=== PATIENT | female | born 1980 | race Caucasian/White ===

== ENCOUNTER 2023-09-29 21:54 | Inpatient (IN) | payer MEDICARE, OTHER, SELFPAY ==
[2023-09-29 22:01] VITALS: BP 180/110; PULSE 105; O2SAT 99
--- NOTE | 2023-09-29 22:16 | ED_ITS ---
HPI - Psych General Chief Complaint: Psychiatric Symptoms Stated Complaint: AUDITORY HALLUCINATIONS,CONF Time Seen by Provider: 09/29/23 22:05 Source: patient Mode of arrival: EMS Limitations: no limitations History of Present Illness HPI Narrative: Patient comes to the emergency room via ambulance. [place] [address] Patient told PD that she loves her condo in [place] where she was getting ?confused and scared?. Patient was suspicious that EMS on the PD were trying to hurt her. According to EMS, they suspected that patient had been wandering around the overlook. Patient states that she lost her car keys even though she had with her. Patient seemed to be suspicious and acting a bit erratic. Patient here in the emergency room stating, not answering any questions, covered herself with a blanket and curled into bed Related Data Allergies Allergy/AdvReac Type Severity Reaction Status Date / Time fish derived [fish] Allergy Unknown Verified 09/29/23 23:05 Review of Systems 2 Review of Systems: Yes Unobtainable due to mental status COUNTS INCLUDE 234 BEDS AT THE [facility] Past Medical History Medical History (Updated 09/29/23 @ 23:38 by Maye Harvey MD) Schizoaffective disorder Social History Social History Advance Directives: No Advance Directives Information Provided: No Physical Exam 2 Vital Signs: Vital Signs: Last Vital Signs Temp 98.1 F 09/29/23 22:52 Pulse 91 09/29/23 22:52 Resp 18 09/29/23 22:52 BP 152/72 H 09/29/23 22:52 Pulse Ox 96 09/29/23 22:52 O2 Del Method Room Air 09/29/23 22:52 BMI result Body Mass Index 40.4 Const: Other: Appearance: Alert. Answers questions very quietly to the point that no one can hear, then covered herself with a blanket and goes to sleep Eyes: Pupils equal, round and reactive to light. ENT: Pharynx normal. Neck: Normal inspection. Neck supple. No lymph nodes noted. No crepitus CVS: Normal heart rate and rhythm. Pulses normal. Normal S1 and S2 Respiratory: No respiratory distress. Breath sounds normal. No Wheezing. No rales Abdomen: Soft and nontender. No rigidity. No distention. Skin: Skin warm and dry. Normal skin color. Normal skin turgor. Extremities: No lower extremity edema. No Lacerations. No Rash Neuro: . CN 2 through 12 grossly intact Psych: calm, a bit agitated, was herself in bed, taking her clothes off in the middle of the hallway and then throws herself in bed Course Course Course Narrative: -patient is on a Section 12 -care team consult pending Medical Decision Making Medical Decision Making [facility] Narrative: -my interpretation of labs: Hematology shows an elevated white blood cell count of 13.9, chemistry within normal limits. LFTs within normal limits, hCG negative ETOH negative -urinalysis pending -patient is on a Section 12 -care team consult pending Differential Diagnosis Differential Diagnoses: The differential diagnosis associated with the presentation includes (Is affective disorder, paranoia, polysubstance abuse) Admission/Observation Consideration of admission/observation: Escalation of care including admission/observation considered (Patient is on a Section 12 waiting to be seen by the care team. ) Lab Data [facility] Lab Attestation statement: I reviewed the patient's lab results. 09/29/23 22:53 09/29/23 22:53 Labs: Lab Results 09/29/23 Range/Units 22:53 WBC 13.9 H (4.8-10.8) X10*3/uL RBC 4.83 (4.20-5.50) X10*6/uL Hgb 13.8 (12.0-16.0) g/dl Hct 41.2 (37.0-47.0) % MCV 85.3 (80.0-98.0) fL MCH 28.6 (27.0-33.0) pg MCHC 33.5 (31.0-35.0) g/dl RDW 14.5 (11.0-16.0) % Plt Count 186 (160-400) X10*3/uL MPV 9.7 (9.4-12.3) fL Immature Gran % (Auto) 0.5 H (0.0-0.4) % Neut % (Auto) 72.4 (45-73) % Lymph % (Auto) 18.7 L (20-40) % [place] % (Auto) 7.7 (2-11) % Eos % (Auto) 0.4 (0-4) % Baso % (Auto) 0.3 (0-2) % Lymph # (Auto) 2.6 (1.2-4.9) X10*3/uL [place] # (Auto) 1.1 (0.1-1.2) X10*3/uL Eos # (Auto) 0.1 (0.0-0.4) X10*3/uL Baso # (Auto) 0.0 (0.0-0.2) X10*3/uL Abs Immat Gran (auto) 0.07 H (0.00-0.03) X10*3/uL Absolute Neuts (auto) 10.1 H (2.0-8.3) x10*3/uL Absolute Nucleated RBC 0.000 (0.0-0.012) X10*3/uL Nucleated RBC % (auto) 0.0 (0.0-0.2) /100WBC Sodium 142 (135-145) mmol/L Potassium 3.5 (3.3-5.1) mmol/L Chloride 106 (96-108) mmol/L Carbon Dioxide 24 (22-29) mmol/L Anion Gap 16 (12-20) BUN 11 (9-16) mg/dL Creatinine 0.77 (0.5-1.4) mg/dL Estim Creat Clear Calc 109.3 Estimated GFR > 60 Random Glucose 105 (60-115) mg/dL Calcium 9.4 (8.4-10.2) mg/dL Total Bilirubin 0.5 (0.0-1.0) mg/dL Direct Bilirubin 0.2 (0.0-0.5) mg/dL AST 28 (5-31) U/L ALT 21 (0-31) U/L Alkaline Phosphatase 87 (39-117) U/L Total Protein 6.8 (6.5-8.0) g/dL Albumin 4.0 (3.5-5.0) g/dL Beta HCG, Quant < 2 mIU/mL Ethyl Alcohol < 10 mg/dL COVID-19 ([facility]) Negative (Negative) COVID-19 Clin Com See Note Critical Care Time Critical Care Time Critical Care Time: Yes Total Critical Care Time: 30 Attestation: I have personally provided critical care time. Time includes review of lab data, radiology results, discussion with consultants, and monitoring for potential decompensation. Intervention performed as documented. Discharge Plan Discharge Clinical Impression: Schizoaffective disorder Patient Disposition: Still a Patient
[2023-09-29 22:52] VITALS: BP 152/72; PULSE 91; RESP 18; TEMP 36.7; O2SAT 96; BMI 40.4
[2023-09-29 23:00] LABS: MANUAL DIFF FLAG NO
[2023-09-29 23:01] LABS: Basophils Percent Auto 0.3 % (0-2); Eosinophils Absolute Auto 0.1 X10*3/uL (0.0-0.4); Eosinophils Percent Auto 0.4 % (0-4); Hematocrit 41.2 % (37.0-47.0); Hemoglobin 13.8 g/dl (12.0-16.0); Imm Gran Abs Auto 0.07 X10*3/uL (0.00-0.03); Imm Gran Pct Auto 0.5 % (0.0-0.4); Lymphocytes Absolute Auto 2.6 X10*3/uL (1.2-4.9); Lymphocytes Percent Auto 18.7 % (20-40); Mean Corpuscular HGB Conc 33.5 g/dl (31.0-35.0); Mean Corpuscular Hemoglobin 28.6 pg (27.0-33.0); Mean Corpuscular Volume 85.3 fL (80.0-98.0); Mean Platelet Volume 9.7 fL (9.4-12.3); Monocytes Absolute Auto 1.1 X10*3/uL (0.1-1.2); Monocytes Percent Auto 7.7 % (2-11); Neutrophils Absolute Auto 10.1 x10*3/uL (2.0-8.3); Neutrophils Percent Auto 72.4 % (45-73); Platelet Count 186 X10*3/uL (160-400); Red Blood Count 4.83 X10*6/uL (4.20-5.50); Red Cell Distribution Width 14.5 % (11.0-16.0); White Blood Count 13.9 X10*3/uL (4.8-10.8)
[2023-09-29 23:15] LABS: COVID-19 Test Negative (Negative); Ethanol < 10 mg/dL; IDNOW Serial# 6674DD1D
[2023-09-29 23:22] LABS: Alanine Aminotransferase 21 U/L (0-31); Alkaline Phosphatase 87 U/L (39-117); Anion Gap 16 (12-20); Aspartate Amino Transferase 28 U/L (5-31); Bilirubin Direct 0.2 mg/dL (0.0-0.5); Bilirubin Total 0.5 mg/dL (0.0-1.0); Blood Urea Nitrogen 11 mg/dL (9-16); Calcium 9.4 mg/dL (8.4-10.2); Carbon Dioxide 24 mmol/L (22-29); Chloride 106 mmol/L (96-108); Creatinine Clr Calc Pharmacy 109.3; Estimated Glomerular Filt Rate > 60; Glucose Random 105 mg/dL (60-115); Potassium 3.5 mmol/L (3.3-5.1); Sodium 142 mmol/L (135-145); Total Protein 6.8 g/dL (6.5-8.0)
[2023-09-29 23:25] LABS: HCG Quantitative < 2 mIU/mL
[2023-09-30 06:14] VITALS: BP 155/86; PULSE 84; RESP 16; TEMP 36.6; O2SAT 97
--- NOTE | 2023-09-30 06:40 | PC.NURSE ---
this RN escorted pt to the bathroom; patient provided a urine sample but then proceeded to dump it in the toilet rather than handing it to this RN. pt then began to disrobe while in the bathroom. this RN had to give patient many verbal cues in order to get dressed again.
--- NOTE | 2023-09-30 07:14 | PC.NURSE ---
pt is wiping herself with bleach wipes off the counter. when told not to do this she appears confused. pt is also wandering the hallway and attempting to disrobe again. requires frequent redirection.
--- NOTE | 2023-09-30 09:47 | PC.NURSE ---
pt comes to this RN reporting that she is scared and unsure of what is happening. This RN validated patients feelings and explained the situation. Pt does appears disoriented, speech is soft, eye contact is limited. Pt verbalizes that she has not taken any medications for a very long time . Pt denies SI/HI
[2023-09-30 15:58] LABS: Appearance Urine Cloudy; Color Urine Dark Yellow; Glucose Urine UA Negative (Negative); Leukocyte Esterase Urine Negative (Negative); Nitrite Urine Negative (Negative); PH 5.5 (5.0-9.0); Specific Gravity - Urine >= 1.030 (1.005-1.025); UMIC TRIGGER UACC YES; Urine Blood Negative (Negative); Urine Ketones 15 mg/dL (Negative); Urine Protein 100 (2+) mg/dL (Neg-Trace)
[2023-09-30 16:08] LABS: Amphetamine Screen Urine Not Detected (Not Detect); Barbiturates, Urine Not Detected (Not Detect); Benzodiazepines Screen Urine Not Detected (Not Detect); Cannabinoid Screen Urine POSITIVE (Not Detect); Cocaine Screen Urine Not Detected (Not Detect); Fentanyl, urine Not Detected (Not Detect); Opiate Screen Urine Not Detected (Not Detect); Phencyclidine Screen Urine Not Detected (Not Detect)
[2023-09-30 16:13] LABS: Bacteria Urine 2+ (None Seen); RBC Urine 0-2 /HPF (0-2); WBC Urine 0-5 /HPF (0-5)
--- NOTE | 2023-09-30 19:17 | MHC.CARE ---
CARE TEAM spoke with patient's cousin, Maddie Stout ([phone]) who reported patient's aunt Veronica Sauer will be driving two hours to [facility] to fern picker patient's house keys.She expressed concerns about patient not willing to give the keys to their aunt due to paranoia. Cousin reported wiliness to provide support, via phone, to get her to give the keys. [place] were confirmed and are at the nurse's station, in chart.
[2023-09-30 19:47] VITALS: BP 156/81; PULSE 86; RESP 18; TEMP 36.4; O2SAT 99
--- NOTE | 2023-09-30 22:51 | MHC.CARE ---
RAD Team conducted [place] bed[place], referral being reviewed by [facility], [facility] and [facility]. RAD team to f/u with facilities to see outcome
[2023-10-01 05:15] VITALS: BP 136/60; PULSE 78; RESP 18; TEMP 36.6; O2SAT 97
--- NOTE | 2023-10-01 06:18 | PC.NURSE ---
Patient slept through the night, no distress observed/reported, VSS, behavior non concerning at this time, med rec attempted but pharmacy closed, patient use [facility] in [place] opens at 8.30 am, pharmacy made aware, patient was assessed by care team, disposition is section 12 inpatient bed search, will continue to monitor.
[2023-10-01 08:31] LABS: COVID-19 Test Negative (Negative); IDNOW Serial# 152EDE1D
--- NOTE | 2023-10-01 08:40 | PC.NURSE ---
pt states that she does not take any meds , eating breakfast, nad
[2023-10-01] MEDS: risperiDONE Oral Sol 1 MG/ML SOLUTION PO ×2 (11:53→21:44)
[2023-10-01] MEDS: LORazepam 0.5 MG TABLET PO ×2 (11:53→21:44)
--- NOTE | 2023-10-01 12:08 | PC.NURSE ---
pt signed voluntary to go upstairs. medicated as ordered
[2023-10-01 13:37] VITALS: BP 182/95; PULSE 118; RESP 16; TEMP 36.7; O2SAT 100
--- NOTE | 2023-10-01 13:42 | PC.NURSE ---
Pt arrived on the unit on a CV via wheelchair. Skin check performed. multi-colored wound on left breast noted, BP 182/95, pulse 118. Provider CAW notified via email as her cell phone is having problems, per provider. Pt also has scratches on forearms. Pt's was oriented to unit and menu for this evening and tomorrow completed. Admission to be completed.
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
[2023-10-01 18:00] VITALS: BP 125/71; PULSE 104; RESP 16; TEMP 36.7; O2SAT 98
[2023-10-02 06:00] VITALS: BP 136/63; PULSE 99; RESP 18; TEMP 36.4; O2SAT 97
[2023-10-02] MEDS: risperiDONE Oral Sol 1 MG/ML SOLUTION PO ×2 (08:25→20:02)
[2023-10-02] MEDS: LORazepam 0.5 MG TABLET PO ×2 (08:25→20:02)
[2023-10-02 09:32] LABS: Estimated Average Glucose 97 mg/dL
[2023-10-02 10:08] LABS: Cholesterol 174 mg/dL (<200); HDL Cholesterol 55 mg/dL (>40); LDL Cholesterol Calculated 103 mg/dL (<100); Triglycerides 82 mg/dL (<150)
[2023-10-02 10:27] LABS: Free T4 (Free Thyroxine) 1.24 ng/dL (0.71-1.85); Thyroid Stimulating Hormone 1.56 uIU/mL (0.32-4.0)
[2023-10-02 10:32] LABS: Folate 6.4 ng/mL (> or = 4.0); Vitamin B12 362 pg/mL (200-900)
--- NOTE | 2023-10-02 11:18 | PM.EVENT ---
Event Note Date of Service: 10/02/23 Event Note: Patient is a 43-year-old female with a PMH significant for schizoaffective disorder seen and evaluated for uncontrolled hypertension. Patient's BP on the unit yesterday was 182/95, but otherwise has been normotensive. Past readings in the ED were elevated in the 150s over 80s. Unclear if patient is chronically hypertensive, but most recent readings last night and today were normotensive at 125/71 and 136/63. Patient seen and evaluated in her room where blood pressure was again taken and patient was normotensive at 135/73. Patient reports that she thinks she may have previously been on clonidine that she took for both anxiety and hypertension, but has not been it quite a while. Currently no indication intervention at this time. Patient currently has had 3 concurrent normotensive readings from yesterday and today. If patient has sustained hypertension in the future, could consider trialing low dose of clonidine 0.1 mg or amlodipine 5 mg. Thank you for allowing us to participate in the care of this patient. Signing off at this time. Please re-consult if any acute complaints or issues arise. Time Spent With Patient Time: Total time managing care of this patient today ____ minutes.
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
[2023-10-02] MEDS: guaiFENesin DM 100/10/5 ML 5 ML SYRUP PO ×2 (12:05→20:02)
[2023-10-02 19:45] VITALS: BP 136/78; PULSE 119; RESP 18; TEMP 36.2; O2SAT 97
[2023-10-03 06:00] VITALS: BP 155/67; PULSE 94; RESP 18; TEMP 37.3; O2SAT 94
[2023-10-03] MEDS: risperiDONE Oral Sol 1 MG/ML SOLUTION PO ×2 (09:21→20:49)
[2023-10-03] MEDS: Bacitracin Oint 14 GM TUBE 1 APPL TOPICAL ×2 (09:21→20:49)
[2023-10-03] MEDS: LORazepam 0.5 MG TABLET PO ×2 (09:21→20:49)
[2023-10-03] MEDS: Acetaminophen 325 MG TABLET 650 MG PO ×2 (09:31→20:48)
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
[2023-10-03] MEDS: guaiFENesin DM 100/10/5 ML 5 ML SYRUP PO ×2 (15:15→20:49)
[2023-10-03 16:52] VITALS: BP 114/57; PULSE 85; RESP 20; TEMP 37.2; O2SAT 100
[2023-10-04 06:00] VITALS: BP 136/90; PULSE 86; RESP 18; TEMP 37.1; O2SAT 97
[2023-10-04] MEDS: LORazepam 0.5 MG TABLET PO ×2 (08:29→20:57)
[2023-10-04] MEDS: risperiDONE Oral Sol 1 MG/ML SOLUTION PO ×2 (08:29→20:56)
[2023-10-04] MEDS: Acetaminophen 325 MG TABLET 650 MG PO (12:20)
[2023-10-04] MEDS: guaiFENesin DM 100/10/5 ML 5 ML SYRUP PO (12:20)
[2023-10-04] MEDS: Bacitracin Oint 14 GM TUBE 1 APPL TOPICAL ×2 (12:23→21:03)
--- NOTE | 2023-10-04 13:22 | P.PNPSI_ITS ---
Subjective Subjective Date of Service: 10/04/23 Reason For Visit: Psychosis Interim History: Patient reports she is tired and just achy. She is more alert. Says her hallucinations are subsiding. Denies SI/HI. Was seen getting out of her room today more than yesterday. No side effects with medications reported. Sleep and appetite good. Medication Compliance: Yes Review of Systems Review of Systems Constitutional : No Weight loss, No Fever, No Chills, No Night Sweats, No Fatigue, No Malaise ENT/Mouth : No Hearing loss, No Ear Pain, No Nasal Congestion, No Sinus Pain, No Hoarseness, No sore throat, No Rhinorrhea, No Swallowing Difficulty Eyes: No Eye Pain, No Swelling, No Redness, No Foreign Body, No Discharge, No Vision Changes Cardiovascular : No Chest Pain, No SOB, No Dyspnea on Exertion, No Orthopnea, No Edema, No Palpitations Respiratory : No Cough, No Sputum, No Wheezing, No Smoke Exposure, No Dyspnea Gastrointestinal : No Nausea, No Vomiting, No Diarrhea, No Constipation, No abdominal Pain, No Hematochezia, No Melena Genitourinary : no irregular bleeding, No Dysuria, No Urinary Frequency, No Hematuria, No Urinary Incontinence, No Urgency, No Flank Pain, No Urinary Flow Changes, No Hesitancy Musculoskeletal : No joint pain, No Myalgias, No Joint Swelling Skin :1/2 cm red round lesion on left breast, Lesions, No rash Neuro : No Weakness, No Numbness, No Paresthesias, No Loss of Consciousness, No Dizziness, No Headache Psych : No Anxiety/Panic, No Depression, No SI/HI/AH/VH, No Social Issues, Heme/Lymph: No Bruising, No Bleeding,No Lymphadenopathy Endocrine : No Polyuria, No Polydipsia, No Temperature Intolerance Yes Unobtainable due to mental status Mental Status Exam Mental Status Exam Patient Appearance: Disheveled and Unkempt Patient Orientation: Person, Place, Time and Situation Level of Consciousness: Awake and Restless Patient Behavior: Guarded, Cooperative, Suspicious, Anxious, Fearful, Distractible and Poor Eye Contact Mood Description: Suspicious, Depressed, Anxious and Apprehensive Affect Description: Fearful, Anxious and Apprehensive Patient Cognition Impaired: Yes Ability to Follow Directions: Good Speech Pattern: Clear and Long Pauses Hallucinations: Auditory Thought Process: Slowed Thinking Judgement: Poor Diagnostics Vital Signs (24Hr): Vital Signs - 24 hr 10/03/23 16:52 10/04/23 06:00 Temperature 99 F 98.8 F Pulse Rate 85 86 Respiratory Rate 20 18 Blood Pressure 114/57 L 136/90 H Pulse Oximetry 100 97 Oxygen Delivery Method Room Air BMI result Body Mass Index 40.4 Labs 09/29/23 22:53 09/29/23 22:53 Medications Medications Current Medications Acetaminophen (Acetaminophen 325 Mg Tablet) 650 mg PO Q6H PRN PRN Reason: Headache/Pain Mild Scale (1-3) Last Admin: 10/04/23 12:20 Dose: 650 mg Al Hydroxide/Mg Hydroxide (Magnesium Hydrox/Alum Hydrox 30 Ml Oral.Susp) 30 ml PO Q6H PRN PRN Reason: Heartburn/Nausea Bacitracin (Bacitracin Oint 14 Gm Tube) 1 appl TOPICAL BID [facility]; Protocol Last Admin: 10/04/23 12:23 Dose: 1 appl Guaifenesin/Dextromethorphan (Guaifenesin Dm 100/10/5 Ml 5 Ml Syrup) 5 ml PO Q4H PRN PRN Reason: Cough Last Admin: 10/04/23 12:20 Dose: 5 ml Hydroxyzine HCl (Hydroxyzine Hcl 25 Mg Tablet) 25 mg PO Q6H PRN PRN Reason: Anxiety Lorazepam (Lorazepam 0.5 Mg Tablet) 0.5 mg PO BID [facility] Last Admin: 10/04/23 08:29 Dose: 0.5 mg Magnesium Hydroxide (Milk Of Magnesia 30 Ml Oral.Susp) 30 ml PO DAILY PRN PRN Reason: Constipation Risperidone (Risperidone Oral Tarsha 1 Mg/Ml Solution) 1 mg PO BID [facility] Last Admin: 10/04/23 08:29 Dose: 1 mg Trazodone HCl (Trazodone Hcl 50 Mg Tablet) 50 mg PO BEDTIME MRX1 PRN PRN Reason: Insomnia Allergies Allergies Allergy/AdvReac Type Severity Reaction Status Date / Time fish derived [fish] Allergy Unknown Verified 09/29/23 23:05 Assessment & Plan Assessment & Plan (1) Schizoaffective disorder: Status: Acute Code(s): F25.9 - Schizoaffective disorder, unspecified (2) Paranoid: Status: Acute Code(s): F22 - Delusional disorders Plan 43 yo single woman with Schizoaffective Disorder who lives alone in a condo in [place] admitted m5 after being brought to [facility] ED by police who found her wandering in [place]; She is on CV and 15 min checks. pt states she stopped her meds a few months ago. States she hasn't seen therapist and medication provider since March 2023. She states she hear voices and they insult her and are critical and mean to her. she reports being on lithium, latuda and seroquel in past but even on medication she continued to have voices. She does not want to restart lithium, latuda or seroquel but is vague about why not- says she wants to take vitamins and have a clear head. Pt states that she is often scared and fearful; believes people are watching her; fearful that people are trying to kill her. endorses depression and anxiety. denies SI or HI. PlanCV 15 min checks continue risperdal 1mg BID and ativan for anxiety [facility] consult pending robitussin for cough bacitracin for reddened area on left breast collect collateral information 10/03: Continue current treatment plan. Medications just restarted. 10/04: Continue current management and treatment plan. Reason for continued inpatient stay Substantial Risk for: inability to function and rapid decompensation Time Spent With Patient Time: Total time managing care of this patient today ____ minutes.
[2023-10-04] MEDS: Throat Lozenge, Medicated LOZENGE 1 LOZENGE MUCOUS MEM (16:04)
[2023-10-04] MEDS: Artificial Tears 15 ML DROPS 2 DROP EYE-BOTH (16:13)
[2023-10-04 17:02] VITALS: BP 137/83; PULSE 82; RESP 18; TEMP 36.7; O2SAT 99
[2023-10-05 07:30] VITALS: BP 134/83; PULSE 100; RESP 18; TEMP 36.9; O2SAT 97
[2023-10-05] MEDS: risperiDONE Oral Sol 1 MG/ML SOLUTION PO ×2 (08:27→20:48)
[2023-10-05] MEDS: LORazepam 0.5 MG TABLET PO ×2 (08:27→20:48)
[2023-10-05] MEDS: Throat Lozenge, Medicated LOZENGE 1 LOZENGE MUCOUS MEM ×2 (13:48→22:09)
[2023-10-05] MEDS: guaiFENesin DM 100/10/5 ML 5 ML SYRUP PO ×2 (13:48→22:05)
[2023-10-05] MEDS: Bacitracin Oint 14 GM TUBE 1 APPL TOPICAL ×2 (13:59→20:54)
[2023-10-05 17:07] VITALS: BP 133/74; PULSE 95; RESP 18; TEMP 36.7; O2SAT 97
--- NOTE | 2023-10-05 17:44 | P.PNPSI_ITS ---
Subjective Subjective Date of Service: 10/05/23 Reason For Visit: Psychosis Subjective Notes: Conditional Voluntary Healthcare Proxy: No Guardianship: No Medical Problems Affecting Mental Status: No Interim History: Pt reports she was able to get extra sleep this weekend. Reports anxiety, depression, voices somewhat decreased-describes voices at hurtful, sad, people she knows, voices telling her they will choke her and talking about . Satisfied with current Risperdal dosing Has a cough she is concerned about, she thinks it may be bronchitis. Talked about issues with trust- I want to trust all of you. Medication Compliance: Yes Side effects from medications: No Attending Groups: Intermittent Review of Systems Acute medical concerns: No Medical Review of Systems: unchanged Review of Systems Review of Systems cough, respiratory sx Mental Status Exam Mental Status Exam Patient Appearance: Disheveled and Unkempt Patient Orientation: Person, Place, Time and Situation Level of Consciousness: Awake and Restless Patient Behavior: Guarded, Cooperative, Suspicious, Anxious, Fearful, Distractible and Poor Eye Contact Mood Description: Suspicious, Depressed, Anxious and Apprehensive Affect Description: Fearful, Anxious and Apprehensive Patient Cognition Impaired: Yes Ability to Follow Directions: Good Speech Pattern: Clear and Long Pauses Hallucinations: Auditory Thought Process: Slowed Thinking Judgement: Poor Diagnostics Vital Signs (24Hr): Vital Signs - 24 hr 10/05/23 07:30 10/05/23 17:07 Temperature 98.4 F 98.1 F Pulse Rate 100 95 Respiratory Rate 18 18 Blood Pressure 134/83 133/74 Pulse Oximetry 97 97 Oxygen Delivery Method Room Air Room Air BMI result Body Mass Index 40.4 Labs 09/29/23 22:53 09/29/23 22:53 Medications Medications Current Medications Acetaminophen (Acetaminophen 325 Mg Tablet) 650 mg PO Q6H PRN PRN Reason: Headache/Pain Mild Scale (1-3) Last Admin: 10/04/23 12:20 Dose: 650 mg Al Hydroxide/Mg Hydroxide (Magnesium Hydrox/Alum Hydrox 30 Ml Oral.Susp) 30 ml PO Q6H PRN PRN Reason: Heartburn/Nausea Artificial Tears (Artificial Tears 15 Ml Drops) 2 drop EYE-BOTH Q4H PRN PRN Reason: Dry Eyes Last Admin: 10/04/23 16:13 Dose: 2 drop Bacitracin (Bacitracin Oint 14 Gm Tube) 1 appl TOPICAL BID [facility]; Protocol Last Admin: 10/05/23 13:59 Dose: 1 appl Benzocaine (Throat Lozenge, Medicated Lozenge) 1 lozenge MUCOUS MEM Q2H PRN PRN Reason: Sore Throat Last Admin: 10/05/23 13:48 Dose: 1 lozenge Guaifenesin/Dextromethorphan (Guaifenesin Dm 100/10/5 Ml 5 Ml Syrup) 5 ml PO Q4H PRN PRN Reason: Cough Last Admin: 10/05/23 13:48 Dose: 5 ml Hydroxyzine HCl (Hydroxyzine Hcl 25 Mg Tablet) 25 mg PO Q6H PRN PRN Reason: Anxiety Lorazepam (Lorazepam 0.5 Mg Tablet) 0.5 mg PO BID [facility] Last Admin: 10/05/23 08:27 Dose: 0.5 mg Magnesium Hydroxide (Milk Of Magnesia 30 Ml Oral.Susp) 30 ml PO DAILY PRN PRN Reason: Constipation Multi-Ingred Medicated Throat [place] (Throat [place], Medicated 177 Ml Bottle) 1 spray MUCOUS MEM Q2H PRN PRN Reason: throat irritation Risperidone (Risperidone Oral Tarsha 1 Mg/Ml Solution) 1 mg PO BID [facility] Last Admin: 10/05/23 08:27 Dose: 1 mg Trazodone HCl (Trazodone Hcl 50 Mg Tablet) 50 mg PO BEDTIME MRX1 PRN PRN Reason: Insomnia Allergies Allergies Allergy/AdvReac Type Severity Reaction Status Date / Time fish derived [fish] Allergy Unknown Verified 09/29/23 23:05 Assessment & Plan Assessment & Plan (1) Schizoaffective disorder: Status: Acute Code(s): F25.9 - Schizoaffective disorder, unspecified (2) Paranoid: Status: Acute Code(s): F22 - Delusional disorders Plan 43 yo single woman with Schizoaffective Disorder who lives alone in a condo in [place] admitted m5 after being brought to [facility] ED by police who found her wandering in [place]; She is on CV and 15 min checks. pt states she stopped her meds a few months ago. States she hasn't seen therapist and medication provider since March 2023. She states she hear voices and they insult her and are critical and mean to her. she reports being on lithium, latuda and seroquel in past but even on medication she continued to have voices. She does not want to restart lithium, latuda or seroquel but is vague about why not- says she wants to take vitamins and have a clear head. Pt states that she is often scared and fearful; believes people are watching her; fearful that people are trying to kill her. endorses depression and anxiety. denies SI or HI. PlanCV 15 min checks continue risperdal 1mg BID and ativan for anxiety [place] [facility] consult pending robitussin for cough bacitracin for reddened area on left breast collect collateral information 10/03: Continue current treatment plan. Medications just restarted. 10/04: Continue current management and treatment plan. 10/05: Continue tx Patient educated on: medication risk/benefits, therapeutic strategies and medical condition Informed Consent: understands and further education needed Reason for continued inpatient stay Substantial Risk for: rapid decompensation and med/psych decompensation Time Spent With Patient Time: Total time managing care of this patient today ____ minutes.
[2023-10-05] MEDS: Throat Spray, Medicated 177 ML BOTTLE 1 SPRAY MUCOUS MEM (22:09)
[2023-10-05 23:18] LABS: Influenza A PCR POSITIVE (Negative); Influenza B PCR NEGATIVE (Negative); Resp Syncy Virus RNA Qual PCR NEGATIVE (Negative); SARS COV2 PCR INHOUSE NEGATIVE (Negative)
[2023-10-06 08:06] VITALS: BP 122/77; PULSE 105; RESP 16; TEMP 36.8; O2SAT 92
[2023-10-06] MEDS: risperiDONE Oral Sol 1 MG/ML SOLUTION PO ×2 (09:21→20:20)
[2023-10-06] MEDS: LORazepam 0.5 MG TABLET PO ×2 (09:21→20:20)
[2023-10-06] MEDS: Throat Lozenge, Medicated LOZENGE 1 LOZENGE MUCOUS MEM ×2 (09:22→17:09)
[2023-10-06] MEDS: Bacitracin Oint 14 GM TUBE 1 APPL TOPICAL ×2 (09:22→20:22)
--- NOTE | 2023-10-06 09:54 | HO.PSYCHPN ---
Subjective Subjective Date of Service: 10/06/23 Reason For Visit: Psychosis Subjective Notes: Conditional Voluntary Healthcare Proxy: No Guardianship: No Medical Problems Affecting Mental Status: No Interim History: Screen + Flu type A. Tamiflu initiated. Tolerating regime, resting, reading in bed. URI/Flu sx. No changes today. Medication Compliance: Yes Side effects from medications: No Attending Groups: No Review of Systems Acute medical concerns: No Flu+ Medical Review of Systems: changed Review of Systems: Flu sx Review of Systems Review of Systems Flu sx Mental Status Exam Mental Status Exam Patient Appearance: Disheveled and Unkempt Patient Orientation: Person, Place, Time and Situation Level of Consciousness: Awake and Restless Patient Behavior: Guarded, Cooperative, Suspicious, Anxious, Fearful, Distractible and Poor Eye Contact Mood Description: Suspicious, Depressed, Anxious and Apprehensive Affect Description: Fearful, Anxious and Apprehensive Patient Cognition Impaired: Yes Ability to Follow Directions: Good Speech Pattern: Clear and Long Pauses Hallucinations: Auditory Thought Process: Slowed Thinking Judgement: Poor Diagnostics Vital Signs (24Hr): Vital Signs - 24 hr 10/05/23 17:07 10/06/23 08:06 Temperature 98.1 F 98.2 F Pulse Rate 95 105 H Respiratory Rate 18 16 Blood Pressure 133/74 122/77 Pulse Oximetry 97 92 Oxygen Delivery Method Room Air Room Air BMI result Body Mass Index 40.4 Labs 09/29/23 22:53 09/29/23 22:53 Labs: Laboratory Results - last 48 hr 10/05/23 22:30 Influenza Type A (PCR) POSITIVE A Influenza Type B (PCR) NEGATIVE RSV RNA Qual (PCR) NEGATIVE SARS-CoV-2 RNA (RT-PCR) NEGATIVE Medications Medications Current Medications Acetaminophen (Acetaminophen 325 Mg Tablet) 650 mg PO Q6H PRN PRN Reason: Headache/Pain Mild Scale (1-3) Last Admin: 10/04/23 12:20 Dose: 650 mg Al Hydroxide/Mg Hydroxide (Magnesium Hydrox/Alum Hydrox 30 Ml Oral.Susp) 30 ml PO Q6H PRN PRN Reason: Heartburn/Nausea Artificial Tears (Artificial Tears 15 Ml Drops) 2 drop EYE-BOTH Q4H PRN PRN Reason: Dry Eyes Last Admin: 10/04/23 16:13 Dose: 2 drop Bacitracin (Bacitracin Oint 14 Gm Tube) 1 appl TOPICAL BID [facility]; Protocol Last Admin: 10/06/23 09:22 Dose: 1 appl Benzocaine (Throat Lozenge, Medicated Lozenge) 1 lozenge MUCOUS MEM Q2H PRN PRN Reason: Sore Throat Last Admin: 10/06/23 09:22 Dose: 1 lozenge Guaifenesin/Dextromethorphan (Guaifenesin Dm 100/10/5 Ml 5 Ml Syrup) 5 ml PO Q4H PRN PRN Reason: Cough Last Admin: 10/05/23 22:05 Dose: 5 ml Hydroxyzine HCl (Hydroxyzine Hcl 25 Mg Tablet) 25 mg PO Q6H PRN PRN Reason: Anxiety Lorazepam (Lorazepam 0.5 Mg Tablet) 0.5 mg PO BID [facility] Last Admin: 10/06/23 09:21 Dose: 0.5 mg Magnesium Hydroxide (Milk Of Magnesia 30 Ml Oral.Susp) 30 ml PO DAILY PRN PRN Reason: Constipation Multi-Ingred Medicated Throat [place] (Throat [place], Medicated 177 Ml Bottle) 1 spray MUCOUS MEM Q2H PRN PRN Reason: throat irritation Last Admin: 10/05/23 22:09 Dose: 1 spray Risperidone (Risperidone Oral Tarsha 1 Mg/Ml Solution) 1 mg PO BID [facility] Last Admin: 10/06/23 09:21 Dose: 1 mg Trazodone HCl (Trazodone Hcl 50 Mg Tablet) 50 mg PO BEDTIME MRX1 PRN PRN Reason: Insomnia Allergies Allergies Allergy/AdvReac Type Severity Reaction Status Date / Time fish derived [fish] Allergy Unknown Verified 09/29/23 23:05 Assessment & Plan Assessment & Plan (1) Schizoaffective disorder: Status: Acute Code(s): F25.9 - Schizoaffective disorder, unspecified (2) Paranoid: Status: Acute Code(s): F22 - Delusional disorders Plan 43 yo single woman with Schizoaffective Disorder who lives alone in a condo in [facility] admitted m5 after being brought to [facility] ED by police who found her wandering in [place]; She is on CV and 15 min checks. pt states she stopped her meds a few months ago. States she hasn't seen therapist and medication provider since March 2023. She states she hear voices and they insult her and are critical and mean to her. she reports being on lithium, latuda and seroquel in past but even on medication she continued to have voices. She does not want to restart lithium, latuda or seroquel but is vague about why not- says she wants to take vitamins and have a clear head. Pt states that she is often scared and fearful; believes people are watching her; fearful that people are trying to kill her. endorses depression and anxiety. denies SI or HI. PlanCV 15 min checks continue risperdal 1mg BID and ativan for anxiety [facility] consult pending robitussin for cough bacitracin for reddened area on left breast collect collateral information 10/03: Continue current treatment plan. Medications just restarted. 10/04: Continue current management and treatment plan. 10/05: Continue tx 10/06: Tamiflu course Continue current tx Patient educated on: therapeutic strategies Informed Consent: understands and further education needed Reason for continued inpatient stay Substantial Risk for: med/psych decompensation Time Spent With Patient Time: Total time managing care of this patient today ____ minutes.
[2023-10-06] MEDS: guaiFENesin DM 100/10/5 ML 5 ML SYRUP PO ×2 (11:13→19:17)
[2023-10-06] MEDS: Throat Spray, Medicated 177 ML BOTTLE 1 SPRAY MUCOUS MEM ×2 (11:13→17:10)
[2023-10-06] MEDS: Oseltamivir Phosphate 75 MG CAPSULE PO (15:23)
[2023-10-06 19:45] VITALS: BP 150/77; PULSE 82; RESP 16; TEMP 36.5; O2SAT 100
[2023-10-07] MEDS: guaiFENesin DM 100/10/5 ML 5 ML SYRUP PO ×2 (05:11→16:44)
[2023-10-07] MEDS: Throat Lozenge, Medicated LOZENGE 1 LOZENGE MUCOUS MEM ×4 (05:11→14:34)
[2023-10-07 08:07] VITALS: BP 163/83; PULSE 84; RESP 16; TEMP 36.3; O2SAT 99
[2023-10-07] MEDS: LORazepam 0.5 MG TABLET PO ×2 (09:01→21:09)
[2023-10-07] MEDS: risperiDONE Oral Sol 1 MG/ML SOLUTION PO ×2 (09:01→21:09)
[2023-10-07] MEDS: Bacitracin Oint 14 GM TUBE 1 APPL TOPICAL ×3 (09:02→21:09)
[2023-10-07] MEDS: Throat Spray, Medicated 177 ML BOTTLE 1 SPRAY MUCOUS MEM ×2 (09:02→21:13)
[2023-10-07] MEDS: Oseltamivir Phosphate 75 MG CAPSULE PO (14:34)
[2023-10-07] MEDS: Acetaminophen 325 MG TABLET 650 MG PO (14:34)
--- NOTE | 2023-10-07 16:32 | P.PNPSI_ITS ---
Subjective Subjective Date of Service: 10/07/23 Reason For Visit: Psychosis Subjective Notes: Conditional Voluntary Healthcare Proxy: No Guardianship: No Medical Problems Affecting Mental Status: No Interim History: Feeling a decrease of flu sx. In bed, reading, engaged in discussion today, decrease in AH Denies med SE, reports regime to be helpful, overall feeling improved she reports. Medication Compliance: Yes Side effects from medications: No Attending Groups: No Review of Systems Resolving flu Review of Systems: Resolving flu Review of Systems Review of Systems Resolving flu Mental Status Exam Mental Status Exam Patient Appearance: Appropriate Patient Orientation: Person, Place, Time and Situation Level of Consciousness: Awake Patient Behavior: Talkative, Cooperative and Good Eye Contact Mood Description: Depressed Affect Description: Flat Patient Cognition Impaired: No Ability to Follow Directions: Good Speech Pattern: Clear and Spontaneous Speech Memory Description: Episodic Impaired Hallucinations: Auditory (reports a decrease) Thought Process: Slowed Thinking Thought Content: positive for [place] and positive for Circumstantial Judgement: Fair Diagnostics Vital Signs (24Hr): Vital Signs - 24 hr 10/06/23 19:45 10/07/23 08:07 Temperature 97.7 F 97.4 F Pulse Rate 82 84 Respiratory Rate 16 16 Blood Pressure 150/77 H 163/83 H Pulse Oximetry 100 99 Oxygen Delivery Method Room Air Room Air BMI result Body Mass Index 40.4 Labs 09/29/23 22:53 09/29/23 22:53 Labs: Laboratory Results - last 48 hr 10/05/23 22:30 Influenza Type A (PCR) POSITIVE A Influenza Type B (PCR) NEGATIVE RSV RNA Qual (PCR) NEGATIVE SARS-CoV-2 RNA (RT-PCR) NEGATIVE Medications Medications Current Medications Acetaminophen (Acetaminophen 325 Mg Tablet) 650 mg PO Q6H PRN PRN Reason: Headache/Pain Mild Scale (1-3) Last Admin: 10/07/23 14:34 Dose: 650 mg Al Hydroxide/Mg Hydroxide (Magnesium Hydrox/Alum Hydrox 30 Ml Oral.Susp) 30 ml PO Q6H PRN PRN Reason: Heartburn/Nausea Artificial Tears (Artificial Tears 15 Ml Drops) 2 drop EYE-BOTH Q4H PRN PRN Reason: Dry Eyes Last Admin: 10/04/23 16:13 Dose: 2 drop Bacitracin (Bacitracin Oint 14 Gm Tube) 1 appl TOPICAL BID MACIEL; Protocol Last Admin: 10/07/23 11:06 Dose: 1 appl Benzocaine (Throat Lozenge, Medicated Lozenge) 1 lozenge MUCOUS MEM Q2H PRN PRN Reason: Sore Throat Last Admin: 10/07/23 14:34 Dose: 1 lozenge Guaifenesin/Dextromethorphan (Guaifenesin Dm 100/10/5 Ml 5 Ml Syrup) 5 ml PO Q4H PRN PRN Reason: Cough Last Admin: 10/07/23 05:11 Dose: 5 ml Hydroxyzine HCl (Hydroxyzine Hcl 25 Mg Tablet) 25 mg PO Q6H PRN PRN Reason: Anxiety Lorazepam (Lorazepam 0.5 Mg Tablet) 0.5 mg PO BID [facility] Last Admin: 10/07/23 09:01 Dose: 0.5 mg Magnesium Hydroxide (Milk Of Magnesia 30 Ml Oral.Susp) 30 ml PO DAILY PRN PRN Reason: Constipation Multi-Ingred Medicated Throat [place] (Throat [place], Medicated 177 Ml Bottle) 1 spray MUCOUS MEM Q2H PRN PRN Reason: throat irritation Last Admin: 10/07/23 09:02 Dose: 1 spray Oseltamivir Phosphate (Oseltamivir Phosphate 75 Mg Capsule) 75 mg PO Q24H [facility] Stop: 10/10/23 15:31 Last Admin: 10/07/23 14:34 Dose: 75 mg Risperidone (Risperidone Oral Tarsha 1 Mg/Ml Solution) 1 mg PO BID [facility] Last Admin: 10/07/23 09:01 Dose: 1 mg Trazodone HCl (Trazodone Hcl 50 Mg Tablet) 50 mg PO BEDTIME MRX1 PRN PRN Reason: Insomnia Allergies Allergies Allergy/AdvReac Type Severity Reaction Status Date / Time fish derived [fish] Allergy Unknown Verified 09/29/23 23:05 Assessment & Plan Assessment & Plan (1) Schizoaffective disorder: Status: Acute Code(s): F25.9 - Schizoaffective disorder, unspecified (2) Paranoid: Status: Acute Code(s): F22 - Delusional disorders Plan 43 yo single woman with Schizoaffective Disorder who lives alone in a condo in [place] admitted m5 after being brought to [facility] by police who found her wandering in [place]; She is on CV and 15 min checks. pt states she stopped her meds a few months ago. States she hasn't seen therapist and medication provider since March 2023. She states she hear voices and they insult her and are critical and mean to her. she reports being on lithium, latuda and seroquel in past but even on medication she continued to have voices. She does not want to restart lithium, latuda or seroquel but is vague about why not- says she wants to take vitamins and have a clear head. Pt states that she is often scared and fearful; believes people are watching her; fearful that people are trying to kill her. endorses depression and anxiety. denies SI or HI. PlanCV 15 min checks continue risperdal 1mg BID and ativan for anxiety [facility] ist consult pending robitussin for cough bacitracin for reddened area on left breast collect collateral information 10/03: Continue current treatment plan. Medications just restarted. 10/04: Continue current management and treatment plan. 10/05: Continue tx 10/07/23: Continue tx Patient educated on: medication risk/benefits, therapeutic strategies and medical condition Informed Consent: understands Reason for continued inpatient stay Substantial Risk for: med/psych decompensation Time Spent With Patient Time: Total time managing care of this patient today ____ minutes.
[2023-10-07 18:00] VITALS: BP 148/94; PULSE 84; TEMP 36.3; O2SAT 100
[2023-10-08 07:00] VITALS: BMI 40.3
[2023-10-08 08:45] VITALS: BP 142/80; PULSE 87; RESP 16; TEMP 36.7; O2SAT 97
[2023-10-08] MEDS: LORazepam 0.5 MG TABLET PO ×2 (09:44→20:21)
[2023-10-08] MEDS: Bacitracin Oint 14 GM TUBE 1 APPL TOPICAL ×2 (09:44→20:21)
[2023-10-08] MEDS: Throat Lozenge, Medicated LOZENGE 1 LOZENGE MUCOUS MEM (09:45)
[2023-10-08] MEDS: risperiDONE Oral Sol 1 MG/ML SOLUTION PO ×2 (09:45→20:21)
[2023-10-08] MEDS: Artificial Tears 15 ML DROPS 2 DROP EYE-BOTH (13:06)
[2023-10-08] MEDS: Throat Spray, Medicated 177 ML BOTTLE 1 SPRAY MUCOUS MEM (14:14)
[2023-10-08] MEDS: Oseltamivir Phosphate 75 MG CAPSULE PO (15:41)
[2023-10-08 16:55] VITALS: BP 156/98; PULSE 82; RESP 16; TEMP 36.6; O2SAT 99
--- NOTE | 2023-10-08 18:53 | P.PNPSI_ITS ---
Subjective Subjective Date of Service: 10/08/23 Reason For Visit: Psychosis Subjective Notes: Conditional Voluntary Healthcare Proxy: No Guardianship: No Medical Problems Affecting Mental Status: No Interim History: Reports continued improvement with medicine compliance and recovery from flu. Re-connected with her sister and finds sister's support a great comfort , especially when in hospital. Medication Compliance: Yes Side effects from medications: No Attending Groups: No Review of Systems Acute medical concerns: No Medical Review of Systems: unchanged Review of Systems Review of Systems Recovering from flu sx Mental Status Exam Mental Status Exam Patient Appearance: Appropriate Patient Orientation: Person, Place, Time and Situation Level of Consciousness: Awake Patient Behavior: Talkative, Cooperative and Good Eye Contact Mood Description: Depressed Affect Description: Flat Patient Cognition Impaired: No Ability to Follow Directions: Good Speech Pattern: Clear and Spontaneous Speech Memory Description: Episodic Impaired Hallucinations: Auditory (reports a decrease) Thought Process: Slowed Thinking Thought Content: positive for [place] and positive for Circumstantial Judgement: Fair Diagnostics Vital Signs (24Hr): Vital Signs - 24 hr 10/08/23 08:45 10/08/23 16:55 Temperature 98.0 F 97.8 F Pulse Rate 87 82 Respiratory Rate 16 16 Blood Pressure 142/80 H 156/98 H Pulse Oximetry 97 99 Oxygen Delivery Method Room Air Room Air BMI result Body Mass Index 40.3 Labs 09/29/23 22:53 09/29/23 22:53 Medications Medications Current Medications Acetaminophen (Acetaminophen 325 Mg Tablet) 650 mg PO Q6H PRN PRN Reason: Headache/Pain Mild Scale (1-3) Last Admin: 10/07/23 14:34 Dose: 650 mg Al Hydroxide/Mg Hydroxide (Magnesium Hydrox/Alum Hydrox 30 Ml Oral.Susp) 30 ml PO Q6H PRN PRN Reason: Heartburn/Nausea Artificial Tears (Artificial Tears 15 Ml Drops) 2 drop EYE-BOTH Q4H PRN PRN Reason: Dry Eyes Last Admin: 10/08/23 13:06 Dose: 2 drop Bacitracin (Bacitracin Oint 14 Gm Tube) 1 appl TOPICAL BID MACIEL; Protocol Last Admin: 10/08/23 09:44 Dose: 1 appl Benzocaine (Throat Lozenge, Medicated Lozenge) 1 lozenge MUCOUS MEM Q2H PRN PRN Reason: Sore Throat Last Admin: 10/08/23 09:45 Dose: 1 lozenge Guaifenesin/Dextromethorphan (Guaifenesin Dm 100/10/5 Ml 5 Ml Syrup) 5 ml PO Q4H PRN PRN Reason: Cough Last Admin: 10/07/23 16:44 Dose: 5 ml Hydroxyzine HCl (Hydroxyzine Hcl 25 Mg Tablet) 25 mg PO Q6H PRN PRN Reason: Anxiety Lorazepam (Lorazepam 0.5 Mg Tablet) 0.5 mg PO BID [facility] Last Admin: 10/08/23 09:44 Dose: 0.5 mg Magnesium Hydroxide (Milk Of Magnesia 30 Ml Oral.Susp) 30 ml PO DAILY PRN PRN Reason: Constipation Multi-Ingred Medicated Throat [place] (Throat [place], Medicated 177 Ml Bottle) 1 spray MUCOUS MEM Q2H PRN PRN Reason: throat irritation Last Admin: 10/08/23 14:14 Dose: 1 spray Oseltamivir Phosphate (Oseltamivir Phosphate 75 Mg Capsule) 75 mg PO Q24H [facility] Stop: 10/10/23 15:31 Last Admin: 10/08/23 15:41 Dose: 75 mg Risperidone (Risperidone Oral Tarsha 1 Mg/Ml Solution) 1 mg PO BID [facility] Last Admin: 10/08/23 09:45 Dose: 1 mg Trazodone HCl (Trazodone Hcl 50 Mg Tablet) 50 mg PO BEDTIME MRX1 PRN PRN Reason: Insomnia Allergies Allergies Allergy/AdvReac Type Severity Reaction Status Date / Time fish derived [fish] Allergy Unknown Verified 09/29/23 23:05 Assessment & Plan Assessment & Plan (1) Schizoaffective disorder: Status: Acute Code(s): F25.9 - Schizoaffective disorder, unspecified (2) Paranoid: Status: Acute Code(s): F22 - Delusional disorders Plan 43 yo single woman with Schizoaffective Disorder who lives alone in a condo in [place] admitted m5 after being brought to [facility] ED by police who found her wandering in [place]; She is on CV and 15 min checks. pt states she stopped her meds a few months ago. States she hasn't seen therapist and medication provider since March 2023. She states she hear voices and they insult her and are critical and mean to her. she reports being on lithium, latuda and seroquel in past but even on medication she continued to have voices. She does not want to restart lithium, latuda or seroquel but is vague about why not- says she wants to take vitamins and have a clear head. Pt states that she is often scared and fearful; believes people are watching her; fearful that people are trying to kill her. endorses depression and anxiety. denies SI or HI. PlanCV 15 min checks continue risperdal 1mg BID and ativan for anxiety [facility] consult pending robitussin for cough bacitracin for reddened area on left breast collect collateral information 10/03: Continue current treatment plan. Medications just restarted. 10/04: Continue current management and treatment plan. 10/05: Continue tx 10/07/23: Continue tx 10/08/23: Continue tx. Informed Consent: understands Reason for continued inpatient stay Substantial Risk for: rapid decompensation Time Spent With Patient Time: Total time managing care of this patient today ____ minutes.
[2023-10-08] MEDS: guaiFENesin DM 100/10/5 ML 5 ML SYRUP PO (21:00)
[2023-10-09] MEDS: guaiFENesin DM 100/10/5 ML 5 ML SYRUP PO ×2 (07:01→15:58)
[2023-10-09] MEDS: Throat Lozenge, Medicated LOZENGE 1 LOZENGE MUCOUS MEM ×4 (07:01→19:13)
[2023-10-09 08:07] VITALS: BP 129/66; PULSE 73; RESP 16; TEMP 36.1; O2SAT 99
[2023-10-09] MEDS: LORazepam 0.5 MG TABLET PO ×2 (08:17→20:25)
[2023-10-09] MEDS: risperiDONE Oral Sol 1 MG/ML SOLUTION PO ×2 (08:17→20:25)
--- NOTE | 2023-10-09 13:09 | HO.PSYCHPN ---
Subjective Subjective Date of Service: 10/09/23 Reason For Visit: Psychosis Subjective Notes: Conditional Voluntary Healthcare Proxy: No Guardianship: No Medical Problems Affecting Mental Status: No Interim History: Working today on focus on her breathing to manage anxiety. Demonstrated some skills she has been taught by her sister. Continues to report flu sx to be resolving. Discussed anxiety and her initial difficulty with admission to a new hospital, but it is good here, I like it. Medication Compliance: Yes Side effects from medications: No Attending Groups: Intermittent Review of Systems Acute medical concerns: No Medical Review of Systems: unchanged Review of Systems Review of Systems Resolving flu sx Mental Status Exam Mental Status Exam Patient Appearance: Appropriate Patient Orientation: Person, Place, Time and Situation Level of Consciousness: Awake Patient Behavior: Talkative, Cooperative and Good Eye Contact Mood Description: Depressed Affect Description: Flat Patient Cognition Impaired: No Ability to Follow Directions: Good Speech Pattern: Clear and Spontaneous Speech Memory Description: Episodic Impaired Hallucinations: Auditory (reports a decrease) Thought Process: Slowed Thinking Thought Content: positive for [place] and positive for Circumstantial Judgement: Fair Diagnostics Vital Signs (24Hr): Vital Signs - 24 hr 10/08/23 16:55 10/09/23 08:07 Temperature 97.8 F 97 F Pulse Rate 82 73 Respiratory Rate 16 16 Blood Pressure 156/98 H 129/66 Pulse Oximetry 99 99 Oxygen Delivery Method Room Air Room Air BMI result Body Mass Index 40.3 Labs 09/29/23 22:53 09/29/23 22:53 Medications Medications Current Medications Acetaminophen (Acetaminophen 325 Mg Tablet) 650 mg PO Q6H PRN PRN Reason: Headache/Pain Mild Scale (1-3) Last Admin: 10/07/23 14:34 Dose: 650 mg Al Hydroxide/Mg Hydroxide (Magnesium Hydrox/Alum Hydrox 30 Ml Oral.Susp) 30 ml PO Q6H PRN PRN Reason: Heartburn/Nausea Artificial Tears (Artificial Tears 15 Ml Drops) 2 drop EYE-BOTH Q4H PRN PRN Reason: Dry Eyes Last Admin: 10/08/23 13:06 Dose: 2 drop Bacitracin (Bacitracin Oint 14 Gm Tube) 1 appl TOPICAL BID MACIEL; Protocol Last Admin: 10/09/23 08:19 Dose: Not Given Benzocaine (Throat Lozenge, Medicated Lozenge) 1 lozenge MUCOUS MEM Q2H PRN PRN Reason: Sore Throat Last Admin: 10/09/23 11:58 Dose: 1 lozenge Guaifenesin/Dextromethorphan (Guaifenesin Dm 100/10/5 Ml 5 Ml Syrup) 5 ml PO Q4H PRN PRN Reason: Cough Last Admin: 10/09/23 07:01 Dose: 5 ml Hydroxyzine HCl (Hydroxyzine Hcl 25 Mg Tablet) 25 mg PO Q6H PRN PRN Reason: Anxiety Lorazepam (Lorazepam 0.5 Mg Tablet) 0.5 mg PO BID [facility] Last Admin: 10/09/23 08:17 Dose: 0.5 mg Magnesium Hydroxide (Milk Of Magnesia 30 Ml Oral.Susp) 30 ml PO DAILY PRN PRN Reason: Constipation Multi-Ingred Medicated Throat [place] (Throat [place], Medicated 177 Ml Bottle) 1 spray MUCOUS MEM Q2H PRN PRN Reason: throat irritation Last Admin: 10/08/23 14:14 Dose: 1 spray Oseltamivir Phosphate (Oseltamivir Phosphate 75 Mg Capsule) 75 mg PO Q24H [facility] Stop: 10/10/23 15:31 Last Admin: 10/08/23 15:41 Dose: 75 mg Risperidone (Risperidone Oral Tarsha 1 Mg/Ml Solution) 1 mg PO BID [facility] Last Admin: 10/09/23 08:17 Dose: 1 mg Trazodone HCl (Trazodone Hcl 50 Mg Tablet) 50 mg PO BEDTIME MRX1 PRN PRN Reason: Insomnia Allergies Allergies Allergy/AdvReac Type Severity Reaction Status Date / Time fish derived [fish] Allergy Unknown Verified 09/29/23 23:05 Assessment & Plan Assessment & Plan (1) Schizoaffective disorder: Status: Acute Code(s): F25.9 - Schizoaffective disorder, unspecified (2) Paranoid: Status: Acute Code(s): F22 - Delusional disorders Plan 43 yo single woman with Schizoaffective Disorder who lives alone in a condo in [facility] admitted m5 after being brought to [facility] by police who found her wandering [place]; She is on CV and 15 min checks. pt states she stopped her meds a few months ago. States she hasn't seen therapist and medication provider since March 2023. She states she hear voices and they insult her and are critical and mean to her. she reports being on lithium, latuda and seroquel in past but even on medication she continued to have voices. She does not want to restart lithium, latuda or seroquel but is vague about why not- says she wants to take vitamins and have a clear head. Pt states that she is often scared and fearful; believes people are watching her; fearful that people are trying to kill her. endorses depression and anxiety. denies SI or HI. PlanCV 15 min checks continue risperdal 1mg BID and ativan for anxiety [facility] ist consult pending robitussin for cough bacitracin for reddened area on left breast collect collateral information 10/03: Continue current treatment plan. Medications just restarted. 10/04: Continue current management and treatment plan. 10/05: Continue tx 10/07/23: Continue tx 10/09/23: Continue tx Informed Consent: understands Reason for continued inpatient stay Substantial Risk for: rapid decompensation Time Spent With Patient Time: Total time managing care of this patient today ____ minutes.
[2023-10-09] MEDS: Oseltamivir Phosphate 75 MG CAPSULE PO (14:51)
[2023-10-09] MEDS: Acetaminophen 325 MG TABLET 650 MG PO (15:56)
[2023-10-09 16:32] VITALS: BP 139/83; PULSE 96; RESP 18; TEMP 36.6; O2SAT 100
[2023-10-09] MEDS: Throat Spray, Medicated 177 ML BOTTLE 1 SPRAY MUCOUS MEM (19:13)
[2023-10-09] MEDS: Bacitracin Oint 14 GM TUBE 1 APPL TOPICAL (20:28)
[2023-10-10 08:06] VITALS: BP 133/82; PULSE 82; RESP 15; TEMP 36.8; O2SAT 98
[2023-10-10] MEDS: risperiDONE Oral Sol 1 MG/ML SOLUTION PO ×2 (09:15→20:36)
[2023-10-10] MEDS: LORazepam 0.5 MG TABLET PO ×2 (09:15→20:35)
[2023-10-10] MEDS: guaiFENesin DM 100/10/5 ML 5 ML SYRUP PO (10:58)
--- NOTE | 2023-10-10 13:26 | P.PNPSI_ITS ---
Subjective Subjective Date of Service: 10/10/23 Reason For Visit: Psychosis Subjective Notes: Conditional Voluntary Healthcare Proxy: No Guardianship: No Medical Problems Affecting Mental Status: Yes (recent flu) Interim History: 43 yo reports decrease in ah - and some fears that someone might hurt her Medication Compliance: Yes Side effects from medications: No Attending Groups: Intermittent Review of Systems Acute medical concerns: Yes s/p flu Medical Review of Systems: unchanged Mental Status Exam Mental Status Exam Patient Appearance: Appropriate Patient Orientation: Person, Place, Time and Situation Level of Consciousness: Awake Patient Behavior: Guarded and Poor Eye Contact Mood Description: Blunted Affect Description: Apprehensive Patient Cognition Impaired: No Ability to Follow Directions: Fair Speech Pattern: Clear Hallucinations: Auditory Delusions: Paranoid Ideation Thought Process: Intact Thought Content: positive for [place] and positive for Preoccupation Depressive Symptoms: Muscle Tension Judgement: Fair Diagnostics Vital Signs (24Hr): Vital Signs - 24 hr 10/09/23 16:32 10/10/23 08:06 Temperature 97.9 F 98.2 F Pulse Rate 96 82 Respiratory Rate 18 15 Blood Pressure 139/83 133/82 Pulse Oximetry 100 98 Oxygen Delivery Method Room Air Room Air BMI result Body Mass Index 40.3 Labs 09/29/23 22:53 09/29/23 22:53 Medications Medications Current Medications Acetaminophen (Acetaminophen 325 Mg Tablet) 650 mg PO Q6H PRN PRN Reason: Headache/Pain Mild Scale (1-3) Last Admin: 10/09/23 15:56 Dose: 650 mg Al Hydroxide/Mg Hydroxide (Magnesium Hydrox/Alum Hydrox 30 Ml Oral.Susp) 30 ml PO Q6H PRN PRN Reason: Heartburn/Nausea Artificial Tears (Artificial Tears 15 Ml Drops) 2 drop EYE-BOTH Q4H PRN PRN Reason: Dry Eyes Last Admin: 10/08/23 13:06 Dose: 2 drop Bacitracin (Bacitracin Oint 14 Gm Tube) 1 appl TOPICAL BID [facility]IEL; Protocol Last Admin: 10/10/23 11:52 Dose: Not Given Benzocaine (Throat Lozenge, Medicated Lozenge) 1 lozenge MUCOUS MEM Q2H PRN PRN Reason: Sore Throat Last Admin: 10/09/23 19:13 Dose: 1 lozenge Guaifenesin/Dextromethorphan (Guaifenesin Dm 100/10/5 Ml 5 Ml Syrup) 5 ml PO Q4H PRN PRN Reason: Cough Last Admin: 10/10/23 10:58 Dose: 5 ml Hydroxyzine HCl (Hydroxyzine Hcl 25 Mg Tablet) 25 mg PO Q6H PRN PRN Reason: Anxiety Lorazepam (Lorazepam 0.5 Mg Tablet) 0.5 mg PO BID [facility] Last Admin: 10/10/23 09:15 Dose: 0.5 mg Magnesium Hydroxide (Milk Of Magnesia 30 Ml Oral.Susp) 30 ml PO DAILY PRN PRN Reason: Constipation Multi-Ingred Medicated Throat [place] (Throat [place], Medicated 177 Ml Bottle) 1 spray MUCOUS MEM Q2H PRN PRN Reason: throat irritation Last Admin: 10/09/23 19:13 Dose: 1 spray Oseltamivir Phosphate (Oseltamivir Phosphate 75 Mg Capsule) 75 mg PO Q24H [facility] Stop: 10/10/23 15:31 Last Admin: 10/09/23 14:51 Dose: 75 mg Risperidone (Risperidone Oral Tarsha 1 Mg/Ml Solution) 1 mg PO BID [facility] Last Admin: 10/10/23 09:15 Dose: 1 mg Trazodone HCl (Trazodone Hcl 50 Mg Tablet) 50 mg PO BEDTIME MRX1 PRN PRN Reason: Insomnia Allergies Allergies Allergy/AdvReac Type Severity Reaction Status Date / Time fish derived [fish] Allergy Unknown Verified 09/29/23 23:05 Assessment & Plan Assessment & Plan (1) Schizoaffective disorder: Status: Acute Code(s): F25.9 - Schizoaffective disorder, unspecified Assessment and Plan: 3/2 ongoing paranoia and ah but improved (2) Paranoid: Status: Acute Code(s): F22 - Delusional disorders Plan 43 yo single woman with Schizoaffective Disorder who lives alone in a condo in [place] admitted m5 after being brought to [facility] by police who found her wandering [place]; She is on CV and 15 min checks. pt states she stopped her meds a few months ago. States she hasn't seen therapist and medication provider since March 2023. She states she hear voices and they insult her and are critical and mean to her. she reports being on lithium, latuda and seroquel in past but even on medication she continued to have voices. She does not want to restart lithium, latuda or seroquel but is vague about why not- says she wants to take vitamins and have a clear head. Pt states that she is often scared and fearful; believes people are watching her; fearful that people are trying to kill her. endorses depression and anxiety. denies SI or HI. PlanCV 15 min checks continue risperdal 1mg BID and ativan for anxiety [facility] consult pending robitussin for cough bacitracin for reddened area on left breast collect collateral information 10/03: Continue current treatment plan. Medications just restarted. 10/04: Continue current management and treatment plan. 10/05: Continue tx 10/07/23: Continue tx 10/09/23: Continue tx 10/10/23 reports mild improvement Patient educated on: medication risk/benefits and medical condition Informed Consent: understands Reason for continued inpatient stay Substantial Risk for: rapid decompensation Time Spent With Patient Time: Total time managing care of this patient today ____ minutes.
[2023-10-10] MEDS: Oseltamivir Phosphate 75 MG CAPSULE PO (15:31)
[2023-10-10] MEDS: Throat Lozenge, Medicated LOZENGE 1 LOZENGE MUCOUS MEM ×2 (15:52→21:09)
[2023-10-10 18:00] VITALS: BP 133/82; PULSE 82; TEMP 36.8; O2SAT 98
[2023-10-10] MEDS: Bacitracin Oint 14 GM TUBE 1 APPL TOPICAL (21:05)
[2023-10-11 08:00] VITALS: BP 134/71; PULSE 82; RESP 15; TEMP 36.7; O2SAT 99
[2023-10-11] MEDS: Throat Lozenge, Medicated LOZENGE 1 LOZENGE MUCOUS MEM ×3 (09:06→21:05)
[2023-10-11] MEDS: risperiDONE Oral Sol 1 MG/ML SOLUTION PO ×2 (09:06→21:04)
[2023-10-11] MEDS: LORazepam 0.5 MG TABLET PO ×2 (09:06→21:04)
--- NOTE | 2023-10-11 11:11 | HO.PSYCHPN ---
Subjective Subjective Date of Service: 10/11/23 Reason For Visit: Psychosis Subjective Notes: Conditional Voluntary Healthcare Proxy: No Guardianship: No Medical Problems Affecting Mental Status: No Interim History: 43 yo with psychosis reports feeling better from flu- Also feels better re AH which are decreased and she feels less fearful that the voices will harm her in some way. Medication Compliance: Yes Side effects from medications: No Attending Groups: No Review of Systems Acute medical concerns: No Medical Review of Systems: changed (flu resolving) Mental Status Exam Mental Status Exam Patient Appearance: Unkempt Patient Orientation: Person, Place, Time and Situation Level of Consciousness: Awake Patient Behavior: Guarded and Passive Mood Description: Withdrawn Affect Description: Blunted Patient Cognition Impaired: No Ability to Follow Directions: Good Speech Pattern: Clear Hallucinations: Auditory (but less) Thought Process: Intact Thought Content: positive for Poverty of Content Judgement: Fair Diagnostics Vital Signs (24Hr): Vital Signs - 24 hr 10/10/23 18:00 10/11/23 08:00 Temperature 98.2 F 98.1 F Pulse Rate 82 82 Respiratory Rate 15 Blood Pressure 133/82 134/71 Pulse Oximetry 98 99 Oxygen Delivery Method Room Air Room Air BMI result Body Mass Index 40.3 Labs 09/29/23 22:53 09/29/23 22:53 Medications Medications Current Medications Acetaminophen (Acetaminophen 325 Mg Tablet) 650 mg PO Q6H PRN PRN Reason: Headache/Pain Mild Scale (1-3) Last Admin: 10/09/23 15:56 Dose: 650 mg Al Hydroxide/Mg Hydroxide (Magnesium Hydrox/Alum Hydrox 30 Ml Oral.Susp) 30 ml PO Q6H PRN PRN Reason: Heartburn/Nausea Artificial Tears (Artificial Tears 15 Ml Drops) 2 drop EYE-BOTH Q4H PRN PRN Reason: Dry Eyes Last Admin: 10/08/23 13:06 Dose: 2 drop Bacitracin (Bacitracin Oint 14 Gm Tube) 1 appl TOPICAL BID MACIEL; Protocol Last Admin: 10/11/23 09:27 Dose: Not Given Benzocaine (Throat Lozenge, Medicated Lozenge) 1 lozenge MUCOUS MEM Q2H PRN PRN Reason: Sore Throat Last Admin: 10/11/23 09:06 Dose: 1 lozenge Guaifenesin/Dextromethorphan (Guaifenesin Dm 100/10/5 Ml 5 Ml Syrup) 5 ml PO Q4H PRN PRN Reason: Cough Last Admin: 10/10/23 10:58 Dose: 5 ml Hydroxyzine HCl (Hydroxyzine Hcl 25 Mg Tablet) 25 mg PO Q6H PRN PRN Reason: Anxiety Lorazepam (Lorazepam 0.5 Mg Tablet) 0.5 mg PO BID [facility] Last Admin: 10/11/23 09:06 Dose: 0.5 mg Magnesium Hydroxide (Milk Of Magnesia 30 Ml Oral.Susp) 30 ml PO DAILY PRN PRN Reason: Constipation Multi-Ingred Medicated Throat [place] (Throat [place], Medicated 177 Ml Bottle) 1 spray MUCOUS MEM Q2H PRN PRN Reason: throat irritation Last Admin: 10/09/23 19:13 Dose: 1 spray Risperidone (Risperidone Oral Tarsha 1 Mg/Ml Solution) 1 mg PO BID [facility] Last Admin: 10/11/23 09:06 Dose: 1 mg Trazodone HCl (Trazodone Hcl 50 Mg Tablet) 50 mg PO BEDTIME MRX1 PRN PRN Reason: Insomnia Allergies Allergies Allergy/AdvReac Type Severity Reaction Status Date / Time fish derived [fish] Allergy Unknown Verified 09/29/23 23:05 Assessment & Plan Assessment & Plan (1) Schizoaffective disorder: Status: Acute Code(s): F25.9 - Schizoaffective disorder, unspecified Assessment and Plan: 3/2 ongoing paranoia and ah but improved 10/11/23 continue treatment plan- continues to improve (2) Paranoid: Status: Acute Code(s): F22 - Delusional disorders Plan 43 yo single woman with Schizoaffective Disorder who lives alone in a condo in [place] admitted m5 after being brought to [facility] by police who found her wandering in [place]; She is on CV and 15 min checks. pt states she stopped her meds a few months ago. States she hasn't seen therapist and medication provider since March 2023. She states she hear voices and they insult her and are critical and mean to her. she reports being on lithium, latuda and seroquel in past but even on medication she continued to have voices. She does not want to restart lithium, latuda or seroquel but is vague about why not- says she wants to take vitamins and have a clear head. Pt states that she is often scared and fearful; believes people are watching her; fearful that people are trying to kill her. endorses depression and anxiety. denies SI or HI. PlanCV 15 min checks continue risperdal 1mg BID and ativan for anxiety [facility] ist consult pending robitussin for cough bacitracin for reddened area on left breast collect collateral information 10/03: Continue current treatment plan. Medications just restarted. 10/04: Continue current management and treatment plan. 10/05: Continue tx 10/07/23: Continue tx 10/09/23: Continue tx 10/10/23 reports mild improvement Patient educated on: medication risk/benefits Informed Consent: understands Reason for continued inpatient stay Substantial Risk for: inability to function and rapid decompensation Time Spent With Patient Time: Total time managing care of this patient today ____ minutes.
[2023-10-11 16:53] VITALS: BP 147/77; PULSE 94; RESP 15; TEMP 36.3; O2SAT 97
[2023-10-12 08:12] VITALS: BP 127/75; PULSE 78; RESP 16; TEMP 36.8; O2SAT 100
[2023-10-12] MEDS: risperiDONE Oral Sol 1 MG/ML SOLUTION PO ×2 (08:57→21:21)
[2023-10-12] MEDS: LORazepam 0.5 MG TABLET PO ×2 (08:57→21:20)
[2023-10-12] MEDS: Bacitracin Oint 14 GM TUBE 1 APPL TOPICAL (08:58)
--- NOTE | 2023-10-12 11:59 | P.PNPSI_ITS ---
Subjective Subjective Date of Service: 10/12/23 Reason For Visit: Psychosis Subjective Notes: Conditional Voluntary Interim History: Pt reports she feels better from Flu- denies SOB, minimal cough, afebrile. Pt reports although she is not as afraid that someone is trying to harm her she reports this continues to be a concern. She states there time when she does not feel safe here on the unit. She denies SI/HI. She has been taking medications as prescribed. Review of Systems Review of Systems Resolving flu sx Yes Unobtainable due to mental status Mental Status Exam Mental Status Exam Patient Appearance: Unkempt Patient Orientation: Person, Place, Time and Situation Level of Consciousness: Awake Patient Behavior: Guarded and Passive Mood Description: Withdrawn Affect Description: Blunted Patient Cognition Impaired: No Ability to Follow Directions: Good Speech Pattern: Clear Memory Description: Episodic Impaired Diagnostics Vital Signs (24Hr): Vital Signs - 24 hr 10/11/23 16:53 10/12/23 08:12 Temperature 97.4 F 98.2 F Pulse Rate 94 78 Respiratory Rate 15 16 Blood Pressure 147/77 H 127/75 Pulse Oximetry 97 100 Oxygen Delivery Method Room Air Room Air BMI result Body Mass Index 40.3 Labs 09/29/23 22:53 09/29/23 22:53 Medications Medications Current Medications Acetaminophen (Acetaminophen 325 Mg Tablet) 650 mg PO Q6H PRN PRN Reason: Headache/Pain Mild Scale (1-3) Last Admin: 10/09/23 15:56 Dose: 650 mg Al Hydroxide/Mg Hydroxide (Magnesium Hydrox/Alum Hydrox 30 Ml Oral.Susp) 30 ml PO Q6H PRN PRN Reason: Heartburn/Nausea Artificial Tears (Artificial Tears 15 Ml Drops) 2 drop EYE-BOTH Q4H PRN PRN Reason: Dry Eyes Last Admin: 10/08/23 13:06 Dose: 2 drop Bacitracin (Bacitracin Oint 14 Gm Tube) 1 appl TOPICAL BID MACIEL; Protocol Last Admin: 10/12/23 08:58 Dose: 1 appl Benzocaine (Throat Lozenge, Medicated Lozenge) 1 lozenge MUCOUS MEM Q2H PRN PRN Reason: Sore Throat Last Admin: 10/11/23 21:05 Dose: 1 lozenge Guaifenesin/Dextromethorphan (Guaifenesin Dm 100/10/5 Ml 5 Ml Syrup) 5 ml PO Q4H PRN PRN Reason: Cough Last Admin: 10/10/23 10:58 Dose: 5 ml Hydroxyzine HCl (Hydroxyzine Hcl 25 Mg Tablet) 25 mg PO Q6H PRN PRN Reason: Anxiety Lorazepam (Lorazepam 0.5 Mg Tablet) 0.5 mg PO BID [facility] Last Admin: 10/12/23 08:57 Dose: 0.5 mg Magnesium Hydroxide (Milk Of Magnesia 30 Ml Oral.Susp) 30 ml PO DAILY PRN PRN Reason: Constipation Multi-Ingred Medicated Throat [place] (Throat [place], Medicated 177 Ml Bottle) 1 spray MUCOUS MEM Q2H PRN PRN Reason: throat irritation Last Admin: 10/09/23 19:13 Dose: 1 spray Risperidone (Risperidone Oral Tarsha 1 Mg/Ml Solution) 1 mg PO BID [facility] Last Admin: 10/12/23 08:57 Dose: 1 mg Trazodone HCl (Trazodone Hcl 50 Mg Tablet) 50 mg PO BEDTIME MRX1 PRN PRN Reason: Insomnia Allergies Allergies Allergy/AdvReac Type Severity Reaction Status Date / Time fish derived [fish] Allergy Unknown Verified 09/29/23 23:05 Assessment & Plan Assessment & Plan (1) Schizoaffective disorder: Status: Acute Code(s): F25.9 - Schizoaffective disorder, unspecified Assessment and Plan: 3/2 ongoing paranoia and ah but improved 10/11/23 continue treatment plan- continues to improve Plan 43 yo single woman with Schizoaffective Disorder who lives alone in a condo in [place] admitted m5 after being brought [place] [facility] [place] police who found her wandering in [place]; She is on CV and 15 min checks. pt states she stopped her meds a few months ago. States she hasn't seen therapist and medication provider since March 2023. She states she hear voices and they insult her and are critical and mean to her. she reports being on lithium, latuda and seroquel in past but even on medication she continued to have voices. She does not want to restart lithium, latuda or seroquel but is vague about why not- says she wants to take vitamins and have a clear head. Pt states that she is often scared and fearful; believes people are watching her; fearful that people are trying to kill her. endorses depression and anxiety. denies SI or HI. PlanCV 15 min checks continue risperdal 1mg BID and ativan for [facility] consult pending robitussin for cough bacitracin for reddened area on left breast collect collateral information 10/03: Continue current treatment plan. Medications just restarted. 10/04: Continue current management and treatment plan. 10/05: Continue tx 10/07/23: Continue tx 10/09/23: Continue tx 10/10/23 reports mild improvement 10/11 continue tx. Reason for continued inpatient stay Substantial Risk for: inability to function Time Spent With Patient Time: Total time managing care of this patient today ____ minutes.
[2023-10-12] MEDS: Throat Spray, Medicated 177 ML BOTTLE 1 SPRAY MUCOUS MEM (12:27)
[2023-10-12 18:00] VITALS: BP 133/73; PULSE 84; RESP 20; TEMP 37; O2SAT 99
[2023-10-13 08:07] VITALS: BP 157/78; PULSE 100; RESP 16; TEMP 36.6; O2SAT 100
[2023-10-13] MEDS: LORazepam 0.5 MG TABLET PO ×3 (08:45→21:29)
[2023-10-13] MEDS: risperiDONE Oral Sol 1 MG/ML SOLUTION PO (08:45)
--- NOTE | 2023-10-13 10:35 | P.PNPSI_ITS ---
Subjective Subjective Date of Service: 10/13/23 Reason For Visit: Psychosis Subjective Notes: Conditional Voluntary Interim History: Pt mostly in her room. She did shower this morning. she continues to report hearing voices and at some point during our conversations she was talking to someone who is not there. She does agree that goal of this admission is to significantly decrease AH, paranoid ideas. She is in agreement to increase risperidone. she denies SI/HI. Review of Systems Review of Systems Resolving flu sx Yes Unobtainable due to mental status Mental Status Exam Mental Status Exam Patient Appearance: Unkempt Patient Orientation: Person, Place, Time and Situation Level of Consciousness: Awake Patient Behavior: Guarded and Passive Mood Description: Withdrawn Affect Description: Blunted Patient Cognition Impaired: No Ability to Follow Directions: Good Speech Pattern: Clear, Monotone and Delayed Memory Description: Episodic Impaired Hallucinations: Auditory Delusions: Paranoid Ideation Perceptual Disturbances: Hallucinations Thought Process: Linear and Slowed Thinking Thought Content: positive for Thought Blocking (wanting to get rid of voices) Judgement: Fair Diagnostics Vital Signs (24Hr): Vital Signs - 24 hr 10/12/23 18:00 Temperature 98.6 F Pulse Rate 84 Respiratory Rate 20 Blood Pressure 133/73 Pulse Oximetry 99 Oxygen Delivery Method Room Air BMI result Body Mass Index 40.3 Labs 09/29/23 22:53 09/29/23 22:53 Medications Medications Current Medications Acetaminophen (Acetaminophen 325 Mg Tablet) 650 mg PO Q6H PRN PRN Reason: Headache/Pain Mild Scale (1-3) Last Admin: 10/09/23 15:56 Dose: 650 mg Al Hydroxide/Mg Hydroxide (Magnesium Hydrox/Alum Hydrox 30 Ml Oral.Susp) 30 ml PO Q6H PRN PRN Reason: Heartburn/Nausea Artificial Tears (Artificial Tears 15 Ml Drops) 2 drop EYE-BOTH Q4H PRN PRN Reason: Dry Eyes Last Admin: 10/08/23 13:06 Dose: 2 drop Bacitracin (Bacitracin Oint 14 Gm Tube) 1 appl TOPICAL BID MACIEL; Protocol Last Admin: 10/13/23 08:46 Dose: Not Given Benzocaine (Throat Lozenge, Medicated Lozenge) 1 lozenge MUCOUS MEM Q2H PRN PRN Reason: Sore Throat Last Admin: 10/11/23 21:05 Dose: 1 lozenge Guaifenesin/Dextromethorphan (Guaifenesin Dm 100/10/5 Ml 5 Ml Syrup) 5 ml PO Q4H PRN PRN Reason: Cough Last Admin: 10/10/23 10:58 Dose: 5 ml Hydroxyzine HCl (Hydroxyzine Hcl 25 Mg Tablet) 25 mg PO Q6H PRN PRN Reason: Anxiety Lorazepam (Lorazepam 0.5 Mg Tablet) 0.5 mg PO BID [facility] Last Admin: 10/13/23 08:45 Dose: 0.5 mg Magnesium Hydroxide (Milk Of Magnesia 30 Ml Oral.Susp) 30 ml PO DAILY PRN PRN Reason: Constipation Multi-Ingred Medicated Throat [place] (Throat [place], Medicated 177 Ml Bottle) 1 spray MUCOUS MEM Q2H PRN PRN Reason: throat irritation Last Admin: 10/12/23 12:27 Dose: 1 spray Risperidone (Risperidone Oral Tarsha 1 Mg/Ml Solution) 1 mg PO BID [facility] Last Admin: 10/13/23 08:45 Dose: 1 mg Trazodone HCl (Trazodone Hcl 50 Mg Tablet) 50 mg PO BEDTIME MRX1 PRN PRN Reason: Insomnia Allergies Allergies Allergy/AdvReac Type Severity Reaction Status Date / Time fish derived [fish] Allergy Unknown Verified 09/29/23 23:05 Assessment & Plan Assessment & Plan (1) Schizoaffective disorder: Status: Acute Code(s): F25.9 - Schizoaffective disorder, unspecified Assessment and Plan: 3/ ongoing paranoia and ah but improved 10/11/23 continue treatment plan- continues to improve Plan 43 yo single woman with Schizoaffective Disorder who lives alone in a condo [place] admitted m5 after being brought [place] [facility] [place] police who found her wandering in [facility]; She is on CV and 15 min checks. pt states she stopped her meds a few months ago. States she hasn't seen therapist and medication provider since March 2023. She states she hear voices and they insult her and are critical and mean to her. she reports being on lithium, latuda and seroquel in past but even on medication she continued to have voices. She does not want to restart lithium, latuda or seroquel but is vague about why not- says she wants to take vitamins and have a clear head. Pt states that she is often scared and fearful; believes people are watching her; fearful that people are trying to kill her. endorses depression and anxiety. denies SI or HI. PlanCV 15 min checks continue risperdal 1mg BID and ativan for anxiety [facility] ist consult pending robitussin for cough bacitracin for reddened area on left breast collect collateral information 10/03: Continue current treatment plan. Medications just restarted. 10/04: Continue current management and treatment plan. 10/05: Continue tx 10/07/23: Continue tx 10/09/23: Continue tx 10/10/23 reports mild improvement 10/11 continue tx. 10/12 increase risperidone 1mg po daily and 2mg po qhs. will also increase ativan 0.5mg po tid. Reason for continued inpatient stay Substantial Risk for: inability to function Time Spent With Patient Time: Total time managing care of this patient today ____ minutes.
[2023-10-13 19:24] VITALS: BP 180/84; PULSE 82; RESP 20; TEMP 36.2; O2SAT 100
[2023-10-13] MEDS: risperiDONE Oral Sol 1 MG/ML SOLUTION 2 MG PO (21:29)
[2023-10-14 08:04] VITALS: BP 137/95; PULSE 76; RESP 16; TEMP 36.5; O2SAT 98
[2023-10-14] MEDS: risperiDONE Oral Sol 1 MG/ML SOLUTION PO (08:37)
[2023-10-14] MEDS: LORazepam 0.5 MG TABLET PO ×3 (08:38→20:38)
[2023-10-14] MEDS: Throat Lozenge, Medicated LOZENGE 1 LOZENGE MUCOUS MEM ×2 (08:44→15:09)
--- NOTE | 2023-10-14 09:40 | P.PNPSI_ITS ---
Subjective Subjective Date of Service: 10/14/23 Reason For Visit: Psychosis Subjective Notes: Conditional Voluntary Interim History: Pt reports feeling tired. She reports no changes today with increase of risperidone. She continues to hear voices, but open to continue tx. No behavioral concerns. She slept through the night. Review of Systems Review of Systems Resolving flu sx Yes Unobtainable due to mental status Mental Status Exam Mental Status Exam Patient Orientation: Person, Place, Time and Situation Level of Consciousness: Awake Patient Behavior: Guarded and Passive Mood Description: Withdrawn Affect Description: Blunted Patient Cognition Impaired: No Ability to Follow Directions: Good Speech Pattern: Clear, Monotone and Delayed Memory Description: Episodic Impaired Diagnostics Vital Signs (24Hr): Vital Signs - 24 hr 10/13/23 19:24 10/14/23 08:04 Temperature 97.2 F 97.7 F Pulse Rate 82 76 Respiratory Rate 20 16 Blood Pressure 180/84 H 137/95 H Pulse Oximetry 100 98 Oxygen Delivery Method Room Air Room Air BMI result Body Mass Index 40.3 Labs 09/29/23 22:53 09/29/23 22:53 Medications Medications Current Medications Acetaminophen (Acetaminophen 325 Mg Tablet) 650 mg PO Q6H PRN PRN Reason: Headache/Pain Mild Scale (1-3) Last Admin: 10/09/23 15:56 Dose: 650 mg Al Hydroxide/Mg Hydroxide (Magnesium Hydrox/Alum Hydrox 30 Ml Oral.Susp) 30 ml PO Q6H PRN PRN Reason: Heartburn/Nausea Artificial Tears (Artificial Tears 15 Ml Drops) 2 drop EYE-BOTH Q4H PRN PRN Reason: Dry Eyes Last Admin: 10/08/23 13:06 Dose: 2 drop Bacitracin (Bacitracin Oint 14 Gm Tube) 1 appl TOPICAL BID MACIEL; Protocol Last Admin: 10/14/23 08:46 Dose: Not Given Benzocaine (Throat Lozenge, Medicated Lozenge) 1 lozenge MUCOUS MEM Q2H PRN PRN Reason: Sore Throat Last Admin: 10/14/23 08:44 Dose: 1 lozenge Guaifenesin/Dextromethorphan (Guaifenesin Dm 100/10/5 Ml 5 Ml Syrup) 5 ml PO Q4H PRN PRN Reason: Cough Last Admin: 10/10/23 10:58 Dose: 5 ml Hydroxyzine HCl (Hydroxyzine Hcl 25 Mg Tablet) 25 mg PO Q6H PRN PRN Reason: Anxiety Lorazepam (Lorazepam 0.5 Mg Tablet) 0.5 mg PO TID [facility] Last Admin: 10/14/23 08:38 Dose: 0.5 mg Magnesium Hydroxide (Milk Of Magnesia 30 Ml Oral.Susp) 30 ml PO DAILY PRN PRN Reason: Constipation Multi-Ingred Medicated Throat [place] (Throat [place], Medicated 177 Ml Bottle) 1 spray MUCOUS MEM Q2H PRN PRN Reason: throat irritation Last Admin: 10/12/23 12:27 Dose: 1 spray Risperidone (Risperidone Oral Tarsha 1 Mg/Ml Solution) 1 mg PO DAILY [facility] Last Admin: 10/14/23 08:37 Dose: 1 mg Risperidone (Risperidone Oral Tarsha 1 Mg/Ml Solution) 2 mg PO BEDTIME [facility] Last Admin: 10/13/23 21:29 Dose: 2 mg Trazodone HCl (Trazodone Hcl 50 Mg Tablet) 50 mg PO BEDTIME MRX1 PRN PRN Reason: Insomnia Allergies Allergies Allergy/AdvReac Type Severity Reaction Status Date / Time fish derived [fish] Allergy Unknown Verified 09/29/23 23:05 Assessment & Plan Assessment & Plan (1) Schizoaffective disorder: Status: Acute Code(s): F25.9 - Schizoaffective disorder, unspecified Assessment and Plan: 3 ongoing paranoia and ah but improved 10/11/23 continue treatment plan- continues to improve Plan 43 yo single woman with Schizoaffective Disorder who lives alone in a condo in [place] admitted m5 after being brought to [facility] by police who [facility] [place] [facility]; She is on CV and 15 min checks. pt states she stopped her meds a few months ago. States she hasn't seen therapist and medication provider since March 2023. She states she hear voices and they insult her and are critical and mean to her. she reports being on lithium, latuda and seroquel in past but even on medication she continued to have voices. She does not want to restart lithium, latuda or seroquel but is vague about why not- says she wants to take vitamins and have a clear head. Pt states that she is often scared and fearful; believes people are watching her; fearful that people are trying to kill her. endorses depression and anxiety. denies SI or HI. PlanCV 15 min checks continue risperdal 1mg BID and ativan for anxiety [facility] ist consult pending robitussin for cough bacitracin for reddened area on left breast collect collateral information 10/03: Continue current treatment plan. Medications just restarted. 10/04: Continue current management and treatment plan. 10/05: Continue tx 10/07/23: Continue tx 10/09/23: Continue tx 10/10/23 reports mild improvement 10/11 continue tx. 10/12 increase risperidone 1mg po daily and 2mg po qhs. will also increase ativan 0.5mg po tid. 10/13 continue tx. Reason for continued inpatient stay Substantial Risk for: inability to function Time Spent With Patient Time: Total time managing care of this patient today ____ minutes.
[2023-10-14] MEDS: guaiFENesin DM 100/10/5 ML 5 ML SYRUP PO (16:38)
[2023-10-14 18:00] VITALS: BP 142/89; PULSE 81; RESP 18; TEMP 36.3; O2SAT 98
[2023-10-14] MEDS: risperiDONE Oral Sol 1 MG/ML SOLUTION 2 MG PO (20:39)
[2023-10-15 06:00] VITALS: BP 180/94; PULSE 75; RESP 18; TEMP 36.7; O2SAT 100
[2023-10-15] MEDS: risperiDONE Oral Sol 1 MG/ML SOLUTION PO (08:38)
[2023-10-15] MEDS: LORazepam 0.5 MG TABLET PO ×3 (08:38→22:32)
[2023-10-15] MEDS: Throat Lozenge, Medicated LOZENGE 1 LOZENGE MUCOUS MEM ×2 (12:24→15:09)
[2023-10-15 12:28] VITALS: BMI 40.9
[2023-10-15] MEDS: guaiFENesin DM 100/10/5 ML 5 ML SYRUP PO ×2 (13:29→22:30)
[2023-10-15 18:00] VITALS: BP 149/70; PULSE 98; RESP 16; TEMP 36.6; O2SAT 100
[2023-10-15] MEDS: risperiDONE Oral Sol 1 MG/ML SOLUTION 2 MG PO (22:31)
[2023-10-16 08:12] VITALS: BP 137/62; PULSE 76; RESP 16; TEMP 36.6; O2SAT 99
[2023-10-16] MEDS: LORazepam 0.5 MG TABLET PO ×3 (08:44→21:02)
[2023-10-16] MEDS: risperiDONE Oral Sol 1 MG/ML SOLUTION PO (08:44)
[2023-10-16] MEDS: Throat Lozenge, Medicated LOZENGE 1 LOZENGE MUCOUS MEM ×3 (09:21→21:02)
--- NOTE | 2023-10-16 09:50 | HO.PSYCHPN ---
Subjective Subjective Date of Service: 10/16/23 Reason For Visit: Psychosis Subjective Notes: Conditional Voluntary Interim History: Pt mostly in her room. continues to report hearing voices. She appears internally preoccupied and distracted at times; she reports she is still recovering from the flu and feels tired but no body aches no fever no cough. She does agree that goal of this admission is to significantly decrease AH, paranoid ideas. She is in agreement to increase risperidone. she denies SI/HI. Medication Compliance: Yes Side effects from medications: No Attending Groups: No Review of Systems Acute medical concerns: No Medical Review of Systems: unchanged Review of Systems Review of Systems Resolving flu sx Yes Unobtainable due to mental status Mental Status Exam Mental Status Exam Patient Appearance: Unkempt Patient Orientation: Person, Place, Time and Situation Level of Consciousness: Awake Patient Behavior: Guarded and Passive Mood Description: Withdrawn Affect Description: Blunted Patient Cognition Impaired: No Ability to Follow Directions: Good Speech Pattern: Clear, Monotone and Delayed Memory Description: Episodic Impaired Hallucinations: Auditory Judgement: Poor Diagnostics Vital Signs (24Hr): Vital Signs - 24 hr 10/15/23 18:00 10/16/23 08:12 Temperature 98 F 97.8 F Pulse Rate 98 76 Respiratory Rate 16 16 Blood Pressure 149/70 H 137/62 Pulse Oximetry 100 99 Oxygen Delivery Method Room Air Room Air BMI result Body Mass Index 40.9 Labs 09/29/23 22:53 09/29/23 22:53 Medications Medications Current Medications Acetaminophen (Acetaminophen 325 Mg Tablet) 650 mg PO Q6H PRN PRN Reason: Headache/Pain Mild Scale (1-3) Last Admin: 10/09/23 15:56 Dose: 650 mg Al Hydroxide/Mg Hydroxide (Magnesium Hydrox/Alum Hydrox 30 Ml Oral.Susp) 30 ml PO Q6H PRN PRN Reason: Heartburn/Nausea Artificial Tears (Artificial Tears 15 Ml Drops) 2 drop EYE-BOTH Q4H PRN PRN Reason: Dry Eyes Last Admin: 10/08/23 13:06 Dose: 2 drop Bacitracin (Bacitracin Oint 14 Gm Tube) 1 appl TOPICAL BID [facility]; Protocol Last Admin: 10/16/23 08:46 Dose: Not Given Benzocaine (Throat Lozenge, Medicated Lozenge) 1 lozenge MUCOUS MEM Q2H PRN PRN Reason: Sore Throat Last Admin: 10/16/23 09:21 Dose: 1 lozenge Guaifenesin/Dextromethorphan (Guaifenesin Dm 100/10/5 Ml 5 Ml Syrup) 5 ml PO Q4H PRN PRN Reason: Cough Last Admin: 10/15/23 22:30 Dose: 5 ml Hydroxyzine HCl (Hydroxyzine Hcl 25 Mg Tablet) 25 mg PO Q6H PRN PRN Reason: Anxiety Lorazepam (Lorazepam 0.5 Mg Tablet) 0.5 mg PO TID [facility] Last Admin: 10/16/23 08:44 Dose: 0.5 mg Magnesium Hydroxide (Milk Of Magnesia 30 Ml Oral.Susp) 30 ml PO DAILY PRN PRN Reason: Constipation Multi-Ingred Medicated Throat [place] (Throat [place], Medicated 177 Ml Bottle) 1 spray MUCOUS MEM Q2H PRN PRN Reason: throat irritation Last Admin: 10/12/23 12:27 Dose: 1 spray Risperidone (Risperidone Oral Tarsha 1 Mg/Ml Solution) 1 mg PO DAILY [facility] Last Admin: 10/16/23 08:44 Dose: 1 mg Risperidone (Risperidone Oral Tarsha 1 Mg/Ml Solution) 2 mg PO BEDTIME [facility] Last Admin: 10/15/23 22:31 Dose: 2 mg Trazodone HCl (Trazodone Hcl 50 Mg Tablet) 50 mg PO BEDTIME MRX1 PRN PRN Reason: Insomnia Allergies Allergies Allergy/AdvReac Type Severity Reaction Status Date / Time fish derived [fish] Allergy Unknown Verified 09/29/23 23:05 Assessment & Plan Assessment & Plan (1) Schizoaffective disorder: Status: Acute Code(s): F25.9 - Schizoaffective disorder, unspecified Assessment and Plan: 3/2 ongoing paranoia and ah but improved 10/11/23 continue treatment plan- continues to improve Plan 43 yo single woman with Schizoaffective Disorder who lives alone in a condo in [place] admitted m5 after being brought to [facility] by police who found her wandering in [place]; She is on CV and 15 min checks. pt states she stopped her meds a few months ago. States she hasn't seen therapist and medication provider since March 2023. She states she hear voices and they insult her and are critical and mean to her. she reports being on lithium, latuda and seroquel in past but even on medication she continued to have voices. She does not want to restart lithium, latuda or seroquel but is vague about why not- says she wants to take vitamins and have a clear head. Pt states that she is often scared and fearful; believes people are watching her; fearful that people are trying to kill her. endorses depression and anxiety. denies SI or HI. 10/15 continue tx plan Patient educated on: diagnosis, medication risk/benefits and therapeutic strategies Informed Consent: further education needed Reason for continued inpatient stay Substantial Risk for: harm to self, inability to function and rapid decompensation Time Spent With Patient Time: Total time managing care of this patient today ____ minutes.
[2023-10-16 18:00] VITALS: BP 146/80; PULSE 95; RESP 16; TEMP 37.2; O2SAT 98
[2023-10-16] MEDS: risperiDONE Oral Sol 1 MG/ML SOLUTION 2 MG PO (21:02)
[2023-10-16] MEDS: guaiFENesin DM 100/10/5 ML 5 ML SYRUP PO (21:02)
[2023-10-17] MEDS: Throat Lozenge, Medicated LOZENGE 1 LOZENGE MUCOUS MEM ×3 (06:49→18:42)
[2023-10-17 08:10] VITALS: BP 187/78; PULSE 81; RESP 16; TEMP 36.4; O2SAT 100
[2023-10-17] MEDS: risperiDONE Oral Sol 1 MG/ML SOLUTION PO ×2 (09:21→11:46)
[2023-10-17] MEDS: LORazepam 0.5 MG TABLET PO ×3 (09:21→20:33)
--- NOTE | 2023-10-17 10:15 | HO.PSYCHPN ---
Subjective Subjective Date of Service: 10/17/23 Reason For Visit: Psychosis Interim History: Met with patient; discussed with team Patient reports continued problematic auditory hallucinations; she says she is afraid of them and that voices say they are going to strangle her; patient says her throat was hurting though it is starting to feel better and she wonders if it is because of the voices. She says in the past she gave away all her necklaces for fear of the same. Medical Payment Poster discussed reality testing and patient says she is hoping the voices are not real accepted that the things they say are not true. She agreed to increasing Risperdal. Mental Status Exam Mental Status Exam Patient Appearance: Unkempt Patient Orientation: Person, Place, Time and Situation Level of Consciousness: Awake Patient Behavior: Guarded, Passive and Good Eye Contact Mood Description: Withdrawn Affect Description: Blunted Patient Cognition Impaired: No Ability to Follow Directions: Good Speech Pattern: Clear and Spontaneous Speech Memory Description: Episodic Impaired Hallucinations: Auditory Delusions: Paranoid Ideation Thought Process: Goal Oriented Thought Content: positive for Goal Oriented (Worried about being harmed by voices; No SI/HI) Judgement: Poor Judgement and Insight: Impaired Diagnostics Vital Signs (24Hr): Vital Signs - 24 hr 10/16/23 18:00 10/17/23 08:10 Temperature 99.0 F 97.6 F Pulse Rate 95 81 Respiratory Rate 16 16 Blood Pressure 146/80 H 187/78 H Pulse Oximetry 98 100 Oxygen Delivery Method Room Air Room Air BMI result Body Mass Index 40.9 Labs 09/29/23 22:53 09/29/23 22:53 Medications Medications Current Medications Acetaminophen (Acetaminophen 325 Mg Tablet) 650 mg PO Q6H PRN PRN Reason: Headache/Pain Mild Scale (1-3) Last Admin: 10/09/23 15:56 Dose: 650 mg Al Hydroxide/Mg Hydroxide (Magnesium Hydrox/Alum Hydrox 30 Ml Oral.Susp) 30 ml PO Q6H PRN PRN Reason: Heartburn/Nausea Artificial Tears (Artificial Tears 15 Ml Drops) 2 drop EYE-BOTH Q4H PRN PRN Reason: Dry Eyes Last Admin: 10/08/23 13:06 Dose: 2 drop Bacitracin (Bacitracin Oint 14 Gm Tube) 1 appl TOPICAL BID [facility]; Protocol Last Admin: 10/17/23 09:23 Dose: Not Given Benzocaine (Throat Lozenge, Medicated Lozenge) 1 lozenge MUCOUS MEM Q2H PRN PRN Reason: Sore Throat Last Admin: 10/17/23 06:49 Dose: 1 lozenge Guaifenesin/Dextromethorphan (Guaifenesin Dm 100/10/5 Ml 5 Ml Syrup) 5 ml PO Q4H PRN PRN Reason: Cough Last Admin: 10/16/23 21:02 Dose: 5 ml Hydroxyzine HCl (Hydroxyzine Hcl 25 Mg Tablet) 25 mg PO Q6H PRN PRN Reason: Anxiety Lorazepam (Lorazepam 0.5 Mg Tablet) 0.5 mg PO TID [facility] Last Admin: 10/17/23 09:21 Dose: 0.5 mg Magnesium Hydroxide (Milk Of Magnesia 30 Ml Oral.Susp) 30 ml PO DAILY PRN PRN Reason: Constipation Multi-Ingred Medicated Throat [place] (Throat [place], Medicated 177 Ml Bottle) 1 spray MUCOUS MEM Q2H PRN PRN Reason: throat irritation Last Admin: 10/12/23 12:27 Dose: 1 spray Risperidone (Risperidone Oral Tarsha 1 Mg/Ml Solution) 1 mg PO DAILY [facility] Last Admin: 10/17/23 09:21 Dose: 1 mg Risperidone (Risperidone Oral Tarsha 1 Mg/Ml Solution) 2 mg PO BEDTIME [facility] Last Admin: 10/16/23 21:02 Dose: 2 mg Trazodone HCl (Trazodone Hcl 50 Mg Tablet) 50 mg PO BEDTIME MRX1 PRN PRN Reason: Insomnia Allergies Allergies Allergy/AdvReac Type Severity Reaction Status Date / Time fish derived [fish] Allergy Unknown Verified 09/29/23 23:05 Assessment & Plan Assessment & Plan (1) Schizoaffective disorder: Status: Acute Code(s): F25.9 - Schizoaffective disorder, unspecified Assessment and Plan: 3/2 ongoing paranoia and ah but improved 10/11/23 continue treatment plan- continues to improve Plan 43 yo single woman with Schizoaffective Disorder who lives alone in a condo in [place] admitted m5 after being brought [place] [facility] by police who found her wandering in [place]; She is on CV and 15 min checks. pt states she stopped her meds a few months ago. States she hasn't seen therapist and medication provider since March 2023. She states she hear voices and they insult her and are critical and mean to her. she reports being on lithium, latuda and seroquel in past but even on medication she continued to have voices. She does not want to restart lithium, latuda or seroquel but is vague about why not- says she wants to take vitamins and have a clear head. Pt states that she is often scared and fearful; believes people are watching her; fearful that people are trying to kill her. endorses depression and anxiety. denies SI or HI. Hospital course: 10/15 continue tx plan 10/16 increase Risperdal to 2 mg b.i.d. Patient educated on: diagnosis and medication risk/benefits Informed Consent: understands and further education needed Reason for continued inpatient stay Substantial Risk for: inability to function Time Spent With Patient Time: Total time managing care of this patient today ____ minutes.
[2023-10-17 10:37] VITALS: BP 142/86; PULSE 96
[2023-10-17 16:58] VITALS: BP 158/75; PULSE 93; RESP 16; TEMP 36.5; O2SAT 100
[2023-10-17] MEDS: hydrOXYzine HCL 25 MG TABLET PO (20:33)
[2023-10-17] MEDS: risperiDONE Oral Sol 1 MG/ML SOLUTION 2 MG PO (20:33)
[2023-10-17] MEDS: Magnesium Hydrox/Alum Hydrox 30 ML ORAL.SUSP PO (20:34)
[2023-10-18 08:00] VITALS: BP 157/71; PULSE 78; RESP 14; TEMP 36.4; O2SAT 100
[2023-10-18] MEDS: risperiDONE Oral Sol 1 MG/ML SOLUTION 2 MG PO (08:40)
[2023-10-18] MEDS: LORazepam 0.5 MG TABLET PO ×3 (08:40→20:02)
--- NOTE | 2023-10-18 10:58 | HO.PSYCHPN ---
Subjective Subjective Date of Service: 10/18/23 Reason For Visit: Psychosis Interim History: met with patient; discussed with team -disorganized behavior -holding paper to her nose, just sitting there -clogged bathroom toliet and sink with toliet paper and food; denies vomit...she was asked to leave it alone for a minute and during that time, flushed toliet anyway and toliet overflowed.... her bathroom required maintenance; in meantime, she asked to use the handicap bathroom and did the exact same thing. She could not explain why...She is now on 1:1 reports lot of voices... says there is one bad one, voice of Aunt, which scares her; whenever this particular voice comes, her throat feels as if closing up Pt has c/o of sensation that throat is sore or that she's being choked since admission; sensation seems to primarly happen when voice of aunt shows up no problem talking or breathing....no distress and so this is unlikely a dystonic reaction. -out of abundance of caustin, will start on Cogentin 0.5mg BID..however, if sensation of throat tightening resolves with cogentin, this will likely be diagnosistic 1:1 increase Mental Status Exam Mental Status Exam Patient Appearance: Unkempt Patient Orientation: Person, Place, Time and Situation Level of Consciousness: Awake Patient Behavior: Guarded, Passive and Good Eye Contact Mood Description: Withdrawn Affect Description: Blunted Patient Cognition Impaired: No Ability to Follow Directions: Good Speech Pattern: Clear and Spontaneous Speech Memory Description: Episodic Impaired Hallucinations: Auditory Delusions: Paranoid Ideation Thought Process: Goal Oriented Thought Content: positive for Goal Oriented (Worried about being harmed by voices; No SI/HI) Judgement: Poor Judgement and Insight: Impaired Diagnostics Vital Signs (24Hr): Vital Signs - 24 hr 10/17/23 10:37 10/17/23 16:58 10/18/23 08:00 Temperature 97.7 F 97.5 F Pulse Rate 96 93 78 Respiratory Rate 16 Blood Pressure 142/86 H 158/75 H 157/71 H Pulse Oximetry 100 100 Oxygen Delivery Method Room Air Room Air BMI result Body Mass Index 40.9 Labs 09/29/23 22:53 09/29/23 22:53 Medications Medications Current Medications Acetaminophen (Acetaminophen 325 Mg Tablet) 650 mg PO Q6H PRN PRN Reason: Headache/Pain Mild Scale (1-3) Last Admin: 10/09/23 15:56 Dose: 650 mg Al Hydroxide/Mg Hydroxide (Magnesium Hydrox/Alum Hydrox 30 Ml Oral.Susp) 30 ml PO Q6H PRN PRN Reason: Heartburn/Nausea Last Admin: 10/17/23 20:34 Dose: 30 ml Artificial Tears (Artificial Tears 15 Ml Drops) 2 drop EYE-BOTH Q4H PRN PRN Reason: Dry Eyes Last Admin: 10/08/23 13:06 Dose: 2 drop Bacitracin (Bacitracin Oint 14 Gm Tube) 1 appl TOPICAL BID [facility]; Protocol Last Admin: 10/18/23 08:47 Dose: Not Given Benzocaine (Throat Lozenge, Medicated Lozenge) 1 lozenge MUCOUS MEM Q2H PRN PRN Reason: Sore Throat Last Admin: 10/17/23 18:42 Dose: 1 lozenge Guaifenesin/Dextromethorphan (Guaifenesin Dm 100/10/5 Ml 5 Ml Syrup) 5 ml PO Q4H PRN PRN Reason: Cough Last Admin: 10/16/23 21:02 Dose: 5 ml Hydroxyzine HCl (Hydroxyzine Hcl 25 Mg Tablet) 25 mg PO Q6H PRN PRN Reason: Anxiety Last Admin: 10/17/23 20:33 Dose: 25 mg Lorazepam (Lorazepam 0.5 Mg Tablet) 0.5 mg PO TID [facility] Last Admin: 10/18/23 08:40 Dose: 0.5 mg Magnesium Hydroxide (Milk Of Magnesia 30 Ml Oral.Susp) 30 ml PO DAILY PRN PRN Reason: Constipation Multi-Ingred Medicated Throat [place] (Throat [place], Medicated 177 Ml Bottle) 1 spray MUCOUS MEM Q2H PRN PRN Reason: throat irritation Last Admin: 10/12/23 12:27 Dose: 1 spray Risperidone (Risperidone Oral Tarsha 1 Mg/Ml Solution) 2 mg PO BID [facility] Last Admin: 10/18/23 08:40 Dose: 2 mg Trazodone HCl (Trazodone Hcl 50 Mg Tablet) 50 mg PO BEDTIME MRX1 PRN PRN Reason: Insomnia Allergies Allergies Allergy/AdvReac Type Severity Reaction Status Date / Time fish derived [fish] Allergy Unknown Verified 09/29/23 23:05 Assessment & Plan Assessment & Plan (1) Schizoaffective disorder: Status: Acute Code(s): F25.9 - Schizoaffective disorder, unspecified Assessment and Plan: 10/09 ongoing paranoia and ah but improved 10/11/23 continue treatment plan- continues to improve Plan HPI: 43 yo single woman with Schizoaffective Disorder who lives alone in a condo in [place] admitted m5 after being brought [place] [facility] [place] police who found her wandering [place]; She is on CV and 15 min checks. pt states she stopped her meds a few months ago. States she hasn't seen therapist and medication provider since March 2023. She states she hear voices and they insult her and are critical and mean to her. she reports being on lithium, latuda and seroquel in past but even on medication she continued to have voices. She does not want to restart lithium, latuda or seroquel but is vague about why not- says she wants to take vitamins and have a clear head. Pt states that she is often scared and fearful; believes people are watching her; fearful that people are trying to kill her. endorses depression and anxiety. denies SI or HI. Hospital course: 10/15 continue tx plan 10/16 increase Risperdal to 2 mg b.i.d. 10/17 disorganized behavior -holding paper to her nose, just sitting there -clogged bathroom toliet and sink with toliet paper and food; denies vomit...she was asked to leave it alone for a minute and during that time, flushed toliet anyway and toliet overflowed.... her bathroom required maintenance; in meantime, she asked to use the handicap bathroom and did the exact same thing. She could not explain why...She is now on 1:1 reports lot of voices... says there is one bad one, voice of Aunt, which scares her; whenever this particular voice comes, her throat feels as if closing up. Pt has c/o of sensation that throat is sore or that she's being choked since admission; sensation seems to primarly happen when voice of aunt shows up. -Pt no problem talking or breathing....no distress and so this is unlikely a dystonic reaction. -Start Cogentin out of abundance of caution if sensation of throat tightening resolves with cogentin, this will likely be diagnostic PLAN: CV 1:1 for disorganized behavior -increased Risperdal to 3mg bid (AH/disorganized behaviors remain (?worsening); want to quickly see if Risperdal will be effective -start Cogentin .5mg BID; unlikely dystonia, but will add out of abundance of caustion Reason for continued inpatient stay Substantial Risk for: inability to function Time Spent With Patient Time: Total time managing care of this patient today ____ minutes.
[2023-10-18] MEDS: Throat Lozenge, Medicated LOZENGE 1 LOZENGE MUCOUS MEM ×3 (11:00→19:56)
[2023-10-18] MEDS: Benztropine Mesylate 0.5 MG TABLET PO ×2 (14:28→20:02)
[2023-10-18 16:43] VITALS: BP 176/77; PULSE 84; RESP 18; TEMP 36.3; O2SAT 100
[2023-10-18] MEDS: traZODone HCL 50 MG TABLET PO (20:02)
[2023-10-18] MEDS: risperiDONE Oral Sol 1 MG/ML SOLUTION 3 MG PO (20:03)
[2023-10-19 08:16] VITALS: BP 181/91; PULSE 88; RESP 16; TEMP 36.6; O2SAT 100
[2023-10-19 08:23] VITALS: BP 154/72; O2SAT 100
[2023-10-19] MEDS: risperiDONE Oral Sol 1 MG/ML SOLUTION 3 MG PO ×2 (08:26→20:17)
[2023-10-19] MEDS: LORazepam 0.5 MG TABLET PO ×3 (08:26→20:17)
[2023-10-19] MEDS: Benztropine Mesylate 0.5 MG TABLET PO ×2 (08:26→20:17)
--- NOTE | 2023-10-19 09:26 | HO.PSYCHPN ---
Subjective Subjective Date of Service: 10/19/23 Reason For Visit: Psychosis Interim History: met with patient; discussed with team Patient remains very fearful. Says voices continue to say scary things to her. Patient says she likes having a one-to-one and feels safer with staff present and comments that the person does not seem to be very frightening. Patient does report that sensation of throat tightening seems to have resolved with start of Cogentin. Discussed history of lithium, Latuda, Seroquel on which patient is sister/cousin says she did quite well; however patient says she had voices anyway at this time does not want to go back on any of those medications but wants to see if Risperdal can become helpful. Skip Pitman explained that currently, Risperdal does not seem to be effective as voices remain very troublesome; patient however was not willing to change medication at this time Mental Status Exam Mental Status Exam Patient Appearance: Unkempt Patient Orientation: Person, Place, Time and Situation Level of Consciousness: Awake Patient Behavior: Guarded, Passive and Good Eye Contact Mood Description: Anxious Affect Description: Anxious Patient Cognition Impaired: No Ability to Follow Directions: Poor Speech Pattern: Clear and Spontaneous Speech Memory Description: Episodic Impaired Hallucinations: Auditory Delusions: Paranoid Ideation Thought Process: Goal Oriented Thought Content: positive for Goal Oriented (Worried about being harmed by voices; No SI/HI) Judgement: Poor Judgement and Insight: Impaired Diagnostics Vital Signs (24Hr): Vital Signs - 24 hr 10/18/23 16:43 10/19/23 08:16 10/19/23 08:23 Temperature 97.3 F 97.9 F Pulse Rate 84 88 Respiratory Rate 18 16 Blood Pressure 176/77 H 181/91 H 154/72 H Pulse Oximetry 100 100 100 Oxygen Delivery Method Room Air Room Air Room Air BMI result Body Mass Index 40.9 Labs 09/29/23 22:53 09/29/23 22:53 Medications Medications Current Medications Acetaminophen (Acetaminophen 325 Mg Tablet) 650 mg PO Q6H PRN PRN Reason: Headache/Pain Mild Scale (1-3) Last Admin: 10/09/23 15:56 Dose: 650 mg Al Hydroxide/Mg Hydroxide (Magnesium Hydrox/Alum Hydrox 30 Ml Oral.Susp) 30 ml PO Q6H PRN PRN Reason: Heartburn/Nausea Last Admin: 10/17/23 20:34 Dose: 30 ml Artificial Tears (Artificial Tears 15 Ml Drops) 2 drop EYE-BOTH Q4H PRN PRN Reason: Dry Eyes Last Admin: 10/08/23 13:06 Dose: 2 drop Bacitracin (Bacitracin Oint 14 Gm Tube) 1 appl TOPICAL BID [facility]; Protocol Last Admin: 10/19/23 08:30 Dose: Not Given Benzocaine (Throat Lozenge, Medicated Lozenge) 1 lozenge MUCOUS MEM Q2H PRN PRN Reason: Sore Throat Last Admin: 10/18/23 19:56 Dose: 1 lozenge Benztropine Mesylate (Benztropine Mesylate 0.5 Mg Tablet) 0.5 mg PO BID [facility] Last Admin: 10/19/23 08:26 Dose: 0.5 mg Guaifenesin/Dextromethorphan (Guaifenesin Dm 100/10/5 Ml 5 Ml Syrup) 5 ml PO Q4H PRN PRN Reason: Cough Last Admin: 10/16/23 21:02 Dose: 5 ml Hydroxyzine HCl (Hydroxyzine Hcl 25 Mg Tablet) 25 mg PO Q6H PRN PRN Reason: Anxiety Last Admin: 10/17/23 20:33 Dose: 25 mg Lorazepam (Lorazepam 0.5 Mg Tablet) 0.5 mg PO TID [facility] Last Admin: 10/19/23 08:26 Dose: 0.5 mg Magnesium Hydroxide (Milk Of Magnesia 30 Ml Oral.Susp) 30 ml PO DAILY PRN PRN Reason: Constipation Multi-Ingred Medicated Throat [place] (Throat [place], Medicated 177 Ml Bottle) 1 spray MUCOUS MEM Q2H PRN PRN Reason: throat irritation Last Admin: 10/12/23 12:27 Dose: 1 spray Risperidone (Risperidone Oral Tarsha 1 Mg/Ml Solution) 3 mg PO BID [facility] Last Admin: 10/19/23 08:26 Dose: 3 mg Trazodone HCl (Trazodone Hcl 50 Mg Tablet) 50 mg PO BEDTIME MRX1 PRN PRN Reason: Insomnia Last Admin: 10/18/23 20:02 Dose: 50 mg Allergies Allergies Allergy/AdvReac Type Severity Reaction Status Date / Time fish derived [fish] Allergy Unknown Verified 09/29/23 23:05 Assessment & Plan Assessment & Plan (1) Schizoaffective disorder: Status: Acute Code(s): F25.9 - Schizoaffective disorder, unspecified Assessment and Plan: 10/09 ongoing paranoia and ah but improved 10/11/23 continue treatment plan- continues to improve Plan HPI: 43 yo single woman with Schizoaffective Disorder who lives alone in a condo in [place] admitted m5 after being brought to [facility] by police who found her wandering [place]; She is on CV and 15 min checks. pt states she stopped her meds a few months ago. States she hasn't seen therapist and medication provider since March 2023. She states she hear voices and they insult her and are critical and mean to her. she reports being on lithium, latuda and seroquel in past but even on medication she continued to have voices. She does not want to restart lithium, latuda or seroquel but is vague about why not- says she wants to take vitamins and have a clear head. Pt states that she is often scared and fearful; believes people are watching her; fearful that people are trying to kill her. endorses depression and anxiety. denies SI or HI. Hospital course: 10/15 continue tx plan 10/16 increase Risperdal to 2 mg b.i.d. 10/17 disorganized behavior -holding paper to her nose, just sitting there -clogged bathroom toliet and sink with toliet paper and food; denies vomit...she was asked to leave it alone for a minute and during that time, flushed toliet anyway and toliet overflowed.... her bathroom required maintenance; in meantime, she asked to use the [facility]ica bathroom and did the exact same thing. She could not explain why...She is now on 1:1 reports lot of voices... says there is one bad one, voice of Aunt, which scares her; whenever this particular voice comes, her throat feels as if closing up. Pt has c/o of sensation that throat is sore or that she's being choked since admission; sensation seems to primarly happen when voice of aunt shows up. -Pt no problem talking or breathing....no distress and so this is unlikely a dystonic reaction. -Start Cogentin out of abundance of caution if sensation of throat tightening resolves with cogentin, this will likely be diagnostic 10/18 Patient remains very fearful. Says voices continue to say scary things to her. Patient says she likes having a one-to-one and feels safer with staff present and comments that the person does not seem to be very frightening. Patient does report that sensation of throat tightening seems to have resolved with start of Cogentin. Discussed history of lithium, Latuda, Seroquel on which patient is sister/cousin says she did quite well; however patient says she had voices anyway at this time does not want to go back on any of those medications but wants to see if Risperdal can become helpful. Skip Pitman explained that currently, Risperdal does not seem to be effective as voices remain very troublesome; patient however was not willing to change medication at this time PLAN: CV 1:1 will see if patient can come off and go to Q 5s -continue Risperdal to 3mg bid (AH/disorganized behaviors remain (?worsening); want to quickly see if Risperdal will be effective -continue Cogentin .5mg BID; patient reports sensation of throat tightening seems to be better now that she is on Cogentin making it possible she was having a dystonic reaction Patient educated on: diagnosis and medication risk/benefits Reason for continued inpatient stay Substantial Risk for: inability to function Time Spent With Patient Time: Total time managing care of this patient today ____ minutes.
[2023-10-19] MEDS: Throat Lozenge, Medicated LOZENGE 1 LOZENGE MUCOUS MEM ×2 (13:23→18:34)
[2023-10-19 20:33] VITALS: BP 162/81; PULSE 75; RESP 18; TEMP 36.6; O2SAT 99
[2023-10-20] MEDS: guaiFENesin DM 100/10/5 ML 5 ML SYRUP PO (06:50)
[2023-10-20 07:35] VITALS: BP 141/81; PULSE 80; RESP 16; TEMP 36.6; O2SAT 97
[2023-10-20] MEDS: LORazepam 0.5 MG TABLET PO ×3 (07:48→21:25)
[2023-10-20] MEDS: Benztropine Mesylate 0.5 MG TABLET PO ×2 (07:48→21:25)
[2023-10-20] MEDS: risperiDONE Oral Sol 1 MG/ML SOLUTION 3 MG PO ×2 (07:50→21:26)
[2023-10-20] MEDS: Throat Lozenge, Medicated LOZENGE 1 LOZENGE MUCOUS MEM ×2 (15:10→17:42)
[2023-10-20 16:00] VITALS: BP 179/96; PULSE 82; RESP 20; TEMP 36.5; O2SAT 100
[2023-10-20 16:43] VITALS: BP 134/76; PULSE 142; RESP 17; TEMP 36.3; O2SAT 96
[2023-10-20 18:58] VITALS: BP 171/77; PULSE 80
--- NOTE | 2023-10-20 23:17 | P.PNPSI_ITS ---
Subjective Subjective Date of Service: 10/20/23 Reason For Visit: Psychosis Interim History: Met with patient; discussed with team Patient thinks that maybe she has doing a little better. Says auditory hallucinations are a little less problematic; she can think more clearly and has less afraid today. Patient said that yesterday was a bad day because of the calendar date, 10/18 saying the number frightens her. During conversation patient was clearly internally preoccupied but sometimes break off to respond to internal stimulation, however overall staff thinks that perhaps she is talking to herself a little less. Again reviewed past history of medications, lithium, Seroquel and Latuda and that on those medication she was out of the hospital for the past 2 years. However patient really wants to stay on Risperdal a little longer and see if it can become affective saying that even on those past medications auditory hallucinations remained Mental Status Exam Mental Status Exam Patient Appearance: Unkempt Patient Orientation: Person, Place, Time and Situation Level of Consciousness: Awake Patient Behavior: Guarded, Passive and Good Eye Contact Mood Description: Anxious Affect Description: Anxious Patient Cognition Impaired: No Ability to Follow Directions: Poor Speech Pattern: Clear and Spontaneous Speech Memory Description: Episodic Impaired Hallucinations: Auditory Delusions: Paranoid Ideation Thought Process: Goal Oriented Thought Content: positive for Goal Oriented (Worried about being harmed by voices; No SI/HI) Judgement: Poor Judgement and Insight: Impaired Diagnostics Vital Signs (24Hr): Vital Signs - 24 hr 10/20/23 07:35 10/20/23 16:00 10/20/23 16:43 Temperature 97.9 F 97.7 F 97.4 F Pulse Rate 80 82 142 H Respiratory Rate 16 20 17 Blood Pressure 141/81 H 179/96 H 134/76 Pulse Oximetry 97 100 96 Oxygen Delivery Method Room Air Room Air Room Air 10/20/23 18:58 Temperature Pulse Rate 80 Respiratory Rate Blood Pressure 171/77 H Pulse Oximetry Oxygen Delivery Method BMI result Body Mass Index 40.9 Labs 09/29/23 22:53 09/29/23 22:53 Medications Medications Current Medications Acetaminophen (Acetaminophen 325 Mg Tablet) 650 mg PO Q6H PRN PRN Reason: Headache/Pain Mild Scale (1-3) Last Admin: 10/09/23 15:56 Dose: 650 mg Al Hydroxide/Mg Hydroxide (Magnesium Hydrox/Alum Hydrox 30 Ml Oral.Susp) 30 ml PO Q6H PRN PRN Reason: Heartburn/Nausea Last Admin: 10/17/23 20:34 Dose: 30 ml Artificial Tears (Artificial Tears 15 Ml Drops) 2 drop EYE-BOTH Q4H PRN PRN Reason: Dry Eyes Last Admin: 10/08/23 13:06 Dose: 2 drop Bacitracin (Bacitracin Oint 14 Gm Tube) 1 appl TOPICAL BID [facility]; Protocol Last Admin: 10/20/23 22:40 Dose: Not Given Benzocaine (Throat Lozenge, Medicated Lozenge) 1 lozenge MUCOUS MEM Q2H PRN PRN Reason: Sore Throat Last Admin: 10/20/23 17:42 Dose: 1 lozenge Benztropine Mesylate (Benztropine Mesylate 0.5 Mg Tablet) 0.5 mg PO BID [facility] Last Admin: 10/20/23 21:25 Dose: 0.5 mg Guaifenesin/Dextromethorphan (Guaifenesin Dm 100/10/5 Ml 5 Ml Syrup) 5 ml PO Q4H PRN PRN Reason: Cough Last Admin: 10/20/23 06:50 Dose: 5 ml Hydroxyzine HCl (Hydroxyzine Hcl 25 Mg Tablet) 25 mg PO Q6H PRN PRN Reason: Anxiety Last Admin: 10/17/23 20:33 Dose: 25 mg Lorazepam (Lorazepam 0.5 Mg Tablet) 0.5 mg PO TID [facility] Last Admin: 10/20/23 21:25 Dose: 0.5 mg Magnesium Hydroxide (Milk Of Magnesia 30 Ml Oral.Susp) 30 ml PO DAILY PRN PRN Reason: Constipation Multi-Ingred Medicated Throat [place] (Throat [place], Medicated 177 Ml Bottle) 1 spray MUCOUS MEM Q2H PRN PRN Reason: throat irritation Last Admin: 10/12/23 12:27 Dose: 1 spray Risperidone (Risperidone Oral Tarsha 1 Mg/Ml Solution) 3 mg PO BID [facility] Last Admin: 10/20/23 21:26 Dose: 3 mg Trazodone HCl (Trazodone Hcl 50 Mg Tablet) 50 mg PO BEDTIME MRX1 PRN PRN Reason: Insomnia Last Admin: 10/18/23 20:02 Dose: 50 mg Allergies Allergies Allergy/AdvReac Type Severity Reaction Status Date / Time fish derived [fish] Allergy Unknown Verified 09/29/23 23:05 Assessment & Plan Assessment & Plan (1) Schizoaffective disorder: Status: Acute Code(s): F25.9 - Schizoaffective disorder, unspecified Assessment and Plan: 10/09 ongoing paranoia and ah but improved 10/11/23 continue treatment plan- continues to improve Plan HPI: 43 yo single woman with Schizoaffective Disorder who lives alone in a condo in [place] admitted m5 after being brought to [facility] by police who found her wandering in [place]; She is on CV and 15 min checks. pt states she stopped her meds a few months ago. States she hasn't seen therapist and medication provider since March 2023. She states she hear voices and they insult her and are critical and mean to her. she reports being on lithium, latuda and seroquel in past but even on medication she continued to have voices. She does not want to restart lithium, latuda or seroquel but is vague about why not- says she wants to take vitamins and have a clear head. Pt states that she is often scared and fearful; believes people are watching her; fearful that people are trying to kill her. endorses depression and anxiety. denies SI or HI. Hospital course: 10/15 continue tx plan 10/16 increase Risperdal to 2 mg b.i.d. 10/17 disorganized behavior -holding paper to her nose, just sitting there -clogged bathroom toliet and sink with toliet paper and food; denies vomit...she was asked to leave it alone for a minute and during that time, flushed toliet anyway and toliet overflowed.... her bathroom required maintenance; in meantime, she asked to use the handicap bathroom and did the exact same thing. She could not explain why...She is now on 1:1 reports lot of voices... says there is one bad one, voice of Aunt, which scares her; whenever this particular voice comes, her throat feels as if closing up. Pt has c/o of sensation that throat is sore or that she's being choked since admission; sensation seems to primarly happen when voice of aunt shows up. -Pt no problem talking or breathing....no distress and so this is unlikely a dystonic reaction. -Start Cogentin out of abundance of caution if sensation of throat tightening resolves with cogentin, this will likely be diagnostic 10/18 Patient remains very fearful. Says voices continue to say scary things to her. Patient says she likes having a one-to-one and feels safer with staff present and comments that the person does not seem to be very frightening. Patient does report that sensation of throat tightening seems to have resolved with start of Cogentin. Discussed history of lithium, Latuda, Seroquel on which patient is sister/cousin says she did quite well; however patient says she had voices anyway at this time does not want to go back on any of those medications but wants to see if Risperdal can become helpful. Physical Integration Practitioner explained that currently, Risperdal does not seem to be effective as voices remain very troublesome; patient however was not willing to change medication at this time 10/19 Patient thinks that maybe she has doing a little better. Says auditory hallucinations are a little less problematic; she can think more clearly and has less afraid today. Patient said that yesterday was a bad day because of the calendar date, 10/18 saying the number frightens her. During conversation patient was clearly internally preoccupied but sometimes break off to respond to internal stimulation, however overall staff thinks that perhaps she is talking to herself a little less. Again reviewed past history of medications, lithium, Seroquel and Latuda and that on those medication she was out of the hospital for the past 2 years. However patient really wants to stay on Risperdal a little longer and see if it can become affective saying that even on those past medications auditory hallucinations remained. no sensation of throat tightening PLAN: CV 1:1 will see if patient can come off and go to Q 5s -continue Risperdal to 3mg bid (AH/disorganized behaviors remain (?worsening); want to quickly see if Risperdal will be effective -continue Cogentin .5mg BID; patient reports sensation of throat tightening seems to be better now that she is on Cogentin making it possible she was having a dystonic reaction Patient educated on: diagnosis and medication risk/benefits Informed Consent: understands Reason for continued inpatient stay Substantial Risk for: inability to function Time Spent With Patient Time: Total time managing care of this patient today ____ minutes.
[2023-10-21 07:56] VITALS: BP 144/75; PULSE 91; RESP 16; TEMP 36.6; O2SAT 96
[2023-10-21] MEDS: risperiDONE Oral Sol 1 MG/ML SOLUTION 3 MG PO ×2 (08:11→21:26)
[2023-10-21] MEDS: Benztropine Mesylate 0.5 MG TABLET PO ×2 (08:12→21:26)
[2023-10-21] MEDS: LORazepam 0.5 MG TABLET PO ×3 (08:12→21:26)
--- NOTE | 2023-10-21 10:00 | P.PNPSI_ITS ---
Subjective Subjective Date of Service: 10/21/23 Reason For Visit: Psychosis Interim History: Met with patient; discussed with team Patient says she is actually feeling a little better today, overall less anxious, less scared. She does not want to raise Risperdal any because the auditory hallucinations are a little bit quieter and she hopes they will continue to become so. She thinks that she will be able to get off one-to-one during the day but would like to have it remain overnight since she wakes up fearful. Mental Status Exam Mental Status Exam Narrative: Pt is alert and oriented; behavior is cooperative, guarded but less so and quickly tries to be friendly; calm; patient is not in distress; dressed in casual attire, unkempt, hirsutism; mood is described as a little less scared and affect congruent, less anxious, more calm; eye contact appropriate; Speech is normal rate, volume and prosody and not pressured; psychomotor retardation present; thought process is mostly goal directed and organized though gets distracted by internal preoccupation/thought blocking; Thought content is on dealing with auditory hallucinations and treatment; otherwise pertinent to relevant topics; denies any SI/HI. Internally preoccupied and self-dialoguing but less than before Patients insight and judgment impaired but improved Diagnostics Vital Signs (24Hr): Vital Signs - 24 hr 10/20/23 16:00 10/20/23 16:43 10/20/23 18:58 Temperature 97.7 F 97.4 F Pulse Rate 82 142 H 80 Respiratory Rate 20 17 Blood Pressure 179/96 H 134/76 171/77 H Pulse Oximetry 100 96 Oxygen Delivery Method Room Air Room Air 10/21/23 07:56 Temperature 97.8 F Pulse Rate 91 Respiratory Rate 16 Blood Pressure 144/75 H Pulse Oximetry 96 Oxygen Delivery Method Room Air BMI result Body Mass Index 40.9 Labs 09/29/23 22:53 09/29/23 22:53 Medications Medications Current Medications Acetaminophen (Acetaminophen 325 Mg Tablet) 650 mg PO Q6H PRN PRN Reason: Headache/Pain Mild Scale (1-3) Last Admin: 10/09/23 15:56 Dose: 650 mg Al Hydroxide/Mg Hydroxide (Magnesium Hydrox/Alum Hydrox 30 Ml Oral.Susp) 30 ml PO Q6H PRN PRN Reason: Heartburn/Nausea Last Admin: 10/17/23 20:34 Dose: 30 ml Artificial Tears (Artificial Tears 15 Ml Drops) 2 drop EYE-BOTH Q4H PRN PRN Reason: Dry Eyes Last Admin: 10/08/23 13:06 Dose: 2 drop Bacitracin (Bacitracin Oint 14 Gm Tube) 1 appl TOPICAL BID [facility]; Protocol Last Admin: 10/20/23 22:40 Dose: Not Given Benzocaine (Throat Lozenge, Medicated Lozenge) 1 lozenge MUCOUS MEM Q2H PRN PRN Reason: Sore Throat Last Admin: 10/20/23 17:42 Dose: 1 lozenge Benztropine Mesylate (Benztropine Mesylate 0.5 Mg Tablet) 0.5 mg PO BID [facility] Last Admin: 10/21/23 08:12 Dose: 0.5 mg Guaifenesin/Dextromethorphan (Guaifenesin Dm 100/10/5 Ml 5 Ml Syrup) 5 ml PO Q4H PRN PRN Reason: Cough Last Admin: 10/20/23 06:50 Dose: 5 ml Hydroxyzine HCl (Hydroxyzine Hcl 25 Mg Tablet) 25 mg PO Q6H PRN PRN Reason: Anxiety Last Admin: 10/17/23 20:33 Dose: 25 mg Lorazepam (Lorazepam 0.5 Mg Tablet) 0.5 mg PO TID [facility] Last Admin: 10/21/23 08:12 Dose: 0.5 mg Magnesium Hydroxide (Milk Of Magnesia 30 Ml Oral.Susp) 30 ml PO DAILY PRN PRN Reason: Constipation Multi-Ingred Medicated Throat [place] (Throat [place], Medicated 177 Ml Bottle) 1 spray MUCOUS MEM Q2H PRN PRN Reason: throat irritation Last Admin: 10/12/23 12:27 Dose: 1 spray Risperidone (Risperidone Oral Tarsha 1 Mg/Ml Solution) 3 mg PO BID [facility] Last Admin: 10/21/23 08:11 Dose: 3 mg Trazodone HCl (Trazodone Hcl 50 Mg Tablet) 50 mg PO BEDTIME MRX1 PRN PRN Reason: Insomnia Last Admin: 10/18/23 20:02 Dose: 50 mg Allergies Allergies Allergy/AdvReac Type Severity Reaction Status Date / Time fish derived [fish] Allergy Unknown Verified 09/29/23 23:05 Assessment & Plan Assessment & Plan (1) Schizoaffective disorder: Status: Acute Code(s): F25.9 - Schizoaffective disorder, unspecified Assessment and Plan: 10/09 ongoing paranoia and ah but improved 10/11/23 continue treatment plan- continues to improve Plan HPI: 43 yo single woman with Schizoaffective Disorder who lives alone in a condo in [place] admitted m5 after being brought to [facility] by police who found her wandering [place]; She is on CV and 15 min checks. pt states she stopped her meds a few months ago. States she hasn't seen therapist and medication provider since March 2023. She states she hear voices and they insult her and are critical and mean to her. she reports being on lithium, latuda and seroquel in past but even on medication she continued to have voices. She does not want to restart lithium, latuda or seroquel but is vague about why not- says she wants to take vitamins and have a clear head. Pt states that she is often scared and fearful; believes people are watching her; fearful that people are trying to kill her. endorses depression and anxiety. denies SI or HI. Hospital course: 10/15 continue tx plan 10/16 increase Risperdal to 2 mg b.i.d. 10/17 disorganized behavior -holding paper to her nose, just sitting there -clogged bathroom toliet and sink with toliet paper and food; denies vomit...she was asked to leave it alone for a minute and during that time, flushed toliet anyway and toliet overflowed.... her bathroom required maintenance; in meantime, she asked to use the handicap bathroom and did the exact same thing. She could not explain why...She is now on 1:1 reports lot of voices... says there is one bad one, voice of Aunt, which scares her; whenever this particular voice comes, her throat feels as if closing up. Pt has c/o of sensation that throat is sore or that she's being choked since admission; sensation seems to primarly happen when voice of aunt shows up. -Pt no problem talking or breathing....no distress and so this is unlikely a dystonic reaction. -Start Cogentin out of abundance of caution if sensation of throat tightening resolves with cogentin, this will likely be diagnostic 10/18 Patient remains very fearful. Says voices continue to say scary things to her. Patient says she likes having a one-to-one and feels safer with staff present and comments that the person does not seem to be very frightening. Patient does report that sensation of throat tightening seems to have resolved with start of Cogentin. Discussed history of lithium, Latuda, Seroquel on which patient is sister/cousin says she did quite well; however patient says she had voices anyway at this time does not want to go back on any of those medications but wants to see if Risperdal can become helpful. Applications Developer explained that currently, Risperdal does not seem to be effective as voices remain very troublesome; patient however was not willing to change medication at this time 10/19 Patient says she is actually feeling a little better today, overall less anxious, less scared. She does not want to raise Risperdal any because the auditory hallucinations are a little bit quieter and she hopes they will continue to become so. She thinks that she will be able to get off one-to-one during the day but would like to have it remain overnight since she wakes up fearful. 10/20 seems to be making incremental improvements and though AH remains significantly bothersome, it is less than before. Patient with overall appropriate behaviors and feeling safe enough to come off one-to-one during the day PLAN: CV q5's during the day 1:1 3rd shift -continue Risperdal to 3mg bid (AH/disorganized behaviors remain (?worsening); want to quickly see if Risperdal will be effective -continue Cogentin .5mg BID; patient reports sensation of throat tightening seems to be better now that she is on Cogentin making it possible she was having a dystonic reaction Patient educated on: diagnosis, medication risk/benefits and therapeutic strategies Informed Consent: understands Reason for continued inpatient stay Substantial Risk for: inability to function Time Spent With Patient Time: Total time managing care of this patient today ____ minutes.
[2023-10-21 18:00] VITALS: BP 167/88; PULSE 100; RESP 16; TEMP 36.6; O2SAT 89
[2023-10-21] MEDS: Magnesium Hydrox/Alum Hydrox 30 ML ORAL.SUSP PO (23:42)
[2023-10-22 07:00] VITALS: BMI 42.0
[2023-10-22 08:25] VITALS: BP 149/84; PULSE 75; RESP 16; TEMP 36.5; O2SAT 98
[2023-10-22] MEDS: LORazepam 0.5 MG TABLET PO ×3 (09:02→20:49)
[2023-10-22] MEDS: Benztropine Mesylate 0.5 MG TABLET PO ×2 (09:02→20:49)
[2023-10-22] MEDS: risperiDONE Oral Sol 1 MG/ML SOLUTION 3 MG PO (09:03)
--- NOTE | 2023-10-22 17:04 | P.PNPSI_ITS ---
Subjective Subjective Date of Service: 10/22/23 Reason For Visit: Psychosis Interim History: Met with patient; discussed with team On approach patient in her room having a hilarious conversation with herself, responding to internal stimuli. Patient continues to feel that things are improving; says she is doing well without a one-to-one today but grateful that it will start again tonight. She agrees to minimal increase in Risperdal. Diagnostics Vital Signs (24Hr): Vital Signs - 24 hr 10/21/23 18:00 10/22/23 08:25 Temperature 97.9 F 97.7 F Pulse Rate 100 75 Respiratory Rate 16 16 Blood Pressure 167/88 H 149/84 H Pulse Oximetry 89 L 98 Oxygen Delivery Method Room Air Room Air BMI result Body Mass Index 42.0 Labs 09/29/23 22:53 09/29/23 22:53 Medications Medications Current Medications Acetaminophen (Acetaminophen 325 Mg Tablet) 650 mg PO Q6H PRN PRN Reason: Headache/Pain Mild Scale (1-3) Last Admin: 10/09/23 15:56 Dose: 650 mg Al Hydroxide/Mg Hydroxide (Magnesium Hydrox/Alum Hydrox 30 Ml Oral.Susp) 30 ml PO Q6H PRN PRN Reason: Heartburn/Nausea Last Admin: 10/21/23 23:42 Dose: 30 ml Artificial Tears (Artificial Tears 15 Ml Drops) 2 drop EYE-BOTH Q4H PRN PRN Reason: Dry Eyes Last Admin: 10/08/23 13:06 Dose: 2 drop Benzocaine (Throat Lozenge, Medicated Lozenge) 1 lozenge MUCOUS MEM Q2H PRN PRN Reason: Sore Throat Last Admin: 10/20/23 17:42 Dose: 1 lozenge Benztropine Mesylate (Benztropine Mesylate 0.5 Mg Tablet) 0.5 mg PO BID [facility] Last Admin: 10/22/23 09:02 Dose: 0.5 mg Guaifenesin/Dextromethorphan (Guaifenesin Dm 100/10/5 Ml 5 Ml Syrup) 5 ml PO Q4H PRN PRN Reason: Cough Last Admin: 10/20/23 06:50 Dose: 5 ml Hydroxyzine HCl (Hydroxyzine Hcl 25 Mg Tablet) 25 mg PO Q6H PRN PRN Reason: Anxiety Last Admin: 03/09/24 20:33 Dose: 25 mg Lorazepam (Lorazepam 0.5 Mg Tablet) 0.5 mg PO TID [facility] Last Admin: 10/22/23 15:04 Dose: 0.5 mg Magnesium Hydroxide (Milk Of Magnesia 30 Ml Oral.Susp) 30 ml PO DAILY PRN PRN Reason: Constipation Multi-Ingred Medicated Throat [place] (Throat [place], Medicated 177 Ml Bottle) 1 spray MUCOUS MEM Q2H PRN PRN Reason: throat irritation Last Admin: 10/12/23 12:27 Dose: 1 spray Risperidone (Risperidone Oral Tarsha 1 Mg/Ml Solution) 3 mg PO DAILY [facility] Risperidone (Risperidone Oral Tarsha 1 Mg/Ml Solution) 4 mg PO BEDTIME [facility] Trazodone HCl (Trazodone Hcl 50 Mg Tablet) 50 mg PO BEDTIME MRX1 PRN PRN Reason: Insomnia Last Admin: 10/18/23 20:02 Dose: 50 mg Allergies Allergies Allergy/AdvReac Type Severity Reaction Status Date / Time fish derived [fish] Allergy Unknown Verified 09/29/23 23:05 Assessment & Plan Assessment & Plan (1) Schizoaffective disorder: Status: Acute Code(s): F25.9 - Schizoaffective disorder, unspecified Assessment and Plan: 10/09 ongoing paranoia and ah but improved 10/11/23 continue treatment plan- continues to improve Plan HPI: 43 yo single woman with Schizoaffective Disorder who lives alone in a condo in [place] admitted m5 after being brought to [facility] by police who found her wandering [place]; She is on CV and 15 min checks. pt states she stopped her meds a few months ago. States she hasn't seen therapist and medication provider since March 2023. She states she hear voices and they insult her and are critical and mean to her. she reports being on lithium, latuda and seroquel in past but even on medication she continued to have voices. She does not want to restart lithium, latuda or seroquel but is vague about why not- says she wants to take vitamins and have a clear head. Pt states that she is often scared and fearful; believes people are watching her; fearful that people are trying to kill her. endorses depression and anxiety. denies SI or HI. Hospital course: 10/15 continue tx plan 10/16 increase Risperdal to 2 mg b.i.d. 10/17 disorganized behavior -holding paper to her nose, just sitting there -clogged bathroom toliet and sink with toliet paper and food; denies vomit...she was asked to leave it alone for a minute and during that time, flushed toliet anyway and toliet overflowed.... her bathroom required maintenance; in meantime, she asked to use the handicap bathroom and did the exact same thing. She could not explain why...She is now on 1:1 reports lot of voices... says there is one bad one, voice of Aunt, which scares her; whenever this particular voice comes, her throat feels as if closing up. Pt has c/o of sensation that throat is sore or that she's being choked since admission; sensation seems to primarly happen when voice of aunt shows up. -Pt no problem talking or breathing....no distress and so this is unlikely a dystonic reaction. -Start Cogentin out of abundance of caution if sensation of throat tightening resolves with cogentin, this will likely be diagnostic 10/18 Patient remains very fearful. Says voices continue to say scary things to her. Patient says she likes having a one-to-one and feels safer with staff present and comments that the person does not seem to be very frightening. Patient does report that sensation of throat tightening seems to have resolved with start of Cogentin. Discussed history of lithium, Latuda, Seroquel on which patient is sister/cousin says she did quite well; however patient says she had voices anyway at this time does not want to go back on any of those medications but wants to see if Risperdal can become helpful. Quality Measurement Specialist explained that currently, Risperdal does not seem to be effective as voices remain very troublesome; patient however was not willing to change medication at this time 10/19 Patient says she is actually feeling a little better today, overall less anxious, less scared. She does not want to raise Risperdal any because the auditory hallucinations are a little bit quieter and she hopes they will continue to become so. She thinks that she will be able to get off one-to-one during the day but would like to have it remain overnight since she wakes up fearful. 10/20 seems to be making incremental improvements and though AH remains significantly bothersome, it is less than before. Patient with overall appropriate behaviors, feeling safe enough to come off 1:1 during the day 10/21 still doing a little better but AH remains prominent; She agrees to minimal increase in Risperdal. Hopefully will be able to convert to long-acting injectable PLAN: CV q5's during the day 1:1 3rd shift -continue Risperdal liquid 3mg daily (AH/disorganized behaviors remain (?worsening); want to quickly see if Risperdal will be effective -increase to Risperdal liquid 4 mg q.h.s. -continue Cogentin .5mg BID; patient reports sensation of throat tightening seems to be better now that she is on Cogentin; due to Cogentin or due to reduced delusions? Patient educated on: diagnosis and medication risk/benefits Informed Consent: understands Reason for continued inpatient stay Substantial Risk for: inability to function Time Spent With Patient Time: Total time managing care of this patient today ____ minutes.
[2023-10-22 18:00] VITALS: BP 161/78; PULSE 82; RESP 17; TEMP 36.6; O2SAT 100
[2023-10-22] MEDS: traZODone HCL 50 MG TABLET PO (20:49)
[2023-10-22] MEDS: risperiDONE Oral Sol 1 MG/ML SOLUTION 4 MG PO (20:50)
[2023-10-23 08:06] VITALS: BP 142/87; PULSE 93; RESP 16; TEMP 36.2; O2SAT 98
[2023-10-23] MEDS: Benztropine Mesylate 0.5 MG TABLET PO ×2 (08:26→20:43)
[2023-10-23] MEDS: LORazepam 0.5 MG TABLET PO ×3 (08:26→20:43)
[2023-10-23] MEDS: risperiDONE Oral Sol 1 MG/ML SOLUTION 3 MG PO (08:27)
[2023-10-23] MEDS: Magnesium Hydrox/Alum Hydrox 30 ML ORAL.SUSP PO (08:33)
[2023-10-23] MEDS: Throat Lozenge, Medicated LOZENGE 1 LOZENGE MUCOUS MEM (14:01)
--- NOTE | 2023-10-23 14:37 | HO.PSYCHPN ---
Subjective Subjective Date of Service: 10/23/23 Reason For Visit: Psychosis Subjective Notes: Conditional Voluntary Interim History: Pt today talking with team and tw about having 5 minute checks on the overnight shift. She reports she feels ready to increase to this and we will trial this evening. Tolerating recent increase in Risperdal. Reports she is feeling improved. Well engaged in discussion, initiates dialogue, improved expression of her ideas and thoughts about her progress. Medication Compliance: Yes Side effects from medications: No Attending Groups: Intermittent Review of Systems Acute medical concerns: No Medical Review of Systems: unchanged Review of Systems Review of Systems Yes all other systems are reviewed and are negative Mental Status Exam Mental Status Exam Patient Appearance: Disheveled Patient Orientation: Person, Place and Situation Level of Consciousness: Alert (with mild distraction) Patient Behavior: Talkative, Distractible and Good Eye Contact Mood Description: Anxious Affect Description: Anxious Patient Cognition Impaired: No Ability to Follow Directions: Good Speech Pattern: Spontaneous Speech Memory Description: Episodic Impaired Hallucinations: None Delusions: Present Perceptual Disturbances: Depersonalization Thought Process: Distracted Thought Content: positive for [place] and positive for Suicidal Ideation (denies) Depressive Symptoms: Increased Anxiety Judgement: Fair (improved) Diagnostics Vital Signs (24Hr): Vital Signs - 24 hr 10/22/23 18:00 10/23/23 08:06 Temperature 97.9 F 97.2 F Pulse Rate 82 93 Respiratory Rate 17 16 Blood Pressure 161/78 H 142/87 H Pulse Oximetry 100 98 Oxygen Delivery Method Room Air Room Air BMI result Body Mass Index 42.0 Labs 09/29/23 22:53 09/29/23 22:53 Medications Medications Current Medications Acetaminophen (Acetaminophen 325 Mg Tablet) 650 mg PO Q6H PRN PRN Reason: Headache/Pain Mild Scale (1-3) Last Admin: 10/09/23 15:56 Dose: 650 mg Al Hydroxide/Mg Hydroxide (Magnesium Hydrox/Alum Hydrox 30 Ml Oral.Susp) 30 ml PO Q6H PRN PRN Reason: Heartburn/Nausea Last Admin: 10/23/23 08:33 Dose: 30 ml Artificial Tears (Artificial Tears 15 Ml Drops) 2 drop EYE-BOTH Q4H PRN PRN Reason: Dry Eyes Last Admin: 10/08/23 13:06 Dose: 2 drop Benzocaine (Throat Lozenge, Medicated Lozenge) 1 lozenge MUCOUS MEM Q2H PRN PRN Reason: Sore Throat Last Admin: 10/23/23 14:01 Dose: 1 lozenge Benztropine Mesylate (Benztropine Mesylate 0.5 Mg Tablet) 0.5 mg PO BID MACIEL Last Admin: 10/23/23 08:26 Dose: 0.5 mg Guaifenesin/Dextromethorphan (Guaifenesin Dm 100/10/5 Ml 5 Ml Syrup) 5 ml PO Q4H PRN PRN Reason: Cough Last Admin: 10/20/23 06:50 Dose: 5 ml Hydroxyzine HCl (Hydroxyzine Hcl 25 Mg Tablet) 25 mg PO Q6H PRN PRN Reason: Anxiety Last Admin: 10/17/23 20:33 Dose: 25 mg Lorazepam (Lorazepam 0.5 Mg Tablet) 0.5 mg PO TID MACIEL Last Admin: 10/23/23 14:00 Dose: 0.5 mg Magnesium Hydroxide (Milk Of Magnesia 30 Ml Oral.Susp) 30 ml PO DAILY PRN PRN Reason: Constipation Multi-Ingred Medicated Throat [place] (Throat [place], Medicated 177 Ml Bottle) 1 spray MUCOUS MEM Q2H PRN PRN Reason: throat irritation Last Admin: 10/12/23 12:27 Dose: 1 spray Risperidone (Risperidone Oral Tarsha 1 Mg/Ml Solution) 3 mg PO DAILY [facility] Last Admin: 10/23/23 08:27 Dose: 3 mg Risperidone (Risperidone Oral Tarsha 1 Mg/Ml Solution) 4 mg PO BEDTIME MACIEL Last Admin: 10/22/23 20:50 Dose: 4 mg Trazodone HCl (Trazodone Hcl 50 Mg Tablet) 50 mg PO BEDTIME MRX1 PRN PRN Reason: Insomnia Last Admin: 10/22/23 20:49 Dose: 50 mg Allergies Allergies Allergy/AdvReac Type Severity Reaction Status Date / Time fish derived [fish] Allergy Unknown Verified 09/29/23 23:05 Assessment & Plan Assessment & Plan (1) Schizoaffective disorder: Status: Acute Code(s): F25.9 - Schizoaffective disorder, unspecified Assessment and Plan: 3/2 ongoing paranoia and ah but improved 10/11/23 continue treatment plan- continues to improve Plan HPI: 43 yo single woman with Schizoaffective Disorder who lives alone in a condo in [place] admitted m5 after being brought to [facility] by police who found her wandering in [place]; She is on CV and 15 min checks. pt states she stopped her meds a few months ago. States she hasn't seen therapist and medication provider since March 2023. She states she hear voices and they insult her and are critical and mean to her. she reports being on lithium, latuda and seroquel in past but even on medication she continued to have voices. She does not want to restart lithium, latuda or seroquel but is vague about why not- says she wants to take vitamins and have a clear head. Pt states that she is often scared and fearful; believes people are watching her; fearful that people are trying to kill her. endorses depression and anxiety. denies SI or HI. Hospital course: 10/15 continue tx plan 10/16 increase Risperdal to 2 mg b.i.d. 10/17 disorganized behavior -holding paper to her nose, just sitting there -clogged bathroom toliet and sink with toliet paper and food; denies vomit...she was asked to leave it alone for a minute and during that time, flushed toliet anyway and toliet overflowed.... her bathroom required maintenance; in meantime, she [facility] and did the exact same thing. She could not explain why...She is now on 1:1 reports lot of voices... says there is one bad one, voice of Aunt, which scares her; whenever this particular voice comes, her throat feels as if closing up. Pt has c/o of sensation that throat is sore or that she's being choked since admission; sensation seems to primarly happen when voice of aunt shows up. -Pt no problem talking or breathing....no distress and so this is unlikely a dystonic reaction. -Start Cogentin out of abundance of caution if sensation of throat tightening resolves with cogentin, this will likely be diagnostic 10/18 Patient remains very fearful. Says voices continue to say scary things to her. Patient says she likes having a one-to-one and feels safer with staff present and comments that the person does not seem to be very frightening. Patient does report that sensation of throat tightening seems to have resolved with start of Cogentin. Discussed history of lithium, Latuda, Seroquel on which patient is sister/cousin says she did quite well; however patient says she had voices anyway at this time does not want to go back on any of those medications but wants to see if Risperdal can become helpful. Production Illustrator explained that currently, Risperdal does not seem to be effective as voices remain very troublesome; patient however was not willing to change medication at this time 10/19 Patient says she is actually feeling a little better today, overall less anxious, less scared. She does not want to raise Risperdal any because the auditory hallucinations are a little bit quieter and she hopes they will continue to become so. She thinks that she will be able to get off one-to-one during the day but would like to have it remain overnight since she wakes up fearful. 10/20 seems to be making incremental improvements and though AH remains significantly bothersome, it is less than before. Patient with overall appropriate behaviors, feeling safe enough to come off 1:1 during the day 10/21 still doing a little better but AH remains prominent; She agrees to minimal increase in Risperdal. Hopefully will be able to convert to long-acting injectable 10/22 change 11-7 checks to 5 minute. Pt feeling improved, states she feels prepared to move forward. PLAN: CV q5's during the day 1:1 3rd shift -continue Risperdal liquid 3mg daily (AH/disorganized behaviors remain (?worsening); want to quickly see if Risperdal will be effective -increase to Risperdal liquid 4 mg q.h.s. -continue Cogentin .5mg BID; patient reports sensation of throat tightening seems to be better now that she is on Cogentin; due to Cogentin or due to reduced delusions? Reason for continued inpatient stay Substantial Risk for: rapid decompensation Time Spent With Patient Time: Total time managing care of this patient today ____ minutes.
[2023-10-23 15:56] VITALS: BP 137/67; PULSE 95; RESP 18; TEMP 36.4; O2SAT 96
[2023-10-23] MEDS: risperiDONE Oral Sol 1 MG/ML SOLUTION 4 MG PO (20:43)
[2023-10-24 08:25] VITALS: BP 145/83; PULSE 83; RESP 17; TEMP 36.2; O2SAT 100
[2023-10-24] MEDS: Benztropine Mesylate 0.5 MG TABLET PO ×2 (08:25→21:57)
[2023-10-24] MEDS: LORazepam 0.5 MG TABLET PO ×3 (08:25→21:57)
[2023-10-24] MEDS: risperiDONE Oral Sol 1 MG/ML SOLUTION 3 MG PO (08:26)
--- NOTE | 2023-10-24 10:53 | HO.PSYCHPN ---
Subjective Subjective Date of Service: 10/24/23 Reason For Visit: Psychosis Subjective Notes: Conditional Voluntary Interim History: Patient was seen and discussed in rounds today. Records and plans were reviewed. She continues to be guarded, paranoid, having auditory hallucinations and observed with self dialogue. She is on one-to-one in the evenings. No complaints or side effects. No changes were made today Review of Systems Review of Systems Yes all other systems are reviewed and are negative Mental Status Exam Mental Status Exam Patient Appearance: Disheveled Patient Orientation: Person, Place and Situation Level of Consciousness: Alert (with mild distraction) Patient Behavior: Talkative, Distractible and Good Eye Contact Mood Description: Anxious Affect Description: Anxious Patient Cognition Impaired: No Ability to Follow Directions: Good Speech Pattern: Spontaneous Speech Memory Description: Episodic Impaired Hallucinations: None Delusions: Present Perceptual Disturbances: Depersonalization Thought Process: Distracted Thought Content: positive for [place] and positive for Suicidal Ideation (denies) Depressive Symptoms: Increased Anxiety Judgement: Fair (improved) Diagnostics Vital Signs (24Hr): Vital Signs - 24 hr 10/23/23 15:56 10/24/23 08:25 Temperature 97.5 F 97.1 F Pulse Rate 95 83 Respiratory Rate 18 17 Blood Pressure 137/67 145/83 H Pulse Oximetry 96 100 Oxygen Delivery Method Room Air Room Air BMI result Body Mass Index 42.0 Labs 09/29/23 22:53 09/29/23 22:53 Medications Medications Current Medications Acetaminophen (Acetaminophen 325 Mg Tablet) 650 mg PO Q6H PRN PRN Reason: Headache/Pain Mild Scale (1-3) Last Admin: 10/09/23 15:56 Dose: 650 mg Al Hydroxide/Mg Hydroxide (Magnesium Hydrox/Alum Hydrox 30 Ml Oral.Susp) 30 ml PO Q6H PRN PRN Reason: Heartburn/Nausea Last Admin: 10/23/23 08:33 Dose: 30 ml Artificial Tears (Artificial Tears 15 Ml Drops) 2 drop EYE-BOTH Q4H PRN PRN Reason: Dry Eyes Last Admin: 10/08/23 13:06 Dose: 2 drop Benzocaine (Throat Lozenge, Medicated Lozenge) 1 lozenge MUCOUS MEM Q2H PRN PRN Reason: Sore Throat Last Admin: 10/23/23 14:01 Dose: 1 lozenge Benztropine Mesylate (Benztropine Mesylate 0.5 Mg Tablet) 0.5 mg PO BID MACIEL Last Admin: 10/24/23 08:25 Dose: 0.5 mg Guaifenesin/Dextromethorphan (Guaifenesin Dm 100/10/5 Ml 5 Ml Syrup) 5 ml PO Q4H PRN PRN Reason: Cough Last Admin: 10/20/23 06:50 Dose: 5 ml Hydroxyzine HCl (Hydroxyzine Hcl 25 Mg Tablet) 25 mg PO Q6H PRN PRN Reason: Anxiety Last Admin: 10/17/23 20:33 Dose: 25 mg Lorazepam (Lorazepam 0.5 Mg Tablet) 0.5 mg PO TID MACIEL Last Admin: 10/24/23 08:25 Dose: 0.5 mg Magnesium Hydroxide (Milk Of Magnesia 30 Ml Oral.Susp) 30 ml PO DAILY PRN PRN Reason: Constipation Multi-Ingred Medicated Throat [place] (Throat [place], Medicated 177 Ml Bottle) 1 spray MUCOUS MEM Q2H PRN PRN Reason: throat irritation Last Admin: 10/12/23 12:27 Dose: 1 spray Risperidone (Risperidone Oral Tarsha 1 Mg/Ml Solution) 3 mg PO DAILY MACIEL Last Admin: 10/24/23 08:26 Dose: 3 mg Risperidone (Risperidone Oral Tarsha 1 Mg/Ml Solution) 4 mg PO BEDTIME MACIEL Last Admin: 10/23/23 20:43 Dose: 4 mg Trazodone HCl (Trazodone Hcl 50 Mg Tablet) 50 mg PO BEDTIME MRX1 PRN PRN Reason: Insomnia Last Admin: 10/22/23 20:49 Dose: 50 mg Allergies Allergies Allergy/AdvReac Type Severity Reaction Status Date / Time fish derived [fish] Allergy Unknown Verified 09/29/23 23:05 Assessment & Plan Assessment & Plan (1) Schizoaffective disorder: Status: Acute Code(s): F25.9 - Schizoaffective disorder, unspecified Assessment and Plan: 3/2 ongoing paranoia and ah but improved 10/11/23 continue treatment plan- continues to improve Plan HPI: 43 yo single woman with Schizoaffective Disorder who lives alone in a condo in [place] admitted m5 after being brought to [facility] by police who found her wandering in [place]; She is on CV and 15 min checks. pt states she stopped her meds a few months ago. States she hasn't seen therapist and medication provider since March 2023. She states she hear voices and they insult her and are critical and mean to her. she reports being on lithium, latuda and seroquel in past but even on medication she continued to have voices. She does not want to restart lithium, latuda or seroquel but is vague about why not- says she wants to take vitamins and have a clear head. Pt states that she is often scared and fearful; believes people are watching her; fearful that people are trying to kill her. endorses depression and anxiety. denies SI or HI. Hospital course: 10/15 continue tx plan 10/16 increase Risperdal to 2 mg b.i.d. 10/17 disorganized behavior -holding paper to her nose, just sitting there -clogged bathroom toliet and sink with toliet paper and food; denies vomit...she was asked to leave it alone for a minute and during that time, flushed toliet anyway and toliet overflowed.... her bathroom required maintenance; in meantime, she asked to use the [employer] bathroom and did the exact same thing. She could not explain why...She is now on 1:1 reports lot of voices... says there is one bad one, voice of Aunt, which scares her; whenever this particular voice comes, her throat feels as if closing up. Pt has c/o of sensation that throat is sore or that she's being choked since admission; sensation seems to primarly happen when voice of aunt shows up. -Pt no problem talking or breathing....no distress and so this is unlikely a dystonic reaction. -Start Cogentin out of abundance of caution if sensation of throat tightening resolves with cogentin, this will likely be diagnostic 10/18 Patient remains very fearful. Says voices continue to say scary things to her. Patient says she likes having a one-to-one and feels safer with staff present and comments that the person does not seem to be very frightening. Patient does report that sensation of throat tightening seems to have resolved with start of Cogentin. Discussed history of lithium, Latuda, Seroquel on which patient is sister/cousin says she did quite well; however patient says she had voices anyway at this time does not want to go back on any of those medications but wants to see if Risperdal can become helpful. Lead Painter explained that currently, Risperdal does not seem to be effective as voices remain very troublesome; patient however was not willing to change medication at this time 10/19 Patient says she is actually feeling a little better today, overall less anxious, less scared. She does not want to raise Risperdal any because the auditory hallucinations are a little bit quieter and she hopes they will continue to become so. She thinks that she will be able to get off one-to-one during the day but would like to have it remain overnight since she wakes up fearful. 10/20 seems to be making incremental improvements and though AH remains significantly bothersome, it is less than before. Patient with overall appropriate behaviors, feeling safe enough to come off 1:1 during the day 10/21 still doing a little better but AH remains prominent; She agrees to minimal increase in Risperdal. Hopefully will be able to convert to long-acting injectable 10/22 change 11-7 checks to 5 minute. Pt feeling improved, states she feels prepared to move forward. 10/24/2023: Continue current regimen and plans PLAN: CV q5's during the day 1:1 3rd shift -continue Risperdal liquid 3mg daily (AH/disorganized behaviors remain (?worsening); want to quickly see if Risperdal will be effective -increase to Risperdal liquid 4 mg q.h.s. -continue Cogentin .5mg BID; patient reports sensation of throat tightening seems to be better now that she is on Cogentin; due to Cogentin or due to reduced delusions? Reason for continued inpatient stay Substantial Risk for: med/psych decompensation Time Spent With Patient Time: Total time managing care of this patient today ____ minutes.
[2023-10-24] MEDS: Throat Lozenge, Medicated LOZENGE 1 LOZENGE MUCOUS MEM (15:39)
[2023-10-24 16:15] VITALS: BP 147/72; PULSE 87; TEMP 36.5; O2SAT 100
[2023-10-24] MEDS: risperiDONE Oral Sol 1 MG/ML SOLUTION 4 MG PO (21:55)
[2023-10-25 06:00] VITALS: BP 156/85; PULSE 78; RESP 18; TEMP 36.3; O2SAT 100
[2023-10-25] MEDS: risperiDONE Oral Sol 1 MG/ML SOLUTION 3 MG PO (08:25)
[2023-10-25] MEDS: Benztropine Mesylate 0.5 MG TABLET PO ×2 (08:25→21:54)
[2023-10-25] MEDS: LORazepam 0.5 MG TABLET PO ×3 (08:27→21:54)
[2023-10-25] MEDS: Throat Lozenge, Medicated LOZENGE 1 LOZENGE MUCOUS MEM ×2 (08:32→13:40)
--- NOTE | 2023-10-25 09:54 | HO.PSYCHPN ---
Subjective Subjective Date of Service: 10/25/23 Reason For Visit: Psychosis Subjective Notes: Conditional Voluntary Interim History: Patient was seen and discussed in rounds today. Records and plans were reviewed. She is doing better but continues to be guarded with blunted affect. Some auditory hallucinations present. She is more pleasant and interactive. She is more organized. Anxiety and depression have decreased. No changes were made today Review of Systems Review of Systems Yes all other systems are reviewed and are negative Mental Status Exam Mental Status Exam Patient Appearance: Disheveled Patient Orientation: Person, Place and Situation Level of Consciousness: Alert (with mild distraction) Patient Behavior: Talkative, Distractible and Good Eye Contact Mood Description: Anxious Affect Description: Anxious Patient Cognition Impaired: No Ability to Follow Directions: Good Speech Pattern: Spontaneous Speech Memory Description: Episodic Impaired Hallucinations: None Delusions: Present Perceptual Disturbances: Depersonalization Thought Process: Distracted Thought Content: positive for [place] and positive for Suicidal Ideation (denies) Depressive Symptoms: Increased Anxiety Judgement: Fair (improved) Diagnostics Vital Signs (24Hr): Vital Signs - 24 hr 10/24/23 16:15 10/25/23 06:00 Temperature 97.7 F 97.3 F Pulse Rate 87 78 Respiratory Rate 18 Blood Pressure 147/72 H 156/85 H Pulse Oximetry 100 100 Oxygen Delivery Method Room Air Room Air BMI result Body Mass Index 42.0 Labs 09/29/23 22:53 09/29/23 22:53 Medications Medications Current Medications Acetaminophen (Acetaminophen 325 Mg Tablet) 650 mg PO Q6H PRN PRN Reason: Headache/Pain Mild Scale (1-3) Last Admin: 10/09/23 15:56 Dose: 650 mg Al Hydroxide/Mg Hydroxide (Magnesium Hydrox/Alum Hydrox 30 Ml Oral.Susp) 30 ml PO Q6H PRN PRN Reason: Heartburn/Nausea Last Admin: 10/23/23 08:33 Dose: 30 ml Artificial Tears (Artificial Tears 15 Ml Drops) 2 drop EYE-BOTH Q4H PRN PRN Reason: Dry Eyes Last Admin: 10/08/23 13:06 Dose: 2 drop Benzocaine (Throat Lozenge, Medicated Lozenge) 1 lozenge MUCOUS MEM Q2H PRN PRN Reason: Sore Throat Last Admin: 10/25/23 08:32 Dose: 1 lozenge Benztropine Mesylate (Benztropine Mesylate 0.5 Mg Tablet) 0.5 mg PO BID MACIEL Last Admin: 10/25/23 08:25 Dose: 0.5 mg Guaifenesin/Dextromethorphan (Guaifenesin Dm 100/10/5 Ml 5 Ml Syrup) 5 ml PO Q4H PRN PRN Reason: Cough Last Admin: 10/20/23 06:50 Dose: 5 ml Hydroxyzine HCl (Hydroxyzine Hcl 25 Mg Tablet) 25 mg PO Q6H PRN PRN Reason: Anxiety Last Admin: 10/17/23 20:33 Dose: 25 mg Lorazepam (Lorazepam 0.5 Mg Tablet) 0.5 mg PO TID MACIEL Last Admin: 10/25/23 08:27 Dose: 0.5 mg Magnesium Hydroxide (Milk Of Magnesia 30 Ml Oral.Susp) 30 ml PO DAILY PRN PRN Reason: Constipation Multi-Ingred Medicated Throat Cameron (Throat Cameron, Medicated 177 Ml Bottle) 1 spray MUCOUS MEM Q2H PRN PRN Reason: throat irritation Last Admin: 10/12/23 12:27 Dose: 1 spray Risperidone (Risperidone Oral Tarsha 1 Mg/Ml Solution) 3 mg PO DAILY MACIEL Last Admin: 10/25/23 08:25 Dose: 3 mg Risperidone (Risperidone Oral Tarsha 1 Mg/Ml Solution) 4 mg PO BEDTIME MACIEL Last Admin: 10/24/23 21:55 Dose: 4 mg Trazodone HCl (Trazodone Hcl 50 Mg Tablet) 50 mg PO BEDTIME MRX1 PRN PRN Reason: Insomnia Last Admin: 10/22/23 20:49 Dose: 50 mg Allergies Allergies Allergy/AdvReac Type Severity Reaction Status Date / Time fish derived [fish] Allergy Unknown Verified 09/29/23 23:05 Assessment & Plan Assessment & Plan (1) Schizoaffective disorder: Status: Acute Code(s): F25.9 - Schizoaffective disorder, unspecified Assessment and Plan: 3/2 ongoing paranoia and ah but improved 10/11/23 continue treatment plan- continues to improve Plan HPI: 43 yo single woman with Schizoaffective Disorder who lives alone in a condo in [place] admitted m5 after being [place] [facility] [place] police who found her wandering in [place]; She is on CV and 15 min checks. pt states she stopped her meds a few months ago. States she hasn't seen therapist and medication provider since March 2023. She states she hear voices and they insult her and are critical and mean to her. she reports being on lithium, latuda and seroquel in past but even on medication she continued to have voices. She does not want to restart lithium, latuda or seroquel but is vague about why not- says she wants to take vitamins and have a clear head. Pt states that she is often scared and fearful; believes people are watching her; fearful that people are trying to kill her. endorses depression and anxiety. denies SI or HI. Hospital course: 10/15 continue tx plan 10/16 increase Risperdal to 2 mg b.i.d. 10/17 disorganized behavior -holding paper to her nose, just sitting there -clogged bathroom toliet and sink with toliet paper and food; denies vomit...she was asked to leave it alone for a minute and during that time, flushed toliet anyway and toliet overflowed.... her bathroom required maintenance; in meantime, she asked to use the [employer] bathroom and did the exact same thing. She could not explain why...She is now on 1:1 reports lot of voices... says there is one bad one, voice of Aunt, which scares her; whenever this particular voice comes, her throat feels as if closing up. Pt has c/o of sensation that throat is sore or that she's being choked since admission; sensation seems to primarly happen when voice of aunt shows up. -Pt no problem talking or breathing....no distress and so this is unlikely a dystonic reaction. -Start Cogentin out of abundance of caution if sensation of throat tightening resolves with cogentin, this will likely be diagnostic 10/18 Patient remains very fearful. Says voices continue to say scary things to her. Patient says she likes having a one-to-one and feels safer with staff present and comments that the person does not seem to be very frightening. Patient does report that sensation of throat tightening seems to have resolved with start of Cogentin. Discussed history of lithium, Latuda, Seroquel on which patient is sister/cousin says she did quite well; however patient says she had voices anyway at this time does not want to go back on any of those medications but wants to see if Risperdal can become helpful. Office Helper Clerical explained that currently, Risperdal does not seem to be effective as voices remain very troublesome; patient however was not willing to change medication at this time 10/19 Patient says she is actually feeling a little better today, overall less anxious, less scared. She does not want to raise Risperdal any because the auditory hallucinations are a little bit quieter and she hopes they will continue to become so. She thinks that she will be able to get off one-to-one during the day but would like to have it remain overnight since she wakes up fearful. 10/20 seems to be making incremental improvements and though AH remains significantly bothersome, it is less than before. Patient with overall appropriate behaviors, feeling safe enough to come off 1:1 during the day 10/21 still doing a little better but AH remains prominent; She agrees to minimal increase in Risperdal. Hopefully will be able to convert to long-acting injectable 10/22 change 11-7 checks to 5 minute. Pt feeling improved, states she feels prepared to move forward. 10/24/2023: Continue current regimen and plans 10/25/2023: Continue current regimen and plans PLAN: CV q5's during the day 1:1 3rd shift -continue Risperdal liquid 3mg daily (AH/disorganized behaviors remain (?worsening); want to quickly see if Risperdal will be effective -increase to Risperdal liquid 4 mg q.h.s. -continue Cogentin .5mg BID; patient reports sensation of throat tightening seems to be better now that she is on Cogentin; due to Cogentin or due to reduced delusions? Reason for continued inpatient stay Substantial Risk for: med/psych decompensation Time Spent With Patient Time: Total time managing care of this patient today ____ minutes.
[2023-10-25 19:22] VITALS: BP 124/59; PULSE 82; RESP 20; TEMP 36.6; O2SAT 93
[2023-10-25] MEDS: risperiDONE Oral Sol 1 MG/ML SOLUTION 4 MG PO (21:55)
[2023-10-25] MEDS: guaiFENesin DM 100/10/5 ML 5 ML SYRUP PO (21:58)
[2023-10-26 07:58] VITALS: BP 130/62; PULSE 79; RESP 16; TEMP 36.6; O2SAT 99
--- NOTE | 2023-10-26 08:03 | P.PNPSI_ITS ---
Subjective Subjective Date of Service: 10/26/23 Reason For Visit: Psychosis Interim History: Met with patient; discussed with team; reviewed chart pt feels overall a little better, but says AH are still quite bothersome. However, does not feel nearly as threatened as before. Discussed meds again and she still does not want to make any changes; check writer salesperson explained that in the past she did better while on a combination of medications and she agrees to consider. throat, feet better Mental Status Exam Mental Status Exam Narrative: Pt is alert and oriented; behavior is cooperative, more calm, friendly, polite; patient is not in distress; dressed in casual attire, unkempt, hirsutism; mood is described as a little better and affect congruent, less anxious, more calm; eye contact appropriate; Speech is normal rate, volume and prosody and not pressured; psychomotor retardation present; thought process is mostly goal directed and organized though gets distracted by internal preoccupation/thought blocking; Thought content is on dealing with auditory hallucinations, treatment; otherwise pertinent to relevant topics; denies any SI/HI. Internally preoccupied and self-dialoguing but less than before Patients insight and judgment impaired but improved Diagnostics Vital Signs (24Hr): Vital Signs - 24 hr 10/25/23 19:22 10/26/23 07:58 Temperature 97.9 F 98 F Pulse Rate 82 79 Respiratory Rate 20 16 Blood Pressure 124/59 L 130/62 Pulse Oximetry 93 99 Oxygen Delivery Method Room Air Room Air BMI result Body Mass Index 42.0 Labs 09/29/23 22:53 09/29/23 22:53 Medications Medications Current Medications Acetaminophen (Acetaminophen 325 Mg Tablet) 650 mg PO Q6H PRN PRN Reason: Headache/Pain Mild Scale (1-3) Last Admin: 10/09/23 15:56 Dose: 650 mg Al Hydroxide/Mg Hydroxide (Magnesium Hydrox/Alum Hydrox 30 Ml Oral.Susp) 30 ml PO Q6H PRN PRN Reason: Heartburn/Nausea Last Admin: 10/23/23 08:33 Dose: 30 ml Artificial Tears (Artificial Tears 15 Ml Drops) 2 drop EYE-BOTH Q4H PRN PRN Reason: Dry Eyes Last Admin: 10/08/23 13:06 Dose: 2 drop Benzocaine (Throat Lozenge, Medicated Lozenge) 1 lozenge MUCOUS MEM Q2H PRN PRN Reason: Sore Throat Last Admin: 10/25/23 13:40 Dose: 1 lozenge Benztropine Mesylate (Benztropine Mesylate 0.5 Mg Tablet) 0.5 mg PO BID MACIEL Last Admin: 10/25/23 21:54 Dose: 0.5 mg Guaifenesin/Dextromethorphan (Guaifenesin Dm 100/10/5 Ml 5 Ml Syrup) 5 ml PO Q4H PRN PRN Reason: Cough Last Admin: 10/25/23 21:58 Dose: 5 ml Hydroxyzine HCl (Hydroxyzine Hcl 25 Mg Tablet) 25 mg PO Q6H PRN PRN Reason: Anxiety Last Admin: 10/17/23 20:33 Dose: 25 mg Lorazepam (Lorazepam 0.5 Mg Tablet) 0.5 mg PO TID MACIEL Last Admin: 10/25/23 21:54 Dose: 0.5 mg Magnesium Hydroxide (Milk Of Magnesia 30 Ml Oral.Susp) 30 ml PO DAILY PRN PRN Reason: Constipation Multi-Ingred Medicated Throat Jenner (Throat [place], Medicated 177 Ml Bottle) 1 spray MUCOUS MEM Q2H PRN PRN Reason: throat irritation Last Admin: 10/12/23 12:27 Dose: 1 spray Risperidone (Risperidone Oral Tarsha 1 Mg/Ml Solution) 3 mg PO DAILY ON LICENSE OF [facility] Last Admin: 10/25/23 08:25 Dose: 3 mg Risperidone (Risperidone Oral Tarsha 1 Mg/Ml Solution) 4 mg PO BEDTIME MACIEL Last Admin: 10/25/23 21:55 Dose: 4 mg Trazodone HCl (Trazodone Hcl 50 Mg Tablet) 50 mg PO BEDTIME MRX1 PRN PRN Reason: Insomnia Last Admin: 10/22/23 20:49 Dose: 50 mg Allergies Allergies Allergy/AdvReac Type Severity Reaction Status Date / Time fish derived [fish] Allergy Unknown Verified 09/29/23 23:05 Assessment & Plan Assessment & Plan (1) Schizoaffective disorder: Status: Acute Code(s): F25.9 - Schizoaffective disorder, unspecified Plan HPI: 43 yo single woman with Schizoaffective Disorder who lives alone in a condo in [place] admitted m5 after being brought to [facility] by police who found her wandering in [place]; She is on CV and 15 min checks. pt states she stopped her meds a few months ago. States she hasn't seen therapist and medication provider since March 2023. She states she hear voices and they insult her and are critical and mean to her. she reports being on lithium, latuda and seroquel in past but even on medication she continued to have voices. She does not want to restart lithium, latuda or seroquel but is vague about why not- says she wants to take vitamins and have a clear head. Pt states that she is often scared and fearful; believes people are watching her; fearful that people are trying to kill her. endorses depression and anxiety. denies SI or HI. Hospital course: 10/15 continue tx plan 10/16 increase Risperdal to 2 mg b.i.d. 10/17 disorganized behavior -holding paper to her nose, just sitting there -clogged bathroom toliet and sink with toliet paper and food; denies vomit...she was asked to leave it alone for a minute and during that time, flushed toliet anyway and toliet overflowed.... her bathroom required maintenance; in meantime, [facility] and did the exact same thing. She could not explain why...She is now on 1:1 reports lot of voices... says there is one bad one, voice of Aunt, which scares her; whenever this particular voice comes, her throat feels as if closing up. Pt has c/o of sensation that throat is sore or that she's being choked since admission; sensation seems to primarly happen when voice of aunt shows up. -Pt no problem talking or breathing....no distress and so this is unlikely a dystonic reaction. -Start Cogentin out of abundance of caution if sensation of throat tightening resolves with cogentin, this will likely be diagnostic 10/18 Patient remains very fearful. Says voices continue to say scary things to her. Patient says she likes having a one-to-one and feels safer with staff present and comments that the person does not seem to be very frightening. Patient does report that sensation of throat tightening seems to have resolved with start of Cogentin. Discussed history of lithium, Latuda, Seroquel on which patient is sister/cousin says she did quite well; however patient says she had voices anyway at this time does not want to go back on any of those medications but wants to see if Risperdal can become helpful. Visitor Information Assistant explained that currently, Risperdal does not seem to be effective as voices remain very troublesome; patient however was not willing to change medication at this time 10/19 Patient says she is actually feeling a little better today, overall less anxious, less scared. She does not want to raise Risperdal any because the auditory hallucinations are a little bit quieter and she hopes they will continue to become so. She thinks that she will be able to get off one-to-one during the day but would like to have it remain overnight since she wakes up fearful. 10/20 seems to be making incremental improvements and though AH remains significantly bothersome, it is less than before. Patient with overall appropriate behaviors, feeling safe enough to come off 1:1 during the day 10/21 still doing a little better but AH remains prominent; She agrees to minimal increase in Risperdal. Hopefully will be able to convert to long-acting injectable 10/22 change 11-7 checks to 5 minute. Pt feeling improved, states she feels prepared to move forward. 10/24/2023: Continue current regimen and plans 10/25/2023: Continue current regimen and plans 10/25 continue regimen, however, AH remain and significantly impair function; pt has a hx of requiring 2 antipsychotics to be functional and will likely continue to do so; will continue to discuss restarting latuda or seroquel and/or possible lithium (which she was on before) PLAN: CV q5's during the day -continue Risperdal liquid 3mg daily (AH/disorganized behaviors remain (?worsening); want to quickly see if Risperdal will be effective -increase to Risperdal liquid 4 mg q.h.s. -continue Cogentin .5mg BID; patient reports sensation of throat tightening seems to be better now that she is on Cogentin; due to Cogentin or due to reduced delusions? Patient educated on: diagnosis, medication risk/benefits and therapeutic strategies Informed Consent: understands, does not understand and further education needed Reason for continued inpatient stay Substantial Risk for: inability to function Time Spent With Patient Time: Total time managing care of this patient today ____ minutes.
[2023-10-26] MEDS: risperiDONE Oral Sol 1 MG/ML SOLUTION 3 MG PO (08:09)
[2023-10-26] MEDS: LORazepam 0.5 MG TABLET PO ×3 (08:09→22:12)
[2023-10-26] MEDS: Benztropine Mesylate 0.5 MG TABLET PO ×2 (08:09→22:12)
[2023-10-26] MEDS: Throat Lozenge, Medicated LOZENGE 1 LOZENGE MUCOUS MEM ×2 (10:53→14:08)
[2023-10-26] MEDS: Artificial Tears 15 ML DROPS 2 DROP EYE-BOTH (15:27)
[2023-10-26 17:00] VITALS: BP 146/66; PULSE 80; RESP 16; TEMP 36.5; O2SAT 100
[2023-10-26] MEDS: risperiDONE Oral Sol 1 MG/ML SOLUTION 4 MG PO (22:12)
[2023-10-27 08:16] VITALS: BP 179/94; PULSE 96; RESP 18; TEMP 36.9; O2SAT 100
[2023-10-27] MEDS: LORazepam 0.5 MG TABLET PO ×3 (08:27→20:06)
[2023-10-27] MEDS: Benztropine Mesylate 0.5 MG TABLET PO ×2 (08:27→20:06)
[2023-10-27] MEDS: risperiDONE Oral Sol 1 MG/ML SOLUTION 3 MG PO (08:28)
--- NOTE | 2023-10-27 09:50 | HO.PSYCHPN ---
Subjective Subjective Date of Service: 10/27/23 Reason For Visit: Psychosis Interim History: met with patient; discussed with team pt says angry at voices for saying such mean things to her; she yells back but it does not really subdue them. She knows they are AH and lies but it's making her more sad to hear their negative lies over and over. Discussed medications again, depression and hx of med regimen and she agrees to restart Latuda Mental Status Exam Mental Status Exam Narrative: Pt is alert and oriented; behavior is cooperative, more calm, friendly, polite; patient is not in distress; dressed in casual attire, unkempt, hirsutism; mood is described as angry...sad and affect congruent; eye contact appropriate; Speech is normal rate, volume and prosody and not pressured; psychomotor retardation present; thought process is mostly goal directed and organized though gets distracted by internal preoccupation/thought blocking; Thought content is on dealing with auditory hallucinations, treatment; otherwise pertinent to relevant topics; denies any SI/HI. Internally preoccupied and self-dialoguing but only when in privacy of own room. Patients insight and judgment impaired but improving. Diagnostics Vital Signs (24Hr): Vital Signs - 24 hr 10/26/23 17:00 10/27/23 08:16 Temperature 97.7 F 98.4 F Pulse Rate 80 96 Respiratory Rate 16 18 Blood Pressure 146/66 H 179/94 H Pulse Oximetry 100 100 Oxygen Delivery Method Room Air Room Air BMI result Body Mass Index 42.0 Labs 09/29/23 22:53 09/29/23 22:53 Medications Medications Current Medications Acetaminophen (Acetaminophen 325 Mg Tablet) 650 mg PO Q6H PRN PRN Reason: Headache/Pain Mild Scale (1-3) Last Admin: 10/09/23 15:56 Dose: 650 mg Al Hydroxide/Mg Hydroxide (Magnesium Hydrox/Alum Hydrox 30 Ml Oral.Susp) 30 ml PO Q6H PRN PRN Reason: Heartburn/Nausea Last Admin: 10/23/23 08:33 Dose: 30 ml Artificial Tears (Artificial Tears 15 Ml Drops) 2 drop EYE-BOTH Q4H PRN PRN Reason: Dry Eyes Last Admin: 10/26/23 15:27 Dose: 2 drop Benzocaine (Throat Lozenge, Medicated Lozenge) 1 lozenge MUCOUS MEM Q2H PRN PRN Reason: Sore Throat Last Admin: 10/26/23 14:08 Dose: 1 lozenge Benztropine Mesylate (Benztropine Mesylate 0.5 Mg Tablet) 0.5 mg PO BID MACIEL Last Admin: 10/27/23 08:27 Dose: 0.5 mg Guaifenesin/Dextromethorphan (Guaifenesin Dm 100/10/5 Ml 5 Ml Syrup) 5 ml PO Q4H PRN PRN Reason: Cough Last Admin: 10/25/23 21:58 Dose: 5 ml Hydroxyzine HCl (Hydroxyzine Hcl 25 Mg Tablet) 25 mg PO Q6H PRN PRN Reason: Anxiety Last Admin: 10/17/23 20:33 Dose: 25 mg Lorazepam (Lorazepam 0.5 Mg Tablet) 0.5 mg PO TID MACIEL Last Admin: 10/27/23 08:27 Dose: 0.5 mg Magnesium Hydroxide (Milk Of Magnesia 30 Ml Oral.Susp) 30 ml PO DAILY PRN PRN Reason: Constipation Multi-Ingred Medicated Throat [place] (Throat [place], Medicated 177 Ml Bottle) 1 spray MUCOUS MEM Q2H PRN PRN Reason: throat irritation Last Admin: 10/12/23 12:27 Dose: 1 spray Risperidone (Risperidone Oral [place] 1 Mg/Ml Solution) [address] [facility] Last Admin: 10/27/23 08:28 Dose: 3 mg Risperidone (Risperidone Oral Tarsha 1 Mg/Ml Solution) 4 mg PO BEDTIME MACIEL Last Admin: 10/26/23 22:12 Dose: 4 mg Trazodone HCl (Trazodone Hcl 50 Mg Tablet) 50 mg PO BEDTIME MRX1 PRN PRN Reason: Insomnia Last Admin: 10/22/23 20:49 Dose: 50 mg Allergies Allergies Allergy/AdvReac Type Severity Reaction Status Date / Time fish derived [fish] Allergy Unknown Verified 09/29/23 23:05 Assessment & Plan Assessment & Plan (1) Schizoaffective disorder: Status: Acute Code(s): F25.9 - Schizoaffective disorder, unspecified Plan HPI: 43 yo single woman with Schizoaffective Disorder who lives alone in a condo in [place] admitted m5 after being brought to [facility] by police who found her wandering in [place]; She is on CV and 15 min checks. pt states she stopped her meds a few months ago. States she hasn't seen therapist and medication provider since March 2023. She states she hear voices and they insult her and are critical and mean to her. she reports being on lithium, latuda and seroquel in past but even on medication she continued to have voices. She does not want to restart lithium, latuda or seroquel but is vague about why not- says she wants to take vitamins and have a clear head. Pt states that she is often scared and fearful; believes people are watching her; fearful that people are trying to kill her. endorses depression and anxiety. denies SI or HI. Hospital course: 10/15 continue tx plan 10/16 increase Risperdal to 2 mg b.i.d. 10/17 disorganized behavior -holding paper to her nose, just sitting there -clogged bathroom toliet and sink with toliet paper and food; denies vomit...she was asked to leave it alone for a minute and during that time, flushed toliet anyway and toliet overflowed.... her bathroom required maintenance; in meantime, she asked to use the [facility] bathroom and did the exact same thing. She could not explain why...She is now on 1:1 reports lot of voices... says there is one bad one, voice of Aunt, which scares her; whenever this particular voice comes, her throat feels as if closing up. Pt has c/o of sensation that throat is sore or that she's being choked since admission; sensation seems to primarly happen when voice of aunt shows up. -Pt no problem talking or breathing....no distress and so this is unlikely a dystonic reaction. -Start Cogentin out of abundance of caution if sensation of throat tightening resolves with cogentin, this will likely be diagnostic 10/18 Patient remains very fearful. Says voices continue to say scary things to her. Patient says she likes having a one-to-one and feels safer with staff present and comments that the person does not seem to be very frightening. Patient does report that sensation of throat tightening seems to have resolved with start of Cogentin. Discussed history of lithium, Latuda, Seroquel on which patient is sister/cousin says she did quite well; however patient says she had voices anyway at this time does not want to go back on any of those medications but wants to see if Risperdal can become helpful. Switchbox Assembler explained that currently, Risperdal does not seem to be effective as voices remain very troublesome; patient however was not willing to change medication at this time 10/19 Patient says she is actually feeling a little better today, overall less anxious, less scared. She does not want to raise Risperdal any because the auditory hallucinations are a little bit quieter and she hopes they will continue to become so. She thinks that she will be able to get off one-to-one during the day but would like to have it remain overnight since she wakes up fearful. 10/20 seems to be making incremental improvements and though AH remains significantly bothersome, it is less than before. Patient with overall appropriate behaviors, feeling safe enough to come off 1:1 during the day 10/21 still doing a little better but AH remains prominent; She agrees to minimal increase in Risperdal. Hopefully will be able to convert to long-acting injectable 10/22 change 11-7 checks to 5 minute. Pt feeling improved, states she feels prepared to move forward. 10/24/2023: Continue current regimen and plans 10/25/2023: Continue current regimen and plans 10/25 continue regimen, however, AH remain and significantly impair function; pt has a hx of requiring 2 antipsychotics to be functional and will likely continue to do so; will continue to discuss restarting latuda or seroquel and/or possible lithium (which she was on before) PLAN: CV q15's START Latuda 20mg dinner time; will titrate accordingly -continue Risperdal liquid 3mg daily (AH/disorganized behaviors remain (?worsening); want to quickly see if Risperdal will be effective -increase to Risperdal liquid 4 mg q.h.s. -continue Cogentin .5mg BID; patient reports sensation of throat tightening seems to be better now that she is on Cogentin; due to Cogentin or due to reduced delusions? Patient educated on: diagnosis, medication risk/benefits and therapeutic strategies Informed Consent: understands and further education needed Reason for continued inpatient stay Substantial Risk for: inability to function and rapid decompensation Time Spent With Patient Time: Total time managing care of this patient today ____ minutes.
[2023-10-27 10:58] VITALS: BP 137/68
[2023-10-27] MEDS: Throat Lozenge, Medicated LOZENGE 1 LOZENGE MUCOUS MEM ×2 (12:38→20:06)
[2023-10-27] MEDS: Throat Spray, Medicated 177 ML BOTTLE 1 SPRAY MUCOUS MEM (13:51)
[2023-10-27 16:12] VITALS: BP 161/80; PULSE 70; RESP 18; TEMP 36.6; O2SAT 99
[2023-10-27] MEDS: Lurasidone HCl 20 MG TABLET PO (20:05)
[2023-10-27] MEDS: traZODone HCL 50 MG TABLET PO (20:05)
[2023-10-27] MEDS: risperiDONE Oral Sol 1 MG/ML SOLUTION 4 MG PO (20:06)
[2023-10-28 08:01] VITALS: BP 144/85; PULSE 84; RESP 16; TEMP 36.4; O2SAT 100
[2023-10-28] MEDS: LORazepam 0.5 MG TABLET PO ×3 (08:21→21:34)
[2023-10-28] MEDS: Benztropine Mesylate 0.5 MG TABLET PO ×2 (08:21→21:34)
[2023-10-28] MEDS: risperiDONE Oral Sol 1 MG/ML SOLUTION 3 MG PO (08:21)
--- NOTE | 2023-10-28 10:00 | P.PNPSI_ITS ---
Subjective Subjective Date of Service: 10/28/23 Reason For Visit: Psychosis Interim History: met with pt; discussed with team says so-so' but also feels Latuda helping and that voices are lower; mood a little better and a little more confident today. Pt working on distracting herself from voices Mental Status Exam Mental Status Exam Narrative: Pt is alert and oriented; behavior is cooperative, more calm, friendly, polite; patient is not in distress; dressed in casual attire, unkempt, hirsutism; mood is described as angry...sad and affect congruent; eye contact appropriate; Speech is normal rate, volume and prosody and not pressured; psychomotor retardation present; thought process is mostly goal directed and organized though gets distracted by internal preoccupation/thought blocking; Thought content is on dealing with auditory hallucinations, treatment; otherwise pertinent to relevant topics; denies any SI/HI. Internally preoccupied and self-dialoguing but only when in privacy of own room. Patients insight and judgment impaired but improving. Diagnostics Vital Signs (24Hr): Vital Signs - 24 hr 10/27/23 10:58 10/27/23 16:12 10/28/23 08:01 Temperature 97.8 F 97.5 F Pulse Rate 70 84 Respiratory Rate 18 16 Blood Pressure 137/68 161/80 H 144/85 H Pulse Oximetry 99 100 Oxygen Delivery Method Room Air Room Air BMI result Body Mass Index 42.0 Labs 09/29/23 22:53 09/29/23 22:53 Medications Medications Current Medications Acetaminophen (Acetaminophen 325 Mg Tablet) 650 mg PO Q6H PRN PRN Reason: Headache/Pain Mild Scale (1-3) Last Admin: 10/09/23 15:56 Dose: 650 mg Al Hydroxide/Mg Hydroxide (Magnesium Hydrox/Alum Hydrox 30 Ml Oral.Susp) 30 ml PO Q6H PRN PRN Reason: Heartburn/Nausea Last Admin: 10/23/23 08:33 Dose: 30 ml Artificial Tears (Artificial Tears 15 Ml Drops) 2 drop EYE-BOTH Q4H PRN PRN Reason: Dry Eyes Last Admin: 10/26/23 15:27 Dose: 2 drop Benzocaine (Throat Lozenge, Medicated Lozenge) 1 lozenge MUCOUS MEM Q2H PRN PRN Reason: Sore Throat Last Admin: 10/27/23 20:06 Dose: 1 lozenge Benztropine Mesylate (Benztropine Mesylate 0.5 Mg Tablet) 0.5 mg PO BID [facility] Last Admin: 10/28/23 08:21 Dose: 0.5 mg Guaifenesin/Dextromethorphan (Guaifenesin Dm 100/10/5 Ml 5 Ml Syrup) 5 ml PO Q4H PRN PRN Reason: Cough Last Admin: 10/25/23 21:58 Dose: 5 ml Hydroxyzine HCl (Hydroxyzine Hcl 25 Mg Tablet) 25 mg PO Q6H PRN PRN Reason: Anxiety Last Admin: 10/17/23 20:33 Dose: 25 mg Lorazepam (Lorazepam 0.5 Mg Tablet) 0.5 mg PO TID [facility] Last Admin: 10/28/23 08:21 Dose: 0.5 mg Lurasidone HCl (Lurasidone Hcl 20 Mg Tablet) 20 mg PO DAILY@1800 [facility] Last Admin: 10/27/23 20:05 Dose: 20 mg Magnesium Hydroxide (Milk Of Magnesia 30 Ml Oral.Susp) 30 ml PO DAILY PRN PRN Reason: Constipation Multi-Ingred Medicated Throat [place] (Throat [place], Medicated 177 Ml Bottle) 1 spray MUCOUS MEM Q2H PRN PRN Reason: throat irritation Last Admin: 10/27/23 13:51 Dose: 1 spray Risperidone (Risperidone Oral Tarsha 1 Mg/Ml Solution) 3 mg PO DAILY [facility] Last Admin: 10/28/23 08:21 Dose: 3 mg Risperidone (Risperidone Oral Tarsha 1 Mg/Ml Solution) 4 mg PO BEDTIME [facility] Last Admin: 10/27/23 20:06 Dose: 4 mg Trazodone HCl (Trazodone Hcl 50 Mg Tablet) 50 mg PO BEDTIME MRX1 PRN PRN Reason: Insomnia Last Admin: 10/27/23 20:05 Dose: 50 mg Allergies Allergies Allergy/AdvReac Type Severity Reaction Status Date / Time fish derived [fish] Allergy Unknown Verified 09/29/23 23:05 Assessment & Plan Assessment & Plan (1) Schizoaffective disorder: Status: Acute Code(s): F25.9 - Schizoaffective disorder, unspecified Plan HPI: 43 yo single woman with Schizoaffective Disorder who lives alone in a condo in [place] admitted m5 after being brought to [facility] by police who found her wandering in [place]; She is on CV and 15 min checks. pt states she stopped her meds a few months ago. States she hasn't seen therapist and medication provider since March 2023. She states she hear voices and they insult her and are critical and mean to her. she reports being on lithium, latuda and seroquel in past but even on medication she continued to have voices. She does not want to restart lithium, latuda or seroquel but is vague about why not- says she wants to take vitamins and have a clear head. Pt states that she is often scared and fearful; believes people are watching her; fearful that people are trying to kill her. endorses depression and anxiety. denies SI or HI. Hospital course: 10/15 continue tx plan 10/16 increase Risperdal to 2 mg b.i.d. 10/17 disorganized behavior -holding paper to her nose, just sitting there -clogged bathroom toliet and sink with toliet paper and food; denies vomit...she was asked to leave it alone for a minute and during that time, flushed toliet anyway and toliet overflowed.... her bathroom required maintenance; in meantime, she asked to use the [facility] bathroom and did the exact same thing. She could not explain why...She is now on 1:1 reports lot of voices... says there is one bad one, voice of Aunt, which scares her; whenever this particular voice comes, her throat feels as if closing up. Pt has c/o of sensation that throat is sore or that she's being choked since admission; sensation seems to primarly happen when voice of aunt shows up. -Pt no problem talking or breathing....no distress and so this is unlikely a dystonic reaction. -Start Cogentin out of abundance of caution if sensation of throat tightening resolves with cogentin, this will likely be diagnostic 10/18 Patient remains very fearful. Says voices continue to say scary things to her. Patient says she likes having a one-to-one and feels safer with staff present and comments that the person does not seem to be very frightening. Patient does report that sensation of throat tightening seems to have resolved with start of Cogentin. Discussed history of lithium, Latuda, Seroquel on which patient is sister/cousin says she did quite well; however patient says she had voices anyway at this time does not want to go back on any of those medications but wants to see if Risperdal can become helpful. Mid Level Clinician explained that currently, Risperdal does not seem to be effective as voices remain very troublesome; patient however was not willing to change medication at this time 10/19 Patient says she is actually feeling a little better today, overall less anxious, less scared. She does not want to raise Risperdal any because the auditory hallucinations are a little bit quieter and she hopes they will continue to become so. She thinks that she will be able to get off one-to-one during the day but would like to have it remain overnight since she wakes up fearful. 10/20 seems to be making incremental improvements and though AH remains significantly bothersome, it is less than before. Patient with overall appropriate behaviors, feeling safe enough to come off 1:1 during the day 10/21 still doing a little better but AH remains prominent; She agrees to minimal increase in Risperdal. Hopefully will be able to convert to long-acting injectable 10/22 change 11-7 checks to 5 minute. Pt feeling improved, states she feels prepared to move forward. 10/24/2023: Continue current regimen and plans 10/25/2023: Continue current regimen and plans 10/25 continue regimen, however, AH remain and significantly impair function; pt has a hx of requiring 2 antipsychotics to be functional and will likely continue to do so; will continue to discuss restarting latuda or seroquel and/or possible lithium (which she was on before) 10/26 started latuda after discussing w/ pt (was on in past) 10/27 says so-so' but also feels Latuda helping and that voices are lower; mood a little better and a little more confident today. Pt working on distracting herself from voices PLAN: CV q15's continue Latuda 20mg dinner time; will titrate accordingly -continue Risperdal liquid 3mg daily (AH/disorganized behaviors remain (?worsening); want to quickly see if Risperdal will be effective -increase to Risperdal liquid 4 mg q.h.s. -continue Cogentin .5mg BID; patient reports sensation of throat tightening seems to be better now that she is on Cogentin; due to Cogentin or due to reduced delusions? Patient educated on: diagnosis, medication risk/benefits and therapeutic strategies Informed Consent: understands and further education needed Reason for continued inpatient stay Substantial Risk for: inability to function and rapid decompensation Time Spent With Patient Time: Total time managing care of this patient today ____ minutes.
[2023-10-28] MEDS: Throat Lozenge, Medicated LOZENGE 1 LOZENGE MUCOUS MEM (13:09)
[2023-10-28 18:00] VITALS: BP 168/82; PULSE 85; TEMP 36.3; O2SAT 93
[2023-10-28] MEDS: Lurasidone HCl 20 MG TABLET PO (18:35)
[2023-10-28] MEDS: traZODone HCL 50 MG TABLET PO (21:34)
[2023-10-28] MEDS: risperiDONE Oral Sol 1 MG/ML SOLUTION 4 MG PO (22:09)
[2023-10-29 06:00] VITALS: BP 115/73; PULSE 74; RESP 16; TEMP 36.4; O2SAT 99
[2023-10-29 07:00] VITALS: BMI 42.4
[2023-10-29] MEDS: risperiDONE Oral Sol 1 MG/ML SOLUTION 3 MG PO (08:46)
[2023-10-29] MEDS: Benztropine Mesylate 0.5 MG TABLET PO ×2 (08:46→22:04)
[2023-10-29] MEDS: LORazepam 0.5 MG TABLET PO ×3 (08:47→22:04)
--- NOTE | 2023-10-29 09:49 | P.PNPSI_ITS ---
Subjective Subjective Date of Service: 10/29/23 Reason For Visit: Psychosis Interim History: met with pt; discussed with team pt feeling better on Latuda; voices diminishing and mood improving; still isolating, odd, internally preoccupied but improving Mental Status Exam Mental Status Exam Narrative: Pt is alert and oriented; behavior is cooperative, more calm, friendly, polite; patient is not in distress; dressed in casual attire, unkempt, hirsutism; mood is described as little better and affect congruent; eye contact appropriate; Speech is normal rate, volume and prosody and not pressured; psychomotor retardation present but less so; thought process is mostly goal directed and organized; can still get distracted by internal preoccupation/thought blocking but much less so; Thought content is on dealing with auditory hallucinations, treatment; otherwise pertinent to relevant topics; denies any SI/HI. Internally preoccupied and self-dialoguing but only when in privacy of own room. Patients insight and judgment impaired but improving. Diagnostics Vital Signs (24Hr): Vital Signs - 24 hr 10/28/23 18:00 10/29/23 06:00 Temperature 97.3 F 97.6 F Pulse Rate 85 74 Respiratory Rate 16 Blood Pressure 168/82 H 115/73 Pulse Oximetry 93 99 Oxygen Delivery Method Room Air Room Air BMI result Body Mass Index 42.0 Labs 09/29/23 22:53 09/29/23 22:53 Medications Medications Current Medications Acetaminophen (Acetaminophen 325 Mg Tablet) 650 mg PO Q6H PRN PRN Reason: Headache/Pain Mild Scale (1-3) Last Admin: 10/09/23 15:56 Dose: 650 mg Al Hydroxide/Mg Hydroxide (Magnesium Hydrox/Alum Hydrox 30 Ml Oral.Susp) 30 ml PO Q6H PRN PRN Reason: Heartburn/Nausea Last Admin: 10/23/23 08:33 Dose: 30 ml Artificial Tears (Artificial Tears 15 Ml Drops) 2 drop EYE-BOTH Q4H PRN PRN Reason: Dry Eyes Last Admin: 10/26/23 15:27 Dose: 2 drop Benzocaine (Throat Lozenge, Medicated Lozenge) 1 lozenge MUCOUS MEM Q2H PRN PRN Reason: Sore Throat Last Admin: 10/28/23 13:09 Dose: 1 lozenge Benztropine Mesylate (Benztropine Mesylate 0.5 Mg Tablet) 0.5 mg PO BID [facility] Last Admin: 10/29/23 08:46 Dose: 0.5 mg Guaifenesin/Dextromethorphan (Guaifenesin Dm 100/10/5 Ml 5 Ml Syrup) 5 ml PO Q4H PRN PRN Reason: Cough Last Admin: 10/25/23 21:58 Dose: 5 ml Hydroxyzine HCl (Hydroxyzine Hcl 25 Mg Tablet) 25 mg PO Q6H PRN PRN Reason: Anxiety Last Admin: 10/17/23 20:33 Dose: 25 mg Lorazepam (Lorazepam 0.5 Mg Tablet) 0.5 mg PO TID [facility] Last Admin: 10/29/23 08:47 Dose: 0.5 mg Lurasidone HCl (Lurasidone Hcl 20 Mg Tablet) 20 mg PO DAILY@1800 [facility] Last Admin: 10/28/23 18:35 Dose: 20 mg Magnesium Hydroxide (Milk Of Magnesia 30 Ml Oral.Susp) 30 ml PO DAILY PRN PRN Reason: Constipation Multi-Ingred Medicated Throat [place] (Throat [place], Medicated 177 Ml Bottle) 1 spray MUCOUS MEM Q2H PRN PRN Reason: throat irritation Last Admin: 10/27/23 13:51 Dose: 1 spray Risperidone (Risperidone Oral Tarsha 1 Mg/Ml Solution) 3 mg PO DAILY [facility] Last Admin: 10/29/23 08:46 Dose: 3 mg Risperidone (Risperidone Oral Tarsha 1 Mg/Ml Solution) 4 mg PO BEDTIME [facility] Last Admin: 10/28/23 22:09 Dose: 4 mg Trazodone HCl (Trazodone Hcl 50 Mg Tablet) 50 mg PO BEDTIME MRX1 PRN PRN Reason: Insomnia Last Admin: 10/28/23 21:34 Dose: 50 mg Allergies Allergies Allergy/AdvReac Type Severity Reaction Status Date / Time fish derived [fish] Allergy Unknown Verified 09/29/23 23:05 Assessment & Plan Assessment & Plan (1) Schizoaffective disorder: Status: Acute Code(s): F25.9 - Schizoaffective disorder, unspecified Plan HPI: 43 yo single woman with Schizoaffective Disorder who lives alone in a condo in [place] admitted m5 after being brought to [facility] ED by police who found her wandering in [place]; She is on CV and 15 min checks. pt states she stopped her meds a few months ago. States she hasn't seen therapist and medication provider since March 2023. She states she hear voices and they insult her and are critical and mean to her. she reports being on lithium, latuda and seroquel in past but even on medication she continued to have voices. She does not want to restart lithium, latuda or seroquel but is vague about why not- says she wants to take vitamins and have a clear head. Pt states that she is often scared and fearful; believes people are watching her; fearful that people are trying to kill her. endorses depression and anxiety. denies SI or HI. Hospital course: 10/15 continue tx plan 10/16 increase Risperdal to 2 mg b.i.d. 10/17 disorganized behavior -holding paper to her nose, just sitting there -clogged bathroom toliet and sink with toliet paper and food; denies vomit...she was asked to leave it alone for a minute and during that time, flushed toliet anyway and toliet overflowed.... her bathroom required maintenance; in meantime, she asked to use the [facility] bathroom and did the exact same thing. She could not explain why...She is now on 1:1 reports lot of voices... says there is one bad one, voice of Aunt, which scares her; whenever this particular voice comes, her throat feels as if closing up. Pt has c/o of sensation that throat is sore or that she's being choked since admission; sensation seems to primarly happen when voice of aunt shows up. -Pt no problem talking or breathing....no distress and so this is unlikely a dystonic reaction. -Start Cogentin out of abundance of caution if sensation of throat tightening resolves with cogentin, this will likely be diagnostic 10/18 Patient remains very fearful. Says voices continue to say scary things to her. Patient says she likes having a one-to-one and feels safer with staff present and comments that the person does not seem to be very frightening. Patient does report that sensation of throat tightening seems to have resolved with start of Cogentin. Discussed history of lithium, Latuda, Seroquel on which patient is sister/cousin says she did quite well; however patient says she had voices anyway at this time does not want to go back on any of those medications but wants to see if Risperdal can become helpful. Server Developer explained that currently, Risperdal does not seem to be effective as voices remain very troublesome; patient however was not willing to change medication at this time 10/19 Patient says she is actually feeling a little better today, overall less anxious, less scared. She does not want to raise Risperdal any because the auditory hallucinations are a little bit quieter and she hopes they will continue to become so. She thinks that she will be able to get off one-to-one during the day but would like to have it remain overnight since she wakes up fearful. 10/20 seems to be making incremental improvements and though AH remains significantly bothersome, it is less than before. Patient with overall appropriate behaviors, feeling safe enough to come off 1:1 during the day 10/21 still doing a little better but AH remains prominent; She agrees to minimal increase in Risperdal. Hopefully will be able to convert to long-acting injectable 10/22 change 11-7 checks to 5 minute. Pt feeling improved, states she feels prepared to move forward. 10/24/2023: Continue current regimen and plans 10/25/2023: Continue current regimen and plans 10/25 continue regimen, however, AH remain and significantly impair function; pt has a hx of requiring 2 antipsychotics to be functional and will likely continue to do so; will continue to discuss restarting latuda or seroquel and/or possible lithium (which she was on before) 10/26 started latuda after discussing w/ pt (was on in past) 10/27 says so-so' but also feels Latuda helping and that voices are lower; mood a little better and a little more confident today. Pt working on distracting herself from voices 10/28 continue tx plan; will call cousin/sister Livia to discuss case (pt gives permission to do so) PLAN: CV q15's Continue Latuda 20mg dinner time; will titrate accordingly -continue Risperdal liquid 3mg daily (AH/disorganized behaviors remain (?worsening); want to quickly see if Risperdal will be effective -increase to Risperdal liquid 4 mg q.h.s. -continue Cogentin .5mg BID; patient reports sensation of throat tightening seems to be better now that she is on Cogentin; due to Cogentin or due to reduced delusions? Patient educated on: diagnosis and medication risk/benefits Informed Consent: understands Reason for continued inpatient stay Substantial Risk for: inability to function Time Spent With Patient Time: Total time managing care of this patient today ____ minutes.
[2023-10-29] MEDS: Throat Lozenge, Medicated LOZENGE 1 LOZENGE MUCOUS MEM (12:45)
[2023-10-29 18:00] VITALS: BP 165/84; PULSE 82; TEMP 36.5; O2SAT 100
[2023-10-29] MEDS: Lurasidone HCl 20 MG TABLET PO (18:14)
[2023-10-29] MEDS: risperiDONE Oral Sol 1 MG/ML SOLUTION 4 MG PO (22:04)
[2023-10-30] MEDS: Magnesium Hydrox/Alum Hydrox 30 ML ORAL.SUSP PO (05:22)
[2023-10-30 08:00] VITALS: BP 119/63; PULSE 70; RESP 18; TEMP 36.6; O2SAT 100
[2023-10-30] MEDS: LORazepam 0.5 MG TABLET PO ×3 (08:34→20:59)
[2023-10-30] MEDS: Benztropine Mesylate 0.5 MG TABLET PO ×2 (08:34→20:59)
[2023-10-30] MEDS: risperiDONE Oral Sol 1 MG/ML SOLUTION 3 MG PO (08:35)
[2023-10-30] MEDS: Lurasidone HCl 40 MG TABLET PO (17:58)
[2023-10-30 18:00] VITALS: BP 157/73; PULSE 73; TEMP 36.5; O2SAT 100
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
[2023-10-30] MEDS: risperiDONE Oral Sol 1 MG/ML SOLUTION 4 MG PO (21:06)
[2023-10-31 08:10] VITALS: BP 129/69; PULSE 77; RESP 18; TEMP 36.4; O2SAT 99
[2023-10-31] MEDS: Benztropine Mesylate 0.5 MG TABLET PO ×2 (08:35→20:23)
[2023-10-31] MEDS: risperiDONE Oral Sol 1 MG/ML SOLUTION 3 MG PO (08:35)
[2023-10-31] MEDS: LORazepam 0.5 MG TABLET PO ×3 (08:35→20:23)
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
[2023-10-31 17:31] VITALS: BP 124/57; PULSE 78; TEMP 36.6; O2SAT 99
[2023-10-31] MEDS: Lurasidone HCl 40 MG TABLET PO (17:41)
[2023-10-31] MEDS: guaiFENesin DM 100/10/5 ML 5 ML SYRUP PO (20:22)
[2023-10-31] MEDS: risperiDONE Oral Sol 1 MG/ML SOLUTION 4 MG PO (20:22)
[2023-10-31] MEDS: Artificial Tears 15 ML DROPS 2 DROP EYE-BOTH (20:25)
[2023-11-01 08:00] VITALS: BP 139/80; PULSE 67; RESP 18; TEMP 36.6; O2SAT 100
[2023-11-01] MEDS: LORazepam 0.5 MG TABLET PO ×3 (08:59→20:31)
[2023-11-01] MEDS: Benztropine Mesylate 0.5 MG TABLET PO ×2 (08:59→20:31)
[2023-11-01] MEDS: risperiDONE Oral Sol 1 MG/ML SOLUTION 3 MG PO (09:00)
--- NOTE | 2023-11-01 09:05 | P.PNPSI_ITS ---
Subjective Subjective Date of Service: 11/01/23 Reason For Visit: Psychosis Interim History: Met with patient; discussed with team Voices improved. Feels Latuda is helping. Denies side effects. She was laying in bed with headphones on. Said she was trying to process her emotions. Denies SI. AH much less. Review of Systems Review of Systems Resolving flu sx Yes all other systems are reviewed and are negative and Unobtainable due to mental status Mental Status Exam Mental Status Exam Narrative: Pt is alert and oriented; behavior is cooperative, more calm, friendly, polite; patient is not in distress; dressed in casual attire, unkempt, hirsutism; mood is described as little better and affect congruent; eye contact appropriate; Speech is normal rate, volume and prosody and not pressured; psychomotor retardation present but less so; thought process is mostly goal directed and organized; can still get distracted by internal preoccupation/thought blocking but much less so; Thought content is on dealing with auditory hallucinations, treatment; otherwise pertinent to relevant topics; denies any SI/HI. Internally preoccupied and self-dialoguing but only when in privacy of own room. Patients insight and judgment impaired but improving. Patient Appearance: Disheveled Patient Orientation: Person, Place and Situation Level of Consciousness: Alert (with mild distraction) Patient Behavior: Talkative, Distractible and Good Eye Contact Mood Description: Anxious Affect Description: Anxious Patient Cognition Impaired: No Ability to Follow Directions: Good Speech Pattern: Spontaneous Speech Memory Description: Episodic Impaired Diagnostics Vital Signs (24Hr): Vital Signs - 24 hr 10/31/23 17:31 Temperature 97.9 F Pulse Rate 78 Blood Pressure 124/57 L Pulse Oximetry 99 Oxygen Delivery Method Room Air BMI result Body Mass Index 42.4 Labs 09/29/23 22:53 09/29/23 22:53 Medications Medications Current Medications Acetaminophen (Acetaminophen 325 Mg Tablet) 650 mg PO Q6H PRN PRN Reason: Headache/Pain Mild Scale (1-3) Last Admin: 10/09/23 15:56 Dose: 650 mg Al Hydroxide/Mg Hydroxide (Magnesium Hydrox/Alum Hydrox 30 Ml Oral.Susp) 30 ml PO Q6H PRN PRN Reason: Heartburn/Nausea Last Admin: 10/30/23 05:22 Dose: 30 ml Artificial Tears (Artificial Tears 15 Ml Drops) 2 drop EYE-BOTH Q4H PRN PRN Reason: Dry Eyes Last Admin: 10/31/23 20:25 Dose: 2 drop Benzocaine (Throat Lozenge, Medicated Lozenge) 1 lozenge MUCOUS MEM Q2H PRN PRN Reason: Sore Throat Last Admin: 10/29/23 12:45 Dose: 1 lozenge Benztropine Mesylate (Benztropine Mesylate 0.5 Mg Tablet) 0.5 mg PO BID [facility] Last Admin: 11/01/23 08:59 Dose: 0.5 mg Guaifenesin/Dextromethorphan (Guaifenesin Dm 100/10/5 Ml 5 Ml Syrup) 5 ml PO Q4H PRN PRN Reason: Cough Last Admin: 10/31/23 20:22 Dose: 5 ml Hydroxyzine HCl (Hydroxyzine Hcl 25 Mg Tablet) 25 mg PO Q6H PRN PRN Reason: Anxiety Last Admin: 10/17/23 20:33 Dose: 25 mg Lorazepam (Lorazepam 0.5 Mg Tablet) 0.5 mg PO TID [facility] Last Admin: 11/01/23 08:59 Dose: 0.5 mg Lurasidone HCl (Lurasidone Hcl 40 Mg Tablet) 40 mg PO DAILY@1800 [facility] Last Admin: 10/31/23 17:41 Dose: 40 mg Magnesium Hydroxide (Milk Of Magnesia 30 Ml Oral.Susp) 30 ml PO DAILY PRN PRN Reason: Constipation Multi-Ingred Medicated Throat [place] (Throat [place], Medicated 177 Ml Bottle) 1 spray MUCOUS MEM Q2H PRN PRN Reason: throat irritation Last Admin: 10/27/23 13:51 Dose: 1 spray Risperidone (Risperidone Oral Tarsha 1 Mg/Ml Solution) 3 mg PO DAILY [facility] Last Admin: 11/01/23 09:00 Dose: 3 mg Risperidone (Risperidone Oral Tarsha 1 Mg/Ml Solution) 4 mg PO BEDTIME [facility] Last Admin: 10/31/23 20:22 Dose: 4 mg Trazodone HCl (Trazodone Hcl 50 Mg Tablet) 50 mg PO BEDTIME MRX1 PRN PRN Reason: Insomnia Last Admin: 10/28/23 21:34 Dose: 50 mg Allergies Allergies Allergy/AdvReac Type Severity Reaction Status Date / Time fish derived [fish] Allergy Unknown Verified 09/29/23 23:05 Assessment & Plan Assessment & Plan (1) Schizoaffective disorder: Status: Acute Code(s): F25.9 - Schizoaffective disorder, unspecified Plan HPI: 43 yo single woman with Schizoaffective Disorder who lives alone in a condo in [place] admitted m5 after being brought to [facility] by police who found her wandering in [place]; She is on CV and 15 min checks. pt states she stopped her meds a few months ago. States she hasn't seen therapist and medication provider since March 2023. She states she hear voices and they insult her and are critical and mean to her. she reports being on lithium, latuda and seroquel in past but even on medication she continued to have voices. She does not want to restart lithium, latuda or seroquel but is vague about why not- says she wants to take vitamins and have a clear head. Pt states that she is often scared and fearful; believes people are watching her; fearful that people are trying to kill her. endorses depression and anxiety. denies SI or HI. Hospital course: 10/15 continue tx plan 10/16 increase Risperdal to 2 mg b.i.d. 10/17 disorganized behavior -holding paper to her nose, just sitting there -clogged bathroom toliet and sink with toliet paper and food; denies vomit...she was asked to leave it alone for a minute and during that time, flushed toliet anyway and toliet overflowed.... her bathroom required maintenance; in meantime, she asked to use the handicap bathroom and did the exact same thing. She could not explain why...She is now on 1:1 reports lot of voices... says there is one bad one, voice of Aunt, which scares her; whenever this particular voice comes, her throat feels as if closing up. Pt has c/o of sensation that throat is sore or that she's being choked since admission; sensation seems to primarly happen when voice of aunt shows up. -Pt no problem talking or breathing....no distress and so this is unlikely a dystonic reaction. -Start Cogentin out of abundance of caution if sensation of throat tightening resolves with cogentin, this will likely be diagnostic 10/18 Patient remains very fearful. Says voices continue to say scary things to her. Patient says she likes having a one-to-one and feels safer with staff present and comments that the person does not seem to be very frightening. Patient does report that sensation of throat tightening seems to have resolved with start of Cogentin. Discussed history of lithium, Latuda, Seroquel on which patient is sister/cousin says she did quite well; however patient says she had voices anyway at this time does not want to go back on any of those medications but wants to see if Risperdal can become helpful. Lithographic Proofer explained that currently, Risperdal does not seem to be effective as voices remain very troublesome; patient however was not willing to change medication at this time 10/19 Patient says she is actually feeling a little better today, overall less anxious, less scared. She does not want to raise Risperdal any because the auditory hallucinations are a little bit quieter and she hopes they will continue to become so. She thinks that she will be able to get off one-to-one during the day but would like to have it remain overnight since she wakes up fearful. 10/20 seems to be making incremental improvements and though AH remains significantly bothersome, it is less than before. Patient with overall appropriate behaviors, feeling safe enough to come off 1:1 during the day 10/21 still doing a little better but AH remains prominent; She agrees to minimal increase in Risperdal. Hopefully will be able to convert to long-acting injectable 10/22 change 11-7 checks to 5 minute. Pt feeling improved, states she feels prepared to move forward. 10/24/2023: Continue current regimen and plans 10/25/2023: Continue current regimen and plans 10/25 continue regimen, however, AH remain and significantly impair function; pt has a hx of requiring 2 antipsychotics to be functional and will likely continue to do so; will continue to discuss restarting latuda or seroquel and/or possible lithium (which she was on before) 10/30: continue current management and treatment plan. 10/31: continue current management and treatment plan. PLAN: CV q15's Increase to Latuda 40mg dinner time; will titrate accordingly -continue Risperdal liquid 3mg daily (AH/disorganized behaviors remain (?worsening); want to quickly see if Risperdal will be effective -increase to Risperdal liquid 4 mg q.h.s. -continue Cogentin .5mg BID; patient reports sensation of throat tightening seems to be better now that she is on Cogentin; due to Cogentin or due to reduced delusions? Reason for continued inpatient stay Substantial Risk for: inability to function and rapid decompensation Time Spent With Patient Time: Total time managing care of this patient today ____ minutes.
[2023-11-01 18:00] VITALS: BP 136/72; PULSE 98; RESP 18; TEMP 36.8; O2SAT 97
[2023-11-01] MEDS: Lurasidone HCl 40 MG TABLET PO (18:14)
[2023-11-01] MEDS: risperiDONE Oral Sol 1 MG/ML SOLUTION 4 MG PO (20:31)
[2023-11-01] MEDS: guaiFENesin DM 100/10/5 ML 5 ML SYRUP PO (20:31)
[2023-11-02] MEDS: Benztropine Mesylate 0.5 MG TABLET PO ×2 (08:34→19:41)
[2023-11-02] MEDS: risperiDONE Oral Sol 1 MG/ML SOLUTION 3 MG PO (08:34)
[2023-11-02] MEDS: LORazepam 0.5 MG TABLET PO ×3 (08:34→19:41)
[2023-11-02 08:37] VITALS: BP 172/100; PULSE 70; RESP 18; TEMP 36.4; O2SAT 100
[2023-11-02 09:27] VITALS: BP 132/63
--- NOTE | 2023-11-02 10:00 | HO.PSYCHPN ---
Subjective Subjective Date of Service: 11/02/23 Reason For Visit: Psychosis Interim History: met with patient; discussed with team; reviewed chart AH remains but pt is working on distracting herself and trying to ignore them, not believe them. Agrees to increase in Latuda. Mental Status Exam Mental Status Exam Narrative: Pt is alert and oriented; behavior is cooperative, more calm, friendly, polite; patient is not in distress; dressed in casual attire, unkempt, hirsutism but improved hygiene; mood is described as a little better and affect congruent; eye contact appropriate; Speech is normal rate, volume and prosody and not pressured; no psychomotor retardation present; thought process is mostly goal directed and organized; less distracted by internal preoccupation and little thought blocking; Thought content is on dealing with auditory hallucinations, treatment; otherwise pertinent to relevant topics; denies any SI/HI. Intermittently Internally preoccupied and self-dialoguing but much less and only when in privacy of own room. Patients insight and judgment improving. Diagnostics Vital Signs (24Hr): Vital Signs - 24 hr 11/01/23 18:00 11/02/23 08:37 11/02/23 09:27 Temperature 98.3 F 97.6 F Pulse Rate 98 70 Respiratory Rate 18 18 Blood Pressure 136/72 172/100 H 132/63 Pulse Oximetry 97 100 Oxygen Delivery Method Room Air Room Air BMI result Body Mass Index 42.4 Labs 09/29/23 22:53 09/29/23 22:53 Medications Medications Current Medications Acetaminophen (Acetaminophen 325 Mg Tablet) 650 mg PO Q6H PRN PRN Reason: Headache/Pain Mild Scale (1-3) Last Admin: 10/09/23 15:56 Dose: 650 mg Al Hydroxide/Mg Hydroxide (Magnesium Hydrox/Alum Hydrox 30 Ml Oral.Susp) 30 ml PO Q6H PRN PRN Reason: Heartburn/Nausea Last Admin: 10/30/23 05:22 Dose: 30 ml Artificial Tears (Artificial Tears 15 Ml Drops) 2 drop EYE-BOTH Q4H PRN PRN Reason: Dry Eyes Last Admin: 10/31/23 20:25 Dose: 2 drop Benzocaine (Throat Lozenge, Medicated Lozenge) 1 lozenge MUCOUS MEM Q2H PRN PRN Reason: Sore Throat Last Admin: 10/29/23 12:45 Dose: 1 lozenge Benztropine Mesylate (Benztropine Mesylate 0.5 Mg Tablet) 0.5 mg PO BID [facility] Last Admin: 11/02/23 08:34 Dose: 0.5 mg Guaifenesin/Dextromethorphan (Guaifenesin Dm 100/10/5 Ml 5 Ml Syrup) 5 ml PO Q4H PRN PRN Reason: Cough Last Admin: 11/01/23 20:31 Dose: 5 ml Hydroxyzine HCl (Hydroxyzine Hcl 25 Mg Tablet) 25 mg PO Q6H PRN PRN Reason: Anxiety Last Admin: 10/17/23 20:33 Dose: 25 mg Lorazepam (Lorazepam 0.5 Mg Tablet) 0.5 mg PO TID [facility] Last Admin: 11/02/23 08:34 Dose: 0.5 mg Lurasidone HCl (Lurasidone Hcl 40 Mg Tablet) 40 mg PO DAILY@1800 [facility] Last Admin: 11/01/23 18:14 Dose: 40 mg Magnesium Hydroxide (Milk Of Magnesia 30 Ml Oral.Susp) 30 ml PO DAILY PRN PRN Reason: Constipation Multi-Ingred Medicated Throat [place] (Throat [place], Medicated 177 Ml Bottle) 1 spray MUCOUS MEM Q2H PRN PRN Reason: throat irritation Last Admin: 10/27/23 13:51 Dose: 1 spray Risperidone (Risperidone Oral Tarsha 1 Mg/Ml Solution) 3 mg PO DAILY [facility] Last Admin: 11/02/23 08:34 Dose: 3 mg Risperidone (Risperidone Oral Tarsha 1 Mg/Ml Solution) 4 mg PO BEDTIME [facility] Last Admin: 11/01/23 20:31 Dose: 4 mg Trazodone HCl (Trazodone Hcl 50 Mg Tablet) 50 mg PO BEDTIME MRX1 PRN PRN Reason: Insomnia Last Admin: 10/28/23 21:34 Dose: 50 mg Allergies Allergies Allergy/AdvReac Type Severity Reaction Status Date / Time fish derived [fish] Allergy Unknown Verified 09/29/23 23:05 Assessment & Plan Assessment & Plan (1) Schizoaffective disorder: Status: Acute Code(s): F25.9 - Schizoaffective disorder, unspecified Plan HPI: 43 yo single woman with Schizoaffective Disorder who lives alone in a condo in [place] admitted m5 after being brought to [facility] ED by police who found her wandering in [place]; She is on CV and 15 min checks. pt states she stopped her meds a few months ago. States she hasn't seen therapist and medication provider since March 2023. She states she hear voices and they insult her and are critical and mean to her. she reports being on lithium, latuda and seroquel in past but even on medication she continued to have voices. She does not want to restart lithium, latuda or seroquel but is vague about why not- says she wants to take vitamins and have a clear head. Pt states that she is often scared and fearful; believes people are watching her; fearful that people are trying to kill her. endorses depression and anxiety. denies SI or HI. Hospital course: 10/15 continue tx plan 10/16 increase Risperdal to 2 mg b.i.d. 10/17 disorganized behavior -holding paper to her nose, just sitting there -clogged bathroom toliet and sink with toliet paper and food; denies vomit...she was asked to leave it alone for a minute and during that time, flushed toliet anyway and toliet overflowed.... her bathroom required maintenance; in meantime, she [facility] and did the exact same thing. She could not explain why...She is now on 1:1 reports lot of voices... says there is one bad one, voice of Aunt, which scares her; whenever this particular voice comes, her throat feels as if closing up. Pt has c/o of sensation that throat is sore or that she's being choked since admission; sensation seems to primarly happen when voice of aunt shows up. -Pt no problem talking or breathing....no distress and so this is unlikely a dystonic reaction. -Start Cogentin out of abundance of caution if sensation of throat tightening resolves with cogentin, this will likely be diagnostic 10/18 Patient remains very fearful. Says voices continue to say scary things to her. Patient says she likes having a one-to-one and feels safer with staff present and comments that the person does not seem to be very frightening. Patient does report that sensation of throat tightening seems to have resolved with start of Cogentin. Discussed history of lithium, Latuda, Seroquel on which patient is sister/cousin says she did quite well; however patient says she had voices anyway at this time does not want to go back on any of those medications but wants to see if Risperdal can become helpful. [facility] explained that currently, Risperdal does not seem to be effective as voices remain very troublesome; patient however was not willing to change medication at this time 10/19 Patient says she is actually feeling a little better today, overall less anxious, less scared. She does not want to raise Risperdal any because the auditory hallucinations are a little bit quieter and she hopes they will continue to become so. She thinks that she will be able to get off one-to-one during the day but would like to have it remain overnight since she wakes up fearful. 10/20 seems to be making incremental improvements and though AH remains significantly bothersome, it is less than before. Patient with overall appropriate behaviors, feeling safe enough to come off 1:1 during the day 10/21 still doing a little better but AH remains prominent; She agrees to minimal increase in Risperdal. Hopefully will be able to convert to long-acting injectable 10/22 change 11-7 checks to 5 minute. Pt feeling improved, states she feels prepared to move forward. 10/24/2023: Continue current regimen and plans 10/25/2023: Continue current regimen and plans 10/25 continue regimen, however, AH remain and significantly impair function; pt has a hx of requiring 2 antipsychotics to be functional and will likely continue to do so; will continue to discuss restarting latuda or seroquel and/or possible lithium (which she was on before) 11/01 increase Latuda to 60mg for continued AH. PLAN: CV q15's Increase to Latuda 60mg dinner time; will titrate accordingly -continue Risperdal liquid 3mg daily (AH/disorganized behaviors remain (?worsening); want to quickly see if Risperdal will be effective -increase to Risperdal liquid 4 mg q.h.s. -continue Cogentin .5mg BID; patient reports sensation of throat tightening seems to be better now that she is on Cogentin; due to Cogentin or due to reduced delusions? Patient educated on: diagnosis, medication risk/benefits and therapeutic strategies Informed Consent: understands Reason for continued inpatient stay Substantial Risk for: rapid decompensation Time Spent With Patient Time: Total time managing care of this patient today ____ minutes.
[2023-11-02 17:14] VITALS: BP 125/58; PULSE 76; RESP 18; TEMP 36.9; O2SAT 97
[2023-11-02] MEDS: Lurasidone HCl 20 MG TABLET 60 MG PO (18:16)
[2023-11-02] MEDS: risperiDONE Oral Sol 1 MG/ML SOLUTION 4 MG PO (19:42)
[2023-11-03] MEDS: LORazepam 0.5 MG TABLET PO ×3 (08:42→20:53)
[2023-11-03] MEDS: risperiDONE Oral Sol 1 MG/ML SOLUTION 3 MG PO (08:42)
[2023-11-03] MEDS: Benztropine Mesylate 0.5 MG TABLET PO ×2 (08:42→20:53)
[2023-11-03 08:45] VITALS: BP 162/78; PULSE 78; TEMP 36.6; O2SAT 98
--- NOTE | 2023-11-03 09:58 | HO.PSYCHPN ---
Subjective Subjective Date of Service: 11/03/23 Reason For Visit: Psychosis Interim History: met with patient; discussed with team Still with auditory hallucinations; still intrusive and making life difficult however she feels that overall they are quieter, more able to be ignored and not quite as negative. She feels that Latuda is helping. She still remains with some confusion due to internal preoccupation and continues to require assistance from staff however she is improving. She agrees to continue on current dose of Latuda but is open to raising it if symptoms do not improve further. Mental Status Exam Mental Status Exam Narrative: Pt is alert and oriented; behavior is cooperative, more calm, friendly, polite; patient is not in distress; dressed in casual attire, unkempt, hirsutism but improved hygiene; mood is described as a little better and affect congruent; eye contact appropriate; Speech is normal rate, volume and prosody and not pressured; no psychomotor retardation present; thought process is mostly goal directed and organized; less distracted by internal preoccupation and little thought blocking; Thought content is on dealing with auditory hallucinations, treatment; otherwise pertinent to relevant topics; denies any SI/HI. Intermittently Internally preoccupied and self-dialoguing but much less and only when in privacy of own room. Patients insight and judgment improving. Diagnostics Vital Signs (24Hr): Vital Signs - 24 hr 11/02/23 17:14 11/03/23 08:45 Temperature 98.4 F 97.8 F Pulse Rate 76 78 Respiratory Rate 18 Blood Pressure 125/58 L 162/78 H Pulse Oximetry 97 98 Oxygen Delivery Method Room Air Room Air BMI result Body Mass Index 42.4 Labs 09/29/23 22:53 09/29/23 22:53 Medications Medications Current Medications Acetaminophen (Acetaminophen 325 Mg Tablet) 650 mg PO Q6H PRN PRN Reason: Headache/Pain Mild Scale (1-3) Last Admin: 10/09/23 15:56 Dose: 650 mg Al Hydroxide/Mg Hydroxide (Magnesium Hydrox/Alum Hydrox 30 Ml Oral.Susp) 30 ml PO Q6H PRN PRN Reason: Heartburn/Nausea Last Admin: 10/30/23 05:22 Dose: 30 ml Artificial Tears (Artificial Tears 15 Ml Drops) 2 drop EYE-BOTH Q4H PRN PRN Reason: Dry Eyes Last Admin: 10/31/23 20:25 Dose: 2 drop Benzocaine (Throat Lozenge, Medicated Lozenge) 1 lozenge MUCOUS MEM Q2H PRN PRN Reason: Sore Throat Last Admin: 10/29/23 12:45 Dose: 1 lozenge Benztropine Mesylate (Benztropine Mesylate 0.5 Mg Tablet) 0.5 mg PO BID [facility] Last Admin: 11/03/23 08:42 Dose: 0.5 mg Guaifenesin/Dextromethorphan (Guaifenesin Dm 100/10/5 Ml 5 Ml Syrup) 5 ml PO Q4H PRN PRN Reason: Cough Last Admin: 11/01/23 20:31 Dose: 5 ml Hydroxyzine HCl (Hydroxyzine Hcl 25 Mg Tablet) 25 mg PO Q6H PRN PRN Reason: Anxiety Last Admin: 10/17/23 20:33 Dose: 25 mg Lorazepam (Lorazepam 0.5 Mg Tablet) 0.5 mg PO TID [facility] Last Admin: 11/03/23 08:42 Dose: 0.5 mg Lurasidone HCl (Lurasidone Hcl 20 Mg Tablet) 60 mg PO DAILY@1800 [facility] Last Admin: 11/02/23 18:16 Dose: 60 mg Magnesium Hydroxide (Milk Of Magnesia 30 Ml Oral.Susp) 30 ml PO DAILY PRN PRN Reason: Constipation Multi-Ingred Medicated Throat [place] (Throat [place], Medicated 177 Ml Bottle) 1 spray MUCOUS MEM Q2H PRN PRN Reason: throat irritation Last Admin: 10/27/23 13:51 Dose: 1 spray Risperidone (Risperidone Oral Tarsha 1 Mg/Ml Solution) 3 mg PO DAILY [facility] Last Admin: 11/03/23 08:42 Dose: 3 mg Risperidone (Risperidone Oral Tarsha 1 Mg/Ml Solution) 4 mg PO BEDTIME [facility] Last Admin: 11/02/23 19:42 Dose: 4 mg Trazodone HCl (Trazodone Hcl 50 Mg Tablet) 50 mg PO BEDTIME MRX1 PRN PRN Reason: Insomnia Last Admin: 10/28/23 21:34 Dose: 50 mg Allergies Allergies Allergy/AdvReac Type Severity Reaction Status Date / Time fish derived [fish] Allergy Unknown Verified 09/29/23 23:05 Assessment & Plan Assessment & Plan (1) Schizoaffective disorder: Status: Acute Code(s): F25.9 - Schizoaffective disorder, unspecified Plan HPI: 43 yo single woman with Schizoaffective Disorder who lives alone in a condo in [place] admitted m5 after being brought to [facility] by police who found her wandering in [place]; She is on CV and 15 min checks. pt states she stopped her meds a few months ago. States she hasn't seen therapist and medication provider since March 2023. She states she hear voices and they insult her and are critical and mean to her. she reports being on lithium, latuda and seroquel in past but even on medication she continued to have voices. She does not want to restart lithium, latuda or seroquel but is vague about why not- says she wants to take vitamins and have a clear head. Pt states that she is often scared and fearful; believes people are watching her; fearful that people are trying to kill her. endorses depression and anxiety. denies SI or HI. Hospital course: 10/15 continue tx plan 10/16 increase Risperdal to 2 mg b.i.d. 10/17 disorganized behavior -holding paper to her nose, just sitting there -clogged bathroom toliet and sink with toliet paper and food; denies vomit...she was asked to leave it alone for a minute and during that time, flushed toliet anyway and toliet overflowed.... her bathroom required maintenance; in meantime, she asked to use the handicap bathroom and did the exact same thing. She could not explain why...She is now on 1:1 reports lot of voices... says there is one bad one, voice of Aunt, which scares her; whenever this particular voice comes, her throat feels as if closing up. Pt has c/o of sensation that throat is sore or that she's being choked since admission; sensation seems to primarly happen when voice of aunt shows up. -Pt no problem talking or breathing....no distress and so this is unlikely a dystonic reaction. -Start Cogentin out of abundance of caution if sensation of throat tightening resolves with cogentin, this will likely be diagnostic 10/18 Patient remains very fearful. Says voices continue to say scary things to her. Patient says she likes having a one-to-one and feels safer with staff present and comments that the person does not seem to be very frightening. Patient does report that sensation of throat tightening seems to have resolved with start of Cogentin. Discussed history of lithium, Latuda, Seroquel on which patient is sister/cousin says she did quite well; however patient says she had voices anyway at this time does not want to go back on any of those medications but wants to see if Risperdal can become helpful. [facility] explained that currently, Risperdal does not seem to be effective as voices remain very troublesome; patient however was not willing to change medication at this time 10/19 Patient says she is actually feeling a little better today, overall less anxious, less scared. She does not want to raise Risperdal any because the auditory hallucinations are a little bit quieter and she hopes they will continue to become so. She thinks that she will be able to get off one-to-one during the day but would like to have it remain overnight since she wakes up fearful. 10/20 seems to be making incremental improvements and though AH remains significantly bothersome, it is less than before. Patient with overall appropriate behaviors, feeling safe enough to come off 1:1 during the day 10/21 still doing a little better but AH remains prominent; She agrees to minimal increase in Risperdal. Hopefully will be able to convert to long-acting injectable 10/22 change 11-7 checks to 5 minute. Pt feeling improved, states she feels prepared to move forward. 10/24/2023: Continue current regimen and plans 10/25/2023: Continue current regimen and plans 10/25 continue regimen, however, AH remain and significantly impair function; pt has a hx of requiring 2 antipsychotics to be functional and will likely continue to do so; will continue to discuss restarting latuda or seroquel and/or possible lithium (which she was on before) 11/01 increase Latuda to 60mg for continued AH. 11/02 Still with auditory hallucinations; still intrusive and making life difficult however she feels that overall they are quieter, more able to be ignored and not quite as negative. She feels that Latuda is helping. She still remains with some confusion due to internal preoccupation and continues to require assistance from staff however she is improving. She agrees to continue on current dose of Latuda but is open to raising it if symptoms do not improve further. It is possible the current dose will continue to confer further reduction of symptoms; since patient is on 2 antipsychotics trying to titrate slowly to avoid side effects -at this time patient remains with too much mental confusion, due to psychotic illness to function in the community; however symptoms have improved and so copy writer is cautiously optimistic that current regimen is the right course PLAN: CV q15's Continue Latuda 60mg dinner time; will titrate accordingly -continue Risperdal liquid 3mg daily (AH/disorganized behaviors remain (?worsening); want to quickly see if Risperdal will be effective -increase to Risperdal liquid 4 mg q.h.s. -continue Cogentin .5mg BID; patient reports sensation of throat tightening seems to be better now that she is on Cogentin; due to Cogentin or due to reduced delusions? Patient educated on: diagnosis, medication risk/benefits and therapeutic strategies Informed Consent: understands Reason for continued inpatient stay Substantial Risk for: inability to function Time Spent With Patient Time: Total time managing care of this patient today ____ minutes.
[2023-11-03] MEDS: Lurasidone HCl 20 MG TABLET 60 MG PO (18:40)
[2023-11-03 18:50] VITALS: BP 154/73; PULSE 78; RESP 16; TEMP 36.8; O2SAT 98
[2023-11-03] MEDS: risperiDONE Oral Sol 1 MG/ML SOLUTION 4 MG PO (20:54)
[2023-11-03] MEDS: Throat Lozenge, Medicated LOZENGE 1 LOZENGE MUCOUS MEM (20:54)
[2023-11-04 08:00] VITALS: BP 124/74; PULSE 71; RESP 16; TEMP 36.4; O2SAT 98
[2023-11-04] MEDS: LORazepam 0.5 MG TABLET PO ×3 (08:41→20:58)
[2023-11-04] MEDS: Benztropine Mesylate 0.5 MG TABLET PO ×2 (08:41→20:58)
[2023-11-04] MEDS: risperiDONE Oral Sol 1 MG/ML SOLUTION 3 MG PO (08:42)
--- NOTE | 2023-11-04 09:26 | HO.PSYCHPN ---
Subjective Subjective Date of Service: 11/04/23 Reason For Visit: Psychosis Interim History: met with patient; discussed with team AH remain problematic and continue to thought block and get in way; pt very anxious. She continues to try and distract self which intermittently helps. She says she continues to use Cepacol throat lozenge to help w/voices which intermittently make her think throat is tightening. Pt expressed paranoid thinking today that she has some continued worries that her family is trying to kill her...she is not sure why or how, but thought pervades...Senior Catering Sales Manager tried to quantify experience of AH now compared to year ago when she was in the community and working; pt said they are much worse now (though still a little less compared to when she was first admitted). Given continued AH and resurgence of paranoid delusions (at least resurgence of expressed delusion) newswriter discussed med management and consideration of changing pt to Haldol or Clozapine. Pt said she's afraid of weekly blood draw, but would entertain switch to Haldol. Diagnostics Vital Signs (24Hr): Vital Signs - 24 hr 11/03/23 18:50 11/04/23 08:00 Temperature 98.3 F 97.6 F Pulse Rate 78 71 Respiratory Rate 16 16 Blood Pressure 154/73 H 124/74 Pulse Oximetry 98 98 Oxygen Delivery Method Room Air Room Air BMI result Body Mass Index 42.4 Labs 09/29/23 22:53 09/29/23 22:53 Medications Medications Current Medications Acetaminophen (Acetaminophen 325 Mg Tablet) 650 mg PO Q6H PRN PRN Reason: Headache/Pain Mild Scale (1-3) Last Admin: 10/09/23 15:56 Dose: 650 mg Al Hydroxide/Mg Hydroxide (Magnesium Hydrox/Alum Hydrox 30 Ml Oral.Susp) 30 ml PO Q6H PRN PRN Reason: Heartburn/Nausea Last Admin: 10/30/23 05:22 Dose: 30 ml Artificial Tears (Artificial Tears 15 Ml Drops) 2 drop EYE-BOTH Q4H PRN PRN Reason: Dry Eyes Last Admin: 10/31/23 20:25 Dose: 2 drop Benzocaine (Throat Lozenge, Medicated Lozenge) 1 lozenge MUCOUS MEM Q2H PRN PRN Reason: Sore Throat Last Admin: 11/03/23 20:54 Dose: 1 lozenge Benztropine Mesylate (Benztropine Mesylate 0.5 Mg Tablet) 0.5 mg PO BID [facility] Last Admin: 11/04/23 08:41 Dose: 0.5 mg Guaifenesin/Dextromethorphan (Guaifenesin Dm 100/10/5 Ml 5 Ml Syrup) 5 ml PO Q4H PRN PRN Reason: Cough Last Admin: 11/01/23 20:31 Dose: 5 ml Hydroxyzine HCl (Hydroxyzine Hcl 25 Mg Tablet) 25 mg PO Q6H PRN PRN Reason: Anxiety Last Admin: 10/17/23 20:33 Dose: 25 mg Lorazepam (Lorazepam 0.5 Mg Tablet) 0.5 mg PO TID [facility] Last Admin: 11/04/23 08:41 Dose: 0.5 mg Lurasidone HCl (Lurasidone Hcl 20 Mg Tablet) 60 mg PO DAILY@1800 [facility] Last Admin: 11/03/23 18:40 Dose: 60 mg Magnesium Hydroxide (Milk Of Magnesia 30 Ml Oral.Susp) 30 ml PO DAILY PRN PRN Reason: Constipation Multi-Ingred Medicated Throat [place] (Throat [place], Medicated 177 Ml Bottle) 1 spray MUCOUS MEM Q2H PRN PRN Reason: throat irritation Last Admin: 10/27/23 13:51 Dose: 1 spray Risperidone (Risperidone Oral Tarsha 1 Mg/Ml Solution) 3 mg PO DAILY [facility] Last Admin: 11/04/23 08:42 Dose: 3 mg Risperidone (Risperidone Oral Tarsha 1 Mg/Ml Solution) 4 mg PO BEDTIME [facility] Last Admin: 11/03/23 20:54 Dose: 4 mg Trazodone HCl (Trazodone Hcl 50 Mg Tablet) 50 mg PO BEDTIME MRX1 PRN PRN Reason: Insomnia Last Admin: 10/28/23 21:34 Dose: 50 mg Allergies Allergies Allergy/AdvReac Type Severity Reaction Status Date / Time fish derived [fish] Allergy Unknown Verified 09/29/23 23:05 Assessment & Plan Assessment & Plan (1) Schizoaffective disorder: Status: Acute Code(s): F25.9 - Schizoaffective disorder, unspecified Plan HPI: 43 yo single woman with Schizoaffective Disorder who lives alone in a condo in [place] admitted m5 after being brought to [facility] by police who found her wandering in [place]; She is on CV and 15 min checks. pt states she stopped her meds a few months ago. States she hasn't seen therapist and medication provider since March 2023. She states she hear voices and they insult her and are critical and mean to her. she reports being on lithium, latuda and seroquel in past but even on medication she continued to have voices. She does not want to restart lithium, latuda or seroquel but is vague about why not- says she wants to take vitamins and have a clear head. Pt states that she is often scared and fearful; believes people are watching her; fearful that people are trying to kill her. endorses depression and anxiety. denies SI or HI. Hospital course: 10/15 continue tx plan 10/16 increase Risperdal to 2 mg b.i.d. 10/17 disorganized behavior -holding paper to her nose, just sitting there -clogged bathroom toliet and sink with toliet paper and food; denies vomit...she was asked to leave it alone for a minute and during that time, flushed toliet anyway and toliet overflowed.... her bathroom required maintenance; in meantime, she asked to use the [facility] bathroom and did the exact same thing. She could not explain why...She is now on 1:1 reports lot of voices... says there is one bad one, voice of Aunt, which scares her; whenever this particular voice comes, her throat feels as if closing up. Pt has c/o of sensation that throat is sore or that she's being choked since admission; sensation seems to primarly happen when voice of aunt shows up. -Pt no problem talking or breathing....no distress and so this is unlikely a dystonic reaction. -Start Cogentin out of abundance of caution if sensation of throat tightening resolves with cogentin, this will likely be diagnostic 10/18 Patient remains very fearful. Says voices continue to say scary things to her. Patient says she likes having a one-to-one and feels safer with staff present and comments that the person does not seem to be very frightening. Patient does report that sensation of throat tightening seems to have resolved with start of Cogentin. Discussed history of lithium, Latuda, Seroquel on which patient is sister/cousin says she did quite well; however patient says she had voices anyway at this time does not want to go back on any of those medications but wants to see if Risperdal can become helpful. Senior Catering Sales Manager explained that currently, Risperdal does not seem to be effective as voices remain very troublesome; patient however was not willing to change medication at this time 10/19 Patient says she is actually feeling a little better today, overall less anxious, less scared. She does not want to raise Risperdal any because the auditory hallucinations are a little bit quieter and she hopes they will continue to become so. She thinks that she will be able to get off one-to-one during the day but would like to have it remain overnight since she wakes up fearful. 10/20 seems to be making incremental improvements and though AH remains significantly bothersome, it is less than before. Patient with overall appropriate behaviors, feeling safe enough to come off 1:1 during the day 10/21 still doing a little better but AH remains prominent; She agrees to minimal increase in Risperdal. Hopefully will be able to convert to long-acting injectable 10/22 change 11-7 checks to 5 minute. Pt feeling improved, states she feels prepared to move forward. 10/24/2023: Continue current regimen and plans 10/25/2023: Continue current regimen and plans 10/25 continue regimen, however, AH remain and significantly impair function; pt has a hx of requiring 2 antipsychotics to be functional and will likely continue to do so; will continue to discuss restarting latuda or seroquel and/or possible lithium (which she was on before) 11/01 increase Latuda to 60mg for continued AH. 11/02 Still with auditory hallucinations; still intrusive and making life difficult however she feels that overall they are quieter, more able to be ignored and not quite as negative. She feels that Latuda is helping. She still remains with some confusion due to internal preoccupation and continues to require assistance from staff however she is improving. She agrees to continue on current dose of Latuda but is open to raising it if symptoms do not improve further. It is possible the current dose will continue to confer further reduction of symptoms; since patient is on 2 antipsychotics trying to titrate slowly to avoid side effects -at this time patient remains with too much mental confusion, due to psychotic illness to function in the community; however symptoms have improved and so newswriter is cautiously optimistic that current regimen is the right course 11/03 some increased symptoms expressed today... AH remain problematic and continue to thought block and get in way; pt very anxious. She continues to try and distract self which intermittently helps. She says she continues to use Cepacol throat lozenge to help w/voices which intermittently make her think throat is tightening. Pt expressed paranoid thinking today that she has some continued worries that her family is trying to kill her...she is not sure why or how, but thought pervades...Senior Catering Sales Manager tried to quantify experience of AH now compared to year ago when she was in the community and working; pt said they are much worse now (though still a little less compared to when she was first admitted). Given continued AH and resurgence of paranoid delusions (at least resurgence of expressed delusion) newswriter discussed med management and consideration of changing pt to Haldol or Clozapine. Pt said she's afraid of weekly blood draw, but would entertain switch to Haldol. -although pt has improved some compared to admission, AH and paranoid delusions remain dominant, troublesome and reveal patients fragility; she is far from baseline (where she was able to live on her own, evening holding down employment) and cannot yet function on her own in the community (needed much staff support). Though possible, it seems unlikely that Latuda increase will be sufficent to address positive symptoms of psychosis and pt may need to add or switch to typical anti-psychotic (or Clozapine). PLAN: CV q15's Continue Latuda 60mg dinner time; will titrate accordingly -continue Risperdal liquid 3mg daily (AH/disorganized behaviors remain (?worsening); want to quickly see if Risperdal will be effective -increase to Risperdal liquid 4 mg q.h.s. -continue Cogentin .5mg BID; patient reports sensation of throat tightening seems to be better now that she is on Cogentin; due to Cogentin or due to reduced delusions? Patient educated on: diagnosis, medication risk/benefits and therapeutic strategies Informed Consent: understands and further education needed Reason for continued inpatient stay Substantial Risk for: inability to function Time Spent With Patient Time: Total time managing care of this patient today ____ minutes.
[2023-11-04 18:00] VITALS: RESP 18
[2023-11-04] MEDS: Lurasidone HCl 20 MG TABLET 60 MG PO (19:18)
[2023-11-04] MEDS: risperiDONE Oral Sol 1 MG/ML SOLUTION 4 MG PO (20:58)
[2023-11-05 07:00] VITALS: BMI 42.4
[2023-11-05 08:33] VITALS: BP 168/99; PULSE 74; RESP 18; TEMP 36.6; O2SAT 99
[2023-11-05] MEDS: Benztropine Mesylate 0.5 MG TABLET PO ×2 (09:11→20:56)
[2023-11-05] MEDS: LORazepam 0.5 MG TABLET PO ×3 (09:11→20:56)
[2023-11-05] MEDS: risperiDONE Oral Sol 1 MG/ML SOLUTION 3 MG PO (09:12)
[2023-11-05] MEDS: Lurasidone HCl 20 MG TABLET 60 MG PO (17:52)
[2023-11-05 18:00] VITALS: BP 149/65; PULSE 72; RESP 18; TEMP 36.5; O2SAT 98
[2023-11-05] MEDS: risperiDONE Oral Sol 1 MG/ML SOLUTION 4 MG PO (20:56)
--- NOTE | 2023-11-05 21:39 | HO.PSYCHPN ---
Subjective Subjective Date of Service: 11/05/23 Reason For Visit: Psychosis Interim History: met with patient; discussed with team AH and delusional thinking remain. She is very worried about idea of discharge, saying she does not feel well. Though anxious about signing, she read through and agreed to sign NICHO[employer] for [facility] application in [place] where she plans to return. Mental Status Exam Mental Status Exam Narrative: Pt is alert and oriented; behavior is cooperative, more calm, friendly, polite; some mental confusion evident; patient is not in distress; dressed in casual attire, unkempt, hirsutism but improved hygiene; mood is described as anxious and affect congruent; eye contact appropriate; Speech is intermittently soft/quiet, but normal rate and prosody; not pressured; no psychomotor retardation present; thought process is mostly goal directed and organized; less distracted overall by internal preoccupation and less thought blocking, though both remain; Thought content with some paranoid delusions, on dealing with auditory hallucinations, treatment; otherwise pertinent to relevant topics; denies any SI/HI. Intermittently Internally preoccupied and self-dialoguing but much less than on admission and now, mostly only when in privacy of own room. Patients insight and judgment improving. Diagnostics Vital Signs (24Hr): Vital Signs - 24 hr 11/05/23 08:33 Temperature 98 F Pulse Rate 74 Respiratory Rate 18 Blood Pressure 168/99 H Pulse Oximetry 99 Oxygen Delivery Method Room Air BMI result Body Mass Index 42.4 Labs 09/29/23 22:53 09/29/23 22:53 Medications Medications Current Medications Acetaminophen (Acetaminophen 325 Mg Tablet) 650 mg PO Q6H PRN PRN Reason: Headache/Pain Mild Scale (1-3) Last Admin: 10/09/23 15:56 Dose: 650 mg Al Hydroxide/Mg Hydroxide (Magnesium Hydrox/Alum Hydrox 30 Ml Oral.Susp) 30 ml PO Q6H PRN PRN Reason: Heartburn/Nausea Last Admin: 10/30/23 05:22 Dose: 30 ml Artificial Tears (Artificial Tears 15 Ml Drops) 2 drop EYE-BOTH Q4H PRN PRN Reason: Dry Eyes Last Admin: 10/31/23 20:25 Dose: 2 drop Benzocaine (Throat Lozenge, Medicated Lozenge) 1 lozenge MUCOUS MEM Q2H PRN PRN Reason: Sore Throat Last Admin: 11/03/23 20:54 Dose: 1 lozenge Benztropine Mesylate (Benztropine Mesylate 0.5 Mg Tablet) 0.5 mg PO BID [facility] Last Admin: 11/05/23 20:56 Dose: 0.5 mg Guaifenesin/Dextromethorphan (Guaifenesin Dm 100/10/5 Ml 5 Ml Syrup) 5 ml PO Q4H PRN PRN Reason: Cough Last Admin: 11/01/23 20:31 Dose: 5 ml Hydroxyzine HCl (Hydroxyzine Hcl 25 Mg Tablet) 25 mg PO Q6H PRN PRN Reason: Anxiety Last Admin: 10/17/23 20:33 Dose: 25 mg Lorazepam (Lorazepam 0.5 Mg Tablet) 0.5 mg PO TID [facility] Last Admin: 11/05/23 20:56 Dose: 0.5 mg Lurasidone HCl (Lurasidone Hcl 20 Mg Tablet) 60 mg PO DAILY@1800 [facility] Last Admin: 11/05/23 17:52 Dose: 60 mg Magnesium Hydroxide (Milk Of Magnesia 30 Ml Oral.Susp) 30 ml PO DAILY PRN PRN Reason: Constipation Multi-Ingred Medicated Throat [place] (Throat [place], Medicated 177 Ml Bottle) 1 spray MUCOUS MEM Q2H PRN PRN Reason: throat irritation Last Admin: 10/27/23 13:51 Dose: 1 spray Risperidone (Risperidone Oral Tarsha 1 Mg/Ml Solution) 3 mg PO DAILY [facility] Last Admin: 11/05/23 09:12 Dose: 3 mg Risperidone (Risperidone Oral Tarsha 1 Mg/Ml Solution) 4 mg PO BEDTIME [facility] Last Admin: 11/05/23 20:56 Dose: 4 mg Trazodone HCl (Trazodone Hcl 50 Mg Tablet) 50 mg PO BEDTIME MRX1 PRN PRN Reason: Insomnia Last Admin: 10/28/23 21:34 Dose: 50 mg Allergies Allergies Allergy/AdvReac Type Severity Reaction Status Date / Time fish derived [fish] Allergy Unknown Verified 09/29/23 23:05 Assessment & Plan Assessment & Plan (1) Schizoaffective disorder: Status: Acute Code(s): F25.9 - Schizoaffective disorder, unspecified Plan HPI: 43 yo single woman with Schizoaffective Disorder who lives alone in a condo in [facility] admitted m5 after being brought to [facility] by police who found her wandering in [place]; She is on CV and 15 min checks. pt states she stopped her meds a few months ago. States she hasn't seen therapist and medication provider since March 2023. She states she hear voices and they insult her and are critical and mean to her. she reports being on lithium, latuda and seroquel in past but even on medication she continued to have voices. She does not want to restart lithium, latuda or seroquel but is vague about why not- says she wants to take vitamins and have a clear head. Pt states that she is often scared and fearful; believes people are watching her; fearful that people are trying to kill her. endorses depression and anxiety. denies SI or HI. Hospital course: 10/15 continue tx plan 10/16 increase Risperdal to 2 mg b.i.d. 10/17 disorganized behavior -holding paper to her nose, just sitting there -clogged bathroom toliet and sink with toliet paper and food; denies vomit...she was asked to leave it alone for a minute and during that time, flushed toliet anyway and toliet overflowed.... her bathroom required maintenance; in meantime, she asked to use the [facility] bathroom and did the exact same thing. She could not explain why...She is now on 1:1 reports lot of voices... says there is one bad one, voice of Aunt, which scares her; whenever this particular voice comes, her throat feels as if closing up. Pt has c/o of sensation that throat is sore or that she's being choked since admission; sensation seems to primarly happen when voice of aunt shows up. -Pt no problem talking or breathing....no distress and so this is unlikely a dystonic reaction. -Start Cogentin out of abundance of caution if sensation of throat tightening resolves with cogentin, this will likely be diagnostic 10/18 Patient remains very fearful. Says voices continue to say scary things to her. Patient says she likes having a one-to-one and feels safer with staff present and comments that the person does not seem to be very frightening. Patient does report that sensation of throat tightening seems to have resolved with start of Cogentin. Discussed history of lithium, Latuda, Seroquel on which patient is sister/cousin says she did quite well; however patient says she had voices anyway at this time does not want to go back on any of those medications but wants to see if Risperdal can become helpful. User Experience Developer explained that currently, Risperdal does not seem to be effective as voices remain very troublesome; patient however was not willing to change medication at this time 10/19 Patient says she is actually feeling a little better today, overall less anxious, less scared. She does not want to raise Risperdal any because the auditory hallucinations are a little bit quieter and she hopes they will continue to become so. She thinks that she will be able to get off one-to-one during the day but would like to have it remain overnight since she wakes up fearful. 10/20 seems to be making incremental improvements and though AH remains significantly bothersome, it is less than before. Patient with overall appropriate behaviors, feeling safe enough to come off 1:1 during the day 10/21 still doing a little better but AH remains prominent; She agrees to minimal increase in Risperdal. Hopefully will be able to convert to long-acting injectable 10/22 change 11-7 checks to 5 minute. Pt feeling improved, states she feels prepared to move forward. 10/24/2023: Continue current regimen and plans 10/25/2023: Continue current regimen and plans 10/25 continue regimen, however, AH remain and significantly impair function; pt has a hx of requiring 2 antipsychotics to be functional and will likely continue to do so; will continue to discuss restarting latuda or seroquel and/or possible lithium (which she was on before) 11/01 increase Latuda to 60mg for continued AH. 11/02 Still with auditory hallucinations; still intrusive and making life difficult however she feels that overall they are quieter, more able to be ignored and not quite as negative. She feels that Latuda is helping. She still remains with some confusion due to internal preoccupation and continues to require assistance from staff however she is improving. She agrees to continue on current dose of Latuda but is open to raising it if symptoms do not improve further. It is possible the current dose will continue to confer further reduction of symptoms; since patient is on 2 antipsychotics trying to titrate slowly to avoid side effects -at this time patient remains with too much mental confusion, due to psychotic illness to function in the community; however symptoms have improved and so commercial lines underwriter is cautiously optimistic that current regimen is the right course 11/03 some increased symptoms expressed today... AH remain problematic and continue to thought block and get in way; pt very anxious. She continues to try and distract self which intermittently helps. She says she continues to use Cepacol throat lozenge to help w/voices which intermittently make her think throat is tightening. Pt expressed paranoid thinking today that she has some continued worries that her family is trying to kill her...she is not sure why or how, but thought pervades...User Experience Developer tried to quantify experience of AH now compared to year ago when she was in the community and working; pt said they are much worse now (though still a little less compared to when she was first admitted). Given continued AH and resurgence of paranoid delusions (at least resurgence of expressed delusion) commercial lines underwriter discussed med management and consideration of changing pt to Haldol or Clozapine. Pt said she's afraid of weekly blood draw, but would entertain switch to Haldol. 11/04 same presentation; signed [facility] NICHOLE for application -although pt has improved some compared to admission, AH and paranoid delusions remain dominant, troublesome and reveal patients fragility; she is far from baseline (where she was able to live on her own, evening holding down employment) and cannot yet function on her own in the community (needed much staff support). Though possible, it seems unlikely that Latuda increase will be sufficent to address positive symptoms of psychosis and pt may need to add or switch to typical anti-psychotic (or Clozapine). PLAN: CV q15's Continue Latuda 60mg dinner time; will titrate accordingly -continue Risperdal liquid 3mg daily (AH/disorganized behaviors remain (?worsening); want to quickly see if Risperdal will be effective -increase to Risperdal liquid 4 mg q.h.s. -continue Cogentin .5mg BID; patient reports sensation of throat tightening seems to be better now that she is on Cogentin; due to Cogentin or due to reduced delusions? Patient educated on: diagnosis Informed Consent: understands and further education needed Reason for continued inpatient stay Substantial Risk for: inability to function Time Spent With Patient Time: Total time managing care of this patient today ____ minutes.
[2023-11-06 06:00] VITALS: BP 164/72; PULSE 68; RESP 16; TEMP 36.6; O2SAT 99
[2023-11-06] MEDS: Benztropine Mesylate 0.5 MG TABLET PO ×2 (08:32→20:55)
[2023-11-06] MEDS: LORazepam 0.5 MG TABLET PO ×3 (08:32→20:55)
[2023-11-06] MEDS: risperiDONE Oral Sol 1 MG/ML SOLUTION 3 MG PO (08:33)
[2023-11-06] MEDS: Lurasidone HCl 20 MG TABLET 60 MG PO (17:38)
[2023-11-06 18:00] VITALS: BP 134/78; PULSE 76; RESP 18; TEMP 36.9; O2SAT 98
[2023-11-06] MEDS: HaloperidoL 5 MG TABLET 10 MG PO (20:55)
[2023-11-07 08:12] VITALS: BP 132/81; PULSE 71; RESP 16; TEMP 36.8; O2SAT 95
[2023-11-07] MEDS: LORazepam 0.5 MG TABLET PO ×2 (08:54→20:13)
[2023-11-07] MEDS: risperiDONE Oral Sol 1 MG/ML SOLUTION 3 MG PO (08:54)
[2023-11-07] MEDS: Benztropine Mesylate 0.5 MG TABLET PO ×2 (08:54→20:13)
--- NOTE | 2023-11-07 10:23 | HO.PSYCHPN ---
Subjective Subjective Date of Service: 11/06/23 Reason For Visit: Psychosis Interim History: late entry note for patient seen on 11/06/23 pt reports continued AH and efforts to try to distract herself from them...effort to find find such activities filling up her day; says it helps some. Pt said she would be willing to do Finger stick for ANC (but not venous blood draw) but worried how she would get to clinic each week to do so. Digital Advertising Analyst discussed with staff and VNA not an option for such blood draw...at writers recommendation pt agreed to try Haldol to see if helped Mental Status Exam Mental Status Exam Narrative: Pt is alert and oriented; behavior is cooperative, more calm, friendly, polite; some mental confusion evident; patient is not in distress; dressed in casual attire, unkempt, hirsutism but improved hygiene; mood is described as anxious and affect congruent; eye contact appropriate; Speech is intermittently soft/quiet, but normal rate and prosody; not pressured; no psychomotor retardation present; thought process is mostly goal directed and organized; less distracted overall by internal preoccupation and less thought blocking, though both remain; Thought content with some paranoid delusions, on dealing with auditory hallucinations, treatment; otherwise pertinent to relevant topics; denies any SI/HI. Intermittently Internally preoccupied and self-dialoguing but much less than on admission and now, mostly only when in privacy of own room. Patients insight and judgment improved since admission, but remain impaired. Diagnostics Vital Signs (24Hr): Vital Signs - 24 hr 11/06/23 18:00 Temperature 98.5 F Pulse Rate 76 Respiratory Rate 18 Blood Pressure 134/78 Pulse Oximetry 98 Oxygen Delivery Method Room Air BMI result Body Mass Index 42.4 Labs 09/29/23 22:53 09/29/23 22:53 Medications Medications Current Medications Acetaminophen (Acetaminophen 325 Mg Tablet) 650 mg PO Q6H PRN PRN Reason: Headache/Pain Mild Scale (1-3) Last Admin: 10/09/23 15:56 Dose: 650 mg Al Hydroxide/Mg Hydroxide (Magnesium Hydrox/Alum Hydrox 30 Ml Oral.Susp) 30 ml PO Q6H PRN PRN Reason: Heartburn/Nausea Last Admin: 10/30/23 05:22 Dose: 30 ml Artificial Tears (Artificial Tears 15 Ml Drops) 2 drop EYE-BOTH Q4H PRN PRN Reason: Dry Eyes Last Admin: 10/31/23 20:25 Dose: 2 drop Benzocaine (Throat Lozenge, Medicated Lozenge) 1 lozenge MUCOUS MEM Q2H PRN PRN Reason: Sore Throat Last Admin: 11/03/23 20:54 Dose: 1 lozenge Benztropine Mesylate (Benztropine Mesylate 0.5 Mg Tablet) 0.5 mg PO BID [facility] Last Admin: 11/07/23 08:54 Dose: 0.5 mg Guaifenesin/Dextromethorphan (Guaifenesin Dm 100/10/5 Ml 5 Ml Syrup) 5 ml PO Q4H PRN PRN Reason: Cough Last Admin: 11/01/23 20:31 Dose: 5 ml Haloperidol (Haloperidol 5 Mg Tablet) 10 mg PO BEDTIME [facility] Last Admin: 11/06/23 20:55 Dose: 10 mg Hydroxyzine HCl (Hydroxyzine Hcl 25 Mg Tablet) 25 mg PO Q6H PRN PRN Reason: Anxiety Last Admin: 10/17/23 20:33 Dose: 25 mg Lorazepam (Lorazepam 0.5 Mg Tablet) 0.5 mg PO TID [facility] Last Admin: 11/07/23 08:54 Dose: 0.5 mg Lurasidone HCl (Lurasidone Hcl 20 Mg Tablet) 60 mg PO DAILY@1800 [facility] Last Admin: 11/06/23 17:38 Dose: 60 mg Magnesium Hydroxide (Milk Of Magnesia 30 Ml Oral.Susp) 30 ml PO DAILY PRN PRN Reason: Constipation Multi-Ingred Medicated Throat [place] (Throat [place], Medicated 177 Ml Bottle) 1 spray MUCOUS MEM Q2H PRN PRN Reason: throat irritation Last Admin: 10/27/23 13:51 Dose: 1 spray Pt Own (Liposomal Vitamin C (Liquid) 15 Ml) 15 ml PO DAILY [facility] Pt Own (Physician's Choice Probiotic 1 Cap) 1 cap PO DAILY [facility] Risperidone (Risperidone Oral Tarsha 1 Mg/Ml Solution) 3 mg PO DAILY [facility] Last Admin: 11/07/23 08:54 Dose: 3 mg Trazodone HCl (Trazodone Hcl 50 Mg Tablet) 50 mg PO BEDTIME MRX1 PRN PRN Reason: Insomnia Last Admin: 10/28/23 21:34 Dose: 50 mg Allergies Allergies Allergy/AdvReac Type Severity Reaction Status Date / Time fish derived [fish] Allergy Unknown Verified 09/29/23 23:05 Assessment & Plan Assessment & Plan (1) Schizoaffective disorder: Status: Acute Code(s): F25.9 - Schizoaffective disorder, unspecified Plan HPI: 43 yo single woman with Schizoaffective Disorder who lives alone in a condo in [place] admitted m5 after being brought to [facility] ED by police who found her wandering in [place]; She is on CV and 15 min checks. pt states she stopped her meds a few months ago. States she hasn't seen therapist and medication provider since March 2023. She states she hear voices and they insult her and are critical and mean to her. she reports being on lithium, latuda and seroquel in past but even on medication she continued to have voices. She does not want to restart lithium, latuda or seroquel but is vague about why not- says she wants to take vitamins and have a clear head. Pt states that she is often scared and fearful; believes people are watching her; fearful that people are trying to kill her. endorses depression and anxiety. denies SI or HI. Hospital course: 10/15 continue tx plan 10/16 increase Risperdal to 2 mg b.i.d. 10/17 disorganized behavior -holding paper to her nose, just sitting there -clogged bathroom toliet and sink with toliet paper and food; denies vomit...she was asked to leave it alone for a minute and during that time, flushed toliet anyway and toliet overflowed.... her bathroom required maintenance; in meantime, she [facility] and did the exact same thing. She could not explain why...She is now on 1:1 reports lot of voices... says there is one bad one, voice of Aunt, which scares her; whenever this particular voice comes, her throat feels as if closing up. Pt has c/o of sensation that throat is sore or that she's being choked since admission; sensation seems to primarly happen when voice of aunt shows up. -Pt no problem talking or breathing....no distress and so this is unlikely a dystonic reaction. -Start Cogentin out of abundance of caution if sensation of throat tightening resolves with cogentin, this will likely be diagnostic 10/18 Patient remains very fearful. Says voices continue to say scary things to her. Patient says she likes having a one-to-one and feels safer with staff present and comments that the person does not seem to be very frightening. Patient does report that sensation of throat tightening seems to have resolved with start of Cogentin. Discussed history of lithium, Latuda, Seroquel on which patient is sister/cousin says she did quite well; however patient says she had voices anyway at this time does not want to go back on any of those medications but wants to see if Risperdal can become helpful. Digital Advertising Analyst explained that currently, Risperdal does not seem to be effective as voices remain very troublesome; patient however was not willing to change medication at this time 10/19 Patient says she is actually feeling a little better today, overall less anxious, less scared. She does not want to raise Risperdal any because the auditory hallucinations are a little bit quieter and she hopes they will continue to become so. She thinks that she will be able to get off one-to-one during the day but would like to have it remain overnight since she wakes up fearful. 10/20 seems to be making incremental improvements and though AH remains significantly bothersome, it is less than before. Patient with overall appropriate behaviors, feeling safe enough to come off 1:1 during the day 10/21 still doing a little better but AH remains prominent; She agrees to minimal increase in Risperdal. Hopefully will be able to convert to long-acting injectable 10/22 change 11-7 checks to 5 minute. Pt feeling improved, states she feels prepared to move forward. 10/24/2023: Continue current regimen and plans 10/25/2023: Continue current regimen and plans 10/25 continue regimen, however, AH remain and significantly impair function; pt has a hx of requiring 2 antipsychotics to be functional and will likely continue to do so; will continue to discuss restarting latuda or seroquel and/or possible lithium (which she was on before) 11/01 increase Latuda to 60mg for continued AH. 11/02 Still with auditory hallucinations; still intrusive and making life difficult however she feels that overall they are quieter, more able to be ignored and not quite as negative. She feels that Latuda is helping. She still remains with some confusion due to internal preoccupation and continues to require assistance from staff however she is improving. She agrees to continue on current dose of Latuda but is open to raising it if symptoms do not improve further. It is possible the current dose will continue to confer further reduction of symptoms; since patient is on 2 antipsychotics trying to titrate slowly to avoid side effects -at this time patient remains with too much mental confusion, due to psychotic illness to function in the community; however symptoms have improved and so scenario writer is cautiously optimistic that current regimen is the right course 11/03 some increased symptoms expressed today... AH remain problematic and continue to thought block and get in way; pt very anxious. She continues to try and distract self which intermittently helps. She says she continues to use Cepacol throat lozenge to help w/voices which intermittently make her think throat is tightening. Pt expressed paranoid thinking today that she has some continued worries that her family is trying to kill her...she is not sure why or how, but thought pervades...Digital Advertising Analyst tried to quantify experience of AH now compared to year ago when she was in the community and working; pt said they are much worse now (though still a little less compared to when she was first admitted). -Given continued AH and resurgence of paranoid delusions (at least resurgence of expressed delusion) scenario writer discussed med management and consideration of changing pt to Haldol or Clozapine. Pt said she's afraid of weekly blood draw, but would entertain switch to Haldol. 11/04 same presentation; signed [facility] for application 11/05 pt reports continued AH and efforts to try to distract herself from them...effort to find find such activities filling up her day; says it helps some. Pt said she would be willing to do Finger stick for ANC (but not venous blood draw) but worried how she would get to clinic each week to do so. Digital Advertising Analyst discussed with staff and VNA not an option for such blood draw...at writers recommendation pt agreed to try Haldol to see if helped -Although pt has improved some compared to admission, AH and paranoid delusions remain dominant, troublesome and reveal patients fragility; she is far from baseline (where she was able to live on her own, evening holding down employment) and cannot yet function on her own in the community (needed much staff support). Though possible, it seems unlikely that Latuda increase will be sufficient to address positive symptoms of psychosis and pt may need to add or switch to typical anti-psychotic (or Clozapine). She agrees to Haldol PLAN: CV q15's Continue Latuda 60mg dinner time; will titrate accordingly START Haldol 10mg qhs (and DC risperdal qhs) since AH remain problematic LIKELY add Haldol 5mg daily (and dc Risperdal liquid 3mg daily if Haldol seems to be helping) -DC Risperdal liquid 4 mg q.h.s. -continue Cogentin .5mg BID; patient reports sensation of throat tightening seems to be better now that she is on Cogentin; due to Cogentin or due to reduced delusions? Patient educated on: diagnosis and medication risk/benefits Informed Consent: understands Reason for continued inpatient stay Substantial Risk for: inability to function Time Spent With Patient Time: Total time managing care of this patient today ____ minutes.
[2023-11-07] MEDS: Lurasidone HCl 20 MG TABLET 60 MG PO (17:57)
[2023-11-07 18:00] VITALS: BP 138/69; PULSE 71; RESP 16; TEMP 36.9; O2SAT 100
[2023-11-07] MEDS: HaloperidoL 5 MG TABLET 10 MG PO (20:13)
[2023-11-08 08:12] VITALS: BP 151/75; PULSE 69; RESP 16; TEMP 36.7; O2SAT 98
[2023-11-08] MEDS: Benztropine Mesylate 0.5 MG TABLET PO ×2 (09:20→20:16)
[2023-11-08] MEDS: LORazepam 0.5 MG TABLET PO ×2 (09:20→20:16)
[2023-11-08] MEDS: HaloperidoL 5 MG TABLET PO (09:20)
--- NOTE | 2023-11-08 13:05 | HO.PSYCHPN ---
Subjective Subjective Date of Service: 11/08/23 Reason For Visit: Psychosis Subjective Notes: Conditional Voluntary Medical Problems Affecting Mental Status: No Interim History: 43 yo feeling much improved with change from risperidone to halperidol- Feels clearer in her thoughts, with decrease in AH. Nursing reports pt has expectation of ah going to 0. Slept ok, no s/e from new med change. Medication Compliance: Yes Side effects from medications: No Attending Groups: No Review of Systems Acute medical concerns: No Medical Review of Systems: unchanged Mental Status Exam Mental Status Exam Narrative: lying in bed with head phones Patient Appearance: Unkempt Patient Orientation: Person, Place, Time and Situation Level of Consciousness: Awake Patient Behavior: Appropriate and Passive Mood Description: Calm Affect Description: Blunted Patient Cognition Impaired: No Ability to Follow Directions: Good Speech Pattern: Clear and Impoverished Hallucinations: Auditory Thought Process: Intact and Goal Oriented Thought Content: positive for [place] and positive for Poverty of Content Judgement: Fair Diagnostics Vital Signs (24Hr): Vital Signs - 24 hr 11/07/23 18:00 11/08/23 08:12 Temperature 98.5 F 98.0 F Pulse Rate 71 69 Respiratory Rate 16 16 Blood Pressure 138/69 151/75 H Pulse Oximetry 100 98 Oxygen Delivery Method Room Air Room Air BMI result Body Mass Index 42.4 Labs 09/29/23 22:53 09/29/23 22:53 Medications Medications Current Medications Acetaminophen (Acetaminophen 325 Mg Tablet) 650 mg PO Q6H PRN PRN Reason: Headache/Pain Mild Scale (1-3) Last Admin: 10/09/23 15:56 Dose: 650 mg Al Hydroxide/Mg Hydroxide (Magnesium Hydrox/Alum Hydrox 30 Ml Oral.Susp) 30 ml PO Q6H PRN PRN Reason: Heartburn/Nausea Last Admin: 10/30/23 05:22 Dose: 30 ml Artificial Tears (Artificial Tears 15 Ml Drops) 2 drop EYE-BOTH Q4H PRN PRN Reason: Dry Eyes Last Admin: 10/31/23 20:25 Dose: 2 drop Benzocaine (Throat Lozenge, Medicated Lozenge) 1 lozenge MUCOUS MEM Q2H PRN PRN Reason: Sore Throat Last Admin: 11/03/23 20:54 Dose: 1 lozenge Benztropine Mesylate (Benztropine Mesylate 0.5 Mg Tablet) 0.5 mg PO BID [facility] Last Admin: 11/08/23 09:20 Dose: 0.5 mg Guaifenesin/Dextromethorphan (Guaifenesin Dm 100/10/5 Ml 5 Ml Syrup) 5 ml PO Q4H PRN PRN Reason: Cough Last Admin: 11/01/23 20:31 Dose: 5 ml Haloperidol (Haloperidol 5 Mg Tablet) 10 mg PO BEDTIME [facility] Last Admin: 11/07/23 20:13 Dose: 10 mg Haloperidol (Haloperidol 5 Mg Tablet) 5 mg PO DAILY [facility] Last Admin: 11/08/23 09:20 Dose: 5 mg Hydroxyzine HCl (Hydroxyzine Hcl 25 Mg Tablet) 25 mg PO Q6H PRN PRN Reason: Anxiety Last Admin: 10/17/23 20:33 Dose: 25 mg Lorazepam (Lorazepam 0.5 Mg Tablet) 0.5 mg PO TID [facility] Last Admin: 11/08/23 09:20 Dose: 0.5 mg Lurasidone HCl (Lurasidone Hcl 20 Mg Tablet) 60 mg PO DAILY@1800 [facility] Last Admin: 11/07/23 17:57 Dose: 60 mg Magnesium Hydroxide (Milk Of Magnesia 30 Ml Oral.Susp) 30 ml PO DAILY PRN PRN Reason: Constipation Multi-Ingred Medicated Throat [place] (Throat [place], Medicated 177 Ml Bottle) 1 spray MUCOUS MEM Q2H PRN PRN Reason: throat irritation Last Admin: 10/27/23 13:51 Dose: 1 spray Pt Own (Liposomal Vitamin C (Liquid) 15 Ml) 15 ml PO DAILY [facility] Last Admin: 11/08/23 09:20 Dose: 15 ml Pt Own (Physician's Choice Probiotic 1 Cap) 1 cap PO DAILY [facility] Last Admin: 11/08/23 09:20 Dose: 1 cap Trazodone HCl (Trazodone Hcl 50 Mg Tablet) 50 mg PO BEDTIME MRX1 PRN PRN Reason: Insomnia Last Admin: 10/28/23 21:34 Dose: 50 mg Allergies Allergies Allergy/AdvReac Type Severity Reaction Status Date / Time fish derived [fish] Allergy Unknown Verified 09/29/23 23:05 Assessment & Plan Assessment & Plan (1) Schizoaffective disorder: Status: Acute Code(s): F25.9 - Schizoaffective disorder, unspecified Assessment and Plan: 11/08/23 feeling improved on haldol Plan HPI: 43 yo single woman with Schizoaffective Disorder who lives alone in a condo in [place] admitted m5 after being brought to [facility] ED by police who found her wandering in [place]; She is on CV and 15 min checks. pt states she stopped her meds a few months ago. States she hasn't seen therapist and medication provider since March 2023. She states she hear voices and they insult her and are critical and mean to her. she reports being on lithium, latuda and seroquel in past but even on medication she continued to have voices. She does not want to restart lithium, latuda or seroquel but is vague about why not- says she wants to take vitamins and have a clear head. Pt states that she is often scared and fearful; believes people are watching her; fearful that people are trying to kill her. endorses depression and anxiety. denies SI or HI. Hospital course: 10/15 continue tx plan 10/16 increase Risperdal to 2 mg b.i.d. 10/17 disorganized behavior -holding paper to her nose, just sitting there -clogged bathroom toliet and sink with toliet paper and food; denies vomit...she was asked to leave it alone for a minute and during that time, flushed toliet anyway and toliet overflowed.... her bathroom required maintenance; in meantime, she asked to use the handicap bathroom and did the exact same thing. She could not explain why...She is now on 1:1 reports lot of voices... says there is one bad one, voice of Aunt, which scares her; whenever this particular voice comes, her throat feels as if closing up. Pt has c/o of sensation that throat is sore or that she's being choked since admission; sensation seems to primarly happen when voice of aunt shows up. -Pt no problem talking or breathing....no distress and so this is unlikely a dystonic reaction. -Start Cogentin out of abundance of caution if sensation of throat tightening resolves with cogentin, this will likely be diagnostic 10/18 Patient remains very fearful. Says voices continue to say scary things to her. Patient says she likes having a one-to-one and feels safer with staff present and comments that the person does not seem to be very frightening. Patient does report that sensation of throat tightening seems to have resolved with start of Cogentin. Discussed history of lithium, Latuda, Seroquel on which patient is sister/cousin says she did quite well; however patient says she had voices anyway at this time does not want to go back on any of those medications but wants to see if Risperdal can become helpful. Electrician Chief explained that currently, Risperdal does not seem to be effective as voices remain very troublesome; patient however was not willing to change medication at this time 10/19 Patient says she is actually feeling a little better today, overall less anxious, less scared. She does not want to raise Risperdal any because the auditory hallucinations are a little bit quieter and she hopes they will continue to become so. She thinks that she will be able to get off one-to-one during the day but would like to have it remain overnight since she wakes up fearful. 10/20 seems to be making incremental improvements and though AH remains significantly bothersome, it is less than before. Patient with overall appropriate behaviors, feeling safe enough to come off 1:1 during the day 10/21 still doing a little better but AH remains prominent; She agrees to minimal increase in Risperdal. Hopefully will be able to convert to long-acting injectable 10/22 change 11-7 checks to 5 minute. Pt feeling improved, states she feels prepared to move forward. 10/24/2023: Continue current regimen and plans 10/25/2023: Continue current regimen and plans 10/25 continue regimen, however, AH remain and significantly impair function; pt has a hx of requiring 2 antipsychotics to be functional and will likely continue to do so; will continue to discuss restarting latuda or seroquel and/or possible lithium (which she was on before) 11/01 increase Latuda to 60mg for continued AH. 11/02 Still with auditory hallucinations; still intrusive and making life difficult however she feels that overall they are quieter, more able to be ignored and not quite as negative. She feels that Latuda is helping. She still remains with some confusion due to internal preoccupation and continues to require assistance from staff however she is improving. She agrees to continue on current dose of Latuda but is open to raising it if symptoms do not improve further. It is possible the current dose will continue to confer further reduction of symptoms; since patient is on 2 antipsychotics trying to titrate slowly to avoid side effects -at this time patient remains with too much mental confusion, due to psychotic illness to function in the community; however symptoms have improved and so keno writer/runner is cautiously optimistic that current regimen is the right course 11/03 some increased symptoms expressed today... AH remain problematic and continue to thought block and get in way; pt very anxious. She continues to try and distract self which intermittently helps. She says she continues to use Cepacol throat lozenge to help w/voices which intermittently make her think throat is tightening. Pt expressed paranoid thinking today that she has some continued worries that her family is trying to kill her...she is not sure why or how, but thought pervades...Electrician Chief tried to quantify experience of AH now compared to year ago when she was in the community and working; pt said they are much worse now (though still a little less compared to when she was first admitted). -Given continued AH and resurgence of paranoid delusions (at least resurgence of expressed delusion) keno writer/runner discussed med management and consideration of changing pt to Haldol or Clozapine. Pt said she's afraid of weekly blood draw, but would entertain switch to Haldol. 11/04 same presentation; signed [facility] for application 11/05 pt reports continued AH and efforts to try to distract herself from them...effort to find find such activities filling up her day; says it helps some. Pt said she would be willing to do Finger stick for ANC (but not venous blood draw) but worried how she would get to clinic each week to do so. Electrician Chief discussed with staff and VNA not an option for such blood draw...at writers recommendation pt agreed to try Haldol to see if helped -Although pt has improved some compared to admission, AH and paranoid delusions remain dominant, troublesome and reveal patients fragility; she is far from baseline (where she was able to live on her own, evening holding down employment) and cannot yet function on her own in the community (needed much staff support). Though possible, it seems unlikely that Latuda increase will be sufficient to address positive symptoms of psychosis and pt may need to add or switch to typical anti-psychotic (or Clozapine). She agrees to Haldol PLAN: CV q15's Continue Latuda 60mg dinner time; will titrate accordingly START Haldol 10mg qhs (and DC risperdal qhs) since AH remain problematic LIKELY add Haldol 5mg daily (and dc Risperdal liquid 3mg daily if Haldol seems to be helping) -DC Risperdal liquid 4 mg q.h.s. -continue Cogentin .5mg BID; patient reports sensation of throat tightening seems to be better now that she is on Cogentin; due to Cogentin or due to reduced delusions? Patient educated on: medication risk/benefits Informed Consent: understands and further education needed (re illness and possibly not getting to 0 on ah- ?but without giving up hope) Reason for continued inpatient stay Substantial Risk for: rapid decompensation Time Spent With Patient Time: Total time managing care of this patient today ____ minutes.
[2023-11-08] MEDS: Artificial Tears 15 ML DROPS 2 DROP EYE-BOTH (17:01)
[2023-11-08 18:00] VITALS: BP 134/78; PULSE 76; RESP 18; TEMP 36.7; O2SAT 97
[2023-11-08] MEDS: Lurasidone HCl 20 MG TABLET 60 MG PO (18:40)
[2023-11-08] MEDS: HaloperidoL 5 MG TABLET 10 MG PO (20:16)
[2023-11-09 08:00] VITALS: BP 108/56; PULSE 74; RESP 16; TEMP 36.9; O2SAT 97
[2023-11-09] MEDS: LORazepam 0.5 MG TABLET PO ×2 (08:47→20:50)
[2023-11-09] MEDS: Benztropine Mesylate 0.5 MG TABLET PO ×2 (08:47→20:52)
[2023-11-09] MEDS: HaloperidoL 5 MG TABLET PO (08:47)
--- NOTE | 2023-11-09 09:35 | P.PNPSI_ITS ---
Subjective Subjective Date of Service: 11/09/23 Reason For Visit: Psychosis Interim History: met with patient; discussed with team; reviewed chart Patient reports that Haldol seems to be helping better than the Risperdal and she is glad for the change. Prior to this change, patient reported minimal improvement in auditory hallucinations however with Haldol she feels they are significantly reduced and that she is more clear minded. She still has some paranoid delusions present but they seem to be waning in their intensity. Discussed medication management and agreed to leave at current dose for now however she agrees to go up higher if needed. Mental Status Exam Mental Status Exam Narrative: Pt is alert and oriented; behavior is cooperative, more calm, friendly, polite; patient is not in distress; dressed in casual attire, more put together with adequate hygiene; mood is described as more clear and affect congruent; eye contact appropriate; Speech is intermittently soft/quiet, but normal rate and prosody; not pressured; no psychomotor retardation present; thought process is mostly goal directed and organized; less distracted overall by internal preoccupation and less thought blocking, though both remain; Thought content with some paranoid delusions, on dealing with auditory hallucinations, treatment; otherwise pertinent to relevant topics; denies any SI/HI. internally dialouge and less self-dialoguing; Patients insight and judgment improved Diagnostics Vital Signs (24Hr): Vital Signs - 24 hr 11/08/23 18:00 11/09/23 08:00 Temperature 98.0 F 98.5 F Pulse Rate 76 74 Respiratory Rate 18 16 Blood Pressure 134/78 108/56 L Pulse Oximetry 97 97 Oxygen Delivery Method Room Air Room Air BMI result Body Mass Index 42.4 Labs 09/29/23 22:53 09/29/23 22:53 Medications Medications Current Medications Acetaminophen (Acetaminophen 325 Mg Tablet) 650 mg PO Q6H PRN PRN Reason: Headache/Pain Mild Scale (1-3) Last Admin: 10/09/23 15:56 Dose: 650 mg Al Hydroxide/Mg Hydroxide (Magnesium Hydrox/Alum Hydrox 30 Ml Oral.Susp) 30 ml PO Q6H PRN PRN Reason: Heartburn/Nausea Last Admin: 10/30/23 05:22 Dose: 30 ml Artificial Tears (Artificial Tears 15 Ml Drops) 2 drop EYE-BOTH Q4H PRN PRN Reason: Dry Eyes Last Admin: 11/08/23 17:01 Dose: 2 drop Benzocaine (Throat Lozenge, Medicated Lozenge) 1 lozenge MUCOUS MEM Q2H PRN PRN Reason: Sore Throat Last Admin: 11/03/23 20:54 Dose: 1 lozenge Benztropine Mesylate (Benztropine Mesylate 0.5 Mg Tablet) 0.5 mg PO BID [facility] Last Admin: 11/09/23 08:47 Dose: 0.5 mg Guaifenesin/Dextromethorphan (Guaifenesin Dm 100/10/5 Ml 5 Ml Syrup) 5 ml PO Q4H PRN PRN Reason: Cough Last Admin: 11/01/23 20:31 Dose: 5 ml Haloperidol (Haloperidol 5 Mg Tablet) 10 mg PO BEDTIME [facility] Last Admin: 11/08/23 20:16 Dose: 10 mg Haloperidol (Haloperidol 5 Mg Tablet) 5 mg PO DAILY [facility] Last Admin: 11/09/23 08:47 Dose: 5 mg Hydroxyzine HCl (Hydroxyzine Hcl 25 Mg Tablet) 25 mg PO Q6H PRN PRN Reason: Anxiety Last Admin: 10/17/23 20:33 Dose: 25 mg Lorazepam (Lorazepam 0.5 Mg Tablet) 0.5 mg PO TID [facility] Last Admin: 11/09/23 08:47 Dose: 0.5 mg Lurasidone HCl (Lurasidone Hcl 20 Mg Tablet) 60 mg PO DAILY@1800 [facility] Last Admin: 11/08/23 18:40 Dose: 60 mg Magnesium Hydroxide (Milk Of Magnesia 30 Ml Oral.Susp) 30 ml PO DAILY PRN PRN Reason: Constipation Multi-Ingred Medicated Throat [place] (Throat [place], Medicated 177 Ml Bottle) 1 spray MUCOUS MEM Q2H PRN PRN Reason: throat irritation Last Admin: 10/27/23 13:51 Dose: 1 spray Pt Own (Liposomal Vitamin C (Liquid) 15 Ml) 15 ml PO DAILY [facility] Last Admin: 11/09/23 08:47 Dose: 15 ml Pt Own (Physician's Choice Probiotic 1 Cap) 1 cap PO DAILY [facility] Last Admin: 11/09/23 08:47 Dose: 1 cap Trazodone HCl (Trazodone Hcl 50 Mg Tablet) 50 mg PO BEDTIME MRX1 PRN PRN Reason: Insomnia Last Admin: 10/28/23 21:34 Dose: 50 mg Allergies Allergies Allergy/AdvReac Type Severity Reaction Status Date / Time fish derived [fish] Allergy Unknown Verified 09/29/23 23:05 Assessment & Plan Assessment & Plan (1) Schizoaffective disorder: Status: Acute Code(s): F25.9 - Schizoaffective disorder, unspecified Plan HPI: 43 yo single woman with Schizoaffective Disorder who lives alone in a condo in [place] admitted m5 after being brought [place] [facility] by police who found her wandering in [place]; She is on CV and 15 min checks. pt states she stopped her meds a few months ago. States she hasn't seen therapist and medication provider since March 2023. She states she hear voices and they insult her and are critical and mean to her. she reports being on lithium, latuda and seroquel in past but even on medication she continued to have voices. She does not want to restart lithium, latuda or seroquel but is vague about why not- says she wants to take vitamins and have a clear head. Pt states that she is often scared and fearful; believes people are watching her; fearful that people are trying to kill her. endorses depression and anxiety. denies SI or HI. Hospital course: 10/15 continue tx plan 10/16 increase Risperdal to 2 mg b.i.d. 10/17 disorganized behavior -holding paper to her nose, just sitting there -clogged bathroom toliet and sink with toliet paper and food; denies vomit...she was asked to leave it alone for a minute and during that time, flushed toliet anyway and toliet overflowed.... her bathroom required maintenance; in meantime, she asked to use the [facility] bathroom and did the exact same thing. She could not explain why...She is now on 1:1 reports lot of voices... says there is one bad one, voice of Aunt, which scares her; whenever this particular voice comes, her throat feels as if closing up. Pt has c/o of sensation that throat is sore or that she's being choked since admission; sensation seems to primarly happen when voice of aunt shows up. -Pt no problem talking or breathing....no distress and so this is unlikely a dystonic reaction. -Start Cogentin out of abundance of caution if sensation of throat tightening resolves with cogentin, this will likely be diagnostic 10/18 Patient remains very fearful. Says voices continue to say scary things to her. Patient says she likes having a one-to-one and feels safer with staff present and comments that the person does not seem to be very frightening. Patient does report that sensation of throat tightening seems to have resolved with start of Cogentin. Discussed history of lithium, Latuda, Seroquel on which patient is sister/cousin says she did quite well; however patient says she had voices anyway at this time does not want to go back on any of those medications but wants to see if Risperdal can become helpful. Parts Delivery Driver explained that currently, Risperdal does not seem to be effective as voices remain very troublesome; patient however was not willing to change medication at this time 10/19 Patient says she is actually feeling a little better today, overall less anxious, less scared. She does not want to raise Risperdal any because the auditory hallucinations are a little bit quieter and she hopes they will continue to become so. She thinks that she will be able to get off one-to-one during the day but would like to have it remain overnight since she wakes up fearful. 10/20 seems to be making incremental improvements and though AH remains significantly bothersome, it is less than before. Patient with overall appropriate behaviors, feeling safe enough to come off 1:1 during the day 10/21 still doing a little better but AH remains prominent; She agrees to minimal increase in Risperdal. Hopefully will be able to convert to long-acting injectable 10/22 change 11-7 checks to 5 minute. Pt feeling improved, states she feels prepared to move forward. 10/24/2023: Continue current regimen and plans 10/25/2023: Continue current regimen and plans 10/25 continue regimen, however, AH remain and significantly impair function; pt has a hx of requiring 2 antipsychotics to be functional and will likely continue to do so; will continue to discuss restarting latuda or seroquel and/or possible lithium (which she was on before) 11/01 increase Latuda to 60mg for continued AH. 11/02 Still with auditory hallucinations; still intrusive and making life difficult however she feels that overall they are quieter, more able to be ignored and not quite as negative. She feels that Latuda is helping. She still remains with some confusion due to internal preoccupation and continues to require assistance from staff however she is improving. She agrees to continue on current dose of Latuda but is open to raising it if symptoms do not improve further. It is possible the current dose will continue to confer further reduction of symptoms; since patient is on 2 antipsychotics trying to titrate slowly to avoid side effects -at this time patient remains with too much mental confusion, due to psychotic illness to function in the community; however symptoms have improved and so magnetic tape typewriter operator is cautiously optimistic that current regimen is the right course 11/03 some increased symptoms expressed today... AH remain problematic and continue to thought block and get in way; pt very anxious. She continues to try and distract self which intermittently helps. She says she continues to use Cepacol throat lozenge to help w/voices which intermittently make her think throat is tightening. Pt expressed paranoid thinking today that she has some continued worries that her family is trying to kill her...she is not sure why or how, but thought pervades...Parts Delivery Driver tried to quantify experience of AH now compared to year ago when she was in the community and working; pt said they are much worse now (though still a little less compared to when she was first admitted). -Given continued AH and resurgence of paranoid delusions (at least resurgence of expressed delusion) magnetic tape typewriter operator discussed med management and consideration of changing pt to Haldol or Clozapine. Pt said she's afraid of weekly blood draw, but would entertain switch to Haldol. 11/04 same presentation; signed [facility] for application 11/05 pt reports continued AH and efforts to try to distract herself from them...effort to find find such activities filling up her day; says it helps some. Pt said she would be willing to do Finger stick for ANC (but not venous blood draw) but worried how she would get to clinic each week to do so. Parts Delivery Driver discussed with staff and VNA not an option for such blood draw...at writers recommendation pt agreed to try Haldol to see if helped -Although pt has improved some compared to admission, AH and paranoid delusions remain dominant, troublesome and reveal patients fragility; she is far from baseline (where she was able to live on her own, evening holding down employment) and cannot yet function on her own in the community (needed much staff support). Though possible, it seems unlikely that Latuda increase will be sufficient to address positive symptoms of psychosis and pt may need to add or switch to typical anti-psychotic (or Clozapine). She agrees to Haldol 11/08 Patient reports that Haldol seems to be helping better than the Risperdal and she is glad for the change. Prior to this change, patient reported minimal improvement in auditory hallucinations however with Haldol she feels they are significantly reduced and that she is more clear minded. She still has some paranoid delusions present but they seem to be waning in their intensity. Discussed medication management and agreed to leave at current dose for now however she agrees to go up higher if needed. -disposition remains a challenge as patient is cousin is trying to evict her and what seems to be without due process; waiting for [facility] to return repeated attempts to reach out to them. PLAN: CV q15's Continue Latuda 60mg dinner time; will titrate accordingly Continue Haldol 10mg qhs (and DC risperdal qhs) since AH remain problematic Continue Haldol 5mg daily (and dc Risperdal liquid 3mg daily if Haldol seems to be helping) -DC Risperdal liquid 4 mg q.h.s. -continue Cogentin .5mg BID; patient reports sensation of throat tightening seems to be better now that she is on Cogentin; due to Cogentin or due to reduced delusions? Patient educated on: diagnosis and medication risk/benefits Informed Consent: understands Reason for continued inpatient stay Substantial Risk for: rapid decompensation Time Spent With Patient Time: Total time managing care of this patient today ____ minutes.
[2023-11-09] MEDS: Lurasidone HCl 20 MG TABLET 60 MG PO (18:54)
[2023-11-09 19:39] VITALS: BP 145/82; PULSE 68; RESP 15; TEMP 36.8; O2SAT 98
[2023-11-09] MEDS: HaloperidoL 5 MG TABLET 10 MG PO (20:50)
[2023-11-10 08:00] VITALS: BP 134/79; PULSE 80; RESP 18; TEMP 37; O2SAT 97
[2023-11-10] MEDS: HaloperidoL 5 MG TABLET PO (08:49)
[2023-11-10] MEDS: Benztropine Mesylate 0.5 MG TABLET PO (08:49)
[2023-11-10] MEDS: LORazepam 0.5 MG TABLET PO ×2 (08:50→14:54)
--- NOTE | 2023-11-10 09:23 | P.PNPSI_ITS ---
Subjective Subjective Date of Service: 11/10/23 Reason For Visit: Psychosis Interim History: Met with patient; discussed with team Voices better; still problematic agrees to consider increase Haldol Mental Status Exam Mental Status Exam Narrative: Pt is alert and oriented; behavior is cooperative, more calm, friendly, polite; patient is not in distress; dressed in casual attire, more put together with adequate hygiene; mood is described as more clear and affect congruent; eye contact appropriate; Speech is intermittently soft/quiet, but normal rate and prosody; not pressured; no psychomotor retardation present; thought process is mostly goal directed and organized; less distracted overall by internal preoccupation and less thought blocking, though both remain; Thought content with some paranoid delusions, on dealing with auditory hallucinations, treatment; otherwise pertinent to relevant topics; denies any SI/HI. internally dialouge and less self-dialoguing; Patients insight and judgment improved Diagnostics Vital Signs (24Hr): Vital Signs - 24 hr 11/09/23 19:39 11/10/23 08:00 Temperature 98.3 F 98.6 F Pulse Rate 68 80 Respiratory Rate 15 18 Blood Pressure 145/82 H 134/79 Pulse Oximetry 98 97 Oxygen Delivery Method Room Air Room Air BMI result Body Mass Index 42.4 Labs 09/29/23 22:53 09/29/23 22:53 Medications Medications Current Medications Acetaminophen (Acetaminophen 325 Mg Tablet) 650 mg PO Q6H PRN PRN Reason: Headache/Pain Mild Scale (1-3) Last Admin: 10/09/23 15:56 Dose: 650 mg Al Hydroxide/Mg Hydroxide (Magnesium Hydrox/Alum Hydrox 30 Ml Oral.Susp) 30 ml PO Q6H PRN PRN Reason: Heartburn/Nausea Last Admin: 10/30/23 05:22 Dose: 30 ml Artificial Tears (Artificial Tears 15 Ml Drops) 2 drop EYE-BOTH Q4H PRN PRN Reason: Dry Eyes Last Admin: 11/08/23 17:01 Dose: 2 drop Benzocaine (Throat Lozenge, Medicated Lozenge) 1 lozenge MUCOUS MEM Q2H PRN PRN Reason: Sore Throat Last Admin: 11/03/23 20:54 Dose: 1 lozenge Benztropine Mesylate (Benztropine Mesylate 0.5 Mg Tablet) 0.5 mg PO BID MACIEL Last Admin: 11/10/23 08:49 Dose: 0.5 mg Guaifenesin/Dextromethorphan (Guaifenesin Dm 100/10/5 Ml 5 Ml Syrup) 5 ml PO Q4H PRN PRN Reason: Cough Last Admin: 11/01/23 20:31 Dose: 5 ml Haloperidol (Haloperidol 5 Mg Tablet) 10 mg PO BEDTIME [facility] Last Admin: 11/09/23 20:50 Dose: 10 mg Haloperidol (Haloperidol 5 Mg Tablet) 5 mg PO DAILY [facility] Last Admin: 11/10/23 08:49 Dose: 5 mg Hydroxyzine HCl (Hydroxyzine Hcl 25 Mg Tablet) 25 mg PO Q6H PRN PRN Reason: Anxiety Last Admin: 10/17/23 20:33 Dose: 25 mg Lorazepam (Lorazepam 0.5 Mg Tablet) 0.5 mg PO BID [facility] Last Admin: 11/10/23 08:50 Dose: 0.5 mg Lorazepam (Lorazepam 0.5 Mg Tablet) 0.5 mg PO DAILY PRN PRN Reason: Anxiety Lurasidone HCl (Lurasidone Hcl 20 Mg Tablet) 60 mg PO DAILY@1800 [facility] Last Admin: 11/09/23 18:54 Dose: 60 mg Magnesium Hydroxide (Milk Of Magnesia 30 Ml Oral.Susp) 30 ml PO DAILY PRN PRN Reason: Constipation Multi-Ingred Medicated Throat [place] (Throat [place], Medicated 177 Ml Bottle) 1 spray MUCOUS MEM Q2H PRN PRN Reason: throat irritation Last Admin: 10/27/23 13:51 Dose: 1 spray Pt Own (Liposomal Vitamin C (Liquid) 15 Ml) 15 ml PO DAILY [facility] Last Admin: 11/10/23 08:48 Dose: 15 ml Pt Own (Physician's Choice Probiotic 1 Cap) 1 cap PO DAILY [facility] Last Admin: 11/10/23 08:47 Dose: 1 cap Trazodone HCl (Trazodone Hcl 50 Mg Tablet) 50 mg PO BEDTIME MRX1 PRN PRN Reason: Insomnia Last Admin: 10/28/23 21:34 Dose: 50 mg Allergies Allergies Allergy/AdvReac Type Severity Reaction Status Date / Time fish derived [fish] Allergy Unknown Verified 09/29/23 23:05 Assessment & Plan Assessment & Plan (1) Schizoaffective disorder: Status: Acute Code(s): F25.9 - Schizoaffective disorder, unspecified Plan HPI: 43 yo single woman with Schizoaffective Disorder who lives alone in a condo in [place] admitted m5 after being brought to [facility] by police who found her wandering in [place]; She is on CV and 15 min checks. pt states she stopped her meds a few months ago. States she hasn't seen therapist and medication provider since March 2023. She states she hear voices and they insult her and are critical and mean to her. she reports being on lithium, latuda and seroquel in past but even on medication she continued to have voices. She does not want to restart lithium, latuda or seroquel but is vague about why not- says she wants to take vitamins and have a clear head. Pt states that she is often scared and fearful; believes people are watching her; fearful that people are trying to kill her. endorses depression and anxiety. denies SI or HI. Hospital course: 10/15 continue tx plan 10/16 increase Risperdal to 2 mg b.i.d. 10/17 disorganized behavior -holding paper to her nose, just sitting there -clogged bathroom toliet and sink with toliet paper and food; denies vomit...she was asked to leave it alone for a minute and during that time, flushed toliet anyway and toliet overflowed.... her bathroom required maintenance; in meantime, she asked to use the handicap bathroom and did the exact same thing. She could not explain why...She is now on 1:1 reports lot of voices... says there is one bad one, voice of Aunt, which scares her; whenever this particular voice comes, her throat feels as if closing up. Pt has c/o of sensation that throat is sore or that she's being choked since admission; sensation seems to primarly happen when voice of aunt shows up. -Pt no problem talking or breathing....no distress and so this is unlikely a dystonic reaction. -Start Cogentin out of abundance of caution if sensation of throat tightening resolves with cogentin, this will likely be diagnostic 10/18 Patient remains very fearful. Says voices continue to say scary things to her. Patient says she likes having a one-to-one and feels safer with staff present and comments that the person does not seem to be very frightening. Patient does report that sensation of throat tightening seems to have resolved with start of Cogentin. Discussed history of lithium, Latuda, Seroquel on which patient is sister/cousin says she did quite well; however patient says she had voices anyway at this time does not want to go back on any of those medications but wants to see if Risperdal can become helpful. Registered Nurse [employer] explained that currently, Risperdal does not seem to be effective as voices remain very troublesome; patient however was not willing to change medication at this time 10/19 Patient says she is actually feeling a little better today, overall less anxious, less scared. She does not want to raise Risperdal any because the auditory hallucinations are a little bit quieter and she hopes they will continue to become so. She thinks that she will be able to get off one-to-one during the day but would like to have it remain overnight since she wakes up fearful. 10/20 seems to be making incremental improvements and though AH remains significantly bothersome, it is less than before. Patient with overall appropriate behaviors, feeling safe enough to come off 1:1 during the day 10/21 still doing a little better but AH remains prominent; She agrees to minimal increase in Risperdal. Hopefully will be able to convert to long-acting injectable 10/22 change 11-7 checks to 5 minute. Pt feeling improved, states she feels prepared to move forward. 10/24/2023: Continue current regimen and plans 10/25/2023: Continue current regimen and plans 10/25 continue regimen, however, AH remain and significantly impair function; pt has a hx of requiring 2 antipsychotics to be functional and will likely continue to do so; will continue to discuss restarting latuda or seroquel and/or possible lithium (which she was on before) 11/01 increase Latuda to 60mg for continued AH. 11/02 Still with auditory hallucinations; still intrusive and making life difficult however she feels that overall they are quieter, more able to be ignored and not quite as negative. She feels that Latuda is helping. She still remains with some confusion due to internal preoccupation and continues to require assistance from staff however she is improving. She agrees to continue on current dose of Latuda but is open to raising it if symptoms do not improve further. It is possible the current dose will continue to confer further reduction of symptoms; since patient is on 2 antipsychotics trying to titrate slowly to avoid side effects -at this time patient remains with too much mental confusion, due to psychotic illness to function in the community; however symptoms have improved and so television script writer is cautiously optimistic that current regimen is the right course 11/03 some increased symptoms expressed today... AH remain problematic and continue to thought block and get in way; pt very anxious. She continues to try and distract self which intermittently helps. She says she continues to use Cepacol throat lozenge to help w/voices which intermittently make her think throat is tightening. Pt expressed paranoid thinking today that she has some continued worries that her family is trying to kill her...she is not sure why or how, but thought pervades...Registered Nurse [employer] tried to quantify experience of AH now compared to year ago when she was in the community and working; pt said they are much worse now (though still a little less compared to when she was first admitted). -Given continued AH and resurgence of paranoid delusions (at least resurgence of expressed delusion) television script writer discussed med management and consideration of changing pt to Haldol or Clozapine. Pt said she's afraid of weekly blood draw, but would entertain switch to Haldol. 11/04 same presentation; signed [facility] for application 11/05 pt reports continued AH and efforts to try to distract herself from them...effort to find find such activities filling up her day; says it helps some. Pt said she would be willing to do Finger stick for ANC (but not venous blood draw) but worried how she would get to clinic each week to do so. Registered Nurse [employer] discussed with staff and VNA not an option for such blood draw...at writers recommendation pt agreed to try Haldol to see if helped -Although pt has improved some compared to admission, AH and paranoid delusions remain dominant, troublesome and reveal patients fragility; she is far from baseline (where she was able to live on her own, evening holding down employment) and cannot yet function on her own in the community (needed much staff support). Though possible, it seems unlikely that Latuda increase will be sufficient to address positive symptoms of psychosis and pt may need to add or switch to typical anti-psychotic (or Clozapine). She agrees to Haldol 11/08 Patient reports that Haldol seems to be helping better than the Risperdal and she is glad for the change. Prior to this change, patient reported minimal improvement in auditory hallucinations however with Haldol she feels they are significantly reduced and that she is more clear minded. She still has some paranoid delusions present but they seem to be waning in their intensity. Discussed medication management and agreed to leave at current dose for now however she agrees to go up higher if needed. -disposition remains a challenge as patient is cousin is trying to evict her and what seems to be without due process; waiting for [facility] to return repeated attempts to reach out to them. Will consider long-acting Haldol Decanoate PLAN: CV q15's Continue Latuda 60mg dinner time; will titrate accordingly Continue Haldol 10mg qhs (and DC risperdal qhs) since AH remain problematic Continue Haldol 5mg daily (and dc Risperdal liquid 3mg daily if Haldol seems to be helping) -DC Risperdal liquid 4 mg q.h.s. -continue Cogentin .5mg BID; patient reports sensation of throat tightening seems to be better now that she is on Cogentin; due to Cogentin or due to reduced delusions? Patient educated on: diagnosis and medication risk/benefits Informed Consent: understands Reason for continued inpatient stay Substantial Risk for: rapid decompensation Time Spent With Patient Time: Total time managing care of this patient today ____ minutes.
[2023-11-10 20:00] VITALS: BP 155/97; PULSE 73; RESP 18; TEMP 36.4; O2SAT 99
[2023-11-10] MEDS: HaloperidoL 5 MG TABLET 10 MG PO (20:45)
[2023-11-10] MEDS: Lurasidone HCl 20 MG TABLET 60 MG PO (20:45)
[2023-11-11] MEDS: HaloperidoL 5 MG TABLET 10 MG PO ×2 (08:28→20:02)
[2023-11-11 08:32] VITALS: BP 127/73; PULSE 62; RESP 20; TEMP 36.9; O2SAT 98
[2023-11-11] MEDS: LORazepam 0.5 MG TABLET PO (09:07)
[2023-11-11 16:12] VITALS: BP 167/81; PULSE 71; RESP 17; TEMP 36.8; O2SAT 98
[2023-11-11] MEDS: Acetaminophen 325 MG TABLET 650 MG PO (16:22)
--- NOTE | 2023-11-11 18:29 | HO.PSYCHPN ---
Subjective Subjective Date of Service: 11/11/23 Reason For Visit: Psychosis Interim History: Met with patient; discussed with team Patient feeling anxious today; not sure why, even though voices are better still, the increased anxiety makes him a little more problematic. patient got contact lenses which she feels is making things much more helpful Mental Status Exam Mental Status Exam Narrative: Pt is alert and oriented; behavior is cooperative, more calm, friendly, polite; patient is not in distress; dressed in casual attire, more put together with adequate hygiene; mood is described as anxious and affect congruent; eye contact appropriate; Speech is intermittently soft/quiet, but normal rate and prosody; not pressured; no psychomotor retardation present; thought process is mostly goal directed and organized; less distracted overall by internal preoccupation and less thought blocking, though both remain; Thought content with some paranoid delusions, on dealing with auditory hallucinations, treatment; otherwise pertinent to relevant topics; denies any SI/HI. internally dialouge and less self-dialoguing; Patients insight and judgment improved Diagnostics Vital Signs (24Hr): Vital Signs - 24 hr 11/10/23 20:00 11/11/23 08:32 11/11/23 16:12 Temperature 97.6 F 98.5 F 98.2 F Pulse Rate 73 62 71 Respiratory Rate 18 20 17 Blood Pressure 155/97 H 127/73 167/81 H Pulse Oximetry 99 98 98 Oxygen Delivery Method Room Air Room Air BMI result Body Mass Index 42.4 Labs 09/29/23 22:53 09/29/23 22:53 Medications Medications Current Medications Acetaminophen (Acetaminophen 325 Mg Tablet) 650 mg PO Q6H PRN PRN Reason: Headache/Pain Mild Scale (1-3) Last Admin: 11/11/23 16:22 Dose: 650 mg Al Hydroxide/Mg Hydroxide (Magnesium Hydrox/Alum Hydrox 30 Ml Oral.Susp) 30 ml PO Q6H PRN PRN Reason: Heartburn/Nausea Last Admin: 10/30/23 05:22 Dose: 30 ml Artificial Tears (Artificial Tears 15 Ml Drops) 2 drop EYE-BOTH Q4H PRN PRN Reason: Dry Eyes Last Admin: 11/08/23 17:01 Dose: 2 drop Benzocaine (Throat Lozenge, Medicated Lozenge) 1 lozenge MUCOUS MEM Q2H PRN PRN Reason: Sore Throat Last Admin: 11/03/23 20:54 Dose: 1 lozenge Benztropine Mesylate (Benztropine Mesylate 0.5 Mg Tablet) 0.5 mg PO BID PRN PRN Reason: ePS Guaifenesin/Dextromethorphan (Guaifenesin Dm 100/10/5 Ml 5 Ml Syrup) 5 ml PO Q4H PRN PRN Reason: Cough Last Admin: 11/01/23 20:31 Dose: 5 ml Haloperidol (Haloperidol 5 Mg Tablet) 10 mg PO BID MACIEL Last Admin: 11/11/23 08:28 Dose: 10 mg Hydroxyzine HCl (Hydroxyzine Hcl 25 Mg Tablet) 25 mg PO Q6H PRN PRN Reason: Anxiety Last Admin: 10/17/23 20:33 Dose: 25 mg Lorazepam (Lorazepam 0.5 Mg Tablet) 0.5 mg PO TID PRN PRN Reason: anxiety Last Admin: 11/11/23 09:07 Dose: 0.5 mg Lurasidone HCl (Lurasidone Hcl 20 Mg Tablet) 60 mg PO BEDTIME MACIEL Last Admin: 11/10/23 20:45 Dose: 60 mg Magnesium Hydroxide (Milk Of Magnesia 30 Ml Oral.Susp) 30 ml PO DAILY PRN PRN Reason: Constipation Multi-Ingred Medicated Throat [place] (Throat [place], Medicated 177 Ml Bottle) 1 spray MUCOUS MEM Q2H PRN PRN Reason: throat irritation Last Admin: 10/27/23 13:51 Dose: 1 spray Pt Own (Liposomal Vitamin C (Liquid) 15 Ml) 15 ml PO DAILY MACIEL Last Admin: 11/11/23 08:29 Dose: 15 ml Pt Own (Physician's Choice Probiotic 1 Cap) 1 cap PO DAILY MACIEL Last Admin: 11/11/23 08:28 Dose: 1 cap Trazodone HCl (Trazodone Hcl 50 Mg Tablet) 50 mg PO BEDTIME MRX1 PRN PRN Reason: Insomnia Last Admin: 10/28/23 21:34 Dose: 50 mg Allergies Allergies Allergy/AdvReac Type Severity Reaction Status Date / Time fish derived [fish] Allergy Unknown Verified 09/29/23 23:05 Assessment & Plan Assessment & Plan (1) Schizoaffective disorder: Status: Acute Code(s): F25.9 - Schizoaffective disorder, unspecified Plan HPI: 43 yo single woman with Schizoaffective Disorder who lives alone in a condo in [place] admitted m5 after being brought [place] [facility] by police who found her wandering in [place]; She is on CV and 15 min checks. pt states she stopped her meds a few months ago. States she hasn't seen therapist and medication provider since March 2023. She states she hear voices and they insult her and are critical and mean to her. she reports being on lithium, latuda and seroquel in past but even on medication she continued to have voices. She does not want to restart lithium, latuda or seroquel but is vague about why not- says she wants to take vitamins and have a clear head. Pt states that she is often scared and fearful; believes people are watching her; fearful that people are trying to kill her. endorses depression and anxiety. denies SI or HI. Hospital course: 10/15 continue tx plan 10/16 increase Risperdal to 2 mg b.i.d. 10/17 disorganized behavior -holding paper to her nose, just sitting there -clogged bathroom toliet and sink with toliet paper and food; denies vomit...she was asked to leave it alone for a minute and during that time, flushed toliet anyway and toliet overflowed.... her bathroom required maintenance; in meantime, she asked to use the handicap bathroom and did the exact same thing. She could not explain why...She is now on 1:1 reports lot of voices... says there is one bad one, voice of Aunt, which scares her; whenever this particular voice comes, her throat feels as if closing up. Pt has c/o of sensation that throat is sore or that she's being choked since admission; sensation seems to primarly happen when voice of aunt shows up. -Pt no problem talking or breathing....no distress and so this is unlikely a dystonic reaction. -Start Cogentin out of abundance of caution if sensation of throat tightening resolves with cogentin, this will likely be diagnostic 10/18 Patient remains very fearful. Says voices continue to say scary things to her. Patient says she likes having a one-to-one and feels safer with staff present and comments that the person does not seem to be very frightening. Patient does report that sensation of throat tightening seems to have resolved with start of Cogentin. Discussed history of lithium, Latuda, Seroquel on which patient is sister/cousin says she did quite well; however patient says she had voices anyway at this time does not want to go back on any of those medications but wants to see if Risperdal can become helpful. Nutrition Services Associate explained that currently, Risperdal does not seem to be effective as voices remain very troublesome; patient however was not willing to change medication at this time 10/19 Patient says she is actually feeling a little better today, overall less anxious, less scared. She does not want to raise Risperdal any because the auditory hallucinations are a little bit quieter and she hopes they will continue to become so. She thinks that she will be able to get off one-to-one during the day but would like to have it remain overnight since she wakes up fearful. 10/20 seems to be making incremental improvements and though AH remains significantly bothersome, it is less than before. Patient with overall appropriate behaviors, feeling safe enough to come off 1:1 during the day 10/21 still doing a little better but AH remains prominent; She agrees to minimal increase in Risperdal. Hopefully will be able to convert to long-acting injectable 10/22 change 11-7 checks to 5 minute. Pt feeling improved, states she feels prepared to move forward. 10/24/2023: Continue current regimen and plans 10/25/2023: Continue current regimen and plans 10/25 continue regimen, however, AH remain and significantly impair function; pt has a hx of requiring 2 antipsychotics to be functional and will likely continue to do so; will continue to discuss restarting latuda or seroquel and/or possible lithium (which she was on before) 11/01 increase Latuda to 60mg for continued AH. 11/02 Still with auditory hallucinations; still intrusive and making life difficult however she feels that overall they are quieter, more able to be ignored and not quite as negative. She feels that Latuda is helping. She still remains with some confusion due to internal preoccupation and continues to require assistance from staff however she is improving. She agrees to continue on current dose of Latuda but is open to raising it if symptoms do not improve further. It is possible the current dose will continue to confer further reduction of symptoms; since patient is on 2 antipsychotics trying to titrate slowly to avoid side effects -at this time patient remains with too much mental confusion, due to psychotic illness to function in the community; however symptoms have improved and so group underwriter is cautiously optimistic that current regimen is the right course 11/03 some increased symptoms expressed today... AH remain problematic and continue to thought block and get in way; pt very anxious. She continues to try and distract self which intermittently helps. She says she continues to use Cepacol throat lozenge to help w/voices which intermittently make her think throat is tightening. Pt expressed paranoid thinking today that she has some continued worries that her family is trying to kill her...she is not sure why or how, but thought pervades...Nutrition Services Associate tried to quantify experience of AH now compared to year ago when she was in the community and working; pt said they are much worse now (though still a little less compared to when she was first admitted). -Given continued AH and resurgence of paranoid delusions (at least resurgence of expressed delusion) group underwriter discussed med management and consideration of changing pt to Haldol or Clozapine. Pt said she's afraid of weekly blood draw, but would entertain switch to Haldol. 11/04 same presentation; signed [facility] for application 11/05 pt reports continued AH and efforts to try to distract herself from them...effort to find find such activities filling up her day; says it helps some. Pt said she would be willing to do Finger stick for ANC (but not venous blood draw) but worried how she would get to clinic each week to do so. Nutrition Services Associate discussed with staff and VNA not an option for such blood draw...at writers recommendation pt agreed to try Haldol to see if helped -Although pt has improved some compared to admission, AH and paranoid delusions remain dominant, troublesome and reveal patients fragility; she is far from baseline (where she was able to live on her own, evening holding down employment) and cannot yet function on her own in the community (needed much staff support). Though possible, it seems unlikely that Latuda increase will be sufficient to address positive symptoms of psychosis and pt may need to add or switch to typical anti-psychotic (or Clozapine). She agrees to Haldol 11/08 Patient reports that Haldol seems to be helping better than the Risperdal and she is glad for the change. Prior to this change, patient reported minimal improvement in auditory hallucinations however with Haldol she feels they are significantly reduced and that she is more clear minded. She still has some paranoid delusions present but they seem to be waning in their intensity. Discussed medication management and agreed to leave at current dose for now however she agrees to go up higher if needed. -disposition remains a challenge as patient is cousin is trying to evict her and what seems to be without due process; waiting for [facility] to return repeated attempts to reach out to them. 11/10 AH better; pt anxious; meeting tomorrow w/ sister/cousin Will consider long-acting Haldol Decanoate PLAN: CV q15's Continue Latuda 60mg dinner time; will titrate accordingly Continue Haldol 10mg qhs (and DC risperdal qhs) since AH remain problematic Continue Haldol 5mg daily (and dc Risperdal liquid 3mg daily if Haldol seems to be helping) -DC Risperdal liquid 4 mg q.h.s. -continue Cogentin .5mg BID; patient reports sensation of throat tightening seems to be better now that she is on Cogentin; due to Cogentin or due to reduced delusions? Patient educated on: diagnosis and medication risk/benefits Informed Consent: understands Reason for continued inpatient stay Substantial Risk for: rapid decompensation Time Spent With Patient Time: Total time managing care of this patient today ____ minutes.
[2023-11-11] MEDS: Lurasidone HCl 20 MG TABLET 60 MG PO (20:02)
[2023-11-11] MEDS: traZODone HCL 50 MG TABLET PO (21:19)
[2023-11-12 07:00] VITALS: BMI 41.9
[2023-11-12 08:07] VITALS: BP 137/71; PULSE 62; RESP 16; TEMP 36.8; O2SAT 95
[2023-11-12] MEDS: LORazepam 0.5 MG TABLET PO ×2 (09:04→15:04)
[2023-11-12] MEDS: HaloperidoL 5 MG TABLET 10 MG PO ×2 (09:05→21:38)
--- NOTE | 2023-11-12 09:07 | PC.NURSE ---
pt reports high anxiety this morning 03/19 and requested prn Ativan. Medication administered and will follow up in 1hr
[2023-11-12 18:00] VITALS: BP 163/89; PULSE 61; TEMP 36.8; O2SAT 96
[2023-11-12] MEDS: Lurasidone HCl 20 MG TABLET 60 MG PO (21:38)
--- NOTE | 2023-11-12 22:26 | P.PNPSI_ITS ---
Subjective Subjective Date of Service: 11/12/23 Reason For Visit: Psychosis Interim History: Met with patient; discussed with team Patient reports that auditory hallucinations are better still and down to a 3 or 4/10. She wishes they were completely gone but feels that this is tolerable. Contact lenses helping her see more clearly has also reduced anxiety. Met with patient's sister/cousin and dispo plan worked out. Patient is now welcomed to go to her uncle's in [place] and stay there for as long as she needs to while she looks for an apartment. Patient agrees with this idea, preferring to move to [place]; she wants to live on her own, has her own car and likes to work so she feels that she will only stay there as long as needed. Discussed other aspects of dispo planning. Mental Status Exam Mental Status Exam Narrative: Pt is alert and oriented; behavior is cooperative, more calm, friendly, polite; patient is not in distress; dressed in casual attire, more put together with adequate hygiene; mood is described as better and affect congruent, brighter, more calm; eye contact appropriate; Speech is intermittently soft/quiet, but normal rate and prosody; not pressured; no psychomotor retardation present; thought process is mostly goal directed and organized; Thought content on treatment, dispo, on dealing with auditory hallucinations' otherwise pertinent to relevant topics; denies any SI/HI. i much less self-dialoguing and typically only when alone; Patients insight and judgment improved Diagnostics Vital Signs (24Hr): Vital Signs - 24 hr 11/12/23 08:07 11/12/23 18:00 Temperature 98.3 F 98.2 F Pulse Rate 62 61 Respiratory Rate 16 Blood Pressure 137/71 163/89 H Pulse Oximetry 95 96 Oxygen Delivery Method Room Air Room Air BMI result Body Mass Index 41.9 Labs 09/29/23 22:53 09/29/23 22:53 Medications Medications Current Medications Acetaminophen (Acetaminophen 325 Mg Tablet) 650 mg PO Q6H PRN PRN Reason: Headache/Pain Mild Scale (1-3) Last Admin: 11/11/23 16:22 Dose: 650 mg Al Hydroxide/Mg Hydroxide (Magnesium Hydrox/Alum Hydrox 30 Ml Oral.Susp) 30 ml PO Q6H PRN PRN Reason: Heartburn/Nausea Last Admin: 10/30/23 05:22 Dose: 30 ml Artificial Tears (Artificial Tears 15 Ml Drops) 2 drop EYE-BOTH Q4H PRN PRN Reason: Dry Eyes Last Admin: 11/08/23 17:01 Dose: 2 drop Benzocaine (Throat Lozenge, Medicated Lozenge) 1 lozenge MUCOUS MEM Q2H PRN PRN Reason: Sore Throat Last Admin: 11/03/23 20:54 Dose: 1 lozenge Benztropine Mesylate (Benztropine Mesylate 0.5 Mg Tablet) 0.5 mg PO BID PRN PRN Reason: ePS Clonidine HCl (Clonidine Hcl 0.1 Mg Tablet) 0.1 mg PO Q4H PRN; Protocol PRN Reason: mild anxiety Guaifenesin/Dextromethorphan (Guaifenesin Dm 100/10/5 Ml 5 Ml Syrup) 5 ml PO Q4H PRN PRN Reason: Cough Last Admin: 11/01/23 20:31 Dose: 5 ml Haloperidol (Haloperidol 5 Mg Tablet) 10 mg PO BID MACIEL Last Admin: 11/12/23 21:38 Dose: 10 mg Hydroxyzine HCl (Hydroxyzine Hcl 25 Mg Tablet) 25 mg PO Q6H PRN PRN Reason: Anxiety Last Admin: 10/17/23 20:33 Dose: 25 mg Lorazepam (Lorazepam 0.5 Mg Tablet) 0.5 mg PO TID PRN PRN Reason: anxiety Last Admin: 11/12/23 15:04 Dose: 0.5 mg Lurasidone HCl (Lurasidone Hcl 20 Mg Tablet) 60 mg PO BEDTIME MACIEL Last Admin: 11/12/23 21:38 Dose: 60 mg Magnesium Hydroxide (Milk Of Magnesia 30 Ml Oral.Susp) 30 ml PO DAILY PRN PRN Reason: Constipation Multi-Ingred Medicated Throat [place] (Throat [place], Medicated 177 Ml Bottle) 1 spray MUCOUS MEM Q2H PRN PRN Reason: throat irritation Last Admin: 10/27/23 13:51 Dose: 1 spray Pt Own (Liposomal Vitamin C (Liquid) 15 Ml) 15 ml PO DAILY MACIEL Last Admin: 11/12/23 09:05 Dose: 15 ml Pt Own (Physician's Choice Probiotic 1 Cap) 1 cap PO DAILY MACIEL Last Admin: 11/12/23 09:05 Dose: Not Given Trazodone HCl (Trazodone Hcl 50 Mg Tablet) 50 mg PO BEDTIME MRX1 PRN PRN Reason: Insomnia Last Admin: 11/11/23 21:19 Dose: 50 mg Allergies Allergies Allergy/AdvReac Type Severity Reaction Status Date / Time fish derived [fish] Allergy Unknown Verified 09/29/23 23:05 Assessment & Plan Assessment & Plan (1) Schizoaffective disorder: Status: Acute Code(s): F25.9 - Schizoaffective disorder, unspecified Plan HPI: 43 yo single woman with Schizoaffective Disorder who lives alone in a condo in [place] admitted m5 after being brought to [facility] [place] [facility] by police who found her wandering in [place]; She is on CV and 15 min checks. pt states she stopped her meds a few months ago. States she hasn't seen therapist and medication provider since March 2023. She states she hear voices and they insult her and are critical and mean to her. she reports being on lithium, latuda and seroquel in past but even on medication she continued to have voices. She does not want to restart lithium, latuda or seroquel but is vague about why not- says she wants to take vitamins and have a clear head. Pt states that she is often scared and fearful; believes people are watching her; fearful that people are trying to kill her. endorses depression and anxiety. denies SI or HI. Hospital course: 10/15 continue tx plan 10/16 increase Risperdal to 2 mg b.i.d. 10/17 disorganized behavior -holding paper to her nose, just sitting there -clogged bathroom toliet and sink with toliet paper and food; denies vomit...she was asked to leave it alone for a minute and during that time, flushed toliet anyway and toliet overflowed.... her bathroom required maintenance; in meantime, she asked to use the handicap bathroom and did the exact same thing. She could not explain why...She is now on 1:1 reports lot of voices... says there is one bad one, voice of Aunt, which scares her; whenever this particular voice comes, her throat feels as if closing up. Pt has c/o of sensation that throat is sore or that she's being choked since admission; sensation seems to primarly happen when voice of aunt shows up. -Pt no problem talking or breathing....no distress and so this is unlikely a dystonic reaction. -Start Cogentin out of abundance of caution if sensation of throat tightening resolves with cogentin, this will likely be diagnostic 10/18 Patient remains very fearful. Says voices continue to say scary things to her. Patient says she likes having a one-to-one and feels safer with staff present and comments that the person does not seem to be very frightening. Patient does report that sensation of throat tightening seems to have resolved with start of Cogentin. Discussed history of lithium, Latuda, Seroquel on which patient is sister/cousin says she did quite well; however patient says she had voices anyway at this time does not want to go back on any of those medications but wants to see if Risperdal can become helpful. Supervisor [employer] explained that currently, Risperdal does not seem to be effective as voices remain very troublesome; patient however was not willing to change medication at this time 10/19 Patient says she is actually feeling a little better today, overall less anxious, less scared. She does not want to raise Risperdal any because the auditory hallucinations are a little bit quieter and she hopes they will continue to become so. She thinks that she will be able to get off one-to-one during the day but would like to have it remain overnight since she wakes up fearful. 10/20 seems to be making incremental improvements and though AH remains significantly bothersome, it is less than before. Patient with overall appropriate behaviors, feeling safe enough to come off 1:1 during the day 10/21 still doing a little better but AH remains prominent; She agrees to minimal increase in Risperdal. Hopefully will be able to convert to long-acting injectable 10/22 change 11-7 checks to 5 minute. Pt feeling improved, states she feels prepared to move forward. 10/24/2023: Continue current regimen and plans 10/25/2023: Continue current regimen and plans 10/25 continue regimen, however, AH remain and significantly impair function; pt has a hx of requiring 2 antipsychotics to be functional and will likely continue to do so; will continue to discuss restarting latuda or seroquel and/or possible lithium (which she was on before) 11/01 increase Latuda to 60mg for continued AH. 11/02 Still with auditory hallucinations; still intrusive and making life difficult however she feels that overall they are quieter, more able to be ignored and not quite as negative. She feels that Latuda is helping. She still remains with some confusion due to internal preoccupation and continues to require assistance from staff however she is improving. She agrees to continue on current dose of Latuda but is open to raising it if symptoms do not improve further. It is possible the current dose will continue to confer further reduction of symptoms; since patient is on 2 antipsychotics trying to titrate slowly to avoid side effects -at this time patient remains with too much mental confusion, due to psychotic illness to function in the community; however symptoms have improved and so brief writer is cautiously optimistic that current regimen is the right course 11/03 some increased symptoms expressed today... AH remain problematic and continue to thought block and get in way; pt very anxious. She continues to try and distract self which intermittently helps. She says she continues to use Cepacol throat lozenge to help w/voices which intermittently make her think throat is tightening. Pt expressed paranoid thinking today that she has some continued worries that her family is trying to kill her...she is not sure why or how, but thought pervades...Supervisor [employer] tried to quantify experience of AH now compared to year ago when she was in the community and working; pt said they are much worse now (though still a little less compared to when she was first admitted). -Given continued AH and resurgence of paranoid delusions (at least resurgence of expressed delusion) brief writer discussed med management and consideration of changing pt to Haldol or Clozapine. Pt said she's afraid of weekly blood draw, but would entertain switch to Haldol. 11/04 same presentation; signed [facility] for application 11/05 pt reports continued AH and efforts to try to distract herself from them...effort to find find such activities filling up her day; says it helps some. Pt said she would be willing to do Finger stick for ANC (but not venous blood draw) but worried how she would get to clinic each week to do so. Supervisor [employer] discussed with staff and VNA not an option for such blood draw...at writers recommendation pt agreed to try Haldol to see if helped -Although pt has improved some compared to admission, AH and paranoid delusions remain dominant, troublesome and reveal patients fragility; she is far from baseline (where she was able to live on her own, evening holding down employment) and cannot yet function on her own in the community (needed much staff support). Though possible, it seems unlikely that Latuda increase will be sufficient to address positive symptoms of psychosis and pt may need to add or switch to typical anti-psychotic (or Clozapine). She agrees to Haldol 11/08 Patient reports that Haldol seems to be helping better than the Risperdal and she is glad for the change. Prior to this change, patient reported minimal improvement in auditory hallucinations however with Haldol she feels they are significantly reduced and that she is more clear minded. She still has some paranoid delusions present but they seem to be waning in their intensity. Discussed medication management and agreed to leave at current dose for now however she agrees to go up higher if needed. -disposition remains a challenge as patient is cousin is trying to evict her and what seems to be without due process; waiting for DM to return repeated attempts to reach out to them. 4/3 AH better; pt anxious; meeting tomorrow w/ sister/cousin Will consider long-acting Haldol Decanoate 11/11 dispo planning; plan is for patient to go to her uncle's which is being set up. [place] which social work is working on Overall patient feels much improved Will consider long-acting Haldol Decanoate PLAN: CV q15's Continue Latuda 60mg dinner time; will titrate accordingly Continue Haldol 10mg qhs (and DC risperdal qhs) since AH remain problematic Continue Haldol 5mg daily (and dc Risperdal liquid 3mg daily if Haldol seems to be helping) -DC Risperdal liquid 4 mg q.h.s. -continue Cogentin .5mg BID; patient reports sensation of throat tightening seems to be better now that she is on Cogentin; due to Cogentin or due to reduced delusions? Patient educated on: diagnosis and medication risk/benefits Informed Consent: understands Reason for continued inpatient stay Substantial Risk for: rapid decompensation Time Spent With Patient Time: Total time managing care of this patient today ____ minutes.
[2023-11-13] MEDS: Artificial Tears 15 ML DROPS 2 DROP EYE-BOTH (06:42)
[2023-11-13] MEDS: HaloperidoL 5 MG TABLET 10 MG PO ×2 (08:42→19:52)
[2023-11-13] MEDS: LORazepam 0.5 MG TABLET PO (08:43)
[2023-11-13 08:45] VITALS: BP 175/83; PULSE 68; RESP 18; TEMP 37.1; O2SAT 98
[2023-11-13] MEDS: cloNIDine HCL 0.1 MG TABLET PO (08:59)
[2023-11-13 16:00] VITALS: BP 154/71; PULSE 70; RESP 16; TEMP 36.9; O2SAT 99
--- NOTE | 2023-11-13 17:39 | HO.PSYCHPN ---
Subjective Subjective Date of Service: 11/13/23 Reason For Visit: Psychosis Interim History: Met with patient; discussed with team patient maintains that voices are still more subdued and that she has in a good mood. Patient is grateful for the relief. Starting to talk about discharge and hoping she can discharge next week. Talking about aftercare. Discussed reasons she stopped medication in the past and it was a combination of things including getting an EKG that she felt was not explained to her and feeling some mistrust. She agrees that she would not just stop her medications next time around if symptoms reappeared but would discuss with outpatient provider 1st Mental Status Exam Mental Status Exam Narrative: Pt is alert and oriented; behavior is cooperative, more calm, friendly, polite; patient is not in distress; dressed in casual attire, more put together with adequate hygiene; mood is described as good and affect congruent, brighter, more calm; eye contact appropriate; Speech is intermittently soft/quiet, but normal rate and prosody; not pressured; no psychomotor retardation present; thought process is mostly goal directed and organized; Thought content on treatment, dispo, on dealing with auditory hallucinations' otherwise pertinent to relevant topics; denies any SI/HI. i much less self-dialoguing and typically only when alone; Patients insight and judgment improved Diagnostics Vital Signs (24Hr): Vital Signs - 24 hr 11/12/23 18:00 11/13/23 08:45 11/13/23 16:00 Temperature 98.2 F 98.7 F 98.4 F Pulse Rate 61 68 70 Respiratory Rate 18 16 Blood Pressure 163/89 H 175/83 H 154/71 H Pulse Oximetry 96 98 99 Oxygen Delivery Method Room Air Room Air Room Air BMI result Body Mass Index 41.9 Labs 09/29/23 22:53 09/29/23 22:53 Medications Medications Current Medications Acetaminophen (Acetaminophen 325 Mg Tablet) 650 mg PO Q6H PRN PRN Reason: Headache/Pain Mild Scale (1-3) Last Admin: 11/11/23 16:22 Dose: 650 mg Al Hydroxide/Mg Hydroxide (Magnesium Hydrox/Alum Hydrox 30 Ml Oral.Susp) 30 ml PO Q6H PRN PRN Reason: Heartburn/Nausea Last Admin: 10/30/23 05:22 Dose: 30 ml Artificial Tears (Artificial Tears 15 Ml Drops) 2 drop EYE-BOTH Q4H PRN PRN Reason: Dry Eyes Last Admin: 11/13/23 06:42 Dose: 2 drop Benzocaine (Throat Lozenge, Medicated Lozenge) 1 lozenge MUCOUS MEM Q2H PRN PRN Reason: Sore Throat Last Admin: 11/03/23 20:54 Dose: 1 lozenge Benztropine Mesylate (Benztropine Mesylate 0.5 Mg Tablet) 0.5 mg PO BID PRN PRN Reason: ePS Clonidine HCl (Clonidine Hcl 0.1 Mg Tablet) 0.1 mg PO Q4H PRN; Protocol PRN Reason: mild anxiety Last Admin: 11/13/23 08:59 Dose: 0.1 mg Guaifenesin/Dextromethorphan (Guaifenesin Dm 100/10/5 Ml 5 Ml Syrup) 5 ml PO Q4H PRN PRN Reason: Cough Last Admin: 11/01/23 20:31 Dose: 5 ml Haloperidol (Haloperidol 5 Mg Tablet) 10 mg PO BID MACIEL Last Admin: 11/13/23 08:42 Dose: 10 mg Hydroxyzine HCl (Hydroxyzine Hcl 25 Mg Tablet) 25 mg PO Q6H PRN PRN Reason: Anxiety Last Admin: 10/17/23 20:33 Dose: 25 mg Lorazepam (Lorazepam 0.5 Mg Tablet) 0.5 mg PO TID PRN PRN Reason: anxiety Last Admin: 11/13/23 08:43 Dose: 0.5 mg Lurasidone HCl (Lurasidone Hcl 20 Mg Tablet) 60 mg PO BEDTIME MACIEL Last Admin: 11/12/23 21:38 Dose: 60 mg Magnesium Hydroxide (Milk Of Magnesia 30 Ml Oral.Susp) 30 ml PO DAILY PRN PRN Reason: Constipation Multi-Ingred Medicated Throat [place] (Throat [place], Medicated 177 Ml Bottle) 1 spray MUCOUS MEM Q2H PRN PRN Reason: throat irritation Last Admin: 10/27/23 13:51 Dose: 1 spray Pt Own (Liposomal Vitamin C (Liquid) 15 Ml) 15 ml PO DAILY MACIEL Last Admin: 11/13/23 08:43 Dose: 15 ml Pt Own (Physician's Choice Probiotic 1 Cap) 1 cap PO DAILY MACIEL Last Admin: 11/13/23 08:44 Dose: 1 cap Trazodone HCl (Trazodone Hcl 50 Mg Tablet) 50 mg PO BEDTIME MRX1 PRN PRN Reason: Insomnia Last Admin: 11/11/23 21:19 Dose: 50 mg Allergies Allergies Allergy/AdvReac Type Severity Reaction Status Date / Time fish derived [fish] Allergy Unknown Verified 09/29/23 23:05 Assessment & Plan Assessment & Plan (1) Schizoaffective disorder: Status: Acute Code(s): F25.9 - Schizoaffective disorder, unspecified Plan HPI: 43 yo single woman with Schizoaffective Disorder who lives alone in a condo in [place] admitted m5 after being brought to [facility] by police who found her wandering in [place]; She is on CV and 15 min checks. pt states she stopped her meds a few months ago. States she hasn't seen therapist and medication provider since March 2023. She states she hear voices and they insult her and are critical and mean to her. she reports being on lithium, latuda and seroquel in past but even on medication she continued to have voices. She does not want to restart lithium, latuda or seroquel but is vague about why not- says she wants to take vitamins and have a clear head. Pt states that she is often scared and fearful; believes people are watching her; fearful that people are trying to kill her. endorses depression and anxiety. denies SI or HI. Hospital course: 10/15 continue tx plan 10/16 increase Risperdal to 2 mg b.i.d. 10/17 disorganized behavior -holding paper to her nose, just sitting there -clogged bathroom toliet and sink with toliet paper and food; denies vomit...she was asked to leave it alone for a minute and during that time, flushed toliet anyway and toliet overflowed.... her bathroom required maintenance; in meantime, she [facility] and did the exact same thing. She could not explain why...She is now on 1:1 reports lot of voices... says there is one bad one, voice of Aunt, which scares her; whenever this particular voice comes, her throat feels as if closing up. Pt has c/o of sensation that throat is sore or that she's being choked since admission; sensation seems to primarly happen when voice of aunt shows up. -Pt no problem talking or breathing....no distress and so this is unlikely a dystonic reaction. -Start Cogentin out of abundance of caution if sensation of throat tightening resolves with cogentin, this will likely be diagnostic 10/18 Patient remains very fearful. Says voices continue to say scary things to her. Patient says she likes having a one-to-one and feels safer with staff present and comments that the person does not seem to be very frightening. Patient does report that sensation of throat tightening seems to have resolved with start of Cogentin. Discussed history of lithium, Latuda, Seroquel on which patient is sister/cousin says she did quite well; however patient says she had voices anyway at this time does not want to go back on any of those medications but wants to see if Risperdal can become helpful. Rotary Kiln Operator explained that currently, Risperdal does not seem to be effective as voices remain very troublesome; patient however was not willing to change medication at this time 10/19 Patient says she is actually feeling a little better today, overall less anxious, less scared. She does not want to raise Risperdal any because the auditory hallucinations are a little bit quieter and she hopes they will continue to become so. She thinks that she will be able to get off one-to-one during the day but would like to have it remain overnight since she wakes up fearful. 10/20 seems to be making incremental improvements and though AH remains significantly bothersome, it is less than before. Patient with overall appropriate behaviors, feeling safe enough to come off 1:1 during the day 10/21 still doing a little better but AH remains prominent; She agrees to minimal increase in Risperdal. Hopefully will be able to convert to long-acting injectable 10/22 change 11-7 checks to 5 minute. Pt feeling improved, states she feels prepared to move forward. 10/24/2023: Continue current regimen and plans 10/25/2023: Continue current regimen and plans 10/25 continue regimen, however, AH remain and significantly impair function; pt has a hx of requiring 2 antipsychotics to be functional and will likely continue to do so; will continue to discuss restarting latuda or seroquel and/or possible lithium (which she was on before) 11/01 increase Latuda to 60mg for continued AH. 11/02 Still with auditory hallucinations; still intrusive and making life difficult however she feels that overall they are quieter, more able to be ignored and not quite as negative. She feels that Latuda is helping. She still remains with some confusion due to internal preoccupation and continues to require assistance from staff however she is improving. She agrees to continue on current dose of Latuda but is open to raising it if symptoms do not improve further. It is possible the current dose will continue to confer further reduction of symptoms; since patient is on 2 antipsychotics trying to titrate slowly to avoid side effects -at this time patient remains with too much mental confusion, due to psychotic illness to function in the community; however symptoms have improved and so bond writer is cautiously optimistic that current regimen is the right course 11/03 some increased symptoms expressed today... AH remain problematic and continue to thought block and get in way; pt very anxious. She continues to try and distract self which intermittently helps. She says she continues to use Cepacol throat lozenge to help w/voices which intermittently make her think throat is tightening. Pt expressed paranoid thinking today that she has some continued worries that her family is trying to kill her...she is not sure why or how, but thought pervades...Rotary Kiln Operator tried to quantify experience of AH now compared to year ago when she was in the community and working; pt said they are much worse now (though still a little less compared to when she was first admitted). -Given continued AH and resurgence of paranoid delusions (at least resurgence of expressed delusion) bond writer discussed med management and consideration of changing pt to Haldol or Clozapine. Pt said she's afraid of weekly blood draw, but would entertain switch to Haldol. 11/04 same presentation; signed [facility] for application 11/05 pt reports continued AH and efforts to try to distract herself from them...effort to find find such activities filling up her day; says it helps some. Pt said she would be willing to do Finger stick for ANC (but not venous blood draw) but worried how she would get to clinic each week to do so. Rotary Kiln Operator discussed with staff and VNA not an option for such blood draw...at writers recommendation pt agreed to try Haldol to see if helped -Although pt has improved some compared to admission, AH and paranoid delusions remain dominant, troublesome and reveal patients fragility; she is far from baseline (where she was able to live on her own, evening holding down employment) and cannot yet function on her own in the community (needed much staff support). Though possible, it seems unlikely that Latuda increase will be sufficient to address positive symptoms of psychosis and pt may need to add or switch to typical anti-psychotic (or Clozapine). She agrees to Haldol 11/08 Patient reports that Haldol seems to be helping better than the Risperdal and she is glad for the change. Prior to this change, patient reported minimal improvement in auditory hallucinations however with Haldol she feels they are significantly reduced and that she is more clear minded. She still has some paranoid delusions present but they seem to be waning in their intensity. Discussed medication management and agreed to leave at current dose for now however she agrees to go up higher if needed. -disposition remains a challenge as patient is cousin is trying to evict her and what seems to be without due process; waiting for [facility] to return repeated attempts to reach out to them. 4/3 AH better; pt anxious; meeting tomorrow w/ sister/cousin Will consider long-acting Haldol Decanoate 11/11 dispo planning; plan is for patient to go to her uncle's which is being set up. [place] which social work is working on Overall patient feels much improved 4/5 continue tx plan Will consider long-acting Haldol Decanoate PLAN: CV q15's Continue Latuda 60mg dinner time; will titrate accordingly Continue Haldol 10mg qhs (and DC risperdal qhs) since AH remain problematic Continue Haldol 5mg daily (and dc Risperdal liquid 3mg daily if Haldol seems to be helping) -DC Risperdal liquid 4 mg q.h.s. -continue Cogentin .5mg BID; patient reports sensation of throat tightening seems to be better now that she is on Cogentin; due to Cogentin or due to reduced delusions? Patient educated on: diagnosis, medication risk/benefits and therapeutic strategies Informed Consent: understands Reason for continued inpatient stay Substantial Risk for: rapid decompensation Time Spent With Patient Time: Total time managing care of this patient today ____ minutes.
[2023-11-13] MEDS: Lurasidone HCl 20 MG TABLET 60 MG PO (19:52)
[2023-11-14] MEDS: Acetaminophen 325 MG TABLET 650 MG PO (03:11)
[2023-11-14] MEDS: LORazepam 0.5 MG TABLET PO ×2 (03:12→14:05)
[2023-11-14 08:11] VITALS: BP 142/61; PULSE 18; RESP 18; TEMP 36.4; O2SAT 99
[2023-11-14] MEDS: HaloperidoL 5 MG TABLET 10 MG PO ×2 (08:22→20:39)
[2023-11-14] MEDS: Benztropine Mesylate 0.5 MG TABLET PO (12:30)
[2023-11-14] MEDS: Loperamide HCl 2 MG CAPSULE 4 MG PO (12:30)
--- NOTE | 2023-11-14 12:40 | P.PNPSI_ITS ---
Subjective Subjective Date of Service: 11/15/23 Reason For Visit: Psychosis Interim History: Pt seen, discussed with team, plan of care reviewed. Pt reports diarrhea-probiotic and vitamin c held. Imodium prn offered. Talking with team about quality of anxiety having changed from fear to restlessness- ?EPS. Discussed possibly scheduling of Benztropine. She will trial a prn and then decide. Asks if she may discharge on 11/20 as this is when her aunt/uncle can transport her-told we would give this message to her team. Medication Compliance: Yes Side effects from medications: No Attending Groups: Intermittent Review of Systems Acute medical concerns: No Medical Review of Systems: unchanged Review of Systems Review of Systems Diarrhea ?EPS Mental Status Exam Mental Status Exam Patient Appearance: Fatigued and Appropriate Patient Orientation: Person, Place, Time and Situation Level of Consciousness: Alert Patient Behavior: Appropriate, Cooperative and Good Eye Contact Mood Description: Anxious Affect Description: Anxious Patient Cognition Impaired: No Ability to Follow Directions: Good Speech Pattern: Spontaneous Speech Memory Description: Episodic Impaired Hallucinations: None Delusions: Not Present Thought Process: Goal Oriented Thought Content: positive for [place], positive for Circumstantial and positive for Suicidal Ideation (denies) Abnormal Motor Activity Signs and Symptoms: Restlessness Judgement: Good Diagnostics Vital Signs (24Hr): Vital Signs - 24 hr 11/13/23 16:00 11/14/23 08:11 Temperature 98.4 F 97.6 F Pulse Rate 70 18 L Respiratory Rate 16 18 Blood Pressure 154/71 H 142/61 H Pulse Oximetry 99 99 Oxygen Delivery Method Room Air Room Air BMI result Body Mass Index 41.9 Labs 09/29/23 22:53 09/29/23 22:53 Medications Medications Current Medications Acetaminophen (Acetaminophen 325 Mg Tablet) 650 mg PO Q6H PRN PRN Reason: Headache/Pain Mild Scale (1-3) Last Admin: 11/14/23 03:11 Dose: 650 mg Al Hydroxide/Mg Hydroxide (Magnesium Hydrox/Alum Hydrox 30 Ml Oral.Susp) 30 ml PO Q6H PRN PRN Reason: Heartburn/Nausea Last Admin: 10/30/23 05:22 Dose: 30 ml Artificial Tears (Artificial Tears 15 Ml Drops) 2 drop EYE-BOTH Q4H PRN PRN Reason: Dry Eyes Last Admin: 11/13/23 06:42 Dose: 2 drop Benzocaine (Throat Lozenge, Medicated Lozenge) 1 lozenge MUCOUS MEM Q2H PRN PRN Reason: Sore Throat Last Admin: 11/03/23 20:54 Dose: 1 lozenge Benztropine Mesylate (Benztropine Mesylate 0.5 Mg Tablet) 0.5 mg PO BID PRN PRN Reason: ePS Last Admin: 11/14/23 12:30 Dose: 0.5 mg Clonidine HCl (Clonidine Hcl 0.1 Mg Tablet) 0.1 mg PO Q4H PRN; Protocol PRN Reason: mild anxiety Last Admin: 11/13/23 08:59 Dose: 0.1 mg Guaifenesin/Dextromethorphan (Guaifenesin Dm 100/10/5 Ml 5 Ml Syrup) 5 ml PO Q4H PRN PRN Reason: Cough Last Admin: 11/01/23 20:31 Dose: 5 ml Haloperidol (Haloperidol 5 Mg Tablet) 10 mg PO BID [facility] Last Admin: 11/14/23 08:22 Dose: 10 mg Hydroxyzine HCl (Hydroxyzine Hcl 25 Mg Tablet) 25 mg PO Q6H PRN PRN Reason: Anxiety Last Admin: 10/17/23 20:33 Dose: 25 mg Loperamide HCl (Loperamide Hcl 2 Mg Capsule) 4 mg PO Q4H PRN PRN Reason: Diarrhea Last Admin: 11/14/23 12:30 Dose: 4 mg Lorazepam (Lorazepam 0.5 Mg Tablet) 0.5 mg PO TID PRN PRN Reason: anxiety Last Admin: 11/14/23 03:12 Dose: 0.5 mg Lurasidone HCl (Lurasidone Hcl 20 Mg Tablet) 60 mg PO BEDTIME [facility] Last Admin: 11/13/23 19:52 Dose: 60 mg Magnesium Hydroxide (Milk Of Magnesia 30 Ml Oral.Susp) 30 ml PO DAILY PRN PRN Reason: Constipation Multi-Ingred Medicated Throat [place] (Throat [place], Medicated 177 Ml Bottle) 1 spray MUCOUS MEM Q2H PRN PRN Reason: throat irritation Last Admin: 10/27/23 13:51 Dose: 1 spray Pt Own (Liposomal Vitamin C (Liquid) 15 Ml) 15 ml PO DAILY [facility] Last Admin: 11/14/23 08:23 Dose: 15 ml Pt Own (Physician's Choice Probiotic 1 Cap) 1 cap PO DAILY [facility] Last Admin: 11/14/23 08:22 Dose: 1 cap Trazodone HCl (Trazodone Hcl 50 Mg Tablet) 50 mg PO BEDTIME MRX1 PRN PRN Reason: Insomnia Last Admin: 11/11/23 21:19 Dose: 50 mg Allergies Allergies Allergy/AdvReac Type Severity Reaction Status Date / Time fish derived [fish] Allergy Unknown Verified 09/29/23 23:05 Assessment & Plan Assessment & Plan (1) Schizoaffective disorder: Status: Acute Code(s): F25.9 - Schizoaffective disorder, unspecified Plan HPI: 43 yo single woman with Schizoaffective Disorder who lives alone in a condo in [place] admitted m5 after being brought to [facility] ED by police who found her wandering in [place]; She is on CV and 15 min checks. pt states she stopped her meds a few months ago. States she hasn't seen therapist and medication provider since March 2023. She states she hear voices and they insult her and are critical and mean to her. she reports being on lithium, latuda and seroquel in past but even on medication she continued to have voices. She does not want to restart lithium, latuda or seroquel but is vague about why not- says she wants to take vitamins and have a clear head. Pt states that she is often scared and fearful; believes people are watching her; fearful that people are trying to kill her. endorses depression and anxiety. denies SI or HI. Hospital course: 10/15 continue tx plan 10/16 increase Risperdal to 2 mg b.i.d. 10/17 disorganized behavior -holding paper to her nose, just sitting there -clogged bathroom toliet and sink with toliet paper and food; denies vomit...she was asked to leave it alone for a minute and during that time, flushed toliet anyway and toliet overflowed.... her bathroom required maintenance; in meantime, she asked to use the handicap bathroom and did the exact same thing. She could not explain why...She is now on 1:1 reports lot of voices... says there is one bad one, voice of Aunt, which scares her; whenever this particular voice comes, her throat feels as if closing up. Pt has c/o of sensation that throat is sore or that she's being choked since admission; sensation seems to primarly happen when voice of aunt shows up. -Pt no problem talking or breathing....no distress and so this is unlikely a dystonic reaction. -Start Cogentin out of abundance of caution if sensation of throat tightening resolves with cogentin, this will likely be diagnostic 10/18 Patient remains very fearful. Says voices continue to say scary things to her. Patient says she likes having a one-to-one and feels safer with staff present and comments that the person does not seem to be very frightening. Patient does report that sensation of throat tightening seems to have resolved with start of Cogentin. Discussed history of lithium, Latuda, Seroquel on which patient is sister/cousin says she did quite well; however patient says she had voices anyway at this time does not want to go back on any of those medications but wants to see if Risperdal can become helpful. Note Teller explained that currently, Risperdal does not seem to be effective as voices remain very troublesome; patient however was not willing to change medication at this time 10/19 Patient says she is actually feeling a little better today, overall less anxious, less scared. She does not want to raise Risperdal any because the auditory hallucinations are a little bit quieter and she hopes they will continue to become so. She thinks that she will be able to get off one-to-one during the day but would like to have it remain overnight since she wakes up fearful. 10/20 seems to be making incremental improvements and though AH remains significantly bothersome, it is less than before. Patient with overall appropriate behaviors, feeling safe enough to come off 1:1 during the day 10/21 still doing a little better but AH remains prominent; She agrees to minimal increase in Risperdal. Hopefully will be able to convert to long-acting injectable 10/22 change 11-7 checks to 5 minute. Pt feeling improved, states she feels prepared to move forward. 10/24/2023: Continue current regimen and plans 10/25/2023: Continue current regimen and plans 10/25 continue regimen, however, AH remain and significantly impair function; pt has a hx of requiring 2 antipsychotics to be functional and will likely continue to do so; will continue to discuss restarting latuda or seroquel and/or possible lithium (which she was on before) 11/01 increase Latuda to 60mg for continued AH. 11/02 Still with auditory hallucinations; still intrusive and making life difficult however she feels that overall they are quieter, more able to be ignored and not quite as negative. She feels that Latuda is helping. She still remains with some confusion due to internal preoccupation and continues to require assistance from staff however she is improving. She agrees to continue on current dose of Latuda but is open to raising it if symptoms do not improve further. It is possible the current dose will continue to confer further reduction of symptoms; since patient is on 2 antipsychotics trying to titrate slowly to avoid side effects -at this time patient remains with too much mental confusion, due to psychotic illness to function in the community; however symptoms have improved and so data analyst report writer is cautiously optimistic that current regimen is the right course 11/03 some increased symptoms expressed today... AH remain problematic and continue to thought block and get in way; pt very anxious. She continues to try and distract self which intermittently helps. She says she continues to use Cepacol throat lozenge to help w/voices which intermittently make her think throat is tightening. Pt expressed paranoid thinking today that she has some continued worries that her family is trying to kill her...she is not sure why or how, but thought pervades...Note Teller tried to quantify experience of AH now compared to year ago when she was in the community and working; pt said they are much worse now (though still a little less compared to when she was first admitted). -Given continued AH and resurgence of paranoid delusions (at least resurgence of expressed delusion) data analyst report writer discussed med management and consideration of changing pt to Haldol or Clozapine. Pt said she's afraid of weekly blood draw, but would entertain switch to Haldol. 11/04 same presentation; signed [facility] for application 11/05 pt reports continued AH and efforts to try to distract herself from them...effort to find find such activities filling up her day; says it helps some. Pt said she would be willing to do Finger stick for ANC (but not venous blood draw) but worried how she would get to clinic each week to do so. Note Teller discussed with staff and VNA not an option for such blood draw...at writers recommendation pt agreed to try Haldol to see if helped -Although pt has improved some compared to admission, AH and paranoid delusions remain dominant, troublesome and reveal patients fragility; she is far from baseline (where she was able to live on her own, evening holding down employment) and cannot yet function on her own in the community (needed much staff support). Though possible, it seems unlikely that Latuda increase will be sufficient to address positive symptoms of psychosis and pt may need to add or switch to typical anti-psychotic (or Clozapine). She agrees to Haldol 11/08 Patient reports that Haldol seems to be helping better than the Risperdal and she is glad for the change. Prior to this change, patient reported minimal improvement in auditory hallucinations however with Haldol she feels they are significantly reduced and that she is more clear minded. She still has some paranoid delusions present but they seem to be waning in their intensity. Discussed medication management and agreed to leave at current dose for now however she agrees to go up higher if needed. -disposition remains a challenge as patient is cousin is trying to evict her and what seems to be without due process; waiting for [facility] to return repeated attempts to reach out to them. 4/3 AH better; pt anxious; meeting tomorrow w/ sister/cousin Will consider long-acting Haldol Decanoate 11/11 dispo planning; plan is for patient to go to her uncle's which is being set up. [place] which social work is working on Overall patient feels much improved /5 continue tx plan Will consider long-acting Haldol Decanoate 11/13- Will trial Benztropine prn Hold Vit C/Probiotic-diarrhea PLAN: CV q15's Continue Latuda 60mg dinner time; will titrate accordingly Continue Haldol 10mg qhs (and DC risperdal qhs) since AH remain problematic Continue Haldol 5mg daily (and dc Risperdal liquid 3mg daily if Haldol seems to be helping) -DC Risperdal liquid 4 mg q.h.s. -continue Cogentin .5mg BID; patient reports sensation of throat tightening seems to be better now that she is on Cogentin; due to Cogentin or due to reduced delusions? Reason for continued inpatient stay Substantial Risk for: rapid decompensation Time Spent With Patient Time: Total time managing care of this patient today ____ minutes.
[2023-11-14 17:58] VITALS: BP 150/93; PULSE 63; RESP 18; TEMP 36.8; O2SAT 99
[2023-11-14] MEDS: Lurasidone HCl 20 MG TABLET 60 MG PO (20:29)
[2023-11-14] MEDS: traZODone HCL 50 MG TABLET PO (20:32)
--- NOTE | 2023-11-15 | ECG_ITS ---
Test Reason : check qtc Blood Pressure : / mmHG Vent. Rate : 066 BPM Atrial Rate : 066 BPM P-R Int : 140 ms QRS Dur : 082 ms QT Int : 414 ms P-R-T Axes : 044 043 053 degrees QTc Int : 434 ms Normal sinus rhythm Normal ECG No previous ECGs available Referred By: Mark Dougherty Electronically Signed By:Abraham Bishop
--- NOTE | 2023-11-15 05:48 | HO.PSYCHPN ---
Subjective Subjective Date of Service: 11/15/23 Reason For Visit: Psychosis Interim History: Pt seen, reviewed with team, plan of care reviewed. Feeling improved, diarrhea has decreased. Pleased with benztropine result, we will schedule this for pt as anxiety may be EPS related. Today, smiling, looking improved and reports feeling improved. Medication Compliance: Yes Side effects from medications: No Attending Groups: Intermittent Review of Systems Acute medical concerns: No Medical Review of Systems: unchanged Review of Systems Review of Systems Yes all other systems are reviewed and are negative Mental Status Exam Mental Status Exam Patient Appearance: Appropriate Patient Orientation: Person, Place, Time and Situation Level of Consciousness: Alert Patient Behavior: Appropriate, Cooperative and Good Eye Contact Mood Description: Anxious Affect Description: Anxious Patient Cognition Impaired: No Ability to Follow Directions: Good Speech Pattern: Spontaneous Speech Memory Description: Episodic Impaired Hallucinations: None Delusions: Not Present Thought Process: Goal Oriented Thought Content: positive for [place], positive for Circumstantial and positive for Suicidal Ideation (denies) Depressive Symptoms: Increased Anxiety Abnormal Motor Activity Signs and Symptoms: Restlessness Judgement: Good Diagnostics Vital Signs (24Hr): Vital Signs - 24 hr 11/14/23 08:11 11/14/23 17:58 Temperature 97.6 F 98.3 F Pulse Rate 18 L 63 Respiratory Rate 18 18 Blood Pressure 142/61 H 150/93 H Pulse Oximetry 99 99 Oxygen Delivery Method Room Air Room Air BMI result Body Mass Index 41.9 Labs 09/29/23 22:53 09/29/23 22:53 Medications Medications Current Medications Acetaminophen (Acetaminophen 325 Mg Tablet) 650 mg PO Q6H PRN PRN Reason: Headache/Pain Mild Scale (1-3) Last Admin: 11/14/23 03:11 Dose: 650 mg Al Hydroxide/Mg Hydroxide (Magnesium Hydrox/Alum Hydrox 30 Ml Oral.Susp) 30 ml PO Q6H PRN PRN Reason: Heartburn/Nausea Last Admin: 10/30/23 05:22 Dose: 30 ml Artificial Tears (Artificial Tears 15 Ml Drops) 2 drop EYE-BOTH Q4H PRN PRN Reason: Dry Eyes Last Admin: 11/13/23 06:42 Dose: 2 drop Benzocaine (Throat Lozenge, Medicated Lozenge) 1 lozenge MUCOUS MEM Q2H PRN PRN Reason: Sore Throat Last Admin: 11/03/23 20:54 Dose: 1 lozenge Benztropine Mesylate (Benztropine Mesylate 0.5 Mg Tablet) 0.5 mg PO BID PRN PRN Reason: ePS Last Admin: 11/14/23 12:30 Dose: 0.5 mg Clonidine HCl (Clonidine Hcl 0.1 Mg Tablet) 0.1 mg PO Q4H PRN; Protocol PRN Reason: mild anxiety Last Admin: 11/13/23 08:59 Dose: 0.1 mg Guaifenesin/Dextromethorphan (Guaifenesin Dm 100/10/5 Ml 5 Ml Syrup) 5 ml PO Q4H PRN PRN Reason: Cough Last Admin: 11/01/23 20:31 Dose: 5 ml Haloperidol (Haloperidol 5 Mg Tablet) 10 mg PO BID MACIEL Last Admin: 11/14/23 20:39 Dose: 10 mg Hydroxyzine HCl (Hydroxyzine Hcl 25 Mg Tablet) 25 mg PO Q6H PRN PRN Reason: Anxiety Last Admin: 10/17/23 20:33 Dose: 25 mg Loperamide HCl (Loperamide Hcl 2 Mg Capsule) 4 mg PO Q4H PRN PRN Reason: Diarrhea Last Admin: 11/14/23 12:30 Dose: 4 mg Lorazepam (Lorazepam 0.5 Mg Tablet) 0.5 mg PO TID PRN PRN Reason: anxiety Last Admin: 11/14/23 14:05 Dose: 0.5 mg Lurasidone HCl (Lurasidone Hcl 20 Mg Tablet) 60 mg PO BEDTIME MACIEL Last Admin: 11/14/23 20:29 Dose: 60 mg Magnesium Hydroxide (Milk Of Magnesia 30 Ml Oral.Susp) 30 ml PO DAILY PRN PRN Reason: Constipation Multi-Ingred Medicated Throat Morven (Throat Morven, Medicated 177 Ml Bottle) 1 spray MUCOUS MEM Q2H PRN PRN Reason: throat irritation Last Admin: 10/27/23 13:51 Dose: 1 spray Pt Own (Liposomal Vitamin C (Liquid) 15 Ml) 15 ml PO DAILY MACIEL Last Admin: 11/14/23 08:23 Dose: 15 ml Pt Own (Physician's Choice Probiotic 1 Cap) 1 cap PO DAILY MACIEL Last Admin: 11/14/23 08:22 Dose: 1 cap Trazodone HCl (Trazodone Hcl 50 Mg Tablet) 50 mg PO BEDTIME MRX1 PRN PRN Reason: Insomnia Last Admin: 11/14/23 20:32 Dose: 50 mg Allergies Allergies Allergy/AdvReac Type Severity Reaction Status Date / Time fish derived [fish] Allergy Unknown Verified 09/29/23 23:05 Assessment & Plan Assessment & Plan (1) Schizoaffective disorder: Status: Acute Code(s): F25.9 - Schizoaffective disorder, unspecified Plan HPI: 43 yo single woman with Schizoaffective Disorder who lives alone in a condo [place] admitted m5 after [place] [facility] [place] police who found her wandering in [place]; She is on CV and 15 min checks. pt states she stopped her meds a few months ago. States she hasn't seen therapist and medication provider since March 2023. She states she hear voices and they insult her and are critical and mean to her. she reports being on lithium, latuda and seroquel in past but even on medication she continued to have voices. She does not want to restart lithium, latuda or seroquel but is vague about why not- says she wants to take vitamins and have a clear head. Pt states that she is often scared and fearful; believes people are watching her; fearful that people are trying to kill her. endorses depression and anxiety. denies SI or HI. Hospital course: 10/15 continue tx plan 10/16 increase Risperdal to 2 mg b.i.d. 10/17 disorganized behavior -holding paper to her nose, just sitting there -clogged bathroom toliet and sink with toliet paper and food; denies vomit...she was asked to leave it alone for a minute and during that time, flushed toliet anyway and toliet overflowed.... her bathroom required maintenance; in meantime, she asked to use the [facility] bathroom and did the exact same thing. She could not explain why...She is now on 1:1 reports lot of voices... says there is one bad one, voice of Aunt, which scares her; whenever this particular voice comes, her throat feels as if closing up. Pt has c/o of sensation that throat is sore or that she's being choked since admission; sensation seems to primarly happen when voice of aunt shows up. -Pt no problem talking or breathing....no distress and so this is unlikely a dystonic reaction. -Start Cogentin out of abundance of caution if sensation of throat tightening resolves with cogentin, this will likely be diagnostic 10/18 Patient remains very fearful. Says voices continue to say scary things to her. Patient says she likes having a one-to-one and feels safer with staff present and comments that the person does not seem to be very frightening. Patient does report that sensation of throat tightening seems to have resolved with start of Cogentin. Discussed history of lithium, Latuda, Seroquel on which patient is sister/cousin says she did quite well; however patient says she had voices anyway at this time does not want to go back on any of those medications but wants to see if Risperdal can become helpful. Waiter And Cashier explained that currently, Risperdal does not seem to be effective as voices remain very troublesome; patient however was not willing to change medication at this time 10/19 Patient says she is actually feeling a little better today, overall less anxious, less scared. She does not want to raise Risperdal any because the auditory hallucinations are a little bit quieter and she hopes they will continue to become so. She thinks that she will be able to get off one-to-one during the day but would like to have it remain overnight since she wakes up fearful. 10/20 seems to be making incremental improvements and though AH remains significantly bothersome, it is less than before. Patient with overall appropriate behaviors, feeling safe enough to come off 1:1 during the day 10/21 still doing a little better but AH remains prominent; She agrees to minimal increase in Risperdal. Hopefully will be able to convert to long-acting injectable 10/22 change 11-7 checks to 5 minute. Pt feeling improved, states she feels prepared to move forward. 10/24/2023: Continue current regimen and plans 10/25/2023: Continue current regimen and plans 10/25 continue regimen, however, AH remain and significantly impair function; pt has a hx of requiring 2 antipsychotics to be functional and will likely continue to do so; will continue to discuss restarting latuda or seroquel and/or possible lithium (which she was on before) 11/01 increase Latuda to 60mg for continued AH. 11/02 Still with auditory hallucinations; still intrusive and making life difficult however she feels that overall they are quieter, more able to be ignored and not quite as negative. She feels that Latuda is helping. She still remains with some confusion due to internal preoccupation and continues to require assistance from staff however she is improving. She agrees to continue on current dose of Latuda but is open to raising it if symptoms do not improve further. It is possible the current dose will continue to confer further reduction of symptoms; since patient is on 2 antipsychotics trying to titrate slowly to avoid side effects -at this time patient remains with too much mental confusion, due to psychotic illness to function in the community; however symptoms have improved and so greeting card writer is cautiously optimistic that current regimen is the right course 11/03 some increased symptoms expressed today... AH remain problematic and continue to thought block and get in way; pt very anxious. She continues to try and distract self which intermittently helps. She says she continues to use Cepacol throat lozenge to help w/voices which intermittently make her think throat is tightening. Pt expressed paranoid thinking today that she has some continued worries that her family is trying to kill her...she is not sure why or how, but thought pervades...Waiter And Cashier tried to quantify experience of AH now compared to year ago when she was in the community and working; pt said they are much worse now (though still a little less compared to when she was first admitted). -Given continued AH and resurgence of paranoid delusions (at least resurgence of expressed delusion) greeting card writer discussed med management and consideration of changing pt to Haldol or Clozapine. Pt said she's afraid of weekly blood draw, but would entertain switch to Haldol. 11/04 same presentation; signed [facility] for application 11/05 pt reports continued AH and efforts to try to distract herself from them...effort to find find such activities filling up her day; says it helps some. Pt said she would be willing to do Finger stick for ANC (but not venous blood draw) but worried how she would get to clinic each week to do so. Waiter And Cashier discussed with staff and [facility] not an option for such blood draw...at writers recommendation pt agreed to try Haldol to see if helped -Although pt has improved some compared to admission, AH and paranoid delusions remain dominant, troublesome and reveal patients fragility; she is far from baseline (where she was able to live on her own, evening holding down employment) and cannot yet function on her own in the community (needed much staff support). Though possible, it seems unlikely that Latuda increase will be sufficient to address positive symptoms of psychosis and pt may need to add or switch to typical anti-psychotic (or Clozapine). She agrees to Haldol 11/08 Patient reports that Haldol seems to be helping better than the Risperdal and she is glad for the change. Prior to this change, patient reported minimal improvement in auditory hallucinations however with Haldol she feels they are significantly reduced and that she is more clear minded. She still has some paranoid delusions present but they seem to be waning in their intensity. Discussed medication management and agreed to leave at current dose for now however she agrees to go up higher if needed. -disposition remains a challenge as patient is cousin is trying to evict her and what seems to be without due process; waiting for [facility] to return repeated attempts to reach out to them. 4/3 AH better; pt anxious; meeting tomorrow w/ sister/cousin Will consider long-acting Haldol Decanoate 11/11 dispo planning; plan is for patient to go to her uncle's which is being set up. Patient needs [place] and [place] providers which social work is working on Overall patient feels much improved 11/12 continue tx plan Will consider long-acting Haldol Decanoate 11/14 schedule benztropine bid continue to hold Vit C/probiotic until 11/15 to make sure GI is stable to return to dosing. PLAN: CV q15's Continue Latuda 60mg dinner time; will titrate accordingly Continue Haldol 10mg qhs (and DC risperdal qhs) since AH remain problematic Continue Haldol 5mg daily (and dc Risperdal liquid 3mg daily if Haldol seems to be helping) -DC Risperdal liquid 4 mg q.h.s. -continue Cogentin .5mg BID; patient reports sensation of throat tightening seems to be better now that she is on Cogentin; due to Cogentin or due to reduced delusions? Reason for continued inpatient stay Substantial Risk for: rapid decompensation Time Spent With Patient Time: Total time managing care of this patient today ____ minutes.
[2023-11-15] MEDS: Artificial Tears 15 ML DROPS 2 DROP EYE-BOTH (07:57)
[2023-11-15 08:05] VITALS: BP 117/61; PULSE 56; RESP 16; TEMP 36.9; O2SAT 98
[2023-11-15] MEDS: Benztropine Mesylate 0.5 MG TABLET PO ×2 (08:51→20:57)
[2023-11-15] MEDS: HaloperidoL 5 MG TABLET 10 MG PO ×2 (08:51→20:57)
[2023-11-15] MEDS: LORazepam 0.5 MG TABLET PO ×2 (12:36→20:57)
[2023-11-15 18:00] VITALS: BP 115/58; PULSE 67; RESP 18; TEMP 36.8; O2SAT 98
[2023-11-15] MEDS: Lurasidone HCl 20 MG TABLET 60 MG PO (20:57)
[2023-11-15] MEDS: traZODone HCL 50 MG TABLET PO (20:58)
[2023-11-16 07:41] VITALS: BP 135/79; PULSE 61; RESP 16; TEMP 36.9; O2SAT 99
[2023-11-16] MEDS: Benztropine Mesylate 0.5 MG TABLET PO ×2 (07:55→20:44)
[2023-11-16] MEDS: HaloperidoL 5 MG TABLET 10 MG PO ×2 (07:55→20:44)
--- NOTE | 2023-11-16 08:35 | P.PNPSI_ITS ---
Subjective Subjective Date of Service: 11/16/23 Reason For Visit: Psychosis Interim History: Met with patient; discussed with team; reviewed weekend notes pt reports good mood; AH remains subdued. She is working on aftercare plans. Mental Status Exam Mental Status Exam Narrative: Pt is alert and oriented; behavior is cooperative, calm, friendly, polite; patient is not in distress; dressed in casual attire with good hygiene, grooming; mood is described as good and affect congruent, brighter, more calm; eye contact appropriate; Speech normal rate, prosody, volume; no psychomotor retardation present; thought process is goal directed, linear and organized; Thought content on treatment, dispo: otherwise pertinent to relevant topics; denies any SI/HI; much less self-dialoguing and typically only when alone; Patients insight and judgment fair. Diagnostics Vital Signs (24Hr): Vital Signs - 24 hr 11/15/23 18:00 11/16/23 07:41 Temperature 98.3 F 98.4 F Pulse Rate 67 61 Respiratory Rate 18 16 Blood Pressure 115/58 L 135/79 Pulse Oximetry 98 99 Oxygen Delivery Method Room Air Room Air BMI result Body Mass Index 41.9 Labs 09/29/23 22:53 09/29/23 22:53 Medications Medications Current Medications Acetaminophen (Acetaminophen 325 Mg Tablet) 650 mg PO Q6H PRN PRN Reason: Headache/Pain Mild Scale (1-3) Last Admin: 11/14/23 03:11 Dose: 650 mg Al Hydroxide/Mg Hydroxide (Magnesium Hydrox/Alum Hydrox 30 Ml Oral.Susp) 30 ml PO Q6H PRN PRN Reason: Heartburn/Nausea Last Admin: 10/30/23 05:22 Dose: 30 ml Artificial Tears (Artificial Tears 15 Ml Drops) 2 drop EYE-BOTH Q4H PRN PRN Reason: Dry Eyes Last Admin: 11/15/23 07:57 Dose: 2 drop Benzocaine (Throat Lozenge, Medicated Lozenge) 1 lozenge MUCOUS MEM Q2H PRN PRN Reason: Sore Throat Last Admin: 11/03/23 20:54 Dose: 1 lozenge Benztropine Mesylate (Benztropine Mesylate 0.5 Mg Tablet) 0.5 mg PO BID MACIEL Last Admin: 11/16/23 07:55 Dose: 0.5 mg Clonidine HCl (Clonidine Hcl 0.1 Mg Tablet) 0.1 mg PO Q4H PRN; Protocol PRN Reason: mild anxiety Last Admin: 11/13/23 08:59 Dose: 0.1 mg Guaifenesin/Dextromethorphan (Guaifenesin Dm 100/10/5 Ml 5 Ml Syrup) 5 ml PO Q4H PRN PRN Reason: Cough Last Admin: 11/01/23 20:31 Dose: 5 ml Haloperidol (Haloperidol 5 Mg Tablet) 10 mg PO BID MACIEL Last Admin: 11/16/23 07:55 Dose: 10 mg Hydroxyzine HCl (Hydroxyzine Hcl 25 Mg Tablet) 25 mg PO Q6H PRN PRN Reason: Anxiety Last Admin: 10/17/23 20:33 Dose: 25 mg Loperamide HCl (Loperamide Hcl 2 Mg Capsule) 4 mg PO Q4H PRN PRN Reason: Diarrhea Last Admin: 11/14/23 12:30 Dose: 4 mg Lorazepam (Lorazepam 0.5 Mg Tablet) 0.5 mg PO TID PRN PRN Reason: anxiety Last Admin: 11/15/23 20:57 Dose: 0.5 mg Lurasidone HCl (Lurasidone Hcl 20 Mg Tablet) 60 mg PO BEDTIME MACIEL Last Admin: 11/15/23 20:57 Dose: 60 mg Magnesium Hydroxide (Milk Of Magnesia 30 Ml Oral.Susp) 30 ml PO DAILY PRN PRN Reason: Constipation Multi-Ingred Medicated Throat [place] (Throat [place], Medicated 177 Ml Bottle) 1 spray MUCOUS MEM Q2H PRN PRN Reason: throat irritation Last Admin: 10/27/23 13:51 Dose: 1 spray Pt Own (Liposomal Vitamin C (Liquid) 15 Ml) 15 ml PO DAILY MACIEL Last Admin: 11/14/23 08:23 Dose: 15 ml Pt Own (Physician's Choice Probiotic 1 Cap) 1 cap PO DAILY MACIEL Last Admin: 11/14/23 08:22 Dose: 1 cap Trazodone HCl (Trazodone Hcl 50 Mg Tablet) 50 mg PO BEDTIME MRX1 PRN PRN Reason: Insomnia Last Admin: 11/15/23 20:58 Dose: 50 mg Allergies Allergies Allergy/AdvReac Type Severity Reaction Status Date / Time fish derived [fish] Allergy Unknown Verified 09/29/23 23:05 Assessment & Plan Assessment & Plan (1) Schizoaffective disorder: Status: Acute Code(s): F25.9 - Schizoaffective disorder, unspecified Plan HPI: 43 yo single woman with Schizoaffective Disorder who lives alone in a condo in [place] admitted m5 after being brought to [facility] by police who found her wandering in [place]; She is on CV and 15 min checks. pt states she stopped her meds a few months ago. States she hasn't seen therapist and medication provider since March 2023. She states she hear voices and they insult her and are critical and mean to her. she reports being on lithium, latuda and seroquel in past but even on medication she continued to have voices. She does not want to restart lithium, latuda or seroquel but is vague about why not- says she wants to take vitamins and have a clear head. Pt states that she is often scared and fearful; believes people are watching her; fearful that people are trying to kill her. endorses depression and anxiety. denies SI or HI. Hospital course: 10/15 continue tx plan 10/16 increase Risperdal to 2 mg b.i.d. 10/17 disorganized behavior -holding paper to her nose, just sitting there -clogged bathroom toliet and sink with toliet paper and food; denies vomit...she was asked to leave it alone for a minute and during that time, flushed toliet anyway and toliet overflowed.... her bathroom required maintenance; in meantime, she asked to use the handica bathroom and did the exact same thing. She could not explain why...She is now on 1:1 reports lot of voices... says there is one bad one, voice of Aunt, which scares her; whenever this particular voice comes, her throat feels as if closing up. Pt has c/o of sensation that throat is sore or that she's being choked since admission; sensation seems to primarly happen when voice of aunt shows up. -Pt no problem talking or breathing....no distress and so this is unlikely a dystonic reaction. -Start Cogentin out of abundance of caution if sensation of throat tightening resolves with cogentin, this will likely be diagnostic 10/18 Patient remains very fearful. Says voices continue to say scary things to her. Patient says she likes having a one-to-one and feels safer with staff present and comments that the person does not seem to be very frightening. Patient does report that sensation of throat tightening seems to have resolved with start of Cogentin. Discussed history of lithium, Latuda, Seroquel on which patient is sister/cousin says she did quite well; however patient says she had voices anyway at this time does not want to go back on any of those medications but wants to see if Risperdal can become helpful. Sole Stitcher Hand explained that currently, Risperdal does not seem to be effective as voices remain very troublesome; patient however was not willing to change medication at this time 10/19 Patient says she is actually feeling a little better today, overall less anxious, less scared. She does not want to raise Risperdal any because the auditory hallucinations are a little bit quieter and she hopes they will continue to become so. She thinks that she will be able to get off one-to-one during the day but would like to have it remain overnight since she wakes up fearful. 10/20 seems to be making incremental improvements and though AH remains significantly bothersome, it is less than before. Patient with overall appropriate behaviors, feeling safe enough to come off 1:1 during the day 10/21 still doing a little better but AH remains prominent; She agrees to minimal increase in Risperdal. Hopefully will be able to convert to long-acting injectable 10/22 change 11-7 checks to 5 minute. Pt feeling improved, states she feels prepared to move forward. 10/24/2023: Continue current regimen and plans 10/25/2023: Continue current regimen and plans 10/25 continue regimen, however, AH remain and significantly impair function; pt has a hx of requiring 2 antipsychotics to be functional and will likely continue to do so; will continue to discuss restarting latuda or seroquel and/or possible lithium (which she was on before) 11/01 increase Latuda to 60mg for continued AH. 11/02 Still with auditory hallucinations; still intrusive and making life difficult however she feels that overall they are quieter, more able to be ignored and not quite as negative. She feels that Latuda is helping. She still remains with some confusion due to internal preoccupation and continues to require assistance from staff however she is improving. She agrees to continue on current dose of Latuda but is open to raising it if symptoms do not improve further. It is possible the current dose will continue to confer further reduction of symptoms; since patient is on 2 antipsychotics trying to titrate slowly to avoid side effects -at this time patient remains with too much mental confusion, due to psychotic illness to function in the community; however symptoms have improved and so senior grant writer is cautiously optimistic that current regimen is the right course 11/03 some increased symptoms expressed today... AH remain problematic and continue to thought block and get in way; pt very anxious. She continues to try and distract self which intermittently helps. She says she continues to use Cepacol throat lozenge to help w/voices which intermittently make her think throat is tightening. Pt expressed paranoid thinking today that she has some continued worries that her family is trying to kill her...she is not sure why or how, but thought pervades...Sole Stitcher Hand tried to quantify experience of AH now compared to year ago when she was in the community and working; pt said they are much worse now (though still a little less compared to when she was first admitted). -Given continued AH and resurgence of paranoid delusions (at least resurgence of expressed delusion) senior grant writer discussed med management and consideration of changing pt to Haldol or Clozapine. Pt said she's afraid of weekly blood draw, but would entertain switch to Haldol. 11/04 same presentation; signed [facility] for application 11/05 pt reports continued AH and efforts to try to distract herself from them...effort to find find such activities filling up her day; says it helps some. Pt said she would be willing to do Finger stick for ANC (but not venous blood draw) but worried how she would get to clinic each week to do so. Sole Stitcher Hand discussed with staff and VNA not an option for such blood draw...at writers recommendation pt agreed to try Haldol to see if helped -Although pt has improved some compared to admission, AH and paranoid delusions remain dominant, troublesome and reveal patients fragility; she is far from baseline (where she was able to live on her own, evening holding down employment) and cannot yet function on her own in the community (needed much staff support). Though possible, it seems unlikely that Latuda increase will be sufficient to address positive symptoms of psychosis and pt may need to add or switch to typical anti-psychotic (or Clozapine). She agrees to Haldol 11/08 Patient reports that Haldol seems to be helping better than the Risperdal and she is glad for the change. Prior to this change, patient reported minimal improvement in auditory hallucinations however with Haldol she feels they are significantly reduced and that she is more clear minded. She still has some paranoid delusions present but they seem to be waning in their intensity. Discussed medication management and agreed to leave at current dose for now however she agrees to go up higher if needed. -disposition remains a challenge as patient is cousin is trying to evict her and what seems to be without due process; waiting for [facility] to return repeated attempts to reach out to them. 11/10 AH better; pt anxious; meeting tomorrow w/ sister/cousin Will consider long-acting Haldol Decanoate 11/11 dispo planning; plan is for patient to go to her uncle's which is being set up. [place] which social work is working on Overall patient feels much improved 11/12 continue tx plan Will consider long-acting Haldol Decanoate 11/14 schedule benztropine bid continue to hold Vit C/probiotic until 11/15 to make sure GI is stable to return to dosing. 11/15 much improved; AH subdued and at this point lower than even a year ago when she was working. mood is good; dispo planning loose stool subsided pt described what sounds like akathesia which resolved with cogentin. PLAN: CV q15's Continue Latuda 60mg dinner time; will titrate accordingly Continue Haldol 10mg qhs (and DC risperdal qhs) since AH remain problematic Continue Haldol 5mg daily (and dc Risperdal liquid 3mg daily if Haldol seems to be helping) -DC Risperdal liquid 4 mg q.h.s. -continue Cogentin .5mg BID; patient reports sensation of throat tightening seems to be better now that she is on Cogentin Patient educated on: diagnosis and medication risk/benefits Informed Consent: understands Reason for continued inpatient stay Substantial Risk for: stable for discharge Time Spent With Patient Time: Total time managing care of this patient today ____ minutes.
--- NOTE | 2023-11-16 09:00 | ECG_ITS ---
Test Reason : qtc check Blood Pressure : / mmHG Vent. Rate : 061 BPM Atrial Rate : 061 BPM P-R Int : 132 ms QRS Dur : 076 ms QT Int : 404 ms P-R-T Axes : 059 043 058 degrees QTc Int : 406 ms Normal sinus rhythm Normal ECG When compared with ECG of 15-NOV-2023 10:28, No significant change was found Referred By: Mark Dougherty Electronically Signed By:Abraham Bishop
[2023-11-16 20:32] VITALS: BP 137/87; PULSE 78; RESP 17; TEMP 36.6; O2SAT 99
[2023-11-16] MEDS: Lurasidone HCl 20 MG TABLET 60 MG PO (20:44)
[2023-11-16] MEDS: traZODone HCL 50 MG TABLET PO (23:53)
[2023-11-17 08:01] VITALS: BP 164/80; PULSE 59; RESP 16; TEMP 36.5; O2SAT 100
[2023-11-17] MEDS: Artificial Tears 15 ML DROPS 2 DROP EYE-BOTH (08:03)
[2023-11-17] MEDS: Benztropine Mesylate 0.5 MG TABLET PO ×2 (08:42→20:21)
[2023-11-17] MEDS: HaloperidoL 5 MG TABLET 10 MG PO ×2 (08:42→20:22)
--- NOTE | 2023-11-17 08:56 | HO.PSYCHPN ---
Subjective Subjective Date of Service: 11/17/23 Reason For Visit: Psychosis Interim History: Met with Patient; discussed with team Patient remains much improved and says that voices remain much quieter and tolerable. Mental Status Exam Mental Status Exam Narrative: Pt is alert and oriented; behavior is cooperative, calm, friendly, polite; patient is not in distress; dressed in casual attire with good hygiene, grooming; mood is described as good and affect congruent, brighter, more calm; eye contact appropriate; Speech normal rate, prosody, volume; no psychomotor retardation present; thought process is goal directed, linear and organized; Thought content on treatment, dispo: otherwise pertinent to relevant topics; denies any SI/HI; much less self-dialoguing and typically only when alone; Patients insight and judgment fair. Diagnostics Vital Signs (24Hr): Vital Signs - 24 hr 11/16/23 20:32 Temperature 98 F Pulse Rate 78 Respiratory Rate 17 Blood Pressure 137/87 Pulse Oximetry 99 Oxygen Delivery Method Room Air BMI result Body Mass Index 41.9 Labs 09/29/23 22:53 09/29/23 22:53 Medications Medications Current Medications Acetaminophen (Acetaminophen 325 Mg Tablet) 650 mg PO Q6H PRN PRN Reason: Headache/Pain Mild Scale (1-3) Last Admin: 11/14/23 03:11 Dose: 650 mg Al Hydroxide/Mg Hydroxide (Magnesium Hydrox/Alum Hydrox 30 Ml Oral.Susp) 30 ml PO Q6H PRN PRN Reason: Heartburn/Nausea Last Admin: 10/30/23 05:22 Dose: 30 ml Artificial Tears (Artificial Tears 15 Ml Drops) 2 drop EYE-BOTH Q4H PRN PRN Reason: Dry Eyes Last Admin: 11/17/23 08:03 Dose: 2 drop Benzocaine (Throat Lozenge, Medicated Lozenge) 1 lozenge MUCOUS MEM Q2H PRN PRN Reason: Sore Throat Last Admin: 11/03/23 20:54 Dose: 1 lozenge Benztropine Mesylate (Benztropine Mesylate 0.5 Mg Tablet) 0.5 mg PO BID MACIEL Last Admin: 11/17/23 08:42 Dose: 0.5 mg Clonidine HCl (Clonidine Hcl 0.1 Mg Tablet) 0.1 mg PO Q4H PRN; Protocol PRN Reason: mild anxiety Last Admin: 11/13/23 08:59 Dose: 0.1 mg Guaifenesin/Dextromethorphan (Guaifenesin Dm 100/10/5 Ml 5 Ml Syrup) 5 ml PO Q4H PRN PRN Reason: Cough Last Admin: 11/01/23 20:31 Dose: 5 ml Haloperidol (Haloperidol 5 Mg Tablet) 10 mg PO BID MACIEL Last Admin: 11/17/23 08:42 Dose: 10 mg Hydroxyzine HCl (Hydroxyzine Hcl 25 Mg Tablet) 25 mg PO Q6H PRN PRN Reason: Anxiety Last Admin: 10/17/23 20:33 Dose: 25 mg Loperamide HCl (Loperamide Hcl 2 Mg Capsule) 4 mg PO Q4H PRN PRN Reason: Diarrhea Last Admin: 11/14/23 12:30 Dose: 4 mg Lorazepam (Lorazepam 0.5 Mg Tablet) 0.5 mg PO TID PRN PRN Reason: anxiety Last Admin: 11/15/23 20:57 Dose: 0.5 mg Lurasidone HCl (Lurasidone Hcl 20 Mg Tablet) 60 mg PO BEDTIME MACIEL Last Admin: 11/16/23 20:44 Dose: 60 mg Magnesium Hydroxide (Milk Of Magnesia 30 Ml Oral.Susp) 30 ml PO DAILY PRN PRN Reason: Constipation Multi-Ingred Medicated Throat Rugby (Throat Rugby, Medicated 177 Ml Bottle) 1 spray MUCOUS MEM Q2H PRN PRN Reason: throat irritation Last Admin: 10/27/23 13:51 Dose: 1 spray Pt Own (Liposomal Vitamin C (Liquid) 15 Ml) 15 ml PO DAILY MACIEL Last Admin: 11/17/23 08:41 Dose: 15 ml Pt Own (Physician's Choice Probiotic 1 Cap) 1 cap PO DAILY MACIEL Last Admin: 11/17/23 08:42 Dose: 1 cap Trazodone HCl (Trazodone Hcl 50 Mg Tablet) 50 mg PO BEDTIME MRX1 PRN PRN Reason: Insomnia Last Admin: 11/16/23 23:53 Dose: 50 mg Allergies Allergies Allergy/AdvReac Type Severity Reaction Status Date / Time fish derived [fish] Allergy Unknown Verified 09/29/23 23:05 Assessment & Plan Assessment & Plan (1) Schizoaffective disorder: Status: Acute Code(s): F25.9 - Schizoaffective disorder, unspecified Plan HPI: 43 yo single woman with Schizoaffective Disorder who lives alone in a condo in [place] admitted m5 after being brought to [facility] ED by police who found her wandering in [place]; She is on CV and 15 min checks. pt states she stopped her meds a few months ago. States she hasn't seen therapist and medication provider since March 2023. She states she hear voices and they insult her and are critical and mean to her. she reports being on lithium, latuda and seroquel in past but even on medication she continued to have voices. She does not want to restart lithium, latuda or seroquel but is vague about why not- says she wants to take vitamins and have a clear head. Pt states that she is often scared and fearful; believes people are watching her; fearful that people are trying to kill her. endorses depression and anxiety. denies SI or HI. Hospital course: 10/15 continue tx plan 10/16 increase Risperdal to 2 mg b.i.d. 10/17 disorganized behavior -holding paper to her nose, just sitting there -clogged bathroom toliet and sink with toliet paper and food; denies vomit...she was asked to leave it alone for a minute and during that time, flushed toliet anyway and toliet overflowed.... her bathroom required maintenance; in meantime, she asked to use the handicap bathroom and did the exact same thing. She could not explain why...She is now on 1:1 reports lot of voices... says there is one bad one, voice of Aunt, which scares her; whenever this particular voice comes, her throat feels as if closing up. Pt has c/o of sensation that throat is sore or that she's being choked since admission; sensation seems to primarly happen when voice of aunt shows up. -Pt no problem talking or breathing....no distress and so this is unlikely a dystonic reaction. -Start Cogentin out of abundance of caution if sensation of throat tightening resolves with cogentin, this will likely be diagnostic 10/18 Patient remains very fearful. Says voices continue to say scary things to her. Patient says she likes having a one-to-one and feels safer with staff present and comments that the person does not seem to be very frightening. Patient does report that sensation of throat tightening seems to have resolved with start of Cogentin. Discussed history of lithium, Latuda, Seroquel on which patient is sister/cousin says she did quite well; however patient says she had voices anyway at this time does not want to go back on any of those medications but wants to see if Risperdal can become helpful. Office Machine Punch Operator explained that currently, Risperdal does not seem to be effective as voices remain very troublesome; patient however was not willing to change medication at this time 10/19 Patient says she is actually feeling a little better today, overall less anxious, less scared. She does not want to raise Risperdal any because the auditory hallucinations are a little bit quieter and she hopes they will continue to become so. She thinks that she will be able to get off one-to-one during the day but would like to have it remain overnight since she wakes up fearful. 10/20 seems to be making incremental improvements and though AH remains significantly bothersome, it is less than before. Patient with overall appropriate behaviors, feeling safe enough to come off 1:1 during the day 10/21 still doing a little better but AH remains prominent; She agrees to minimal increase in Risperdal. Hopefully will be able to convert to long-acting injectable 10/22 change 11-7 checks to 5 minute. Pt feeling improved, states she feels prepared to move forward. 10/24/2023: Continue current regimen and plans 10/25/2023: Continue current regimen and plans 10/25 continue regimen, however, AH remain and significantly impair function; pt has a hx of requiring 2 antipsychotics to be functional and will likely continue to do so; will continue to discuss restarting latuda or seroquel and/or possible lithium (which she was on before) 11/01 increase Latuda to 60mg for continued AH. 11/02 Still with auditory hallucinations; still intrusive and making life difficult however she feels that overall they are quieter, more able to be ignored and not quite as negative. She feels that Latuda is helping. She still remains with some confusion due to internal preoccupation and continues to require assistance from staff however she is improving. She agrees to continue on current dose of Latuda but is open to raising it if symptoms do not improve further. It is possible the current dose will continue to confer further reduction of symptoms; since patient is on 2 antipsychotics trying to titrate slowly to avoid side effects -at this time patient remains with too much mental confusion, due to psychotic illness to function in the community; however symptoms have improved and so financial writer is cautiously optimistic that current regimen is the right course 11/03 some increased symptoms expressed today... AH remain problematic and continue to thought block and get in way; pt very anxious. She continues to try and distract self which intermittently helps. She says she continues to use Cepacol throat lozenge to help w/voices which intermittently make her think throat is tightening. Pt expressed paranoid thinking today that she has some continued worries that her family is trying to kill her...she is not sure why or how, but thought pervades...Office Machine Punch Operator tried to quantify experience of AH now compared to year ago when she was in the community and working; pt said they are much worse now (though still a little less compared to when she was first admitted). -Given continued AH and resurgence of paranoid delusions (at least resurgence of expressed delusion) financial writer discussed med management and consideration of changing pt to Haldol or Clozapine. Pt said she's afraid of weekly blood draw, but would entertain switch to Haldol. 11/04 same presentation; signed [facility] for application 11/05 pt reports continued AH and efforts to try to distract herself from them...effort to find find such activities filling up her day; says it helps some. Pt said she would be willing to do Finger stick for ANC (but not venous blood draw) but worried how she would get to clinic each week to do so. Office Machine Punch Operator discussed with staff and VNA not an option for such blood draw...at writers recommendation pt agreed to try Haldol to see if helped -Although pt has improved some compared to admission, AH and paranoid delusions remain dominant, troublesome and reveal patients fragility; she is far from baseline (where she was able to live on her own, evening holding down employment) and cannot yet function on her own in the community (needed much staff support). Though possible, it seems unlikely that Latuda increase will be sufficient to address positive symptoms of psychosis and pt may need to add or switch to typical anti-psychotic (or Clozapine). She agrees to Haldol 11/08 Patient reports that Haldol seems to be helping better than the Risperdal and she is glad for the change. Prior to this change, patient reported minimal improvement in auditory hallucinations however with Haldol she feels they are significantly reduced and that she is more clear minded. She still has some paranoid delusions present but they seem to be waning in their intensity. Discussed medication management and agreed to leave at current dose for now however she agrees to go up higher if needed. -disposition remains a challenge as patient is cousin is trying to evict her and what seems to be without due process; waiting for [facility] to return repeated attempts to reach out to them. 11/10 AH better; pt anxious; meeting tomorrow w/ sister/cousin Will consider long-acting Haldol Decanoate 11/11 dispo planning; plan is for patient to go to her uncle's which is being set up. [place] which social work is working on Overall patient feels much improved 11/12 continue tx plan Will consider long-acting Haldol Decanoate 11/14 schedule benztropine bid continue to hold Vit C/probiotic until 11/15 to make sure GI is stable to return to dosing. 11/15 much improved; AH subdued and at this point lower than even a year ago when she was working. mood is good; dispo planning loose stool subsided pt described what sounds like akathesia which resolved with cogentin. 11/16 continue current treatment plan PLAN: CV q15's Continue Latuda 60mg dinner time; will titrate accordingly Continue Haldol 10mg qhs Continue Haldol 5mg daily -continue Cogentin .5mg BID; patient reported what sounded like akathisia that resolved with Cogentin -DC Risperdal liquid 4 mg q.h.s Patient educated on: diagnosis and medication risk/benefits Informed Consent: understands Reason for continued inpatient stay Substantial Risk for: stable for discharge Time Spent With Patient Time: Total time managing care of this patient today ____ minutes.
[2023-11-17] MEDS: Loperamide HCl 2 MG CAPSULE 4 MG PO (10:12)
[2023-11-17] MEDS: LORazepam 0.5 MG TABLET PO (12:17)
[2023-11-17] MEDS: Lurasidone HCl 20 MG TABLET 60 MG PO (20:21)
[2023-11-17] MEDS: traZODone HCL 50 MG TABLET PO (20:21)
[2023-11-18 06:00] VITALS: BP 139/69; PULSE 62; RESP 18; TEMP 36.3; O2SAT 99
[2023-11-18] MEDS: Benztropine Mesylate 0.5 MG TABLET PO ×2 (08:41→20:20)
[2023-11-18] MEDS: HaloperidoL 5 MG TABLET 10 MG PO ×2 (08:41→20:20)
--- NOTE | 2023-11-18 09:45 | HO.PSYCHPN ---
Subjective Subjective Date of Service: 11/18/23 Reason For Visit: Psychosis Interim History: met with patient; discussed with team remains doing better and voices staying subdued; continues with dispo planning and family coming in for family meeting today. discussed HtN and pt says she used to take clonidine 0.1mg daily for HTN since it also helped w/ anxiety; agrees to restart now. Mental Status Exam Mental Status Exam Narrative: Pt is alert and oriented; behavior is cooperative, calm, friendly, polite; patient is not in distress; dressed in casual attire with good hygiene, grooming; mood is described as good and affect congruent, brighter, more calm; eye contact appropriate; Speech normal rate, prosody, volume; no psychomotor retardation present; thought process is goal directed, linear and organized; Thought content on treatment, dispo: otherwise pertinent to relevant topics; denies any SI/HI; much less self-dialoguing and typically only when alone; Patients insight and judgment fair. Diagnostics Vital Signs (24Hr): Vital Signs - 24 hr 11/18/23 06:00 Temperature 97.4 F Pulse Rate 62 Respiratory Rate 18 Blood Pressure 139/69 Pulse Oximetry 99 Oxygen Delivery Method Room Air BMI result Body Mass Index 41.9 Labs 09/29/23 22:53 09/29/23 22:53 Medications Medications Current Medications Acetaminophen (Acetaminophen 325 Mg Tablet) 650 mg PO Q6H PRN PRN Reason: Headache/Pain Mild Scale (1-3) Last Admin: 11/14/23 03:11 Dose: 650 mg Al Hydroxide/Mg Hydroxide (Magnesium Hydrox/Alum Hydrox 30 Ml Oral.Susp) 30 ml PO Q6H PRN PRN Reason: Heartburn/Nausea Last Admin: 10/30/23 05:22 Dose: 30 ml Artificial Tears (Artificial Tears 15 Ml Drops) 2 drop EYE-BOTH Q4H PRN PRN Reason: Dry Eyes Last Admin: 11/17/23 08:03 Dose: 2 drop Benzocaine (Throat Lozenge, Medicated Lozenge) 1 lozenge MUCOUS MEM Q2H PRN PRN Reason: Sore Throat Last Admin: 11/03/23 20:54 Dose: 1 lozenge Benztropine Mesylate (Benztropine Mesylate 0.5 Mg Tablet) 0.5 mg PO BID MACIEL Last Admin: 11/18/23 08:41 Dose: 0.5 mg Clonidine HCl (Clonidine Hcl 0.1 Mg Tablet) 0.1 mg PO Q4H PRN; Protocol PRN Reason: mild anxiety Last Admin: 11/13/23 08:59 Dose: 0.1 mg Guaifenesin/Dextromethorphan (Guaifenesin Dm 100/10/5 Ml 5 Ml Syrup) 5 ml PO Q4H PRN PRN Reason: Cough Last Admin: 11/01/23 20:31 Dose: 5 ml Haloperidol (Haloperidol 5 Mg Tablet) 10 mg PO BID MACIEL Last Admin: 11/18/23 08:41 Dose: 10 mg Hydroxyzine HCl (Hydroxyzine Hcl 25 Mg Tablet) 25 mg PO Q6H PRN PRN Reason: Anxiety Last Admin: 10/17/23 20:33 Dose: 25 mg Loperamide HCl (Loperamide Hcl 2 Mg Capsule) 4 mg PO Q4H PRN PRN Reason: Diarrhea Last Admin: 11/17/23 10:12 Dose: 4 mg Lorazepam (Lorazepam 0.5 Mg Tablet) 0.5 mg PO TID PRN PRN Reason: anxiety Last Admin: 11/17/23 12:17 Dose: 0.5 mg Lurasidone HCl (Lurasidone Hcl 20 Mg Tablet) 60 mg PO BEDTIME MACIEL Last Admin: 11/17/23 20:21 Dose: 60 mg Magnesium Hydroxide (Milk Of Magnesia 30 Ml Oral.Susp) 30 ml PO DAILY PRN PRN Reason: Constipation Multi-Ingred Medicated Throat [place] (Throat [place], Medicated 177 Ml Bottle) 1 spray MUCOUS MEM Q2H PRN PRN Reason: throat irritation Last Admin: 10/27/23 13:51 Dose: 1 spray Pt Own (Liposomal Vitamin C (Liquid) 15 Ml) 15 ml PO DAILY MACIEL Last Admin: 11/18/23 08:41 Dose: 15 ml Pt Own (Physician's Choice Probiotic 1 Cap) 1 cap PO DAILY MACIEL Last Admin: 11/18/23 08:41 Dose: Not Given Trazodone HCl (Trazodone Hcl 50 Mg Tablet) 50 mg PO BEDTIME MRX1 PRN PRN Reason: Insomnia Last Admin: 11/17/23 20:21 Dose: 50 mg Allergies Allergies Allergy/AdvReac Type Severity Reaction Status Date / Time fish derived [fish] Allergy Unknown Verified 09/29/23 23:05 Assessment & Plan Assessment & Plan (1) Schizoaffective disorder: Status: Acute Code(s): F25.9 - Schizoaffective disorder, unspecified Plan HPI: 43 yo single woman with Schizoaffective Disorder who lives alone in a condo in [facility] admitted m5 after being brought to [facility] by police who found her wandering in [place]; She is on CV and 15 min checks. pt states she stopped her meds a few months ago. States she hasn't seen therapist and medication provider since March 2023. She states she hear voices and they insult her and are critical and mean to her. she reports being on lithium, latuda and seroquel in past but even on medication she continued to have voices. She does not want to restart lithium, latuda or seroquel but is vague about why not- says she wants to take vitamins and have a clear head. Pt states that she is often scared and fearful; believes people are watching her; fearful that people are trying to kill her. endorses depression and anxiety. denies SI or HI. Hospital course: 10/15 continue tx plan 10/16 increase Risperdal to 2 mg b.i.d. 10/17 disorganized behavior -holding paper to her nose, just sitting there -clogged bathroom toliet and sink with toliet paper and food; denies vomit...she was asked to leave it alone for a minute and during that time, flushed toliet anyway and toliet overflowed.... her bathroom required maintenance; in meantime, she asked to use the handicap bathroom and did the exact same thing. She could not explain why...She is now on 1:1 reports lot of voices... says there is one bad one, voice of Aunt, which scares her; whenever this particular voice comes, her throat feels as if closing up. Pt has c/o of sensation that throat is sore or that she's being choked since admission; sensation seems to primarly happen when voice of aunt shows up. -Pt no problem talking or breathing....no distress and so this is unlikely a dystonic reaction. -Start Cogentin out of abundance of caution if sensation of throat tightening resolves with cogentin, this will likely be diagnostic 10/18 Patient remains very fearful. Says voices continue to say scary things to her. Patient says she likes having a one-to-one and feels safer with staff present and comments that the person does not seem to be very frightening. Patient does report that sensation of throat tightening seems to have resolved with start of Cogentin. Discussed history of lithium, Latuda, Seroquel on which patient is sister/cousin says she did quite well; however patient says she had voices anyway at this time does not want to go back on any of those medications but wants to see if Risperdal can become helpful. Trade Economist explained that currently, Risperdal does not seem to be effective as voices remain very troublesome; patient however was not willing to change medication at this time 10/19 Patient says she is actually feeling a little better today, overall less anxious, less scared. She does not want to raise Risperdal any because the auditory hallucinations are a little bit quieter and she hopes they will continue to become so. She thinks that she will be able to get off one-to-one during the day but would like to have it remain overnight since she wakes up fearful. 10/20 seems to be making incremental improvements and though AH remains significantly bothersome, it is less than before. Patient with overall appropriate behaviors, feeling safe enough to come off 1:1 during the day 10/21 still doing a little better but AH remains prominent; She agrees to minimal increase in Risperdal. Hopefully will be able to convert to long-acting injectable 10/22 change 11-7 checks to 5 minute. Pt feeling improved, states she feels prepared to move forward. 10/24/2023: Continue current regimen and plans 10/25/2023: Continue current regimen and plans 10/25 continue regimen, however, AH remain and significantly impair function; pt has a hx of requiring 2 antipsychotics to be functional and will likely continue to do so; will continue to discuss restarting latuda or seroquel and/or possible lithium (which she was on before) 11/01 increase Latuda to 60mg for continued AH. 11/02 Still with auditory hallucinations; still intrusive and making life difficult however she feels that overall they are quieter, more able to be ignored and not quite as negative. She feels that Latuda is helping. She still remains with some confusion due to internal preoccupation and continues to require assistance from staff however she is improving. She agrees to continue on current dose of Latuda but is open to raising it if symptoms do not improve further. It is possible the current dose will continue to confer further reduction of symptoms; since patient is on 2 antipsychotics trying to titrate slowly to avoid side effects -at this time patient remains with too much mental confusion, due to psychotic illness to function in the community; however symptoms have improved and so automobile service writer is cautiously optimistic that current regimen is the right course 11/03 some increased symptoms expressed today... AH remain problematic and continue to thought block and get in way; pt very anxious. She continues to try and distract self which intermittently helps. She says she continues to use Cepacol throat lozenge to help w/voices which intermittently make her think throat is tightening. Pt expressed paranoid thinking today that she has some continued worries that her family is trying to kill her...she is not sure why or how, but thought pervades...Trade Economist tried to quantify experience of AH now compared to year ago when she was in the community and working; pt said they are much worse now (though still a little less compared to when she was first admitted). -Given continued AH and resurgence of paranoid delusions (at least resurgence of expressed delusion) automobile service writer discussed med management and consideration of changing pt to Haldol or Clozapine. Pt said she's afraid of weekly blood draw, but would entertain switch to Haldol. 11/04 same presentation; signed [facility] for application 11/05 pt reports continued AH and efforts to try to distract herself from them...effort to find find such activities filling up her day; says it helps some. Pt said she would be willing to do Finger stick for ANC (but not venous blood draw) but worried how she would get to clinic each week to do so. Trade Economist discussed with staff and VNA not an option for such blood draw...at writers recommendation pt agreed to try Haldol to see if helped -Although pt has improved some compared to admission, AH and paranoid delusions remain dominant, troublesome and reveal patients fragility; she is far from baseline (where she was able to live on her own, evening holding down employment) and cannot yet function on her own in the community (needed much staff support). Though possible, it seems unlikely that Latuda increase will be sufficient to address positive symptoms of psychosis and pt may need to add or switch to typical anti-psychotic (or Clozapine). She agrees to Haldol 11/08 Patient reports that Haldol seems to be helping better than the Risperdal and she is glad for the change. Prior to this change, patient reported minimal improvement in auditory hallucinations however with Haldol she feels they are significantly reduced and that she is more clear minded. She still has some paranoid delusions present but they seem to be waning in their intensity. Discussed medication management and agreed to leave at current dose for now however she agrees to go up higher if needed. -disposition remains a challenge as patient is cousin is trying to evict her and what seems to be without due process; waiting for DM to return repeated attempts to reach out to them. 11/10 AH better; pt anxious; meeting tomorrow w/ sister/cousin Will consider long-acting Haldol Decanoate 11/11 dispo planning; plan is for patient to go to her uncle's which is being set up. [place] which social work is working on Overall patient feels much improved 11/12 continue tx plan Will consider long-acting Haldol Decanoate 11/14 schedule benztropine bid continue to hold Vit C/probiotic until 11/15 to make sure GI is stable to return to dosing. 11/15 much improved; AH subdued and at this point lower than even a year ago when she was working. mood is good; dispo planning; loose stool subsided pt described what sounds like akathesia which resolved with cogentin. 11/16 reviewed EKG with pt 11/17 remains doing better and voices staying subdued; continues with dispo planning and family coming in for family meeting today. discussed HtN and pt says she used to take clonidine 0.1mg daily for HTN since it also helped w/ anxiety; agrees to restart now. PLAN: CV q15's Start clonidine 0.1mg BID for HTN and anxiety (pt been on in past for same) Continue Latuda 60mg dinner time; will titrate accordingly Continue Haldol 10mg qhs Continue Haldol 5mg daily -continue Cogentin .5mg BID; patient reported what sounded like akathisia that resolved with Cogentin -DC Risperdal liquid 4 mg q.h.s Patient educated on: diagnosis and medication risk/benefits Informed Consent: understands Reason for continued inpatient stay Substantial Risk for: stable for discharge Time Spent With Patient Time: Total time managing care of this patient today ____ minutes.
[2023-11-18] MEDS: cloNIDine HCL 0.1 MG TABLET PO ×2 (11:00→20:20)
[2023-11-18 11:01] VITALS: BP 146/72; PULSE 82
[2023-11-18 19:00] VITALS: BP 144/66; PULSE 63; RESP 18; TEMP 36.7; O2SAT 98
[2023-11-18] MEDS: Lurasidone HCl 20 MG TABLET 60 MG PO (20:20)
[2023-11-19 07:00] VITALS: BMI 42.5
[2023-11-19 08:23] VITALS: BP 126/61; PULSE 62; RESP 16; TEMP 36.6; O2SAT 98
--- NOTE | 2023-11-19 09:23 | HO.PSYCHPN ---
Subjective Subjective Date of Service: 11/19/23 Reason For Visit: Psychosis Interim History: Met with patient; discussed with team Patient remains doing well, much improved; feels anxious about discharge but also ready Mental Status Exam Mental Status Exam Narrative: Pt is alert and oriented; behavior is cooperative, calm, friendly, polite; patient is not in distress; dressed in casual attire with good hygiene, grooming; mood is described as good... Anxious and affect congruent, brighter, more calm; eye contact appropriate; Speech normal rate, prosody, volume; no psychomotor retardation present; thought process is goal directed, linear and organized; Thought content on treatment, dispo: otherwise pertinent to relevant topics; denies any SI/HI; much less self-dialoguing and typically only when alone; Patients insight and judgment fair. Diagnostics Vital Signs (24Hr): Vital Signs - 24 hr 11/18/23 11:01 11/18/23 19:00 11/19/23 08:23 Temperature 98.1 F 97.8 F Pulse Rate 82 63 62 Respiratory Rate 18 16 Blood Pressure 146/72 H 144/66 H 126/61 Pulse Oximetry 98 98 Oxygen Delivery Method Room Air Room Air BMI result Body Mass Index 41.9 Labs 09/29/23 22:53 09/29/23 22:53 Medications Medications Current Medications Acetaminophen (Acetaminophen 325 Mg Tablet) 650 mg PO Q6H PRN PRN Reason: Headache/Pain Mild Scale (1-3) Last Admin: 11/14/23 03:11 Dose: 650 mg Al Hydroxide/Mg Hydroxide (Magnesium Hydrox/Alum Hydrox 30 Ml Oral.Susp) 30 ml PO Q6H PRN PRN Reason: Heartburn/Nausea Last Admin: 10/30/23 05:22 Dose: 30 ml Artificial Tears (Artificial Tears 15 Ml Drops) 2 drop EYE-BOTH Q4H PRN PRN Reason: Dry Eyes Last Admin: 11/17/23 08:03 Dose: 2 drop Benzocaine (Throat Lozenge, Medicated Lozenge) 1 lozenge MUCOUS MEM Q2H PRN PRN Reason: Sore Throat Last Admin: 11/03/23 20:54 Dose: 1 lozenge Benztropine Mesylate (Benztropine Mesylate 0.5 Mg Tablet) 0.5 mg PO BID MACIEL Last Admin: 11/18/23 20:20 Dose: 0.5 mg Clonidine HCl (Clonidine Hcl 0.1 Mg Tablet) 0.1 mg PO Q4H PRN; Protocol PRN Reason: mild anxiety Last Admin: 11/13/23 08:59 Dose: 0.1 mg Clonidine HCl (Clonidine Hcl 0.1 Mg Tablet) 0.1 mg PO BID MACIEL; Protocol Last Admin: 11/18/23 20:20 Dose: 0.1 mg Guaifenesin/Dextromethorphan (Guaifenesin Dm 100/10/5 Ml 5 Ml Syrup) 5 ml PO Q4H PRN PRN Reason: Cough Last Admin: 11/01/23 20:31 Dose: 5 ml Haloperidol (Haloperidol 5 Mg Tablet) 10 mg PO BID MACIEL Last Admin: 11/18/23 20:20 Dose: 10 mg Hydroxyzine HCl (Hydroxyzine Hcl 25 Mg Tablet) 25 mg PO Q6H PRN PRN Reason: Anxiety Last Admin: 10/17/23 20:33 Dose: 25 mg Loperamide HCl (Loperamide Hcl 2 Mg Capsule) 4 mg PO Q4H PRN PRN Reason: Diarrhea Last Admin: 11/17/23 10:12 Dose: 4 mg Lorazepam (Lorazepam 0.5 Mg Tablet) 0.5 mg PO TID PRN PRN Reason: anxiety Last Admin: 11/17/23 12:17 Dose: 0.5 mg Lurasidone HCl (Lurasidone Hcl 20 Mg Tablet) 60 mg PO BEDTIME MACIEL Last Admin: 11/18/23 20:20 Dose: 60 mg Magnesium Hydroxide (Milk Of Magnesia 30 Ml Oral.Susp) 30 ml PO DAILY PRN PRN Reason: Constipation Multi-Ingred Medicated Throat [place] (Throat [place], Medicated 177 Ml Bottle) 1 spray MUCOUS MEM Q2H PRN PRN Reason: throat irritation Last Admin: 10/27/23 13:51 Dose: 1 spray Pt Own (Liposomal Vitamin C (Liquid) 15 Ml) 15 ml PO DAILY MACIEL Last Admin: 11/18/23 08:41 Dose: 15 ml Pt Own (Physician's Choice Probiotic 1 Cap) 1 cap PO DAILY MACIEL Last Admin: 11/18/23 08:41 Dose: Not Given Trazodone HCl (Trazodone Hcl 50 Mg Tablet) 50 mg PO BEDTIME MRX1 PRN PRN Reason: Insomnia Last Admin: 11/17/23 20:21 Dose: 50 mg Allergies Allergies Allergy/AdvReac Type Severity Reaction Status Date / Time fish derived [fish] Allergy Unknown Verified 09/29/23 23:05 Assessment & Plan Assessment & Plan (1) Schizoaffective disorder: Status: Acute Code(s): F25.9 - Schizoaffective disorder, unspecified Plan HPI: 43 yo single woman with Schizoaffective Disorder who lives alone in a condo in [place] admitted m5 after being brought to [facility] by police who found her wandering in [place]; She is on CV and 15 min checks. pt states she stopped her meds a few months ago. States she hasn't seen therapist and medication provider since March 2023. She states she hear voices and they insult her and are critical and mean to her. she reports being on lithium, latuda and seroquel in past but even on medication she continued to have voices. She does not want to restart lithium, latuda or seroquel but is vague about why not- says she wants to take vitamins and have a clear head. Pt states that she is often scared and fearful; believes people are watching her; fearful that people are trying to kill her. endorses depression and anxiety. denies SI or HI. Hospital course: 10/15 continue tx plan 10/16 increase Risperdal to 2 mg b.i.d. 10/17 disorganized behavior -holding paper to her nose, just sitting there -clogged bathroom toliet and sink with toliet paper and food; denies vomit...she was asked to leave it alone for a minute and during that time, flushed toliet anyway and toliet overflowed.... her bathroom required maintenance; in meantime, she [facility] and did the exact same thing. She could not explain why...She is now on 1:1 reports lot of voices... says there is one bad one, voice of Aunt, which scares her; whenever this particular voice comes, her throat feels as if closing up. Pt has c/o of sensation that throat is sore or that she's being choked since admission; sensation seems to primarly happen when voice of aunt shows up. -Pt no problem talking or breathing....no distress and so this is unlikely a dystonic reaction. -Start Cogentin out of abundance of caution if sensation of throat tightening resolves with cogentin, this will likely be diagnostic 10/18 Patient remains very fearful. Says voices continue to say scary things to her. Patient says she likes having a one-to-one and feels safer with staff present and comments that the person does not seem to be very frightening. Patient does report that sensation of throat tightening seems to have resolved with start of Cogentin. Discussed history of lithium, Latuda, Seroquel on which patient is sister/cousin says she did quite well; however patient says she had voices anyway at this time does not want to go back on any of those medications but wants to see if Risperdal can become helpful. Command And Control Specialist explained that currently, Risperdal does not seem to be effective as voices remain very troublesome; patient however was not willing to change medication at this time 10/19 Patient says she is actually feeling a little better today, overall less anxious, less scared. She does not want to raise Risperdal any because the auditory hallucinations are a little bit quieter and she hopes they will continue to become so. She thinks that she will be able to get off one-to-one during the day but would like to have it remain overnight since she wakes up fearful. 10/20 seems to be making incremental improvements and though AH remains significantly bothersome, it is less than before. Patient with overall appropriate behaviors, feeling safe enough to come off 1:1 during the day 10/21 still doing a little better but AH remains prominent; She agrees to minimal increase in Risperdal. Hopefully will be able to convert to long-acting injectable 10/22 change 11-7 checks to 5 minute. Pt feeling improved, states she feels prepared to move forward. 10/24/2023: Continue current regimen and plans 10/25/2023: Continue current regimen and plans 10/25 continue regimen, however, AH remain and significantly impair function; pt has a hx of requiring 2 antipsychotics to be functional and will likely continue to do so; will continue to discuss restarting latuda or seroquel and/or possible lithium (which she was on before) 11/01 increase Latuda to 60mg for continued AH. 11/02 Still with auditory hallucinations; still intrusive and making life difficult however she feels that overall they are quieter, more able to be ignored and not quite as negative. She feels that Latuda is helping. She still remains with some confusion due to internal preoccupation and continues to require assistance from staff however she is improving. She agrees to continue on current dose of Latuda but is open to raising it if symptoms do not improve further. It is possible the current dose will continue to confer further reduction of symptoms; since patient is on 2 antipsychotics trying to titrate slowly to avoid side effects -at this time patient remains with too much mental confusion, due to psychotic illness to function in the community; however symptoms have improved and so technical proposal writer is cautiously optimistic that current regimen is the right course 11/03 some increased symptoms expressed today... AH remain problematic and continue to thought block and get in way; pt very anxious. She continues to try and distract self which intermittently helps. She says she continues to use Cepacol throat lozenge to help w/voices which intermittently make her think throat is tightening. Pt expressed paranoid thinking today that she has some continued worries that her family is trying to kill her...she is not sure why or how, but thought pervades...Command And Control Specialist tried to quantify experience of AH now compared to year ago when she was in the community and working; pt said they are much worse now (though still a little less compared to when she was first admitted). -Given continued AH and resurgence of paranoid delusions (at least resurgence of expressed delusion) technical proposal writer discussed med management and consideration of changing pt to Haldol or Clozapine. Pt said she's afraid of weekly blood draw, but would entertain switch to Haldol. 11/04 same presentation; signed [facility] for application 11/05 pt reports continued AH and efforts to try to distract herself from them...effort to find find such activities filling up her day; says it helps some. Pt said she would be willing to do Finger stick for ANC (but not venous blood draw) but worried how she would get to clinic each week to do so. Command And Control Specialist discussed with staff and VNA not an option for such blood draw...at writers recommendation pt agreed to try Haldol to see if helped -Although pt has improved some compared to admission, AH and paranoid delusions remain dominant, troublesome and reveal patients fragility; she is far from baseline (where she was able to live on her own, evening holding down employment) and cannot yet function on her own in the community (needed much staff support). Though possible, it seems unlikely that Latuda increase will be sufficient to address positive symptoms of psychosis and pt may need to add or switch to typical anti-psychotic (or Clozapine). She agrees to Haldol 11/08 Patient reports that Haldol seems to be helping better than the Risperdal and she is glad for the change. Prior to this change, patient reported minimal improvement in auditory hallucinations however with Haldol she feels they are significantly reduced and that she is more clear minded. She still has some paranoid delusions present but they seem to be waning in their intensity. Discussed medication management and agreed to leave at current dose for now however she agrees to go up higher if needed. -disposition remains a challenge as patient is cousin is trying to evict her and what seems to be without due process; waiting for [facility] to return repeated attempts to reach out to them. 4 AH better; pt anxious; meeting tomorrow w/ sister/cousin Will consider long-acting Haldol Decanoate 11/11 dispo planning; plan is for patient to go to her uncle's which is being set up. [place] which social work is working on Overall patient feels much improved 11/12 continue tx plan Will consider long-acting Haldol Decanoate 11/14 schedule benztropine bid continue to hold Vit C/probiotic until 11/15 to make sure GI is stable to return to dosing. 11/15 much improved; AH subdued and at this point lower than even a year ago when she was working. mood is good; dispo planning; loose stool subsided pt described what sounds like akathesia which resolved with cogentin. 11/16 reviewed EKG with pt 11/17 remains doing better and voices staying subdued; continues with dispo planning and family coming in for family meeting today. discussed HtN and pt says she used to take clonidine 0.1mg daily for HTN since it also helped w/ anxiety; agrees to restart now. PLAN: CV q15's Start clonidine 0.1mg BID for HTN and anxiety (pt been on in past for same) Continue Latuda 60mg dinner time; will titrate accordingly Continue Haldol 10mg qhs Continue Haldol 5mg daily -continue Cogentin .5mg BID; patient reported what sounded like akathisia that resolved with Cogentin -DC Risperdal liquid 4 mg q.h.s Patient educated on: diagnosis and medication risk/benefits Informed Consent: understands Reason for continued inpatient stay Substantial Risk for: stable for discharge Time Spent With Patient Time: Total time managing care of this patient today ____ minutes.
[2023-11-19] MEDS: cloNIDine HCL 0.1 MG TABLET PO ×2 (09:33→19:58)
[2023-11-19] MEDS: Benztropine Mesylate 0.5 MG TABLET PO ×2 (09:33→19:59)
[2023-11-19] MEDS: HaloperidoL 5 MG TABLET 10 MG PO ×2 (09:34→19:59)
[2023-11-19] MEDS: Lurasidone HCl 20 MG TABLET 60 MG PO (19:59)
[2023-11-19 20:01] VITALS: BP 157/77; PULSE 62; RESP 18
[2023-11-19] MEDS: traZODone HCL 50 MG TABLET PO (23:53)
[2023-11-20 08:04] VITALS: BP 161/78; PULSE 60; RESP 18; TEMP 36.3; O2SAT 100
[2023-11-20] MEDS: Benztropine Mesylate 0.5 MG TABLET PO ×2 (08:43→21:42)
[2023-11-20] MEDS: cloNIDine HCL 0.1 MG TABLET PO ×2 (08:43→21:42)
[2023-11-20] MEDS: HaloperidoL 5 MG TABLET 10 MG PO ×2 (08:43→21:42)
--- NOTE | 2023-11-20 11:36 | HO.PSYCHPN ---
Subjective Subjective Date of Service: 11/07/23 Reason For Visit: Psychosis Subjective Notes: Section 7 Interim History: Pt started haldol last night instead of risperidone and feeling AH much decreased, less tortured- still believes according to nursing reports that her voices will completely disappear- Medication Compliance: Yes Side effects from medications: Yes (mild sedation this am) Attending Groups: Intermittent Review of Systems Acute medical concerns: No Medical Review of Systems: unchanged Mental Status Exam Mental Status Exam Narrative: lying in bed with head phones Patient Appearance: Unkempt Patient Orientation: Person, Place, Time and Situation Level of Consciousness: Awake Patient Behavior: Appropriate and Passive Mood Description: Calm Affect Description: Blunted Patient Cognition Impaired: No Ability to Follow Directions: Good Speech Pattern: Clear and Impoverished Hallucinations: Auditory Thought Process: Intact and Goal Oriented Thought Content: positive for [place] and positive for Poverty of Content Judgement: Fair Diagnostics Vital Signs (24Hr): Vital Signs - 24 hr 11/19/23 20:01 11/20/23 08:04 Temperature 97.4 F Pulse Rate 62 60 Respiratory Rate 18 18 Blood Pressure 157/77 H 161/78 H Pulse Oximetry 100 Oxygen Delivery Method Room Air BMI result Body Mass Index 42.5 Labs 09/29/23 22:53 09/29/23 22:53 Medications Medications Current Medications Acetaminophen (Acetaminophen 325 Mg Tablet) 650 mg PO Q6H PRN PRN Reason: Headache/Pain Mild Scale (1-3) Last Admin: 11/14/23 03:11 Dose: 650 mg Al Hydroxide/Mg Hydroxide (Magnesium Hydrox/Alum Hydrox 30 Ml Oral.Susp) 30 ml PO Q6H PRN PRN Reason: Heartburn/Nausea Last Admin: 10/30/23 05:22 Dose: 30 ml Artificial Tears (Artificial Tears 15 Ml Drops) 2 drop EYE-BOTH Q4H PRN PRN Reason: Dry Eyes Last Admin: 11/17/23 08:03 Dose: 2 drop Benzocaine (Throat Lozenge, Medicated Lozenge) 1 lozenge MUCOUS MEM Q2H PRN PRN Reason: Sore Throat Last Admin: 11/03/23 20:54 Dose: 1 lozenge Benztropine Mesylate (Benztropine Mesylate 0.5 Mg Tablet) 0.5 mg PO BID MACIEL Last Admin: 11/20/23 08:43 Dose: 0.5 mg Clonidine HCl (Clonidine Hcl 0.1 Mg Tablet) 0.1 mg PO Q4H PRN; Protocol PRN Reason: mild anxiety Last Admin: 11/13/23 08:59 Dose: 0.1 mg Clonidine HCl (Clonidine Hcl 0.1 Mg Tablet) 0.1 mg PO BID MACIEL; Protocol Last Admin: 11/20/23 08:43 Dose: 0.1 mg Guaifenesin/Dextromethorphan (Guaifenesin Dm 100/10/5 Ml 5 Ml Syrup) 5 ml PO Q4H PRN PRN Reason: Cough Last Admin: 11/01/23 20:31 Dose: 5 ml Haloperidol (Haloperidol 5 Mg Tablet) 10 mg PO BID MACIEL Last Admin: 11/20/23 08:43 Dose: 10 mg Hydroxyzine HCl (Hydroxyzine Hcl 25 Mg Tablet) 25 mg PO Q6H PRN PRN Reason: Anxiety Last Admin: 10/17/23 20:33 Dose: 25 mg Loperamide HCl (Loperamide Hcl 2 Mg Capsule) 4 mg PO Q4H PRN PRN Reason: Diarrhea Last Admin: 11/17/23 10:12 Dose: 4 mg Lorazepam (Lorazepam 0.5 Mg Tablet) 0.5 mg PO TID PRN PRN Reason: anxiety Last Admin: 11/17/23 12:17 Dose: 0.5 mg Lurasidone HCl (Lurasidone Hcl 20 Mg Tablet) 60 mg PO BEDTIME MACIEL Last Admin: 11/19/23 19:59 Dose: 60 mg Magnesium Hydroxide (Milk Of Magnesia 30 Ml Oral.Susp) 30 ml PO DAILY PRN PRN Reason: Constipation Multi-Ingred Medicated Throat [place] (Throat [place], Medicated 177 Ml Bottle) 1 spray MUCOUS MEM Q2H PRN PRN Reason: throat irritation Last Admin: 10/27/23 13:51 Dose: 1 spray Pt Own (Liposomal Vitamin C (Liquid) 15 Ml) 15 ml PO DAILY MACIEL Last Admin: 11/20/23 09:50 Dose: Not Given Pt Own (Physician's Choice Probiotic 1 Cap) 1 cap PO DAILY MACIEL Last Admin: 11/20/23 09:50 Dose: Not Given Trazodone HCl (Trazodone Hcl 50 Mg Tablet) 50 mg PO BEDTIME MRX1 PRN PRN Reason: Insomnia Last Admin: 11/19/23 23:53 Dose: 50 mg Allergies Allergies Allergy/AdvReac Type Severity Reaction Status Date / Time fish derived [fish] Allergy Unknown Verified 09/29/23 23:05 Assessment & Plan Assessment & Plan (1) Schizoaffective disorder: Status: Acute Code(s): F25.9 - Schizoaffective disorder, unspecified Assessment and Plan: 11/07/23 seems to have had positive response changing risperidone to haldol will continue to monitor. Plan HPI: 43 yo single woman with Schizoaffective Disorder who lives alone in a condo in [place] admitted m5 after being brought to [facility] by police who found her wandering in [place]; She is on CV and 15 min checks. pt states she stopped her meds a few months ago. States she hasn't seen therapist and medication provider since March 2023. She states she hear voices and they insult her and are critical and mean to her. she reports being on lithium, latuda and seroquel in past but even on medication she continued to have voices. She does not want to restart lithium, latuda or seroquel but is vague about why not- says she wants to take vitamins and have a clear head. Pt states that she is often scared and fearful; believes people are watching her; fearful that people are trying to kill her. endorses depression and anxiety. denies SI or HI. Hospital course: 10/15 continue tx plan 10/16 increase Risperdal to 2 mg b.i.d. 10/17 disorganized behavior -holding paper to her nose, just sitting there -clogged bathroom toliet and sink with toliet paper and food; denies vomit...she was asked to leave it alone for a minute and during that time, flushed toliet anyway and toliet overflowed.... her bathroom required maintenance; in meantime, she asked to use the handicap bathroom and did the exact same thing. She could not explain why...She is now on 1:1 reports lot of voices... says there is one bad one, voice of Aunt, which scares her; whenever this particular voice comes, her throat feels as if closing up. Pt has c/o of sensation that throat is sore or that she's being choked since admission; sensation seems to primarly happen when voice of aunt shows up. -Pt no problem talking or breathing....no distress and so this is unlikely a dystonic reaction. -Start Cogentin out of abundance of caution if sensation of throat tightening resolves with cogentin, this will likely be diagnostic 10/18 Patient remains very fearful. Says voices continue to say scary things to her. Patient says she likes having a one-to-one and feels safer with staff present and comments that the person does not seem to be very frightening. Patient does report that sensation of throat tightening seems to have resolved with start of Cogentin. Discussed history of lithium, Latuda, Seroquel on which patient is sister/cousin says she did quite well; however patient says she had voices anyway at this time does not want to go back on any of those medications but wants to see if Risperdal can become helpful. News Technical Director explained that currently, Risperdal does not seem to be effective as voices remain very troublesome; patient however was not willing to change medication at this time 10/19 Patient says she is actually feeling a little better today, overall less anxious, less scared. She does not want to raise Risperdal any because the auditory hallucinations are a little bit quieter and she hopes they will continue to become so. She thinks that she will be able to get off one-to-one during the day but would like to have it remain overnight since she wakes up fearful. 10/20 seems to be making incremental improvements and though AH remains significantly bothersome, it is less than before. Patient with overall appropriate behaviors, feeling safe enough to come off 1:1 during the day 10/21 still doing a little better but AH remains prominent; She agrees to minimal increase in Risperdal. Hopefully will be able to convert to long-acting injectable 10/22 change 11-7 checks to 5 minute. Pt feeling improved, states she feels prepared to move forward. 10/24/2023: Continue current regimen and plans 10/25/2023: Continue current regimen and plans 10/25 continue regimen, however, AH remain and significantly impair function; pt has a hx of requiring 2 antipsychotics to be functional and will likely continue to do so; will continue to discuss restarting latuda or seroquel and/or possible lithium (which she was on before) 11/01 increase Latuda to 60mg for continued AH. 11/02 Still with auditory hallucinations; still intrusive and making life difficult however she feels that overall they are quieter, more able to be ignored and not quite as negative. She feels that Latuda is helping. She still remains with some confusion due to internal preoccupation and continues to require assistance from staff however she is improving. She agrees to continue on current dose of Latuda but is open to raising it if symptoms do not improve further. It is possible the current dose will continue to confer further reduction of symptoms; since patient is on 2 antipsychotics trying to titrate slowly to avoid side effects -at this time patient remains with too much mental confusion, due to psychotic illness to function in the community; however symptoms have improved and so news writer is cautiously optimistic that current regimen is the right course 11/03 some increased symptoms expressed today... AH remain problematic and continue to thought block and get in way; pt very anxious. She continues to try and distract self which intermittently helps. She says she continues to use Cepacol throat lozenge to help w/voices which intermittently make her think throat is tightening. Pt expressed paranoid thinking today that she has some continued worries that her family is trying to kill her...she is not sure why or how, but thought pervades...News Technical Director tried to quantify experience of AH now compared to year ago when she was in the community and working; pt said they are much worse now (though still a little less compared to when she was first admitted). -Given continued AH and resurgence of paranoid delusions (at least resurgence of expressed delusion) news writer discussed med management and consideration of changing pt to Haldol or Clozapine. Pt said she's afraid of weekly blood draw, but would entertain switch to Haldol. 11/04 same presentation; signed [facility] for application 11/05 pt reports continued AH and efforts to try to distract herself from them...effort to find find such activities filling up her day; says it helps some. Pt said she would be willing to do Finger stick for ANC (but not venous blood draw) but worried how she would get to clinic each week to do so. News Technical Director discussed with staff and VNA not an option for such blood draw...at writers recommendation pt agreed to try Haldol to see if helped -Although pt has improved some compared to admission, AH and paranoid delusions remain dominant, troublesome and reveal patients fragility; she is far from baseline (where she was able to live on her own, evening holding down employment) and cannot yet function on her own in the community (needed much staff support). Though possible, it seems unlikely that Latuda increase will be sufficient to address positive symptoms of psychosis and pt may need to add or switch to typical anti-psychotic (or Clozapine). She agrees to Haldol 11/08 Patient reports that Haldol seems to be helping better than the Risperdal and she is glad for the change. Prior to this change, patient reported minimal improvement in auditory hallucinations however with Haldol she feels they are significantly reduced and that she is more clear minded. She still has some paranoid delusions present but they seem to be waning in their intensity. Discussed medication management and agreed to leave at current dose for now however she agrees to go up higher if needed. -disposition remains a challenge as patient is cousin is trying to evict her and what seems to be without due process; waiting for [facility] to return repeated attempts to reach out to them. 11/10 AH better; pt anxious; meeting tomorrow w/ sister/cousin Will consider long-acting Haldol Decanoate 11/11 dispo planning; plan is for patient to go to her uncle's which is being set up. Patient [place] and [place] which social work is working on Overall patient feels much improved 11/12 continue tx plan Will consider long-acting Haldol Decanoate 11/14 schedule benztropine bid continue to hold Vit C/probiotic until 11/15 to make sure GI is stable to return to dosing. 11/15 much improved; AH subdued and at this point lower than even a year ago when she was working. mood is good; dispo planning; loose stool subsided pt described what sounds like akathesia which resolved with cogentin. 11/16 reviewed EKG with pt 11/17 remains doing better and voices staying subdued; continues with dispo planning and family coming in for family meeting today. discussed HtN and pt says she used to take clonidine 0.1mg daily for HTN since it also helped w/ anxiety; agrees to restart now. PLAN: CV q15's Start clonidine 0.1mg BID for HTN and anxiety (pt been on in past for same) Continue Latuda 60mg dinner time; will titrate accordingly Continue Haldol 10mg qhs Continue Haldol 5mg daily -continue Cogentin .5mg BID; patient reported what sounded like akathisia that resolved with Cogentin -DC Risperdal liquid 4 mg q.h.s Patient educated on: medication risk/benefits Informed Consent: understands and further education needed (about possiblity that ah may not completely remit and how to manage sys other than medications) Reason for continued inpatient stay Substantial Risk for: rapid decompensation Time Spent With Patient Time: Total time managing care of this patient today ____ minutes.
[2023-11-20] MEDS: LORazepam 0.5 MG TABLET PO (16:02)
[2023-11-20 18:00] VITALS: BP 140/79; PULSE 63; RESP 22; TEMP 37.1; O2SAT 98
--- NOTE | 2023-11-20 18:50 | P.PNPSI_ITS ---
Subjective Subjective Date of Service: 11/20/23 Reason For Visit: Psychosis Interim History: Met with patient; discussed with team Remains stable; agrees with plan. Will proceed with discharge Mental Status Exam Mental Status Exam Narrative: Pt is alert and oriented; behavior is cooperative, calm, friendly, polite; patient is not in distress; dressed in casual attire with good hygiene, grooming; mood is described as good and affect congruent, brighter, more calm; eye contact appropriate; Speech normal rate, prosody, volume; no psychomotor retardation present; thought process is goal directed, linear and organized; Thought content on treatment, dispo: otherwise pertinent to relevant topics; denies any SI/HI; much less self-dialoguing and typically only when alone; Patients insight and judgment fair. Diagnostics Vital Signs (24Hr): Vital Signs - 24 hr 11/19/23 20:01 11/20/23 08:04 Temperature 97.4 F Pulse Rate 62 60 Respiratory Rate 18 18 Blood Pressure 157/77 H 161/78 H Pulse Oximetry 100 Oxygen Delivery Method Room Air BMI result Body Mass Index 42.5 Labs 09/29/23 22:53 09/29/23 22:53 Medications Medications Current Medications Acetaminophen (Acetaminophen 325 Mg Tablet) 650 mg PO Q6H PRN PRN Reason: Headache/Pain Mild Scale (1-3) Last Admin: 11/14/23 03:11 Dose: 650 mg Al Hydroxide/Mg Hydroxide (Magnesium Hydrox/Alum Hydrox 30 Ml Oral.Susp) 30 ml PO Q6H PRN PRN Reason: Heartburn/Nausea Last Admin: 10/30/23 05:22 Dose: 30 ml Artificial Tears (Artificial Tears 15 Ml Drops) 2 drop EYE-BOTH Q4H PRN PRN Reason: Dry Eyes Last Admin: 11/17/23 08:03 Dose: 2 drop Benzocaine (Throat Lozenge, Medicated Lozenge) 1 lozenge MUCOUS MEM Q2H PRN PRN Reason: Sore Throat Last Admin: 11/03/23 20:54 Dose: 1 lozenge Benztropine Mesylate (Benztropine Mesylate 0.5 Mg Tablet) 0.5 mg PO BID MACIEL Last Admin: 11/20/23 08:43 Dose: 0.5 mg Clonidine HCl (Clonidine Hcl 0.1 Mg Tablet) 0.1 mg PO Q4H PRN; Protocol PRN Reason: mild anxiety Last Admin: 11/13/23 08:59 Dose: 0.1 mg Clonidine HCl (Clonidine Hcl 0.1 Mg Tablet) 0.1 mg PO BID [facility]; Protocol Last Admin: 11/20/23 08:43 Dose: 0.1 mg Guaifenesin/Dextromethorphan (Guaifenesin Dm 100/10/5 Ml 5 Ml Syrup) 5 ml PO Q4H PRN PRN Reason: Cough Last Admin: 11/01/23 20:31 Dose: 5 ml Haloperidol (Haloperidol 5 Mg Tablet) 10 mg PO BID MACIEL Last Admin: 11/20/23 08:43 Dose: 10 mg Hydroxyzine HCl (Hydroxyzine Hcl 25 Mg Tablet) 25 mg PO Q6H PRN PRN Reason: Anxiety Last Admin: 10/17/23 20:33 Dose: 25 mg Loperamide HCl (Loperamide Hcl 2 Mg Capsule) 4 mg PO Q4H PRN PRN Reason: Diarrhea Last Admin: 11/17/23 10:12 Dose: 4 mg Lorazepam (Lorazepam 0.5 Mg Tablet) 0.5 mg PO TID PRN PRN Reason: anxiety Last Admin: 11/20/23 16:02 Dose: 0.5 mg Lurasidone HCl (Lurasidone Hcl 20 Mg Tablet) 60 mg PO BEDTIME MACIEL Last Admin: 11/19/23 19:59 Dose: 60 mg Magnesium Hydroxide (Milk Of Magnesia 30 Ml Oral.Susp) 30 ml PO DAILY PRN PRN Reason: Constipation Multi-Ingred Medicated Throat [place] (Throat [place], Medicated 177 Ml Bottle) 1 spray MUCOUS MEM Q2H PRN PRN Reason: throat irritation Last Admin: 10/27/23 13:51 Dose: 1 spray Pt Own (Liposomal Vitamin C (Liquid) 15 Ml) 15 ml PO DAILY MACIEL Last Admin: 11/20/23 09:50 Dose: Not Given Pt Own (Physician's Choice Probiotic 1 Cap) 1 cap PO DAILY [facility] Last Admin: 11/20/23 09:50 Dose: Not Given Trazodone HCl (Trazodone Hcl 50 Mg Tablet) 50 mg PO BEDTIME MRX1 PRN PRN Reason: Insomnia Last Admin: 11/19/23 23:53 Dose: 50 mg Allergies Allergies Allergy/AdvReac Type Severity Reaction Status Date / Time fish derived [fish] Allergy Unknown Verified 09/29/23 23:05 Assessment & Plan Assessment & Plan (1) Schizoaffective disorder: Status: Acute Code(s): F25.9 - Schizoaffective disorder, unspecified Assessment and Plan: 11/07/23 seems to have had positive response changing risperidone to haldol will continue to monitor. Plan HPI: 43 yo single woman with Schizoaffective Disorder who lives alone in a condo in [place] admitted m5 after being brought to [facility] ED by police who found her wandering in [place]; She is on CV and 15 min checks. pt states she stopped her meds a few months ago. States she hasn't seen therapist and medication provider since March 2023. She states she hear voices and they insult her and are critical and mean to her. she reports being on lithium, latuda and seroquel in past but even on medication she continued to have voices. She does not want to restart lithium, latuda or seroquel but is vague about why not- says she wants to take vitamins and have a clear head. Pt states that she is often scared and fearful; believes people are watching her; fearful that people are trying to kill her. endorses depression and anxiety. denies SI or HI. Hospital course: 10/15 continue tx plan 10/16 increase Risperdal to 2 mg b.i.d. 10/17 disorganized behavior -holding paper to her nose, just sitting there -clogged bathroom toliet and sink with toliet paper and food; denies vomit...she was asked to leave it alone for a minute and during that time, flushed toliet anyway and toliet overflowed.... her bathroom required maintenance; in meantime, she asked to use the handicap bathroom and did the exact same thing. She could not explain why...She is now on 1:1 reports lot of voices... says there is one bad one, voice of Aunt, which scares her; whenever this particular voice comes, her throat feels as if closing up. Pt has c/o of sensation that throat is sore or that she's being choked since admission; sensation seems to primarly happen when voice of aunt shows up. -Pt no problem talking or breathing....no distress and so this is unlikely a dystonic reaction. -Start Cogentin out of abundance of caution if sensation of throat tightening resolves with cogentin, this will likely be diagnostic 10/18 Patient remains very fearful. Says voices continue to say scary things to her. Patient says she likes having a one-to-one and feels safer with staff present and comments that the person does not seem to be very frightening. Patient does report that sensation of throat tightening seems to have resolved with start of Cogentin. Discussed history of lithium, Latuda, Seroquel on which patient is sister/cousin says she did quite well; however patient says she had voices anyway at this time does not want to go back on any of those medications but wants to see if Risperdal can become helpful. [facility] explained that currently, Risperdal does not seem to be effective as voices remain very troublesome; patient however was not willing to change medication at this time 10/19 Patient says she is actually feeling a little better today, overall less anxious, less scared. She does not want to raise Risperdal any because the auditory hallucinations are a little bit quieter and she hopes they will continue to become so. She thinks that she will be able to get off one-to-one during the day but would like to have it remain overnight since she wakes up fearful. 10/20 seems to be making incremental improvements and though AH remains significantly bothersome, it is less than before. Patient with overall appropriate behaviors, feeling safe enough to come off 1:1 during the day 10/21 still doing a little better but AH remains prominent; She agrees to minimal increase in Risperdal. Hopefully will be able to convert to long-acting injectable 10/22 change 11-7 checks to 5 minute. Pt feeling improved, states she feels prepared to move forward. 10/24/2023: Continue current regimen and plans 10/25/2023: Continue current regimen and plans 10/25 continue regimen, however, AH remain and significantly impair function; pt has a hx of requiring 2 antipsychotics to be functional and will likely continue to do so; will continue to discuss restarting latuda or seroquel and/or possible lithium (which she was on before) 11/01 increase Latuda to 60mg for continued AH. 11/02 Still with auditory hallucinations; still intrusive and making life difficult however she feels that overall they are quieter, more able to be ignored and not quite as negative. She feels that Latuda is helping. She still remains with some confusion due to internal preoccupation and continues to require assistance from staff however she is improving. She agrees to continue on current dose of Latuda but is open to raising it if symptoms do not improve further. It is possible the current dose will continue to confer further reduction of symptoms; since patient is on 2 antipsychotics trying to titrate slowly to avoid side effects -at this time patient remains with too much mental confusion, due to psychotic illness to function in the community; however symptoms have improved and so automatic typewriter inspector is cautiously optimistic that current regimen is the right course 11/03 some increased symptoms expressed today... AH remain problematic and continue to thought block and get in way; pt very anxious. She continues to try and distract self which intermittently helps. She says she continues to use Cepacol throat lozenge to help w/voices which intermittently make her think throat is tightening. Pt expressed paranoid thinking today that she has some continued worries that her family is trying to kill her...she is not sure why or how, but thought pervades...[facility] tried to quantify experience of AH now compared to year ago when she was in the community and working; pt said they are much worse now (though still a little less compared to when she was first admitted). -Given continued AH and resurgence of paranoid delusions (at least resurgence of expressed delusion) automatic typewriter inspector discussed med management and consideration of changing pt to Haldol or Clozapine. Pt said she's afraid of weekly blood draw, but would entertain switch to Haldol. 11/04 same presentation; signed [facility] for application 11/05 pt reports continued AH and efforts to try to distract herself from them...effort to find find such activities filling up her day; says it helps some. Pt said she would be willing to do Finger stick for ANC (but not venous blood draw) but worried how she would get to clinic each week to do so. [facility] discussed with staff and VNA not an option for such blood draw...at writers recommendation pt agreed to try Haldol to see if helped -Although pt has improved some compared to admission, AH and paranoid delusions remain dominant, troublesome and reveal patients fragility; she is far from baseline (where she was able to live on her own, evening holding down employment) and cannot yet function on her own in the community (needed much staff support). Though possible, it seems unlikely that Latuda increase will be sufficient to address positive symptoms of psychosis and pt may need to add or switch to typical anti-psychotic (or Clozapine). She agrees to Haldol 11/08 Patient reports that Haldol seems to be helping better than the Risperdal and she is glad for the change. Prior to this change, patient reported minimal improvement in auditory hallucinations however with Haldol she feels they are significantly reduced and that she is more clear minded. She still has some paranoid delusions present but they seem to be waning in their intensity. Discussed medication management and agreed to leave at current dose for now however she agrees to go up higher if needed. -disposition remains a challenge as patient is cousin is trying to evict her and what seems to be without due process; waiting for DM to return repeated attempts to reach out to them. 11/10 AH better; pt anxious; meeting tomorrow w/ sister/cousin Will consider long-acting Haldol Decanoate 11/11 dispo planning; plan is for patient to go to her uncle's which is being set up. [place] which social work is working on Overall patient feels much improved 11/12 continue tx plan Will consider long-acting Haldol Decanoate 11/14 schedule benztropine bid continue to hold Vit C/probiotic until 11/15 to make sure GI is stable to return to dosing. 11/15 much improved; AH subdued and at this point lower than even a year ago when she was working. mood is good; dispo planning; loose stool subsided pt described what sounds like akathesia which resolved with cogentin. 11/16 reviewed EKG with pt 11/17 remains doing better and voices staying subdued; continues with dispo planning and family coming in for family meeting today. discussed HtN and pt says she used to take clonidine 0.1mg daily for HTN since it also helped w/ anxiety; agrees to restart now. Patient is significantly improved and close to or at baseline. Feels optimistic and ready for discharge. Patient is not in imminent risk for harm to self or others and appropriate to return to the community for treatment PLAN: CV q15's Start clonidine 0.1mg BID for HTN and anxiety (pt been on in past for same) Continue Latuda 60mg dinner time; will titrate accordingly Continue Haldol 10mg qhs Continue Haldol 5mg daily -continue Cogentin .5mg BID; patient reported what sounded like akathisia that resolved with Cogentin -DC Risperdal liquid 4 mg q.h.s Patient educated on: diagnosis and medication risk/benefits Informed Consent: understands Reason for continued inpatient stay Substantial Risk for: stable for discharge Time Spent With Patient Time: Total time managing care of this patient today ____ minutes.
--- NOTE | 2023-11-20 18:58 | P.DS_ITS ---
DS: Providers Provider Date of Service: 11/21/23 Date of admission: 10/01/23 12:42 Date of discharge: 11/21/23 Primary care physician: Unknown Physician Attending physician on admission: Mark Dougherty Consults: 10/01/23 16:11 Consult to Hospitalist Routine Comment: Lesion, L Breast Consulting Provider: Hospitalist Reason For Exam: Hypertension, untreated Attending physician on discharge: Mark Dougherty DS: Diagnosis Discharge Diagnosis (1) Schizoaffective disorder: Status: Acute DS: Medications Discharge Medications Home Medications: Home Medications ?Medication ?Instructions ?Recorded ?Confirmed Liposomal Vitamin C 15 ml PO DAILY 11/06/23 11/06/23 Probiotic 60 Billion 1 cap PO DAILY 11/06/23 11/06/23 Previous Rx's ?Medication ?Instructions ?Recorded benztropine 0.5 mg tablet 0.5 mg PO BID 30 days #60 tabs 11/20/23 clonidine HCl 0.1 mg tablet 0.1 mg PO BID 30 days #60 tabs 11/20/23 haloperidol 10 mg tablet 10 mg PO BID 30 days #60 tabs 11/20/23 lorazepam 0.5 mg tablet 0.5 mg PO TID PRN anxiety 30 days 11/20/23 #90 tabs lurasidone 60 mg tablet 60 mg PO BEDTIME 30 days #30 tabs 11/20/23 peg [id number] 1 2 drp ophthalmic (eye) Q4H PRN Dry 11/20/23 %-0.2 %-0.2 % eye drops Eyes 30 days #15 mL (Artificial Tears ([id number])) trazodone 50 mg tablet 50 mg PO BEDTIME PRN Insomnia 30 11/20/23 days #30 tabs Mental Status Exam Mental Status Exam Narrative: Pt is alert and oriented; behavior is cooperative, calm, friendly, polite; patient is not in distress; dressed in casual attire with good hygiene, grooming; mood is described as good and affect congruent, brighter, more calm; eye contact appropriate; Speech normal rate, prosody, volume; no psychomotor retardation present; thought process is goal directed, linear and organized; Thought content on treatment, dispo: otherwise pertinent to relevant topics; denies any SI/HI; much less self-dialoguing and typically only when alone; Patients insight and judgment fair. Data Data Completed and Pending Completed studies during hospitalization [Text1]: 10/16/23 19:23 Throat Throat Culture - Final No Group A Beta-hemolytic Streptococci isolated. 10/05/23 22:30 Throat Throat Culture - Final No Group A Beta-hemolytic Streptococci isolated. DS: Summary Hospital Course Hospital Course: HPI: 43 yo single woman with Schizoaffective Disorder who lives alone in a condo in [place] admitted m5 after being brought to [facility] ED by police who found her wandering in [place]; She is on CV and 15 min checks. pt states she stopped her meds a few months ago. States she hasn't seen therapist and medication provider since March 2023. She states she hear voices and they insult her and are critical and mean to her. she reports being on lithium, latuda and seroquel in past but even on medication she continued to have voices. She does not want to restart lithium, latuda or seroquel but is vague about why not- says she wants to take vitamins and have a clear head. Pt states that she is often scared and fearful; believes people are watching her; fearful that people are trying to kill her. endorses depression and anxiety. denies SI or HI. Hospital course: Long and complicated admission On admission Disorganized, bizarre on admission; -initially patient restarted on and increased on Risperdal -holding paper to her nose, just sitting there -clogged bathroom toliet and sink with toliet paper and food; denies vomit...she was asked to leave it alone for a minute and during that time, flushed toliet anyway and toliet overflowed.... her bathroom required maintenance; in meantime, she asked to use the handicap bathroom and did the exact same thing. She could not explain why...She is now on 1:1 reports lot of voices... says there is one bad one, voice of Aunt, which scares her; whenever this particular voice comes, her throat feels as if closing up. Pt has c/o of sensation that throat is sore or that she's being choked since admission; sensation seems to primarly happen when voice of aunt shows up. -Pt no problem talking or breathing....no distress and so this is unlikely a dystonic reaction. -Start Cogentin out of abundance of caution however throat tightening proved to be more due to delusional thought than medication side effect. Over the next month, patient struggled with auditory hallucinations, paranoid delusions and disorganized behavior. Willmar she needed to be on a one-to-one, fearful. Risperdal titrated and patient made some incremental progress and became less scared but voices remained quite problematic and she stay debilitated. After therapeutic dose and duration who was concluded that Ris perdal was not effective. Patient was started on Latuda which was increased and did help with mood and helped lower AH more than the Risperdal, however she continued to have problematic AH, thought blocking and paranoid delusions that family was trying to kill her, and remained quite far from baseline. Because Latuda was partially helpful was continued but patient was also eventually started on Haldol (discussed clozapine but patient afraid of weekly blood draw). On Haldol patient started to significantly improve and AH became subdued and waning in their intensity. Patient did develop some akathisia which resolved with Cogentin so this was continued. Patient started to approach baseline. There was some concern that her cousin was wrong fully trying to evict her from her condo without due process; patient's family however were willing to take her in and let her stay with them and so ultimately this concern faded. Patient continued to improve and was in a good mood, with visibly bright affect, talking freely, socializing in the milieu and without any paranoid delusions. She was also future oriented and hopeful that she could get back to a regular lifestyle. Patient signed up with [facility] and is grateful for services that will be available. She felt ready to discharge and was returning to live at her aunt and uncles. She sleeping and eating well, in a good mood, optimistic; she was appropriate to return to the community for treatment and was not in imminent risk for harm to self or others. Time spent discussing smoking cessation with patient: 3 to 10 minutes Status at Discharge Functional status at discharge: independent ambulation Overall status at discharge: patient is progressing back to baseline Time Spent with Patient Time attestation: Total time managing care of this patient today __40__ minutes. Time spent: Greater than 30 minutes Discharge Plan Discharge Anticipated Discharge Date/Time: 11/21/23 11:00 Patient Disposition: Home, Self-Care Discharge Diagnosis: Schizoaffective disorder, bipolar type Referrals: [facility] Intake with Maye Medina [Other] - 11/26/23 10:00 am (In Person) [facility] Psychiatry with Barbra Duarte [Other] - 12/22/23 11:00 am (Telehealth) Department of Mental Health ([facility]) [Other] - 1 Week (They are in the process of reviewing the application. If you dont hear from them in about a week give them a call to see where they are in the process. ) Roseann Reynolds MEDICAL SPECIALIST Medication Management [Other] - 11/30/23 1:00 pm (Roseann Reynolds will be able to see Aliza until her first appt with [facility]'s psychiatrist, Barbra Duarte. Come to the 5th floor, take a right out of the elevator and go to the first office on the right where you can check in for the appt. Please call Merissa Metcalf at [phone] with any questions about appt with Roseann. ) Physician,Unknown J [Primary Care Provider] - 1 Week Discharge Medications: New Artificial Tears([id number]) 1-0.2-0.2 % Drops 2 drp ophthalmic (eye) Q4H PRN (Reason: Dry Eyes) 30 Days Qty: 15 1RF Continued Probiotic 60 Billion capsule 1 cap PO DAILY Liposomal Vitamin C 15 ml PO DAILY No Action benztropine 0.5 mg tablet 0.5 mg PO BID 30 Days Qty: 60 1RF clonidine HCl 0.1 mg tablet 0.1 mg PO BID 30 Days Qty: 60 1RF haloperidol 10 mg tablet 10 mg PO BID 30 Days Qty: 60 1RF lorazepam 0.5 mg tablet 0.5 mg PO TID PRN (Reason: anxiety) 30 Days Qty: 90 0RF lurasidone 60 mg tablet 60 mg PO BEDTIME 30 Days Qty: 30 1RF Rx Instructions: must administer with food (at least 350 calories) trazodone 50 mg tablet 50 mg PO BEDTIME PRN (Reason: Insomnia) 30 Days Qty: 30 1RF Discharge Orders: Discharge Order (Routine); Ordered 11/21/23 Ordered By: Mark Dougherty Diet: Regular diet Activity on Discharge: As tolerated Stand Alone Forms: Patient Portal Discharge page, Community Support Print Language: Italian Care Plan Goals: Maintain mood and safe behaviors Take medications as prescribed Practice coping skills Continue with outpatient providers and reach out to them as needed Health Concerns: Mood stability and behaviors Hypertension Plan of Treatment: Follow up with your PCP, psychiatric provider and other outpatient providers regarding above concerns Take medications as prescribed Assessment: Risk assessment at time of discharge:? Patient was interviewed prior to discharge and found to be fully oriented and without any SI or HI. Patient has improved insight and judgment and wants to continue treatment. Patient is not in imminent risk of harm to self or others and has a safety plan that includes presenting to the closest ER or calling 911 if feeling unsafe.? Patient has been observed closely by nursing and unit staff throughout admission; patient has not engaged in any behaviors that suggest dangerousness to self or others and has demonstrated appropriate behaviors and impulse control Discharge Date/Time: 11/21/23 11:35
[2023-11-20] MEDS: Lurasidone HCl 20 MG TABLET 60 MG PO (21:41)
[2023-11-20] MEDS: traZODone HCL 50 MG TABLET PO (21:42)
[2023-11-21 08:01] VITALS: BP 120/62; PULSE 62; RESP 16; TEMP 36.4; O2SAT 100
[2023-11-21] MEDS: cloNIDine HCL 0.1 MG TABLET PO (08:32)
[2023-11-21] MEDS: Benztropine Mesylate 0.5 MG TABLET PO (08:32)
[2023-11-21] MEDS: HaloperidoL 5 MG TABLET 10 MG PO (08:32)
== END 2023-11-21 11:35 | disposition home or self-care (01) | DRG 885 ==
LOC: HO.ED 09-30 09:33 → HO.PM5 10-01 12:51
PROVIDERS: Clinical Nurse Specialist Psychiatric/Mental Health, Adult; Admitting Provider Psychiatry & Neurology Psychiatry; Emergency Provider Emergency Medicine; Visit Provider Psychiatry & Neurology Psychiatry
DX: F25.0 Schizoaffective disorder, bipolar type (principal); I10 Essential (primary) hypertension; F41.9 Anxiety disorder, unspecified; J10.1 Influenza due to other identified influenza virus with other respiratory manifestations; Z20.822 Contact with and (suspected) exposure to COVID-19; Z79.899 Other long term (current) drug therapy
CPT/HCPCS: 0241U; 36415; 80048; 80061; 80076; 80307; 81001; 81003; 82607; 82746; 83036; 83735; 84439; 84443; 84702; 85025; 87070; 87635; 93005; 99285; S9485

== ENCOUNTER 2023-10-01 12:42 | Outpatient (BNV) | payer MEDICARE, SELFPAY | END 2023-11-16 09:00 | PROVIDERS: Admitting Provider Psychiatry & Neurology Psychiatry; Emergency Provider Emergency Medicine; Visit Provider Internal Medicine Cardiovascular Disease | DX: I45.81 Long QT syndrome (principal) | CPT/HCPCS: 93010 ==

== ENCOUNTER 2023-10-01 12:42 | Outpatient (BNV) | payer MEDICARE, SELFPAY | END 2023-11-15 10:28 | PROVIDERS: Admitting Provider Psychiatry & Neurology Psychiatry; Emergency Provider Emergency Medicine; Visit Provider Internal Medicine Cardiovascular Disease | DX: I45.81 Long QT syndrome (principal) | CPT/HCPCS: 93010 ==

== ENCOUNTER → 2023-10-01 12:42 | Outpatient (BNV) | payer MEDICARE, SELFPAY | PROVIDERS: Admitting Provider Psychiatry & Neurology Psychiatry; Emergency Provider Emergency Medicine; Visit Provider Clinical Nurse Specialist Psychiatric/Mental Health | DX: F25.9 Schizoaffective disorder, unspecified (principal) | CPT/HCPCS: 90792; 99231; 99232; 99239 ==

== ENCOUNTER 2023-11-30 12:53 | Outpatient (AMB) | payer OTHER, SELFPAY ==
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
== END 2023-11-30 13:41 | disposition home or self-care (01) ==
LOC: HO.HOP 12:53
PROVIDERS: Visit Provider Clinical Nurse Specialist Psychiatric/Mental Health
DX: F25.1 Schizoaffective disorder, depressive type (principal)
CPT/HCPCS: 99215

== ENCOUNTER → 2023-11-30 12:53 | Outpatient (BNVA) | payer OTHER, SELFPAY | PROVIDERS: Visit Provider Clinical Nurse Specialist Psychiatric/Mental Health ==

== ENCOUNTER 2023-12-11 13:28 | Outpatient (AMB) | payer OTHER, SELFPAY ==
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
== END 2023-12-11 15:36 | disposition home or self-care (01) ==
LOC: HO.HOP 13:28
PROVIDERS: Visit Provider Clinical Nurse Specialist Psychiatric/Mental Health
DX: F25.1 Schizoaffective disorder, depressive type (principal)
CPT/HCPCS: 99214

== ENCOUNTER → 2023-12-11 13:28 | Outpatient (BNVA) | payer OTHER, SELFPAY | PROVIDERS: Visit Provider Clinical Nurse Specialist Psychiatric/Mental Health ==